=== PATIENT | male | born 1950 | race Caucasian/White ===

== ENCOUNTER 2017-05-14 06:09 | Emergency (ER) | payer BC ==
[~2017-05-14] VITALS: Ht 177.8 cm; Wt 105.3 kg
[2017-05-14 06:14] VITALS: TEMP 36.6; Ht 177.8 cm; Wt 105.3 kg
[2017-05-14] MEDS ORDERED: SODIUM CHLORIDE 0.9% 1000ML 1,000 ML IV STA (06:36)
[2017-05-14] MEDS ORDERED: FENTANYL CITRATE INJ 50 MCG/1 ML 2 ML VIAL IV STA (06:36)
[2017-05-14] MEDS ORDERED: KETOROLAC TROMETHAMINE 30 MG/ML VIAL IV STA (06:36)
[2017-05-14] MEDS ORDERED: ONDANSETRON INJ 2 MG/ML 2 ML VIAL IV STA (06:36)
[2017-05-14] MEDS ORDERED: LOSA1TAB38 PO (06:48)
[2017-05-14] MEDS ORDERED: LEVO137T3 PO (06:48)
[2017-05-14] MEDS ORDERED: METO50TA7 PO (06:48)
[2017-05-14] MEDS ORDERED: PRLSR20 PO (06:48)
[2017-05-14] MEDS ORDERED: CLR10 PO (06:49)
[2017-05-14] MEDS ORDERED: ASPCH81X PO (06:49)
[2017-05-14] MEDS ORDERED: FELO5TAB PO (06:49)
--- NOTE | 2017-05-14 06:49 | EMERGENCY ROOM VISIT NOTE ---
History Report prepared by Chiquis: Rae Schumacher Under the Supervision of: Dr. Deni Bunn D.O. First contact with patient: 06:35 Chief Complaint: FLANK PAIN Stated Complaint: KIDNEY STONE History of Present Illness The patient is a 66 year old male who presents to the Emergency Room with complaints of sudden left sided flank pain beginning about 4 hours ago. The patient states his pain woke him up this morning. He reports some nausea from the pain. The patient has a history of kidney stones. The patient states he can "feel the stone moving". The patient states when he gave a urine sample his pain went away. He states he did not see a stone in the urine sample he provided. At its worst the patient rates his pain as a 10/10. Presently, the patient rates his pain as a 1/10. His last kidney stone was about 20 years ago. Presently, he denies any flank pain and describes his pain as abdominal pressure. He states his abdominal pressure feels like after the last time he passed a stone. Source of History: patient Onset: 3 hours Position: other (flank) Symptom Intensity: Timing: other (sudden) Associated Symptoms: + nausea, + abdominal pain Review of Systems See HPI for pertinent positives & negatives. A total of 10 systems reviewed and were otherwise negative. Past Medical & Surgical Medical Problems: (1) Kidney stone Family History Patient reports no known family medical history. Social History Smoking Status: Never Smoker Marital Status: Housing Status: lives with significant other Current/Historical Medications Scheduled Aspirin (Aspirin Chewable), 81 MG PO DAILY Felodipine (Plendil), 5 MG PO DAILY Levothyroxine Sodium (Levothyroxine Sodium), 1 TAB PO DAILY Loratadine (Claritin), 10 MG PO DAILY Losartan Potassium (Cozaar), 100 MG PO DAILY Metoprolol Succ (Toprol Xl) (Toprol-Xl), 50 MG PO DAILY Omeprazole (Prilosec), 20 MG PO HS Allergies Coded Allergies: No Known Allergies (Unverified , 05/14/17) Physical Exam Vital Signs Date Time Temp Pulse Resp B/P (MAP) Pulse Ox O2 Delivery O2 Flow Rate FiO2 05/14/17 07:56 58 17 143/82 96 Room Air 05/14/17 07:01 90 16 124/71 94 Room Air 05/14/17 06:14 36.6 63 18 184/95 97 Room Air Physical Exam CONSTITUTIONAL/VITAL SIGNS: Reviewed / noted above. GENERAL: Non-toxic in appearance. INTEGUMENTARY: Warm, dry, and [place]. HEAD: Normocephalic. EYES: without scleral icterus or trauma. ENT/OROPHARYNX: clear and moist. LYMPHADENOPATHY/NECK: Is supple without lymphadenopathy or meningismus. RESPIRATORY: Lungs clear and equal. CARDIOVASCULAR: Regular rate and rhythm. GI/ABDOMEN: Soft and nontender. No organomegaly or pulsatile mass. No rebound or guarding. Normal bowel sounds. EXTREMITIES: Warm and well perfused. BACK: No CVA tenderness. NEUROLOGICAL: Intact without focal deficits. PSYCHIATRIC: normal affect. MUSCULOSKELETAL: Normally developed with good muscle tone. Medical Decision & Procedures ER Provider Diagnostic Interpretation: Radiology results as stated below per my review and radiologist interpretation: CT SCAN OF THE ABDOMEN AND PELVIS WITHOUT CONTRAST FINDINGS: Lower chest: The heart is normal in size and configuration, without pericardial effusion. The lung bases and pleural spaces are clear. Liver: There is mild hepatic steatosis. No focal masses are visualized. Gallbladder: Unremarkable. Spleen: There is scattered splenic granulomas. Pancreas: Unremarkable. Adrenal glands: Unremarkable. Kidneys: There is bilateral nephrolithiasis. The largest calculus on the left measures 3.5 mm. The largest calculus in the right measures 3 mm. There is a mid to lower pole left renal cortical scar. There are bilateral renal masses. Most are low-density, and likely represent cysts. There is an 11 mm right renal lesion which is hyperdense, favoring a hyperdense cyst. Further characterization is however not possible on this noncontrast study. There is mild fullness the right renal collecting system and right ureter. There is a 6 mm distal right ureteral calculus located just proximal to the ureteral vesicle junction Bowel: There are no transition zones indicate bowel obstruction. There is colonic diverticulosis. There are no acute peridiverticular inflammatory changes. The appendix appears normal. Peritoneum: There is no intraperitoneal free air or abdominal ascites. There is a fat-containing umbilical hernia. There are postsurgical changes of bilateral inguinal hernia repairs. There is a fat-containing left inguinal hernia. Vasculature: There is mild aneurysmal dilatation of the infrarenal abdominal aorta which measures 32 mm. Adenopathy: None. Pelvic viscera: There is mild prostamegaly Skeletal structures: No destructive osseous lesions are seen. IMPRESSION: 1. Bilateral nephrolithiasis 2. 6 mm distal right ureteral calculus with mild secondary obstructive changes 3. 32 mm abdominal aortic aneurysm 4. Bilateral renal masses. Although likely representing cysts and hyperdense cysts, these cannot be accurately characterized on this noncontrast study Electronically signed by: Andrzej Payne M.D. Laboratory Results 05/14/17 06:25 Red Blood Count 5.34, Mean Corpuscular Volume 86.0, Mean Corpuscular Hemoglobin 30.5, Mean Corpuscular Hemoglobin Concent 35.5, Mean Platelet Volume 12.0, Neutrophils (%) (Auto) 49.5, Lymphocytes (%) (Auto) 34.1, Monocytes (%) (Auto) 10.5, Eosinophils (%) (Auto) 4.7, Basophils (%) (Auto) 1.0, Neutrophils # (Auto ) 2.83, Lymphocytes # (Auto) 1.95, Monocytes # (Auto) 0.60, Eosinophils # (Auto ) 0.27, Basophils # (Auto) 0.06 05/14/17 06:25 Test 05/14/17 06:25 05/14/17 06:35 White Blood Count 5.72 K/uL (4.8-10.8) Red Blood Count 5.34 M/uL (4.7-6.1) Hemoglobin 16.3 g/dL (14.0-18.0) Hematocrit 45.9 % (42-52) Mean Corpuscular Volume 86.0 fL (80-100) Mean Corpuscular Hemoglobin 30.5 pg (25-34) Mean Corpuscular Hemoglobin Concent 35.5 g/dl (32-36) Platelet Count 127 K/uL (130-400) Mean Platelet Volume 12.0 fL (7.4-10.4) Neutrophils (%) (Auto) 49.5 % Lymphocytes (%) (Auto) 34.1 % Monocytes (%) (Auto) 10.5 % Eosinophils (%) (Auto) 4.7 % Basophils (%) (Auto) 1.0 % Neutrophils # (Auto) 2.83 K/uL (1.4-6.5) Lymphocytes # (Auto) 1.95 K/uL (1.2-3.4) Monocytes # (Auto) 0.60 K/uL (0.11-0.59) Eosinophils # (Auto) 0.27 K/uL (0-0.5) Basophils # (Auto) 0.06 K/uL (0-0.2) RDW Standard Deviation 41.1 fL (36.4-46.3) RDW Coefficient of Variation 13.0 % (11.5-14.5) Immature Granulocyte % (Auto) 0.2 % Immature Granulocyte # (Auto) 0.01 K/uL (0.00-0.02) Platelet Estimate DECREASED Anion Gap 5.0 mmol/L (3-11) Est Creatinine Clear Calc Drug Dose 86.1 ml/min Estimated GFR () 86.9 Estimated GFR (Non- 75.0 BUN/Creatinine Ratio 14.1 (10-20) Calcium Level 9.2 mg/dl (8.5-10.1) Total Bilirubin 0.5 mg/dl (0.2-1) Direct Bilirubin 0.1 mg/dl (0-0.2) Aspartate Amino Transf (AST/SGOT) 31 U/L (15-37) Alanine Aminotransferase (ALT/SGPT) 49 U/L (12-78) Alkaline Phosphatase 97 U/L (45-117) Total Protein 7.8 gm/dl (6.4-8.2) Albumin 4.0 gm/dl (3.4-5.0) Lipase 409 U/L (73-393) Urine Color YELLOW Urine Appearance CLEAR (CLEAR) Urine pH 6.0 (4.5-7.5) Urine Specific [place] 1.016 (1.000-1.030) Urine Protein NEG (NEG) Urine Glucose (UA) NEG (NEG) Urine Ketones NEG (NEG) Urine Occult Blood NEG (NEG) Urine Nitrite NEG (NEG) Urine Bilirubin NEG (NEG) Urine Urobilinogen NEG (NEG) Urine Leukocyte Esterase NEG (NEG) Urine WBC (Auto) 1-5 /hpf (0-5) Urine RBC (Auto) 0-4 /hpf (0-4) Urine Hyaline Casts (Auto) 0 /lpf (0-5) Urine Epithelial Cells (Auto) 0-5 /lpf (0-5) Urine Bacteria (Auto) NEG (NEG) Laboratory results as stated above per my review. Medications Administered Medications (Trade) Dose Ordered Sig/Viv Route Start Time Stop Time Status Last Admin Dose Admin Sodium Chloride 1,000 ml @ 999 mls/hr Q1H1M STAT IV 05/14/17 06:36 05/14/17 07:36 DC 05/14/17 06:49 999 MLS/HR ED Course 0636: Previous medical records were reviewed. The patient was evaluated in room A12B. A complete history and physical examination was performed. 0636: Ordered Toradol Inj 30 mg IV, Zofran Inj 4 mg IV, Fentanyl Inj 100 mcg IV , Sodium Chloride 1000 ml @ 999 mls/hr IV. 0820: I updated the patient on his test results. 082: On reevaluation, the patient is resting comfortably. I discussed the results and findings with the patient. He verbalized agreement of the treatment plan. The patient was discharged home. Medical Decision Differential considered: pancreatitis, hepatitis, or acute cholecystitis, AAA, UTI, pyelonephritis, kidney stones, appendicitis, diverticulitis, shingles, bowel obstruction mesenteric ischemia, intussusception,hernia, testicular torsion. This is a 66-year-old male who presents to the ED with a chief complaint of right-sided flank pain. His symptoms started around 3 AM. It awoke him from sleep several times. He had some associated nausea and dry heaves and a little vomiting. He states that his pain is down the right lower quadrant. When I saw him, his symptoms had completely resolved. His initial blood pressure was elevated but was normal after it was reassessed. His exam did not reveal any CVA tenderness or abdominal tenderness. A CT scan of the abdomen and pelvis reveals a 6 mm distal right ureteral calculus with mild obstructive changes. Complete metabolic panel was normal and urinalysis did not show infection or blood. CBC was normal. The patient remained asymptomatic during his ED stay. He was told to take ibuprofen, prescribed Percocet, and given a urine strainer. He was told the abnormal findings on the CT scan and was given a copy of this with regards to his aortic aneurysm/kidney cysts. Medication Reconcilliation Current Medication List: was personally reviewed by me Blood Pressure Screening Patient's blood pressure: Normal blood pressure Impression Primary Impression: Renal colic Additional Impression: Kidney stone Scribe Attestation The scribe's documentation has been prepared under my direction and personally reviewed by me in its entirety. I confirm that the note above accurately reflects all work, treatment, procedures, and medical decision making performed by me. Departure Information Dispostion Home / Self-Care Prescriptions Oxycodone/Acetaminophen 5MG/325MG (PERCOCET 5MG/325MG) Tab 1 TAB PO Q6H Y for Pain, #20 TAB Prov: Deni Bunn D.O. 05/14/17 Referrals Dino Meza M.D. (PCP) Forms HOME CARE DOCUMENTATION FORM, IMPORTANT VISIT INFORMATION Patient Instructions My [facility] Prepared Response Additional Instructions Strain urine for stone. Percocet as prescribed. No driving within 6 hours of use. Do not take additional Tylenol while taking Percocet. Take ibuprofen 600 mg every 6 hours as needed for pain. Follow-up with your doctor with regards to other abnormal findings on CT scan. Problem Qualifiers
[2017-05-14 06:59] LABS: CALCIUM 9.2 mg/dl (8.5-10.1); CREATININE 1.04 mg/dl (0.60-1.40); POTASSIUM 4.1 mmol/L (3.5-5.1)
[2017-05-14 07:01] LABS: TOTAL PROTEIN 7.8 gm/dl (6.4-8.2)
--- NOTE | 2017-05-14 07:09 | DIAGNOSTIC IMAGING REPORT ---
CT SCAN OF THE ABDOMEN AND PELVIS WITHOUT CONTRAST CLINICAL HISTORY: Right flank pain COMPARISON STUDY: No previous studies for comparison. TECHNIQUE: CT scan of the abdomen and pelvis was performed from the lung bases to the proximal femurs. Images are reviewed in the axial, sagittal, and coronal planes. IV contrast was not administered for this examination. A dose lowering technique was utilized adhering to the principles of ALARA. CT DOSE: 1636.34 mGy.cm FINDINGS: Lower chest: The heart is normal in size and configuration, without pericardial effusion. The lung bases and pleural spaces are clear. Liver: There is mild hepatic steatosis. No focal masses are visualized. Gallbladder: Unremarkable. Spleen: There is scattered splenic granulomas. Pancreas: Unremarkable. Adrenal glands: Unremarkable. Kidneys: There is bilateral nephrolithiasis. The largest calculus on the left measures 3.5 mm. The largest calculus in the right measures 3 mm. There is a mid to lower pole left renal cortical scar. There are bilateral renal masses. Most are low-density, and likely represent cysts. There is an 11 mm right renal lesion which is hyperdense, favoring a hyperdense cyst. Further characterization is however not possible on this noncontrast study. There is mild fullness the right renal collecting system and right ureter. There is a 6 mm distal right ureteral calculus located just proximal to the ureteral vesicle junction Bowel: There are no transition zones indicate bowel obstruction. There is colonic diverticulosis. There are no acute peridiverticular inflammatory changes. The appendix appears normal. Peritoneum: There is no intraperitoneal free air or abdominal ascites. There is a fat-containing umbilical hernia. There are postsurgical changes of bilateral inguinal hernia repairs. There is a fat-containing left inguinal hernia. Vasculature: There is mild aneurysmal dilatation of the infrarenal abdominal aorta which measures 32 mm. Adenopathy: None. Pelvic viscera: There is mild prostamegaly Skeletal structures: No destructive osseous lesions are seen. IMPRESSION: 1. Bilateral nephrolithiasis 2. 6 mm distal right ureteral calculus with mild secondary obstructive changes 3. 32 mm abdominal aortic aneurysm 4. Bilateral renal masses. Although likely representing cysts and hyperdense cysts, these cannot be accurately characterized on this noncontrast study Electronically signed by: Andrzej Payne M.D. 05/14/2017 7:08 AM Dictated Date/Time: 05/14/2017 7:01 AM
[2017-05-14 08:04] LABS: HEMATOCRIT 45.9 % (42-52); HEMOGLOBIN 16.3 g/dL (14.0-18.0); MEAN CORPUSCULAR HEMOGLOBIN 30.5 pg (25-34); MEAN CORPUSCULAR HGB CONC 35.5 g/dl (32-36); RED CELL DISTRIBUTION WIDTH SD 41.1 fL (36.4-46.3); WHITE BLOOD COUNT 5.72 K/uL (4.8-10.8)
[2017-05-14 08:05] LABS: BASO ABS # 0.06 K/uL (0-0.2); EOS % 4.7 %; EOS ABS # 0.27 K/uL (0-0.5); IG# 0.01 K/uL (0.00-0.02); LYMPH % 34.1 %; LYMPH ABS # 1.95 K/uL (1.2-3.4); MONO % 10.5 %; NEUT % 49.5 %; NEUT ABS # 2.83 K/uL (1.4-6.5); PLATELET COUNT 127 K/uL (130-400)
[2017-05-14] MEDS ORDERED: OXYC-57 PO (08:34)
[2017-05-14 08:40] VITALS: BP 139/84; PULSE 58; O2SAT 95
== END 2017-05-14 08:41 | disposition home or self-care (01) ==
LOC: C.EDB 06:12 → C.EDA 08:41
DX: N23 Unspecified renal colic (principal); N20.0 Calculus of kidney; Z79.82 Long term (current) use of aspirin

== ENCOUNTER 2017-08-02 21:29 | Emergency (ER) | payer BC ==
[~2017-08-02] VITALS: Ht 177.8 cm; Wt 104.7 kg
[~2017-08-02 21:29] MED LIST: ASPCH81X PO; CLR10 PO; FELO5TAB PO; LEVO137T3 PO; LOSA1TAB38 PO; METO50TA8 PO; OXYC-57 PO; PRLSR20 PO
[2017-08-02 21:32] VITALS: Ht 177.8 cm; Wt 104.7 kg
[2017-08-02] MEDS ORDERED: ONDANSETRON INJ 2 MG/ML 2 ML VIAL IV STA (21:44)
[2017-08-02] MEDS ORDERED: FENTANYL CITRATE INJ 50 MCG/1 ML 2 ML VIAL IV STA (21:44)
[2017-08-02] MEDS ORDERED: SODIUM CHLORIDE 0.9% 1000ML 1,000 ML IV STA (21:44)
[2017-08-02] MEDS ORDERED: KETOROLAC TROMETHAMINE 30 MG/ML VIAL IV STA (21:44)
[2017-08-02 22:08] LABS: BASO % 0.5 %; BASO ABS # 0.04 K/uL (0-0.2); EOS % 1.1 %; HEMOGLOBIN 15.3 g/dL (14.0-18.0); IG# 0.03 K/uL (0.00-0.02); LYMPH % 24.7 %; LYMPH ABS # 2.16 K/uL (1.2-3.4); MEAN CELL VOLUME 87.5 fL (80-100); MEAN CORPUSCULAR HEMOGLOBIN 30.4 pg (25-34); MEAN CORPUSCULAR HGB CONC 34.8 g/dl (32-36); MEAN PLATELET VOLUME 11.8 fL (7.4-10.4); MONO % 10.2 %; MONO ABS # 0.89 K/uL (0.11-0.59); NEUT % 63.2 %; NEUT ABS # 5.53 K/uL (1.4-6.5); PLATELET COUNT 112 K/uL (130-400); RED CELL DISTRIBUTION WIDTH SD 44.6 fL (36.4-46.3); WHITE BLOOD COUNT 8.75 K/uL (4.8-10.8)
[2017-08-02 22:25] LABS: ALBUMIN 4.3 gm/dl (3.4-5.0); CALCIUM 9.4 mg/dl (8.5-10.1); CREATININE 1.22 mg/dl (0.60-1.40); POTASSIUM 4.4 mmol/L (3.5-5.1)
[2017-08-02 22:28] LABS: TOTAL PROTEIN 7.3 gm/dl (6.4-8.2)
[2017-08-02] MEDS ORDERED: LEVO150T9 PO (22:37)
[2017-08-02] MEDS ORDERED: TOCI20IN SC (22:37)
[2017-08-02] MEDS ORDERED: PRED-301 PO (22:37)
[2017-08-02] MEDS ORDERED: ASPI81TA28 PO (22:37)
[2017-08-02] MEDS ORDERED: OXYC-57 PO (22:37)
[2017-08-02] MEDS ORDERED: FELO10TA PO (22:37)
--- NOTE | 2017-08-02 22:42 | DIAGNOSTIC IMAGING REPORT ---
ABD/PELVIS WITHOUT FOR STONE CT DOSE: 1131.26 mGy.cm HISTORY: Right flank pain flank pain TECHNIQUE: Multiaxial CT images of the abdomen and pelvis were performed without the use of intravenous and oral contrast according to the standard department stone protocol. A dose lowering technique was utilized adhering to the principles of ALARA. COMPARISON STUDY: 05/14/2017. FINDINGS: mild bibasilar dependent atelectasis. Liver spleen and pancreas are grossly unremarkable. Multiple bilateral renal cysts as well as renal calcifications similar as compared to the prior study. Interval mild right hydroureteronephrosis. 7 mm obstructing calculus right ureterovesical junction. Operative changes in the inguinal regions previously described. Nonobstructive bowel pattern. 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 IMPRESSION: 1. 7 mm obstructing calculus right ureterovesical junction. 2. Mild right renal hydroureteronephrosis. 3. Bilateral renal cysts and nonobstructing renal calcifications similar to the prior study. The above report was generated using voice recognition software. It may contain grammatical, syntax or spelling errors. Electronically signed by: Dago Epps M.D. 08/02/2017 10:40 PM Dictated Date/Time: 08/02/2017 10:38 PM
[2017-08-02] MEDS ORDERED: TAMS0.4C38 PO (23:03)
[2017-08-02] MEDS ORDERED: OXYC10TA80 PO (23:03)
--- NOTE | 2017-08-02 23:03 | EMERGENCY ROOM VISIT NOTE ---
History Report prepared by Chiquis: Roger Workman Under the Supervision of: Dr. Deni Bunn D.O. First contact with patient: 21:41 Chief Complaint: FLANK PAIN Stated Complaint: POSSIBLE KIDNEY STONE History of Present Illness The patient is a 66 year old male who presents to the Emergency Room with complaints of severe and constant right sided flank pain that began at 2000, 1 hour and 40 minutes ago. The patient has a history of kidney stones and notes that this episode feels very similar. The patient did take 1 Percocet pain pill when the symptoms onset. This prescription was left over from his last episode in May. The patient is currently diagnosed with Temporal Arteritis and is on Prednisone. He does have an "Actemra" shot delivered to his house 1/week for the Arteritis as well. Source of History: patient Onset: 1 hour and 40 minutes ago Position: back (right flank pain) Symptom Intensity: severe Timing: constant Review of Systems See HPI for pertinent positives & negatives. A total of 10 systems reviewed and were otherwise negative. Past Medical & Surgical Medical Problems: (1) Kidney stone Family History Patient reports no known family medical history. Social History Smoking Status: Never Smoker Marital Status: Housing Status: lives with significant other Current/Historical Medications Scheduled Aspirin (Aspirin Ec), 81 MG PO DAILY Felodipine (Plendil Er), 10 MG PO DAILY Levothyroxine Sodium (Levothyroxine Sodium), 150 MCG PO DAILY Losartan Potassium (Cozaar), 100 MG PO DAILY Metoprolol Succ (Toprol Xl) (Toprol-Xl), 50 MG PO DAILY Omeprazole (Prilosec), 20 MG PO HS Ondasetron Odt (Zofran Odt), 4 MG SL Q6H Prednisone (Prednisone), 15 MG PO DAILY Tamsulosin Hcl (Flomax), 0.4 MG PO HS Tocilizumab (Actemra), 162 MG SC WK Scheduled PRN Loratadine (Claritin), 10 MG PO DAILY PRN for Allergy Symptoms Oxycodone/Acetaminophen 10MG/325MG (Percocet 10MG/325MG), 1 TAB PO Q4H PRN for Pain Oxycodone/Acetaminophen 5MG/325MG (Percocet 5MG/325MG), 5 MG PO Q6H PRN for Pain Allergies Coded Allergies: No Known Allergies (Unverified , 05/14/17) Physical Exam Vital Signs Date Time Temp Pulse Resp B/P (MAP) Pulse Ox O2 Delivery O2 Flow Rate FiO2 08/02/17 21:57 61 20 118/75 96 Room Air 08/02/17 21:32 36.3 73 20 146/85 94 Room Air Physical Exam CONSTITUTIONAL/VITAL SIGNS: Reviewed / noted above. GENERAL: Non-toxic in appearance. INTEGUMENTARY: Warm, dry, and [place]. HEAD: Normocephalic. EYES: without scleral icterus or trauma. ENT/OROPHARYNX: clear and moist. LYMPHADENOPATHY/NECK: Is supple without lymphadenopathy or meningismus. RESPIRATORY: Lungs clear and equal. CARDIOVASCULAR: Regular rate and rhythm. GI/ABDOMEN: Soft and nontender. No organomegaly or pulsatile mass. No rebound or guarding. Normal bowel sounds. EXTREMITIES: Warm and well perfused. BACK: Right CVA tenderness. NEUROLOGICAL: Intact without focal deficits. PSYCHIATRIC: normal affect. MUSCULOSKELETAL: Normally developed with good muscle tone. Medical Decision & Procedures ER Provider Diagnostic Interpretation: Radiology results as stated below per my review and radiologist interpretation: ABD/PELVIS WITHOUT FOR STONE CT DOSE: 1131.26 mGy.cm HISTORY: Right flank pain flank pain TECHNIQUE: Multiaxial CT images of the abdomen and pelvis were performed without the use of intravenous and oral contrast according to the standard department stone protocol. A dose lowering technique was utilized adhering to the principles of ALARA. COMPARISON STUDY: 05/14/2017. FINDINGS: mild bibasilar dependent atelectasis. Liver spleen and pancreas are grossly unremarkable. Multiple bilateral renal cysts as well as renal calcifications similar as compared to the prior study. Interval mild right hydroureteronephrosis. 7 mm obstructing calculus right ureterovesical junction. Operative changes in the inguinal regions previously described. Nonobstructive bowel pattern. 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 IMPRESSION: 1. 7 mm obstructing calculus right ureterovesical junction. 2. Mild right renal hydroureteronephrosis. 3. Bilateral renal cysts and nonobstructing renal calcifications similar to the prior study. The above report was generated using voice recognition software. It may contain grammatical, syntax or spelling errors. Electronically signed by: Dago Epps M.D. 08/02/2017 10:40 PM Dictated Date/Time: 08/02/2017 10:38 PM Laboratory Results 4/22/18 21:52 Red Blood Count 5.03, Mean Corpuscular Volume 87.5, Mean Corpuscular Hemoglobin 30.4, Mean Corpuscular Hemoglobin Concent 34.8, Mean Platelet Volume 11.8, Neutrophils (%) (Auto) 63.2, Lymphocytes (%) (Auto) 24.7, Monocytes (%) (Auto) 10.2, Eosinophils (%) (Auto) 1.1, Basophils (%) (Auto) 0.5, Neutrophils # (Auto ) 5.53, Lymphocytes # (Auto) 2.16, Monocytes # (Auto) 0.89, Eosinophils # (Auto ) 0.10, Basophils # (Auto) 0.04 08/02/17 21:52 Test 08/02/17 21:52 White Blood Count 8.75 K/uL (4.8-10.8) Red Blood Count 5.03 M/uL (4.7-6.1) Hemoglobin 15.3 g/dL (14.0-18.0) Hematocrit 44.0 % (42-52) Mean Corpuscular Volume 87.5 fL (80-100) Mean Corpuscular Hemoglobin 30.4 pg (25-34) Mean Corpuscular Hemoglobin Concent 34.8 g/dl (32-36) Platelet Count 112 K/uL (130-400) Mean Platelet Volume 11.8 fL (7.4-10.4) Neutrophils (%) (Auto) 63.2 % Lymphocytes (%) (Auto) 24.7 % Monocytes (%) (Auto) 10.2 % Eosinophils (%) (Auto) 1.1 % Basophils (%) (Auto) 0.5 % Neutrophils # (Auto) 5.53 K/uL (1.4-6.5) Lymphocytes # (Auto) 2.16 K/uL (1.2-3.4) Monocytes # (Auto) 0.89 K/uL (0.11-0.59) Eosinophils # (Auto) 0.10 K/uL (0-0.5) Basophils # (Auto) 0.04 K/uL (0-0.2) RDW Standard Deviation 44.6 fL (36.4-46.3) RDW Coefficient of Variation 14.0 % (11.5-14.5) Immature Granulocyte % (Auto) 0.3 % Immature Granulocyte # (Auto) 0.03 K/uL (0.00-0.02) Anion Gap 6.0 mmol/L (3-11) Est Creatinine Clear Calc Drug Dose 73.2 ml/min Estimated GFR () 71.7 Estimated GFR (Non- 61.8 BUN/Creatinine Ratio 22.6 (10-20) Calcium Level 9.4 mg/dl (8.5-10.1) Total Bilirubin 0.6 mg/dl (0.2-1) Direct Bilirubin 0.1 mg/dl (0-0.2) Aspartate Amino Transf (AST/SGOT) 41 U/L (15-37) Alanine Aminotransferase (ALT/SGPT) 53 U/L (12-78) Alkaline Phosphatase 55 U/L (45-117) Total Protein 7.3 gm/dl (6.4-8.2) Albumin 4.3 gm/dl (3.4-5.0) Lipase 419 U/L (73-393) Laboratory results as stated above per my review. Medications Administered Medications (Trade) Dose Ordered Sig/Viv Route Start Time Stop Time Status Last Admin Dose Admin Sodium Chloride 1,000 ml @ 999 mls/hr Q1H1M STAT IV 08/02/17 21:44 08/02/17 22:44 DC 08/02/17 21:55 999 MLS/HR Fentanyl Citrate (Fentanyl Inj) 100 mcg NOW STAT IV 08/02/17 21:44 08/02/17 21:46 DC 08/02/17 21:56 100 MCG Ondansetron HCl (Zofran Inj) 4 mg NOW STAT IV 08/02/17 21:44 08/02/17 21:46 DC 08/02/17 21:57 4 MG Ketorolac Tromethamine (Toradol Inj) 30 mg NOW STAT IV 08/02/17 21:44 08/02/17 21:46 DC 08/02/17 21:56 30 MG ED Course 2141: Previous medical records were reviewed. The patient was evaluated in room B4B. A complete history and physical examination was performed. 2143: Ordered Toradol 30 mg IV, Zofran 4 mg IV, Fentanyl 100 mcg IV, Sodium Chloride 1000 mL @ 999 mL/hr IV. 5: Ordered Flomax 0.4 mg PO. 2318: On reevaluation, the patient is resting in bed. I discussed the results and findings with the patient. He verbalized agreement of the treatment plan. The patient was discharged home. Medical Decision Differential diagnosis: Etiologies such as renal colic, appendicitis, diverticulitis, mesenteric ischemia, aortic pathology, infections, inflammatory bowel disease, PUD, biliary pathology, UTI, as well as others were entertained. This is a 66-year-old male who presents to the ED with a chief complaint of right flank pain. He states the symptoms are similar to previous kidney stone. His symptoms started around 8 PM tonight. His exam reveals some right CVA tenderness. CT scan of the abdomen pelvis reveals a 7 mm right UVJ calculus with some mild right-sided hydro-. CBC is normal the BUN is 28. The patient was treated with IV fluids, IV Toradol and IV fentanyl as well as some IV Zofran. He was also given Flomax p.o. the patient was told the results of the test. His symptoms did improve. He was felt to be stable for discharge. Medication Reconcilliation Current Medication List: was personally reviewed by me Blood Pressure Screening Patient's blood pressure: Elevated blood pressure Blood pressure disposition: Referred to PCP Impression Primary Impression: Renal colic on right side Additional Impression: Ureteral calculus, right Scribe Attestation The scribe's documentation has been prepared under my direction and personally reviewed by me in its entirety. I confirm that the note above accurately reflects all work, treatment, procedures, and medical decision making performed by me. Departure Information Dispostion Home / Self-Care Prescriptions Ondasetron Odt (ZOFRAN ODT) 4 Mg Tab 4 MG SL Q6H for Nausea, #20 TAB Prov: Deni Bunn D.OPaz 08/02/17 Oxycodone/Acetaminophen 10MG/325MG (PERCOCET 10MG/325MG) Tab 1 TAB PO Q4H Y for Pain, #20 TAB Prov: Deni Bunn D.O. 08/02/17 Tamsulosin Hcl (FLOMAX) 0.4 Mg Cap 0.4 MG PO HS, #10 CAP Prov: Deni Bunn D.O. 08/02/17 Referrals Dino Meza M.D. (PCP) Patient Instructions [facility] Additional Instructions Strain urine for stone. Take ibuprofen 600 mg every 6 hours for pain. Percocet as prescribed. No driving within 6 hours of use. Do not take additional Tylenol while taking Percocet. Flomax: Take 1 each night until stone passes. \\ Follow-up with urology. Problem Qualifiers
[2017-08-02] MEDS ORDERED: TAMSULOSIN HCL 0.4 MG CAP PO ONE (23:15)
[2017-08-02] MEDS ORDERED: ONDA4TAB10 SL (23:18)
[2017-08-02 23:47] VITALS: BP 110/68; PULSE 61; TEMP 36.3; O2SAT 94
== END 2017-08-02 23:48 | disposition home or self-care (01) ==
LOC: C.EDB 21:30
DX: N23 Unspecified renal colic (principal); N20.1 Calculus of ureter; Z79.82 Long term (current) use of aspirin; Z79.899 Other long term (current) drug therapy

== ENCOUNTER 2022-02-16 14:07 | Inpatient (IN) ==
[~2022-02-16 14:07] MED LIST changes: +AMIODARONE 150MG / 100ML D5W IV ONE; +AMIODARONE 360MG / 200ML D5W IV ONE; -ASPCH81X PO; -CLR10 PO; -FELO5TAB PO; +KETAMINE HCL INJ 50 MG/ML 10 ML VIAL IV ONE; -LEVO137T3 PO; -LOSA1TAB38 PO; -METO50TA8 PO; -OXYC-57 PO; -PRLSR20 PO; +RAPID SEQUENCE INDUCTION BAG ONE; +ROCURONIUM BROMIDE 10 MG/ML 5 ML VIAL IV ONE; +fentaNYL citrate 100 MCG/2 ML VIAL IV ONE
[2022-02-16] MEDS ORDERED: AMIODARONE IV BOLUS & DRIP IV STA (14:08)
[2022-02-16] MEDS ORDERED: AMIODARONE / D5W 150 MG/100 ML BAG IV STA (14:08)
[2022-02-16] MEDS ORDERED: STAT IV Infusion **Titration per Protocol STA ×4 (14:08→16:56)
[2022-02-16] MEDS ORDERED: ASPIRIN 300 MG SUPP PR ONE (14:08)
[2022-02-16] MEDS ORDERED: SODIUM CHLORIDE 0.9% 500 ML IV STA (14:08)
[2022-02-16] MEDS ORDERED: 0.2 MICRON FILTER SET 1 EACH IV STA (14:08)
[2022-02-16] MEDS ORDERED: PROPOFOL IV EMULSION 10 MG/ML 100 ML VIAL IV ONE (14:17)
[2022-02-16] MEDS ORDERED: SODIUM CHLORIDE 0.9% 1000ML 1,000 ML IV ONE (14:18)
[2022-02-16] MEDS ORDERED: AMIODARONE / D5W 360 MG/200 ML BAG IV ONE ×2 (14:19→16:03)
[2022-02-16] MEDS ORDERED: NOREPINEPHRINE/D5W 4 MG/250 ML IV ONE (14:29)
[2022-02-16] MEDS ORDERED: niCARdipine HCL INJ 2.5 MG/ML 10 ML AMP ONE (14:34)
[2022-02-16] MEDS ORDERED: MIDAZOLAM HCL 1 MG/ML 2ML VIAL ONE ×2 (14:34→16:47)
[2022-02-16] MEDS ORDERED: fentaNYL citrate 100 MCG/2 ML VIAL ONE ×2 (14:34→16:46)
[2022-02-16] MEDS ORDERED: HEPARIN (PORCINE) 1000 UNIT/ML 10 ML (CATH LAB USE ONLY) ONE ×2 (14:34→15:17)
[2022-02-16] MEDS ORDERED: NITROGLYCERIN/D5W 100MCG/ML 20ML SYR ONE (14:35)
[2022-02-16] MEDS ORDERED: NOREPINEPHRINE BITARTRATE 1 MG/ML 4 ML VIAL (CATH LAB USE ONLY) IV ONE (14:35)
[2022-02-16] MEDS ORDERED: ATROPINE SULFATE 0.1 MG/ML 10ML SYR IV ONE (14:35)
--- NOTE | 2022-02-16 14:35 | XRay Report ---
[facility] AP CHEST RADIOGRAPH CLINICAL HISTORY: Chest Pain COMPARISON STUDY: Chest radiograph July 16, 2021. FINDINGS: Tip of endotracheal tube is 3.9 cm above the [place]. No pneumothorax or pleural effusion is noted. Right costophrenic angle was not included. Apparent increase in cardiac enlargement is likely technical as is mediastinal widening. There is no evidence for pulmonary edema. There is no consolid ation. IMPRESSION: 1. Satisfactory positioning of the endotracheal tube. 2. Cardiomegaly. No acute cardiomegaly findings. ACT 112: Negative or not required by law. Electronically signed by: Contreras Bartlett M.D. 02/16/2022 2:32 PM
[2022-02-16] MEDS ORDERED: Standard Conc 16mcg/mL; 4mg in 250mL IV SCH (14:45)
--- NOTE | 2022-02-16 14:55 | Emergency Department Note ---
Impression & Plan Cardiac arrest, Acute myocardial infarction, Cardiogenic shock, Atrial fibrillation with rapid ventricular response ED Provider Note NAME: ANIA TURNRE AGE: 71 SEX: M : 1950 ARRIVES VIA: Ambulance INFORMANT: EMS, Family ED PROVIDER(S): Aroldo Edge DO CHIEF COMPLAINT: Cardiac arrest HPI: The patient is a 71-year-old male who presented to the emergency department after cardiac arrest. The patient had a cardiac arrest which was witnessed by family members. They state that he started having an arching of his back and almost appear to though he was having a seizure. The patient then lost consciousness. He was lowered to the floor. There was no fall. The patient started receiving CPR from family members. 911 was called. The police were first on arrival and attached AED. The AED did deliver 1 defibrillation. Upon arrival the EMS personnel found the patient have atrial fibrillation with RVR. He also had ST segment elevation that was consistent with a STEMI. The patient was unable to be intubated because he was clenching. He was having episodes of reaching out and was being combative. He received 4 mg of Ativan prior to arrival. He received no aspirin. The patient arrived to the emergency department. He was not responsive to verbal commands but was sitting up and yelling loudly. He could not communicate with us. The patient has history of cardiac issues in the past according to his . The family members did present to the emergency department and did provide partial history. ROS: See above HPI for pertinent positives & negatives. A total of 10 systems reviewed and were otherwise negative. PAST MEDICAL HISTORY: See Below PAST SURGICAL HISTORY: See Below FAMILY HISTORY: See Below SOCIAL HISTORY: See Below HOME MEDICATIONS: See Below ALLERGIES: See Below VITALS: See Below PHYSICAL EXAMINATION: GENERAL: The patient is obtunded. He does not follow commands. He sits up intermittently and yells out as if he is in pain. EYES: The conjunctivae are clear. The pupils are round and reactive. EARS, NOSE, MOUTH AND THROAT: The nose is without any evidence of any deformity. Mucous membranes are moist. Tongue is midline. There is a bite aryan to the tongue. NECK: The neck is nontender and supple. RESPIRATORY: Diminished and shallow respirations were noted. CARDIOVASCULAR: Tachycardic and irregular heart sounds were noted auscultation. GASTROINTESTINAL: The abdomen is soft. Abdomen is nontender. There is no mass. MUSCULOSKELETAL/EXTREMITIES: There is no evidence of gross deformity full range of motion is noted in the hips and shoulders. SKIN: Skin is warm and dry. There is no significant pedal edema. NEUROLOGIC: GCS of 11 MEDICAL DECISION MAKING: The patient is a 71-year-old male who presented to the emergency department for an evaluation after a cardiac arrest. The patient had a cardiac arrest was witnessed by family. CPR was initiated. The patient did receive defibrillation by an outside AED by the police. The patient arrived via ALS. He did receive Ativan prior to arrival as he was very combative. On EKG the patient was noted to have signs of an ST segment elevation [place] in the inferior leads. He was also noted to have diffuse ST segment depression. He was also in rapid atrial fibrillation. Given the atrial fibrillation as well as the presumed wide- complex tachycardia that he was defibrillated out of he was started on amiodarone in the emergency department. Rectal aspirin was ordered in the emergency department but the stem assembler recommended against that once he arrived in the emergency department. He was made a heart alert. The patient required intubation. He was not alert in the emergency department and did not answer questions. He may require further work-up given the cardiac arrest. Otherwise the patient was treated with pressors and IV fluid. He was also intubated in the usual fashion. The patient had episodes of bradycardia or and received atropine as well as push dose epinephrine. He was also placed on Levophed. Additional history was obtained from the patient's family members. Triage Nursing notes reviewed. Prior medical records reviewed Vital Signs: reviewed and remarkable for tachycardia and hypotension. Differential diagnosis: Cardiac ischemia, aortic dissection, pulmonary embolism, pneumothorax, pneumonia, pericarditis, myocarditis, esophageal rupture, GERD, cholecystitis, pancreatitis, musculoskeletal, as well as other pathologies. ER treatment provided: See below Diagnostics interpreted by me: ECG: EKG was obtained in the emergency department. My interpretation is atrial fibrillation with RVR at [address] segment elevations noted in the inferior leads. There is also ST depression noted in the lateral and anterior leads. LVH was suggested by voltage criteria. This was compared to a tracing from July 16, 2021. Significant changes have occurred including the ischemic changes. Cardiac Monitoring: An order was placed for continuous cardiac monitoring. The monitor shows a rate of 102 bpm with atrial fibrillation with RVR. Laboratory studies: As stated above and show below. Imaging studies: See below Consultation(s): I discussed this case with Dr. Suazo. He presented to the bedside to evaluate the patient. ED COURSE: Procedures: Endotracheal Intubation Indication cardiogenic shock. The patient was on 100% oxygen via NRB prior to the procedure. Suction, airway equipment, RSI drugs, respiratory equipment, and appropriate personnel were prepared prior to the initiation of the procedure. A time out was taken. Induction was performed with ketamine and. A rocuroniumfter observing the clinical benefit of the medications, the airway was easily visualized utilizing a glide scope. A 7.5 size ETT tube was placed atraumatically to 24 cm using standard technique. The cuff inflated without signs of malfunction. There were bilateral breath sounds, positive colormetric change, no gastric sounds, a good capnography waveform, and post procedure pulse oximetry was 99%. Post intubation sedation and paralysis was administered using propofol. There were no complications. Critical Care: I have personally spent greater than 45 minutes of critical care time in the direct management of this patient. This includes bedside care, interpretation of diagnostic studies, and testing, discussion with consultants, patient, and family members, and other required patient management activities. This 45 minutes is in excess of all separately billable procedures. Past Med/Surg History Medical History AAA (abdominal aortic aneurysm) Family history of reaction to anesthesia FATHER "ALLERGIC TO MORPHINE" GERD (gastroesophageal reflux disease) Hyperlipidemia Hypertension Hypomagnesemia Hypothyroidism Kidney stones Paroxysmal A-fib a single 12 minute episode was recorded on a ZIO patch monitor in July of 2021 Tachy-jose syndrome per cardiology note - "Borderline tachy Jose syndrome with atrial ventricular ectopy paroxysmal supraventricular tachycardia/atrial fibrillation. No profound Jose arrhythmias observed." Umbilical hernia Ventricular fibrillation Surgical History History of colonoscopy History of cystoscopy MULTIPLE TIMES>KIDNEY STONES/STENT INSERTION History of lithotripsy MULTIPLE History of temporal artery biopsy History of tonsillectomy History of tooth extraction Nausea and vomiting after administration of anesthetic agent Family History Father , age 52 of an [place] Myocardial infarction Lung cancer Mother , in 70s of lung cancer Lung cancer Social History Smoking Status: Former smoker Cigarettes Per Day: QUIT 28 YEARS AGO in 1994; Smoking End Date: 1994; Second Hand Exposure: No; Hx Alcohol Use: Yes Alcohol type: beer Alcohol Intake Frequency Comment: uncertain frequency Hx Substance Use: No Preferred Language: Romansh Communication Ability: Effective Watch Adjuster Required: No Beliefs That Will Affect Care: None Current Living Situation: Spouse current occupational status: employed 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 release 24 hr omeprazole 20 mg delayed 1 tab PO QAM 01/11/18 02/16/22 release,disintegrating tablet atorvastatin 40 mg tablet 40 mg PO DAILY 02/16/22 02/16/22 levothyroxine 150 mcg tablet 150 mcg PO DAILY 02/16/22 02/16/22 olmesartan 40 mg tablet 40 mg PO DAILY 02/16/22 02/16/22 tamsulosin 0.4 mg capsule 0.4 mg PO DAILY 02/16/22 02/16/22 Results & Data (ED) Vital Signs Vital Signs - 24 hr 02/16/22 14:00 02/16/22 14:12 02/16/22 14:31 Pulse Rate Pulse Rate [Apical] 132 H Respiratory Rate 18 Respiratory Effort / Characteristics Blood Pressure [Right Arm] 58/32 L Blood Pressure Mean [Right Arm] 40 Pulse Oximetry 98 Oxygen Delivery Method Ambu-Bag Fraction of Inspired Oxygen Sepsis New/Unexplained Change in Mental Status Yes Sepsis Action Taken by Nursing No Action Required End-Tidal CO2 02/16/22 14:37 02/16/22 14:40 02/16/22 14:17 Pulse Rate Pulse Rate [Apical] 120 H Respiratory Rate 21 Respiratory Effort / Characteristics Mechanically Ventilated Blood Pressure [Right Arm] 59/39 L 110/58 L Blood Pressure Mean [Right Arm] 45 75 Pulse Oximetry 97 Oxygen Delivery Method Mechanical Vent Mechanical Vent Fraction of Inspired Oxygen Sepsis New/Unexplained Change in Mental Status Sepsis Action Taken by Nursing End-Tidal CO2 02/16/22 14:19 02/16/22 14:21 02/16/22 14:24 Pulse Rate Pulse Rate [Apical] 92 H 99 H 72 Respiratory Rate 20 20 20 Respiratory Effort / Characteristics Mechanically Ventilated Mechanically Ventilated Mechanically Ventilated Blood Pressure [Right Arm] 71/58 L 83/50 L 59/42 L Blood Pressure Mean [Right Arm] 62 61 47 Pulse Oximetry 98 98 97 Oxygen Delivery Method Mechanical Vent Mechanical Vent Mechanical Vent Fraction of Inspired Oxygen Sepsis New/Unexplained Change in Mental Status Sepsis Action Taken by Nursing End-Tidal CO2 02/16/22 14:31 02/16/22 14:33 02/16/22 14:36 Pulse Rate Pulse Rate [Apical] 57 L 56 L 51 L Respiratory Rate 20 20 20 Respiratory Effort / Characteristics Mechanically Ventilated Mechanically Ventilated Mechanically Ventilated Blood Pressure [Right Arm] 58/32 L 54/41 L 59/39 L Blood Pressure Mean [Right Arm] 40 45 45 Pulse Oximetry 93 94 94 Oxygen Delivery Method Mechanical Vent Mechanical Vent Mechanical Vent Fraction of Inspired Oxygen Sepsis New/Unexplained Change in Mental Status Sepsis Action Taken by Nursing End-Tidal CO2 02/16/22 14:48 Pulse Rate 144 H Pulse Rate [Apical] Respiratory Rate 22 Respiratory Effort / Characteristics Blood Pressure [Right Arm] Blood Pressure Mean [Right Arm] Pulse Oximetry 95 Oxygen Delivery Method Fraction of Inspired Oxygen 100 Sepsis New/Unexplained Change in Mental Status Sepsis Action Taken by Nursing End-Tidal CO2 34 Home Medications Current Medication List: was personally reviewed by me Laboratory Data Attestation: I reviewed the patient's lab results. Result diagrams: 02/17/22 01:05 02/17/22 07:00 Lab Results 02/16/22 02/16/22 02/16/22 Range/Units 14:22 14:29 14:29 WBC 7.32 (4.8-10.8) K/ul RBC 4.55 L (4.63-6.08) M/uL Hgb 13.6 L (14.0-18.0) g/dl Hct 40.2 (40.1-51.0) % MCV 88.4 (80.0-100.0) fL MCH 29.9 (25.0-34.0) pg MCHC 33.8 (32.0-36.0) g/dL RDW Std Deviation 41.7 (36.4-46.3) fL RDW Coeff of Laverne 12.9 (11.5-14.5) % Plt Count 102 L (130-400) K/uL MPV 13.4 H (9.4-12.4) fL Immature Gran % (Auto) 1.6 % Neut % (Auto) 57.5 % Lymph % (Auto) 31.1 % Allen % (Auto) 6.4 % Eos % (Auto) 2.6 % Baso % (Auto) 0.8 % Neut # (Auto) 4.20 (1.4-6.5) K/uL Lymph # (Auto) 2.28 (1.2-3.4) K/uL Allen # (Auto) 0.47 (0.24-0.82) K/uL Eos # (Auto) 0.19 (0-0.50) K/uL Baso # (Auto) 0.06 (0-0.2) K/uL Immature Gran # (Auto) 0.12 H (0.00-0.02) K/uL PT (9.0-12.0) Seconds INR (0.9-1.1) APTT (21.0-31.0) Seconds PTT Ratio Activ Coag Time Kaolin (94-140) SECONDS Sodium 142 (136-145) mmol/L Potassium 3.1 L (3.5-5.1) mmol/L Chloride 107 (98-107) mmol/L Carbon Dioxide 23 (21-32) mmol/L Anion Gap 12 H (3-11) BUN 19 (6-23) mg/dl Creatinine 1.04 (0.6-1.4) mg/dl Est Cr Clr Drug Dosing Not Reportable Est GFR ( Amer) 83.9 ml/min Est GFR (Non-Af Amer) 72.4 ml/min BUN/Creatinine Ratio 18.3 (10-20) Glucose 202 H (70-99(Fasting)) mg/dl Calcium 8.2 L (8.5-10.1) mg/dl Magnesium 1.9 (1.7-2.4) mg/dl Total Bilirubin 0.7 (0.2-1.0) mg/dl AST 102 H (13-39) U/L ALT 126 H (7-52) U/L Alkaline Phosphatase 75 (34-104) U/L Troponin I High Sens 298.6 H* (0-20) pg/ml Total Protein 6.1 (6.0-8.3) gm/dl Albumin 3.9 (3.4-5.0) gm/dl Globulin 2.2 L (2.5-4.0) gm/dl Albumin/Globulin Ratio 1.8 (0.9-2) Lipase 60 (11-82) U/L TSH (0.300-4.500) uIu/ml SARS-CoV-2, RNA, NAAT NEGATIVE (NEGATIVE) 02/16/22 02/16/22 02/16/22 Range/Units 14:29 14:29 15:13 WBC (4.8-10.8) K/ul RBC (4.63-6.08) M/uL Hgb (14.0-18.0) g/dl Hct (40.1-51.0) % MCV (80.0-100.0) fL MCH (25.0-34.0) pg MCHC (32.0-36.0) g/dL RDW Std Deviation (36.4-46.3) fL RDW Coeff of Laverne (11.5-14.5) % Plt Count (130-400) K/uL MPV (9.4-12.4) fL Immature Gran % (Auto) % Neut % (Auto) % Lymph % (Auto) % Allen % (Auto) % Eos % (Auto) % Baso % (Auto) % Neut # (Auto) (1.4-6.5) K/uL Lymph # (Auto) (1.2-3.4) K/uL Allen # (Auto) (0.24-0.82) K/uL Eos # (Auto) (0-0.50) K/uL Baso # (Auto) (0-0.2) K/uL Immature Gran # (Auto) (0.00-0.02) K/uL PT 11.4 (9.0-12.0) Seconds INR 1.1 (0.9-1.1) APTT 20.7 L (21.0-31.0) Seconds PTT Ratio 0.8 Activ Coag Time Kaolin 248 H (94-140) SECONDS Sodium (136-145) mmol/L Potassium (3.5-5.1) mmol/L Chloride (98-107) mmol/L Carbon Dioxide (21-32) mmol/L Anion Gap (3-11) BUN (6-23) mg/dl Creatinine (0.6-1.4) mg/dl Est Cr Clr Drug Dosing Est GFR ( Amer) ml/min Est GFR (Non-Af Amer) ml/min BUN/Creatinine Ratio (10-20) Glucose (70-99(Fasting)) mg/dl Calcium (8.5-10.1) mg/dl Magnesium (1.7-2.4) mg/dl Total Bilirubin (0.2-1.0) mg/dl AST (13-39) U/L ALT (7-52) U/L Alkaline Phosphatase (34-104) U/L Troponin I High Sens (0-20) pg/ml Total Protein (6.0-8.3) gm/dl Albumin (3.4-5.0) gm/dl Globulin (2.5-4.0) gm/dl Albumin/Globulin Ratio (0.9-2) Lipase (11-82) U/L TSH 1.446 (0.300-4.500) uIu/ml SARS-CoV-2, RNA, NAAT (NEGATIVE) Administered Medications Aspirin (Aspirin 81 Mg Chew) [facility] Stop: 03/19/22 08:59 Last Admin: 02/17/22 08:39 Dose: Not Given Documented By: SARAI Atorvastatin Calcium (Atorvastatin 40 Mg Tab) [facility] Stop: 03/19/22 08:59 Last Admin: 02/17/22 08:28 Dose: 80 mg Documented By: SARAI Enoxaparin Sodium (Enoxaparin Inj 40 Mg/0.4 Ml Syr) 40 mg SQ Q24H [facility] Stop: 03/18/22 17:59 Last Admin: 02/16/22 17:50 Dose: 40 mg Documented By: SARAI Amiodarone HCl/Dextrose (Nexterone / D5w) 360 mg in 200 mls @ 16.667 mls/hr IV .Q12H [facility] Stop: 03/18/22 20:14 Last Admin: 02/17/22 08:10 Dose: Not Given Documented By: Admin: 02/17/22 07:09 Dose: 0.5 mg/min, 16.7 mls/hr Documented By: SARAI Co-signed By: MAGALY Infusion: 02/17/22 07:09 Dose: 0.5 mg/min, 16.7 mls/hr Documented By: SARAI Co-signed By: MAGALY Admin: 02/16/22 19:45 Dose: 0.5 mg/min, 16.7 mls/hr Documented By: DUSTIN Co-signed By: PRAMOD Propofol (Diprivan) 1,000 mg in 100 mls @ 26.256 mls/hr IV .Q3H49M KIAN; Protocol Stop: 02/19/22 14:29 Last Admin: 02/17/22 09:16 Dose: 40 mcg/kg/min, 26.3 mls/hr Documented By: SARAI Co-signed By: BK Titration: 02/17/22 09:16 Dose: 40 mcg/kg/min, 26.3 mls/hr Documented By: SARAI Co-signed By: CAM Titration: 02/17/22 06:54 Dose: 40 mcg/kg/min, 26.3 mls/hr Documented By: DUSTIN Co-signed By: SARAI Admin: 02/17/22 05:29 Dose: 40 mcg/kg/min, 26.3 mls/hr Documented By: DUSTIN Co-signed By: MAGALY Titration: 02/17/22 05:29 Dose: 40 mcg/kg/min, 26.3 mls/hr Documented By: DUSTIN Co-signed By: MAGALY Admin: 02/17/22 01:40 Dose: 40 mcg/kg/min, 26.3 mls/hr Documented By: DUSTIN Co-signed By: MEJ Titration: 02/17/22 01:40 Dose: 40 mcg/kg/min, 26.3 mls/hr Documented By: DUSTIN Co-signed By: MAGALY Admin: 02/16/22 22:35 Dose: 40 mcg/kg/min, 26.3 mls/hr Documented By: DUSTIN Co-signed By: MEJ Titration: 02/16/22 21:52 Dose: 40 mcg/kg/min, 26.3 mls/hr Documented By: ELS Co-signed By: MEJ Titration: 02/16/22 19:02 Dose: 40 mcg/kg/min, 26.3 mls/hr Documented By: WRS Co-signed By: ELS Admin: 02/16/22 18:03 Dose: 40 mcg/kg/min, 26.3 mls/hr Documented By: WRS Co-signed By: AM Titration: 02/16/22 18:03 Dose: 40 mcg/kg/min, 26.3 mls/hr Documented By: WRS Co-signed By: AM Titration: 02/16/22 16:30 Dose: 40 mcg/kg/min, 26.3 mls/hr Documented By: Titration: 02/16/22 16:25 Dose: 35 mcg/kg/min, 23 mls/hr Documented By: Titration: 02/16/22 16:20 Dose: 30 mcg/kg/min, 19.7 mls/hr Documented By: Titration: 02/16/22 16:15 Dose: 25 mcg/kg/min, 16.4 mls/hr Documented By: Admin: 02/16/22 16:10 Dose: 20 mcg/kg/min, 13.1 mls/hr Documented By: WRS Co-signed By: ES Norepinephrine Bitartrate (Levophed/D5w) 4 mg in 250 mls @ 20.513 mls/hr IV .[id number] [facility]; Protocol Stop: 03/18/22 16:14 Last Titration: 02/17/22 06:54 Dose: 0 mcg/kg/min, 0 mls/hr Documented By: DUSTIN Co-signed By: WRS Titration: 02/17/22 03:07 Dose: 0 mcg/kg/min, 0 mls/hr Documented By: Titration: 02/17/22 02:00 Dose: 0.02 mcg/kg/min, 8.2 mls/hr Documented By: Titration: 02/16/22 23:50 Dose: 0.04 mcg/kg/min, 16.4 mls/hr Documented By: Titration: 02/16/22 23:18 Dose: 0.02 mcg/kg/min, 8.2 mls/hr Documented By: Titration: 02/16/22 20:15 Dose: 0.04 mcg/kg/min, 16.4 mls/hr Documented By: Titration: 02/16/22 19:45 Dose: 0.06 mcg/kg/min, 24.6 mls/hr Documented By: Titration: 02/16/22 19:15 Dose: 0.08 mcg/kg/min, 32.8 mls/hr Documented By: Titration: 02/16/22 19:03 Dose: 0.1 mcg/kg/min, 41 mls/hr Documented By: WRS Co-signed By: ELS Admin: 02/16/22 18:47 Dose: 0.1 mcg/kg/min, 41 mls/hr Documented By: WRS Co-signed By: LAF Titration: 02/16/22 18:47 Dose: 0.1 mcg/kg/min, 41 mls/hr Documented By: WRS Co-signed By: LAF Titration: 02/16/22 17:13 Dose: 0.14 mcg/kg/min, 57.4 mls/hr Documented By: Titration: 02/16/22 17:00 Dose: 0.12 mcg/kg/min, 49.2 mls/hr Documented By: Titration: 02/16/22 16:51 Dose: 0.1 mcg/kg/min, 41 mls/hr Documented By: Admin: 02/16/22 16:00 Dose: 0.08 mcg/kg/min, 32.8 mls/hr Documented By: WRS Co-signed By: STEW Parenteral Electrolytes (Normosol-R) 1,000 mls @ 75 mls/hr IV .[id number] KIAN Stop: 03/18/22 16:59 Last Admin: 02/17/22 05:30 Dose: 75 mls/hr Documented By: Infusion: 02/17/22 05:30 Dose: 75 mls/hr Documented By: Admin: 02/16/22 17:10 Dose: 75 mls/hr Documented By: SARAI Acetaminophen (Ofirmev) 1,000 mg in 100 mls @ 400 mls/hr IV Q8H PRN PRN Reason: Fever Stop: 02/19/22 19:31 Last Infusion: 02/17/22 00:47 Dose: 0 mls/hr Documented By: Admin: 02/17/22 00:29 Dose: 400 mls/hr Documented By: DUSTIN Levetiracetam 500 mg/ Sodium (Chloride) 105 mls @ 420 mls/hr IV Q12H KIAN Stop: 03/19/22 07:59 Last Infusion: 02/17/22 08:41 Dose: 0 mls/hr Documented By: Admin: 02/17/22 08:26 Dose: 420 mls/hr Documented By: SARAI Lidocaine HCl/Dextrose (Xylocaine/D5w Drip 4mg/Ml) 2,000 mg in 500 mls @ 15 mls/hr IV .Q24H [facility]; Protocol Stop: 03/19/22 07:59 Last Admin: 02/17/22 07:42 Dose: 1 mg/min, 15 mls/hr Documented By: SARAI Co-signed By: BRIA Magnesium Sulfate/Dextrose (Magnesium Sulfate / D5w) 1 gm in 100 mls @ 50 mls/hr IV Q2H KIAN Stop: 02/17/22 12:14 Last Admin: 02/17/22 07:40 Dose: 50 mls/hr Documented By: ASRAI Potassium Chloride (K [place] / Wtr) 20 meq in 100 mls @ 50 mls/hr IV Q2H KIAN Stop: 02/17/22 12:29 Last Admin: 02/17/22 08:51 Dose: 50 mls/hr Documented By: SARAI Levothyroxine Sodium (Levothyroxine Sodium 125 Mcg Tablet) 125 mcg PO DAILYBB [facility] Stop: 03/19/22 06:29 Last Admin: 02/17/22 06:23 Dose: 125 mcg Documented By: DUSTIN Miscellaneous (Icu Electrolyte Replacement Protocol) 1 each N/A BID@,18 [facility]; Protocol Stop: 02/23/22 17:59 Last Admin: 02/17/22 06:23 Dose: Not Given Documented By: Admin: 02/16/22 19:44 Dose: Not Given Documented By: DUSTIN Propofol (Propofol Bolus From Bag) 20 mg IV Q5M PRN PRN Reason: Sedation Stop: 02/19/22 14:17 Last Admin: 02/17/22 05:22 Dose: 20 mg Documented By: DUSTIN Co-signed By: MAGALY Sennosides (Senna 8.6 Mg Tab) 17.2 mg PO HS [facility] Stop: 03/18/22 20:59 Last Admin: 02/16/22 19:46 Dose: 17.2 mg Documented By: DUSTIN Ticagrelor (Ticagrelor 90 Mg Tab) 90 mg PO BID [facility] Stop: 03/19/22 08:59 Last Admin: 02/17/22 08:28 Dose: 90 mg Documented By: SARAI Discontinued Medications Amiodarone HCl/Dextrose (Amiodarone 360mg / 200ml D5w) Confirm Administered Dose 360 mg IV .STK-MED ONE Stop: 02/16/22 14:07 Last Admin: 02/16/22 16:23 Dose: Not Given Documented By: SARAI Amiodarone HCl/Dextrose (Amiodarone 150mg / 100ml D5w) Confirm Administered Dose 150 mg IV .STK-MED ONE Stop: 02/16/22 14:07 Last Admin: 02/16/22 16:00 Dose: Not Given Documented By: LISA Amiodarone HCl/Dextrose (Amiodarone 150mg / 100ml D5w) Confirm Administered Dose 150 mg IV .STK-MED ONE Stop: 02/17/22 07:41 Last Admin: 02/17/22 08:12 Dose: Not Given Documented By: SARAI Amiodarone HCl (Amiodarone Iv Bolus & Drip) 1 each IV NOW STA; Protocol Stop: 02/16/22 14:09 Last Admin: 02/16/22 16:01 Dose: Not Given Documented By: LISA Aspirin (Aspirin 300 Mg Supp) 300 mg SD ONE ONE Stop: 02/16/22 14:09 Last Admin: 02/16/22 17:38 Dose: Not Given Documented By: SARAI Aspirin (Aspirin 81 Mg Ectab) 81 mg PO QAM [facility] Stop: 03/19/22 08:59 Last Admin: 02/17/22 08:28 Dose: 81 mg Documented By: SARAI Aspirin (Aspirin Chew 324 Mg) Confirm Administered Dose 324 mg .ROUTE .STK-MED O NE Stop: 02/16/22 17:48 Last Admin: 02/16/22 18:03 Dose: 324 mg Documented By: SARAI Aspirin (Aspirin 81 Mg Chew) 324 mg PO ONCE ONE Stop: 02/16/22 18:02 Last Admin: 02/16/22 18:09 Dose: Not Given Documented By: JUSTINS Atropine Sulfate (Atropine Sulfate 0.1 Mg/Ml 10ml Syr) Confirm Administered Dose 1 mg IV .STK-MED ONE Stop: 02/16/22 14:36 Last Admin: 02/16/22 16:35 Dose: Not Given Documented By: SARAI Docusate Sodium (Docusate Sodium Syrup 100 Mg/10 Ml Udc) 100 mg PO BID [facility] Stop: 03/18/22 20:59 Last Admin: 02/16/22 20:53 Dose: 100 mg Documented By: DUSTIN Epinephrine HCl (Epinephrine 1.5" Ndl 0.1 Mg/Ml Syr) 0.3 mg IV TODAY@1435 [facility] Stop: 02/16/22 14:36 Last Admin: 02/16/22 14:35 Dose: 0.3 mg Documented By: LISA Fentanyl Citrate (Fentanyl Citrate 100 Mcg/2 Ml Vial) Confirm Administered Dose 100 mcg .ROUTE .STK-MED ONE Stop: 02/16/22 14:35 Last Admin: 02/16/22 16:33 Dose: Not Given Documented By: SARAI Fentanyl Citrate (Fentanyl Citrate 100 Mcg/2 Ml Vial) Confirm Administered Dose 100 mcg .ROUTE .STK-MED ONE Stop: 02/16/22 16:47 Last Admin: 02/16/22 17:16 Dose: Not Given Documented By: SARAI Heparin Sodium (Porcine) (Heparin (Porcine) 1000 Unit/Ml 10 Ml (Business Process Engineer Use Only)) Confirm Administered Dose 10,000 units .ROUTE .STK-MED ONE Stop: 02/16/22 14:35 Last Admin: 02/16/22 16:33 Dose: Not Given Documented By: JUSTINS Heparin Sodium (Porcine) (Heparin (Porcine) 1000 Unit/Ml 10 Ml (Business Process Engineer Use Only)) Confirm Administered Dose 10,000 units .ROUTE .STK-MED ONE Stop: 02/16/22 15:18 Last Admin: 02/16/22 16:36 Dose: Not Given Documented By: SARAI Heparin Sodium/Sodium Chloride (Heparin In Nss Infusion 1000 Unit/500 Ml (2 U/Ml) Bag) Confirm Administered Dose 3,000 units IV .STK-MED ONE Stop: 02/16/22 14:35 Last Admin: 02/16/22 16:34 Dose: Not Given Documented By: SARAI Sodium Chloride (Nss) 500 mls @ 999 mls/hr IV .Q31M [facility] Stop: 02/16/22 14:38 Last Infusion: 02/16/22 18:18 Dose: 0 mls/hr Documented By: Admin: 02/16/22 14:20 Dose: 999 mls/hr Documented By: LISA Amiodarone HCl/Dextrose (Nexterone / D5w) 150 mg in 100 mls @ 600 mls/hr IV NOW STA Stop: 02/16/22 14:17 Last Infusion: 02/16/22 16:45 Dose: 0 mls/hr Documented By: SARAI Co-signed By: STEW Admin: 02/16/22 14:17 Dose: 600 mls/hr Documented By: LISA Co-signed By: TAMIE Amiodarone HCl/Dextrose (Nexterone / D5w) 360 mg in 200 mls @ 33.333 mls/hr IV ONE ONE Stop: 02/16/22 20:18 Last Infusion: 02/16/22 19:50 Dose: 0 mg/min, 0 mls/hr Documented By: DUSTIN Co-signed By: PRAMOD Admin: 02/16/22 14:40 Dose: 1 mg/min, 33.3 mls/hr Documented By: LISA Co-signed By: BRENT Sodium Chloride (Nss 1000ml) 1,000 mls @ 999 mls/hr IV .Q1H1M ONE Stop: 02/16/22 15:18 Last Infusion: 02/16/22 18:17 Dose: 0 mls/hr Documented By: Admin: 02/16/22 14:15 Dose: 999 mls/hr Documented By: LISA Norepinephrine Bitartrate (Levophed/D5w) 4 mg in 250 mls @ 53.438 mls/hr IV .Q4H41M [facility]; Protocol Stop: 03/18/22 14:44 Last Titration: 02/16/22 19:13 Dose: 0 mcg/kg/min, 0 mls/hr Documented By: Admin: 02/16/22 14:32 Dose: 0.15 mcg/kg/min, 53.4 mls/hr Documented By: LISA Co-signed By: TAMIE Sodium Chloride (Nss 1000ml) 1,000 mls @ 125 mls/hr IV .Q8H KIAN Stop: 03/18/22 15:59 Last Infusion: 02/16/22 18:17 Dose: 0 mls/hr Documented By: Infusion: 02/16/22 17:10 Dose: 0 mls/hr Documented By: Admin: 02/16/22 16:00 Dose: 125 mls/hr Documented By: SARAI Amiodarone HCl/Dextrose (Nexterone / D5w) 360 mg in 200 mls @ 16.667 mls/hr IV .Q12H KIAN Stop: 03/18/22 16:14 Last Admin: 02/16/22 16:46 Dose: Not Given Documented By: SARAI Norepinephrine Bitartrate (Levophed/D5w) 4 mg in 250 mls @ 20.513 mls/hr IV .[id number] KIAN; Protocol Stop: 03/18/22 16:59 Last Admin: 02/16/22 17:07 Dose: Not Given Documented By: SARAI Potassium Chloride (K [place] / Wtr) 20 meq in 100 mls @ 50 mls/hr IV ONE ONE Stop: 02/16/22 19:19 Last Infusion: 02/16/22 19:20 Dose: 0 mls/hr Documented By: Admin: 02/16/22 17:50 Dose: 50 mls/hr Documented By: SARAI Levetiracetam 1,000 mg/ Sodium (Chloride) 110 mls @ 440 mls/hr IV NOW STA Stop: 02/16/22 20:07 Last Infusion: 02/16/22 20:28 Dose: 0 mls/hr Documented By: Admin: 02/16/22 20:13 Dose: 440 mls/hr Documented By: DUSTIN Magnesium Sulfate/Dextrose (Magnesium Sulfate / D5w) 1 gm in 100 mls @ 50 mls/hr IV Q2H KIAN Stop: 02/17/22 07:59 Last Infusion: 02/17/22 07:14 Dose: 0 mls/hr Documented By: Admin: 02/17/22 05:14 Dose: 50 mls/hr Documented By: Infusion: 02/17/22 05:14 Dose: 50 mls/hr Documented By: Admin: 02/17/22 03:53 Dose: 50 mls/hr Documented By: Infusion: 02/17/22 03:53 Dose: 50 mls/hr Documented By: Admin: 02/17/22 02:02 Dose: 50 mls/hr Documented By: DUSTIN Sodium Phosphate 15 mmol/ (Sodium Chloride) 255 mls @ 88 mls/hr IV ONE ONE Stop: 02/17/22 04:53 Last Infusion: 02/17/22 05:20 Dose: 0 mls/hr Documented By: Admin: 02/17/22 02:02 Dose: 88 mls/hr Documented By: DUSTIN Amiodarone HCl/Dextrose (Nexterone / D5w) 150 mg in 100 mls @ 600 mls/hr IV NOW STA Stop: 02/17/22 08:11 Last Infusion: 02/17/22 07:51 Dose: 0 mls/hr Documented By: SARAI Co-signed By: PITER Admin: 02/17/22 07:40 Dose: 600 mls/hr Documented By: SARAI Co-signed By: PITER Lidocaine HCl/Dextrose (Lidocaine Hcl/D5w 2000 Mg/500 Ml Bag) Confirm Administered Dose 2,000 mg IV .STK-MED ONE Stop: 02/17/22 07:43 Last Admin: 02/17/22 08:04 Dose: Not Given Documented By: SARAI Midazolam HCl (Midazolam Hcl 1 Mg/Ml 2ml Vial) Confirm Administered Dose 2 mg .ROUTE .STK-MED ONE Stop: 02/16/22 14:35 Last Admin: 02/16/22 16:34 Dose: Not Given Documented By: SARAI Midazolam HCl (Midazolam Hcl 1 Mg/Ml 2ml Vial) Confirm Administered Dose 2 mg .ROUTE .STK-MED ONE Stop: 02/16/22 16:48 Last Admin: 02/16/22 17:16 Dose: Not Given Documented By: SARAI Miscellaneous (Rapid Sequence Induction Bag) Confirm Administered Dose 1 each .ROUTE .STK-MED ONE Stop: 02/16/22 14:01 Last Admin: 02/16/22 16:00 Dose: Not Given Documented By: LISA Chirinos (Stat Iv Infusion Titration Per Protocol) 1 each N/A NOW STA Stop: 02/16/22 14:09 Last Admin: 02/16/22 16:01 Dose: Not Given Documented By: NA Miscellaneous (Stat Iv Infusion Titration Per Protocol) 1 each N/A NOW STA Stop: 02/16/22 14:19 Last Admin: 02/16/22 16:04 Dose: Not Given Documented By: LISA Nicardipine HCl (Nicardipine Hcl Inj 2.5 Mg/Ml 10 Ml Amp) Confirm Administered Dose 25 mg .ROUTE .STK-MED ONE Stop: 02/16/22 14:35 Last Admin: 02/16/22 16:34 Dose: Not Given Documented By: SARAI Nitroglycerin/Dextrose (Nitroglycerin/D5w 100mcg/Ml 20ml Syr) Confirm Administered Dose 2,000 mcg .ROUTE .STK-MED ONE Stop: 02/16/22 14:36 Last Admin: 02/16/22 16:36 Dose: Not Given Documented By: SARAI Norepinephrine Bitartrate (Norepinephrine/D5w 4 Mg/250 Ml) Confirm Administered Dose 4 mg IV .STK-MED ONE Stop: 02/16/22 14:30 Last Admin: 02/16/22 16:06 Dose: Not Given Documented By: LISA Norepinephrine Bitartrate (Norepinephrine Bitartrate 1 Mg/Ml 4 Ml Vial (Business Process Engineer Use Only)) Confirm Administered Dose 4 mg IV .STK-MED ONE Stop: 02/16/22 14:36 Last Admin: 02/16/22 16:36 Dose: Not Given Documented By: SARAI Potassium Chloride (Potassium Chloride 10 Meq / 100ml Wtr) Confirm Administered Dose 30 meq IV .STK-MED ONE Stop: 02/16/22 15:02 Last Admin: 02/16/22 17:39 Dose: 20 meq Documented By: SARAI Propofol (Propofol Iv Emulsion 10 Mg/Ml 100 Ml Vial) Confirm Administered Dose 1,000 mg IV .STK-MED ONE Stop: 02/16/22 14:18 Last Admin: 02/16/22 14:20 Dose: 1,000 mg Documented By: LISA Co-signed By: TAMIE Ticagrelor (Ticagrelor 90 Mg Tab) 180 mg PO ONE STA Stop: 02/16/22 17:20 Last Admin: 02/16/22 17:46 Dose: 180 mg Documented By: SARAI Imaging Data Radiologist's Impression: Chest X-Ray 02/16/22 14:08 [facility] AP CHEST RADIOGRAPH CLINICAL HISTORY: Chest Pain COMPARISON STUDY: Chest radiograph July 16, 2021. FINDINGS: Tip of endotracheal tube is 3.9 cm above the [place]. No pneumothorax or pleural effusion is noted. Right costophrenic angle was not included. Apparent increase in cardiac enlargement is likely technical as is mediastinal widening. There is no evidence for pulmonary edema. There is no consolidation. IMPRESSION: 1. Satisfactory positioning of the endotracheal tube. 2. Cardiomegaly. No acute cardiomegaly findings. ACT 112: Negative or not required by law. Electronically signed by: Contreras Bartlett M.D. 02/16/2022 2:32 PM Discharge Plan Visit Data Chief Complaint: Cardiac Arrest/CPR ED Provider: Aroldo Edge Discharge Problem: Cardiac arrest, Acute myocardial infarction, Cardiogenic shock, Atrial fibrill ation with rapid ventricular response Patient Disposition: Admitted As Inpatient Discharge Instructions Interventions: ED Discharge Assessment Last Done: 02/16/22 14:40 : Acute myocardial infarction Qualifiers: Myocardial infarction type: ST elevation myocardial infarction Involved coronary artery: unspecified coronary artery Qualified Code(s): I21.3 - ST elevation (STEMI) myocardial infarction of unspecified site
[2022-02-16 15:00] LABS: Hematocrit (blood only) 40.2 % (40.1-51.0); Hemoglobin 13.6 g/dl (14.0-18.0); Mean Corpuscular Hemoglobin 29.9 pg (25.0-34.0); Mean Corpuscular Hgb Conc 33.8 g/dL (32.0-36.0); Mean Corpuscular Volume 88.4 fL (80.0-100.0); RDW Coefficient of Variation 12.9 % (11.5-14.5); RDW Standard Deviation 41.7 fL (36.4-46.3); Red Blood Count 4.55 M/uL (4.63-6.08); White Blood Count 7.32 K/ul (4.8-10.8)
[2022-02-16] MEDS ORDERED: POTASSIUM CHLORIDE 10 MEQ / 100ML WTR IV ONE (15:01)
[2022-02-16 15:03] LABS: Basophils # (auto) 0.06 K/uL (0-0.2); Basophils % (auto) 0.8 %; Eosinophils # (auto) 0.19 K/uL (0-0.50); Eosinophils % (auto) 2.6 %; Immature Granulocytes # (auto) 0.12 K/uL (0.00-0.02); Immature Granulocytes % (auto) 1.6 %; Lymphocytes # (auto) 2.28 K/uL (1.2-3.4); Lymphocytes % (auto) 31.1 %; Mean Platelet Volume 13.4 fL (9.4-12.4); Monocytes # (auto) 0.47 K/uL (0.24-0.82); Monocytes % (auto) 6.4 %; Neutrophils % (auto) 57.5 %; Platelet Count 102 K/uL (130-400)
[2022-02-16 15:13] LABS: INR 1.1 (0.9-1.1); Partial Thromboplastin Ratio 0.8; Partial Thromboplastin Time 20.7 Seconds (21.0-31.0); Prothrombin Time 11.4 Seconds (9.0-12.0)
[2022-02-16 15:26] LABS: Alanine Aminotransferase 126 U/L (7-52); Albumin Globulin Ratio 1.8 (0.9-2); Albumin Level 3.9 gm/dl (3.4-5.0); Alkaline Phosphatase 75 U/L (34-104); Anion Gap 12 (3-11); Aspartate Aminotransferase 102 U/L (13-39); BUN Creatinine Ratio 18.3 (10-20); Bilirubin,Total 0.7 mg/dl (0.2-1.0); Blood Urea Nitrogen 19 mg/dl (6-23); Calcium 8.2 mg/dl (8.5-10.1); Carbon Dioxide 23 mmol/L (21-32); Chloride 107 mmol/L (98-107); Est GFR (African American) 83.9 ml/min; Est GFR (Non-African American) 72.4 ml/min; Globulin 2.2 gm/dl (2.5-4.0); Glucose 202 mg/dl (70-99(Fasting)); Lipase 60 U/L (11-82); Magnesium 1.9 mg/dl (1.7-2.4); Potassium 3.1 mmol/L (3.5-5.1); Sodium 142 mmol/L (136-145); Total Protein 6.1 gm/dl (6.0-8.3)
--- NOTE | 2022-02-16 15:57 | Pre Anesthesia Assessment ---
Date of Service February 16, 2022 Pre Sedation Assessment Vital Signs Pulse Resp BP Pulse Ox O2 Del Method 02/16/22 14:36 51 L 20 59/39 L 94 Mechanical Vent 02/16/22 14:33 56 L 20 54/41 L 94 Mechanical Vent 02/16/22 14:31 57 L 20 58/32 L 93 Mechanical Vent 02/16/22 14:24 72 20 59/42 L 97 Mechanical Vent 02/16/22 14:21 99 H 20 83/50 L 98 Mechanical Vent 02/16/22 14:19 92 H 20 71/58 L 98 Mechanical Vent 02/16/22 14:17 120 H 21 110/58 L 97 Mechanical Vent 02/16/22 14:40 Mechanical Vent 02/16/22 14:37 59/39 L 02/16/22 14:31 58/32 L 02/16/22 14:12 132 H 18 98 Ambu-Bag Cardiovascular + irregularly irregular Pre-Sedation Airway Assessment Smoking Status: Unknown if ever smoked Hx Sleep Apnea: Yes Hx Difficult Intubation: No Short, Thick Neck: No ASA: ASA4 Procedure Planning Contraindications for Sedation: none Current Medications Reviewed: Yes Notes The planned sedation has been discussed with the patient. Informed Consent was obtained. I have identified the patient, determined the appropriateness of sedation and have assessed the patient immediately prior to the procedure. All medicine(s) and interventions are by my order.
[2022-02-16 15:58] LABS: Troponin I High Sensitivity 298.6 pg/ml (0-20)
[2022-02-16] MEDS ORDERED: ONDANSETRON INJ 2 MG/ML 2 ML VIAL IV PRN (15:58)
[2022-02-16] MEDS ORDERED: ICU Protocol for HYPERglycemia PRN ×2 (15:58→16:56)
[2022-02-16] MEDS: NOREPINEPHRINE/D5W 4 MG/250 ML PLCT IV SCH ×2 (16:00→18:47)
[2022-02-16] MEDS ORDERED: SODIUM CHLORIDE 0.9% 1000ML 1,000 ML IV SCH (16:00)
[2022-02-16] MEDS ORDERED: 0.2 MICRON FILTER SET 1 EACH IV ONE (16:03)
[2022-02-16] MEDS: propofoL 1,000 MG/100 ML VIAL IV SCH ×3 (16:10→22:35)
[2022-02-16] MEDS ORDERED: AMIODARONE / D5W 360 MG/200 ML BAG IV SCH (16:15)
[2022-02-16] MEDS ORDERED: MIDAZOLAM HCL 1 MG/ML 2ML VIAL IV PRN (16:56)
[2022-02-16] MEDS ORDERED: NOREPINEPHRINE/D5W 4 MG/250 ML PLCT IV SCH (17:00)
--- NOTE | 2022-02-16 17:06 | Procedure Note ---
Procedure Note Date of Service February 16, 2022 Note ARTERIAL LINE PROCEDURE NOTE: Procedure: Arterial Line Placement Provider: Chino Sharp MD Indication: Monitoring on Pressors Anesthesia: None Procedure was emergent. Patient intubated and unable to provide consent on vasoactive medications. A time-out was completed verifying correct patient, procedure, site, positioning, and implant(s) or special equipment if applicable. Allens test was performed to ensure adequate perfusion. Patients left wrist was prepped and draped in the usual sterile fashion. Anatomic landmarks were identified. A 20g Arrow arterial line was introduced into the left radial artery. Catheter was threaded, and the needle was removed with appropriate blood return. Good waveform was observed. The patient tolerated the procedure well. Blood Loss: Minimal Complications: None Coding CPT Codes Tubes, Drains, and Vasc Access - Tubes, Drains, and Vasc Access: [id number] Insertion Catheter, Artery ([id number]) [facility] [place] Procedure Codes (Charges) Tubes, Drains, and Vasc Access Procedure 1: Tubes, Drains, and Vasc Access: [id number] Insertion Catheter, Artery
[2022-02-16 17:08] LABS: iSTAT Art Bld Gas pCO2 Correct 37 mmHg (35-46); iSTAT Art Bld Gas pH Corrected 7.387 (7.35-7.45); iSTAT Arterial Blood Gas HCO3 23 meg/L (19-24); iSTAT Arterial Blood Gas pCO2 42 mmHg (35-46); iSTAT Arterial Blood Gas pH 7.35 (7.35-7.45); iSTAT Arterial Blood Gas pO2 83 mmHg (80-95); iSTAT Arterial Blood Gas pO2 C 71; iSTAT Carbon Dioxide 24 mmol/L (24-31); iSTAT FiO2 50 %; iSTAT Hematocrit 37 % (42-52); iSTAT Hemoglobin 12.6 g/dl (14.0-18.0); iSTAT Potassium 3.9 mmol/L (3.3-5.0); iSTAT Site Art Line; iSTAT Sodium 141 mmol/L (135-144)
[2022-02-16] MEDS: NORMOSOL-R 1,000 ML IV SCH (17:10)
--- NOTE | 2022-02-16 17:17 | Critical Care Consultation ---
Date of Consultation February 16, 2022 Assessment & Plan (1) Cardiac arrest: (2) Acute myocardial infarction: (3) Atrial fibrillation with rapid ventricular response: (4) Hypokalemia: Plan Impression: 71-year-old male status post cardiac arrest due to ST elevation myocardial infarction status post drug-eluting stent and initiation of pressors. He is intubated. Recommendations: 1. Neurologic: Continue sedation with propofol and as needed fentanyl and Versed. Discussed therapeutic hypothermia however given the patient's purposeful movements grabbing for the endotracheal tube, elected to hold off for now after discussion with cardiology. Will reassess neurologically in the next 24 hours once he is more hemodynamically stable. 2. Cardiovascular: Acute ST elevation myocardial infarction status post drug- eluting stent. Antiplatelet agents per cardiology. He was in atrial fibrillation with a rapid ventricular response but appears to have converted with amiodarone. Continue amiodarone under the direction of cardiology. If hemodynamics become more of an issue, may need to stop the amiodarone. Discussed anticoagulation with cardiology like to hold off for now. Hold other antihypertensives but would like to restart beta-noelle and YAYO inhibitor as tolerated in the future. 3. Respiratory: Intubated for airway protection. He is oxygenating ventilating reasonably well currently. Follow-up blood gas and chest x-ray. He has a history of sleep disordered breathing treated with CPAP of 14 cm water. Once extubated will need CPAP. Will defer SBT until more hemodynamically stable. 4. GI: PPI. We will hold tube feeding for now in hopes of liberation from mechanical ventilation in the next 12 to 24 hours. 5. Renal: Hypokalemia. Initiate ICU replacement protocol. Rosenbaum catheter in place. Urine output appears adequate currently. 6. ID: No current issues. Continue to follow for now. 7. Endocrine: Glycemic control per protocol. Check hemoglobin A1c. Will replace Synthroid orally as needed. 8. Heme-onc: No current issues. Lovenox for DVT prophylaxis. Patient is critically ill at this point time with significant possibility of clinical deterioration and/or . Discussed with family members at the bedside as well as with critical care nursing. A total of 50 minutes critical care time was spent in evaluation management stabilization of this patient exclusive of procedures. History of Present Illness Attending Physician: Petey Suazo MD History of Present Illness Asked by cardiology to assist in critical care management this patient status post cardiac arrest and cardiac catheterization urgently with stent to the right coronary. History is obtained from discussion with cardiology as well as review of electronic medical record. Patient is a 71-year-old male with a history of sleep disordered breathing, hypertension, hypothyroidism, and reflux who suffered a witnessed cardiac arres t. The patient reported back pain and questionable seizure-like activity then lost consciousness. His daughter who is an ICU nurse was in attendance and CPR was initiated. EMS was activated. He was defibrillated x1 via the ED. He was then found to be in atrial fibrillation with rapid ventricular response with ST changes. He was unable to be intubated in the field due to clenching of the masseter muscles. He apparently was combative and moving. He received Ativan prior to arrival. In the emergency room he did not respond to verbal commands but apparently was sitting up and yelling. He would not answer questions appropriately. He was intubated in the emergency room and taken to the Infrastructure Project Manager. Drug-eluting stent was placed in the Infrastructure Project [facility] and he was initiated on norepinephrine as well as propofol. He was brought to the ICU. Restraints were placed. I assessed the patient on arrival. An arterial line was placed. He received additional boluses of propofol and fentanyl. Given the patient's combative nature and purposeful movements trying to grab for the tube, it was elected to not pursue therapeutic hypothermia at this point in time. Allergies Allergy/AdvReac Type Severity Reaction Status Date / Time No Known Allergies Allergy Unknown Verified 02/16/22 14:33 Home Medications Medication Instructions Recorded Confirmed Type aspirin 81 mg tablet,delayed 81 mg PO HS 01/11/18 02/16/22 History release felodipine 5 mg tablet,extended 5 mg PO HS 01/11/18 02/16/22 History release 24 hr levothyroxine 112 mcg tablet 150 mcg PO QAM 01/11/18 02/16/22 History losartan 100 mg tablet 100 mg PO HS 01/11/18 02/16/22 History metoprolol succinate 50 mg capsule 50 mg PO HS 01/11/18 02/16/22 History sprinkle, ext. release 24 hr omeprazole 20 mg delayed 1 tab PO QAM 01/11/18 02/16/22 History release,disintegrating tablet amoxicillin 875 mg-potassium 1 tab PO BID 02/16/22 02/16/22 History clavulanate 125 mg tablet atorvastatin 40 mg tablet 40 mg PO DAILY 02/16/22 02/16/22 History celecoxib 200 mg capsule 200 mg PO DAILY 02/16/22 02/16/22 History olmesartan 40 mg tablet 40 mg PO DAILY 02/16/22 02/16/22 History tamsulosin 0.4 mg capsule 0.4 mg PO DAILY 02/16/22 02/16/22 History Patient History Medical History Family history of reaction to anesthesia FATHER "ALLERGIC TO MORPHINE" GERD (gastroesophageal reflux disease) Hyperlipidemia Hypertension Hypothyroidism Kidney stones Umbilical hernia Surgical History History of colonoscopy History of cystoscopy MULTIPLE TIMES>KIDNEY STONES/STENT INSERTION History of lithotripsy MULTIPLE History of temporal artery biopsy History of tonsillectomy History of tooth extraction Nausea and vomiting after administration of anesthetic agent Social History Smoking Status: Unknown if ever smoked Cigarettes Per Day: QUIT 28 YEARS AGO; Second Hand Exposure: No; Hx Alcohol Use: Yes Alcohol type: beer Hx Substance Use: No Preferred Language: Faroese Communication Ability: Effective On Air Director Required: No Beliefs That Will Affect Care: None Current Living Situation: Spouse Feels Safe at Home: Yes Assistive Devices: Glasses Review of Systems Review of Systems: Unobtainable due to endotracheal tube Physical Exam Constitutional: well developed, well nourished and + mechanically ventilated Sedated on the ventilator Neck: trachea midline, no thyromegaly Respiratory: normal respiratory effort, lungs clear to auscultation Cardiovascular: RRR, no murmur, no edema Gastrointestinal (Abdomen): normal bowel sounds, soft, nontender, no hepatosplenomegaly Musculoskeletal: Extremities: extremities normal to inspection Skin: no rashes, warm and dry Neurologic: Nonfocal exam Lymphatic: no cervical lymphadenopathy Results & Data Results & Data ([facility]) Vital Signs (Past 12 Hours) Vital Signs Pulse Pulse Resp BP Pulse Ox O2 Del Method FiO2 02/16/22 14:48 144 H 22 95 100 02/16/22 16:13 102 H 26 H 97 50 02/16/22 14:36 51 L 20 59/39 L 94 Mechanical Vent 02/16/22 14:33 56 L 20 54/41 L 94 Mechanical Vent 02/16/22 14:31 57 L 20 58/32 L 93 Mechanical Vent 02/16/22 14:24 72 20 59/42 L 97 Mechanical Vent 02/16/22 14:21 99 H 20 83/50 L 98 Mechanical Vent 02/16/22 14:19 92 H 20 71/58 L 98 Mechanical Vent 02/16/22 14:17 120 H 21 110/58 L 97 Mechanical Vent 02/16/22 14:40 Mechanical Vent 02/16/22 14:37 59/39 L 02/16/22 14:31 58/32 L 02/16/22 14:12 132 H 18 98 Ambu-Bag Critical Care Results & Data Vital Signs (Past 12 Hours) Vital Signs Pulse Pulse Resp BP Pulse Ox O2 Del Method FiO2 02/16/22 14:48 144 H 22 95 100 02/16/22 16:13 102 H 26 H 97 50 02/16/22 14:36 51 L 20 59/39 L 94 Mechanical Vent 02/16/22 14:33 56 L 20 54/41 L 94 Mechanical Vent 02/16/22 14:31 57 L 20 58/32 L 93 Mechanical Vent 02/16/22 14:24 72 20 59/42 L 97 Mechanical Vent 02/16/22 14:21 99 H 20 83/50 L 98 Mechanical Vent 02/16/22 14:19 92 H 20 71/58 L 98 Mechanical Vent 02/16/22 14:17 120 H 21 110/58 L 97 Mechanical Vent 02/16/22 14:40 Mechanical Vent 02/16/22 14:37 59/39 L 02/16/22 14:31 58/32 L 02/16/22 14:12 132 H 18 98 Ambu-Bag Lab & Micro Results (Past 24 Hours) RBC 4.55 M/uL (4.63-6.08) L 02/16/22 WBC 7.32 K/ul (4.8-10.8) 02/16/22 Hgb 13.6 g/dl (14.0-18.0) L 02/16/22 Hct 40.2 % (40.1-51.0) 02/16/22 MCV 88.4 fL (80.0-100.0) 02/16/22 MCH 29.9 pg (25.0-34.0) 02/16/22 MCHC 33.8 g/dL (32.0-36.0) 02/16/22 RDW Standard Deviation 41.7 fL (36.4-46.3) 02/16/22 RDW Coefficient of Variation 12.9 % (11.5-14.5) 02/16/22 Plt Count 102 K/uL (130-400) L 02/16/22 MPV 13.4 fL (9.4-12.4) H 02/16/22 Neutrophils (%) (Auto) 57.5 % 02/16/22 Lymphocytes (%) (Auto) 31.1 % 02/16/22 Monocytes # (Auto) 0.47 K/uL (0.24-0.82) 02/16/22 Eosinophils # (Auto) 0.19 K/uL (0-0.50) 02/16/22 Immature Granulocyte % (Auto) 1.6 % 02/16/22 Neutrophils # (Auto) 4.20 K/uL (1.4-6.5) 02/16/22 Lymphocytes # (Auto) 2.28 K/uL (1.2-3.4) 02/16/22 Monocytes # (Auto) 0.47 K/uL (0.24-0.82) 02/16/22 Eosinophils # (Auto) 0.19 K/uL (0-0.50) 02/16/22 Basophils # (Auto) 0.06 K/uL (0-0.2) 02/16/22 Immature Granulocyte # (Auto) 0.12 K/uL (0.00-0.02) H 02/16 Na 142 mmol/L (136-145) 02/16/22 K 3.1 mmol/L (3.5-5.1) L 02/16/22 Cl 107 mmol/L (98-107) 02/16/22 CO2 23 mmol/L (21-32) 02/16/22 Anion Gap 12 (3-11) H 02/16/22 BUN 19 mg/dl (6-23) 02/16/22 Creatinine 1.04 mg/dl (0.6-1.4) 02/16/22 Estimated GFR ( Amer) 83.9 ml/min 02/16/22 Estimated GFR (Non-Af Amer) 72.4 ml/min 02/16/22 BUN/Creatinine Ratio 18.3 (10-20) 02/16/22 Glu 202 mg/dl (70-99(Fasting)) H 02/16/22 Ca 8.2 mg/dl (8.5-10.1) L 02/16/22 Total Bilirubin 0.7 mg/dl (0.2-1.0) 02/16/22 AST 102 U/L (13-39) H 02/16/22 ALT 126 U/L (7-52) H 02/16/22 Alkaline Phosphatase 75 U/L (34-104) 02/16/22 TP 6.1 gm/dl (6.0-8.3) 02/16/22 Albumin 3.9 gm/dl (3.4-5.0) 02/16/22 Globulin 2.2 gm/dl (2.5-4.0) L 02/16/22 Albumin/Globulin Ratio 1.8 (0.9-2) 02/16/22 Mg 1.9 mg/dl (1.7-2.4) 02/16/22 14:29 Calcium Level 8.2 mg/dl (8.5-10.1) L 02/16/22 14:29 Prothromb Time International Ratio 1.1 (0.9-1.1) 02/16/22 14:2 9 Ayo Test NA 02/16/22 16:55 Diagnostic Findings (Past 24 Hours) Chest X-Ray 02/16/22 14:08 [facility] AP CHEST RADIOGRAPH CLINICAL HISTORY: Chest Pain COMPARISON STUDY: Chest radiograph July 16, 2021. FINDINGS: Tip of endotracheal tube is 3.9 cm above the [place]. No pneumothorax or pleural effusion is noted. Right costophrenic angle was not included. Apparent increase in cardiac enlargement is likely technical as is mediastinal widening. There is no evidence for pulmonary edema. There is no consolidation. IMPRESSION: 1. Satisfactory positioning of the endotracheal tube. 2. Cardiomegaly. No acute cardiomegaly findings. ACT 112: Negative or not required by law. Electronically signed by: Contreras Bartlett M.D. 02/16/2022 2:32 PM I & O Totals 24 Hours 02/15/22 02/16/22 02/17/22 07:59 06:59 06:59 Intake Total 279.731 / 279.731 Balance 279.731 / 279.731 Cumulative 02/16/22 13:53 thru 02/16/22 17:10 Intake Total 279.731 Balance 279.731 RT Ventilator Mngmt (Last Documented) Ventilator Ordered Settings Ventilator Support Mode Assist Control 02/16/22 16:13 Respiratory Rate 26 02/16/22 16:13 Ventilator Tidal Volume 500 02/16/22 16:13 Setting Minute Ventilation 12.8 02/16/22 16:13 Positive End Expiratory 6 02/16/22 16:13 Pressure Fraction of Inspired Oxygen 50 02/16/22 16:13 Ventilator - PT Measurements Respiratory Rate 26 Exhaled Tidal Volume 498 Minute Ventilation 12.8 Peak Inspiratory Airway 21 Pressure Plateau Pressure 19 Respiratory Cycle Inspiratory: 1:1.6 Expiratory Ratio Inspiratory Phase Time 0.9 End-Tidal CO2 33 Static Lung Compliance 38.31 Dynamic Lung Compliance 33.20 Normal Static Lung Compliance 47.00 Coding Level of Care Code Critical Care 1st 30-74 mins Diagnoses Cardiac arrest I46.9 Acute myocardial infarction I21.3 Involved coronary artery: unspecified coronary artery Myocardial infarction type: ST elevation myocardial infarction Atrial fibrillation with rapid ventricular response I48.91 Hypokalemia E87.6 (1) Acute myocardial infarction Involved coronary artery: unspecified coronary artery Myocardial infarction type: ST elevation myocardial infarction Qualified Code(s): I21.3 - ST elevation (STEMI) myocardial infarction of unspecified site
[2022-02-16] MEDS ORDERED: TICAGRELOR 90 MG TAB PO STA (17:19)
[2022-02-16] MEDS ORDERED: POTASSIUM CHLORIDE / WTR 20 MEQ/100 ML PLCT IV ONE (17:20)
[2022-02-16] MEDS ORDERED: INFLUENZA VACCINE HIGH DOSE PF 65+ 0.7 ML SYR IM ONE (17:29)
[2022-02-16] MEDS ORDERED: ASPIRIN CHEW 324 MG ONE (17:47)
[2022-02-16] MEDS: ENOXAPARIN INJ 40 MG/0.4 ML SYR SQ SCH (17:50)
[2022-02-16] MEDS ORDERED: ASPIRIN 81 MG CHEW PO ONE (18:01)
[2022-02-16 18:11] LABS: BUN Creatinine Ratio 21.5 (10-20); Calcium 7.7 mg/dl (8.5-10.1); Creatinine Clr Calc Pharmacy 107.8 ml/min; Est GFR (African American) 105.4 ml/min
--- NOTE | 2022-02-16 18:33 | Cardiac Catheterization ---
[facility] Data: Guest Service Host Cardiac Status Clinical evaluation leading to the procedure CAD Presenation: STEMI Anginal Classification: CCS IV Diagnostic Physicians Name: Petey Suazo MD Closure Device Recommendations: PCI without planned CABG Cardiac Cath Procedure Full Procedure Date February 16, 2022 Pre-Procedure Diagnosis Pre-Procedure Diagnosis: STEMI AUC Score AUC Score: 9 Post-Procedure Diagnosis Post-Procedure Diagnosis: Severe CAD, Successful PCI and Normal Intracardiac Pressures Procedure(s) Performed Procedure(s) Performed: Coronary Angiography, Left Heart Cath, Drug Eluting Stent and Procedure (central venous catheter) Identification And Records Commander Petey Suazo MD Video Control Engineer(s) De[place]ler Estimated Blood Loss Estimated Blood Loss: 20 Medication(s) Medication(s): Fentanyl, Heparin, Lidocaine 1%, Nicardipine, Nitroglycerin and Versed Medication(s): Ticagrelor Summary of Findings Indication: STEMI/Heart Alertwitnessed out of hospital cardiac arrest. Received bystander CPR, defibrillation in the field, intubated on arrival to ED. On presentation hypotensive to 50s, A. fib with RVR and inferior ST elevations. Had received amiodarone, epinephrine, norepi. Access: 6 Fr right radial artery, 6 Fr right common femoral vein Catheters: [place], JR4 guide, diagnostic JL 3.5 Findings: LAD -proximal vessel, medium caliber, 30% stenosis just before takeoff of large D1, mid vessel with diffuse 30% disease. Small distal vessel with mild diffuse disease and tapers to apex. Large D1 supplies OM territory. 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 Small caliber, mild diffuse disease. RCA -dominant, medium caliber, calcified, 98% ostial/proximal stenosis, distal vessel with luminal irregularities and CE II flow. LVEDP -16 -- PCI -- Antithrombotic therapy: Heparin, ticagrelor Procedure: RCA cannulated with JR4 guide Health Informatics Advisor 50 wire passed across lesion into distal vessel Proximal RCA lesion predilated with 2.5 compliant balloon Dilated lesion stented with 3.0 x 12 mm Tao drug-eluting stent placed from ostium. Stent post-dilated with 3.5 noncompliant balloon Residual hazy stenosis after distal aspect of stent. With the aid of a GuideLiner proximal to mid segment predilated with 2.5 balloon Second BENOIT (2.75 x 12 mm Tao) placed from proximal to mid segment overlapping distal aspect of initial stent. IC vasodilators administered for spasm Post procedure CE 3 flow, stent well expanded with minimal residual stenosis and no apparent cardiac complications. Anomalous circumflex remained widely patent with CE-3 flow. Procedure course complicated by atrial fibrillation with RVR, improved rate control with reduced dose of norepinephrine. On completion norepi 0.15 mcg/kg/min. on amiodarone infusion. Summary: 1. Inferior STEMI/98% ostial RCA with CE II distal flow 2. Anomalous small circumflex off right cusp. Mild diffuse disease. 3. Mild to moderate non-culprit coronary artery disease -30% proximal, diffuse 30 to 40% mid LAD Large D1 with 40% mid segment disease 4. Normal intracardiac filling pressure 5. Cardiogenic shock 6. Transient atrial fibrillation with RVR 7. Successful PCI of ostial to mid RCA with 2 overlapping drug-eluting stents (3.0 x 12, 2.75 x 12 mm Tao; postdilated with 3.5 NC). Recommendations: Admit to ICU for continued monitoring Load with ticagrelor 180 mg in ICU Continue dual-antiplatelet therapy for at least 1 year. Trend troponins until peak, Check Echo Continue amiodarone infusion overnight Wean norepinephrine as able Restart beta-noelle, ARB as BP allows High-dose statin Consult cardiac Rehab Hemodynamics Rest Ao:: 117/67/83 Final Ao: 117/76/90 LV: 113/16 Recommendations Recommendations: PCI without planned CABG Specimens Specimens: None Radiation Exposure (mGy) 2854 Contrast (mls) 130 Fluids (cc crystalloids) Fluids (cc crystalloids): 500 Anesthesia Moderate 8495-7452 Procedural Complication(s) None Disposition ICU I attest to the content of the Intraoperative Record and any orders documented therein. Any exceptions are noted below. [facility] Card Cath Procedure Codes Cardiac Catheterization Procedure 1: Cardiovascular Cath Procedures: 77608 Coronaries and LHC (+/-LV) Therapeutic Services & Ancillary Procedure 1: Cardiovascular Tx and Anc Procedures: 22402 Insertion Central Venous Catheter Stenting Procedure 1: Cardiovascular Stent Procedures: 41936 Perc transluminal revascularization of acute sub/total occl, aMI PG Care Time/CCT Total # of Minutes Spent Total Time Spent with Patient: Total time spent is greater than 50% in coordination of care (as documented) at patient's floor/unit and/or counseling patient:
[2022-02-16] MEDS: ICU ELECTROLYTE REPLACEMENT PROTOCOL SCH (19:44)
[2022-02-16] MEDS: AMIODARONE / D5W 360 MG/200 ML BAG IV SCH (19:45)
[2022-02-16] MEDS: SENNA 8.6 MG TAB PO SCH (19:46)
[2022-02-16] MEDS ORDERED: levETIRAcetam 1,000 MG in 0.9 % SODIUM CHLORIDE 100 ML IV STA (19:53)
[2022-02-16] MEDS ORDERED: Nursing to Pharmacy Communication SCH (20:00)
--- NOTE | 2022-02-16 20:26 | History & Physical Report ---
Date of Service February 16, 2022 Assessment & Plan (1) Cardiac arrest: (2) Acute myocardial infarction: (3) Atrial fibrillation with rapid ventricular response: Plan: Admitted to ICU post emergent cardiac catheterization after presenting with prehospital cardiac arrest receiving 1 shock via AED. EKG upon arrival to the ED showed atrial fibrillation with RVR with acute ST elevations in the inferior leads. Received BENOIT x 2 to mid RCA Has since converted to sinus bradycardia, currently on amiodarone Remains intubated and sedated Per cardiology, holding on anticoagulation for now Noted history of borderline tachybradycardia syndrome with a brief isolated episode of atrial fibrillation July 2021 (4) Seizure-like activity: Plan: Questionable seizure-like activity reported by family prior to cardiac arrest In the ICU, noted to have intermittent myoclonic jerking. Dr. Mcclure discussed with neurology - possibly related to anoxia from cardiac arrest, however will empirically load with Keppra 1 g and start Keppra 500 mg twice daily, EEG in a.m. with formal neurology consult to follow (5) AAA (abdominal aortic aneurysm): Plan: History of AAA, measured 3cm x 3cm on imaging 06/2021 Admission and Anticipated Discharge Date Admission Date: February 16, 2022 History of Present Illness Chief Complaint: Cardiac arrest Primary Care Provider: Sammy Velasquez DO 71-year-old male with PMH hypothyroidism, dyslipidemia, prediabetes, AAA, HTN, GERD, BPH, borderline tachybradycardia syndrome with a brief isolated episode of atrial fibrillation July 2021, and other problems to below who presents to the ED after cardiac arrest. Patient is currently intubated and sedated in the ICU. History obtained from review of records. Patient had a witnessed cardiac arrest at home and CPR was initiated by family member. Questionable seizure- like activity. Upon EMS arrival, patient received 1 shock via AED. Intubation was attempted however unsuccessful due to mild clenching. Upon arrival to the ED, patient was found to be in atrial fibrillation with RVR with acute inferior ST elevation. He was intubated in the ED and taken emergently to the Sc[facility]. Patient received BENOIT x 2 to mid RCA. Allergies Allergy/AdvReac Type Severity Reaction Status Date / Time No Known Allergies Allergy Unknown Verified 02/16/22 14:33 Home Medications Medication Instructions Recorded Confirmed Type aspirin 81 mg tablet,delayed 81 mg PO HS 01/11/18 02/16/22 History release felodipine 5 mg tablet,extended 5 mg PO HS 01/11/18 02/16/22 History release 24 hr levothyroxine 112 mcg tablet 150 mcg PO QAM 01/11/18 02/16/22 History metoprolol succinate 50 mg capsule 50 mg PO HS 01/11/18 02/16/22 History sprinkle, ext. release 24 hr omeprazole 20 mg delayed 1 tab PO QAM 01/11/18 02/16/22 History release,disintegrating tablet atorvastatin 40 mg tablet 40 mg PO DAILY 02/16/22 02/16/22 History levothyroxine 150 mcg tablet 150 mcg PO DAILY 02/16/22 02/16/22 History olmesartan 40 mg tablet 40 mg PO DAILY 02/16/22 02/16/22 History tamsulosin 0.4 mg capsule 0.4 mg PO DAILY 02/16/22 02/16/22 History Past Med/Surg History Medical History AAA (abdominal aortic aneurysm) Family history of reaction to anesthesia FATHER "ALLERGIC TO MORPHINE" GERD (gastroesophageal reflux disease) Hyperlipidemia Hypertension Hypothyroidism Kidney stones Paroxysmal A-fib a single 12 minute episode was recorded on a ZIO patch monitor in July of 2021 Tachy-jose syndrome per cardiology note - "Borderline tachy Jose syndrome with atrial ventricular ectopy paroxysmal supraventricular tachycardia/atrial fibrillation. No profound Jose arrhythmias observed." Umbilical hernia Surgical History History of colonoscopy History of cystoscopy MULTIPLE TIMES>KIDNEY STONES/STENT INSERTION History of lithotripsy MULTIPLE History of temporal artery biopsy History of tonsillectomy History of tooth extraction Nausea and vomiting after administration of anesthetic agent Family History Father Cancer Mother Cancer Social History Smoking Status: Never smoker Cigarettes Per Day: QUIT 28 YEARS AGO; Second Hand Exposure: No; Hx Alcohol Use: Yes Alcohol type: beer Hx Substance Use: No Preferred Language: Mexican Communication Ability: Effective Network Desktop Support Specialist Required: No Beliefs That Will Affect Care: None Current Living Situation: Spouse Other Information That Helps Us Care for You: No Feels Safe at Home: Yes Assistive Devices: CPAP Review of Systems Review of Systems: Unobtainable due to endotracheal tube Physical Exam Constitutional: WD/WN, vitals as above Sedated, intubated Respiratory: normal respiratory effort, lungs clear to auscultation Int ubated Cardiovascular: Rate/Rhythm: regular rhythm and + bradycardic Vessels: normal peripheral pulses Extremities: no edema Gastrointestinal (Abdomen): normal bowel sounds, soft, nontender, no hepatosplenomegaly Musculoskeletal: Extremities: no cyanosis and no clubbing Unable to assess strength due to sedation Skin: no rashes, warm and dry Neurologic: Sedated Psychiatric: Unable to assess secondary to sedation Results & Data Results & Data ([facility] [place]) Vital Signs (Past 12 Hours) Vital Signs Temp Pulse Pulse Resp BP BP Pulse Ox 02/16/22 18:38 50 L 129/60 02/16/22 18:30 35.6 C L 48 L 26 H 99 02/16/22 18:15 35.4 C L 48 L 26 H 99 02/16/22 16:00 02/16/22 18:00 35.2 C L 56 L 26 H 98 02/16/22 17:45 35.0 C L 48 L 26 H 98 02/16/22 17:30 34.9 C L 50 L 26 H 97 02/16/22 17:15 34.8 C L 51 L 26 H 97 02/16/22 17:00 34.7 C L 57 L 26 H 97 02/16/22 16:31 34.4 C L 89 23 126/73 96 02/16/22 16:29 34.5 C L 93 H 26 H 117/79 92 02/16/22 16:16 110 H 23 163/119 H 94 02/16/22 16:08 102 H 26 H 142/77 H 96 02/16/22 16:02 98 H 17 151/92 H 02/16/22 17:00 02/16/22 14:48 144 H 22 95 02/16/22 16:13 102 H 26 H 97 02/16/22 14:36 51 L 20 59/39 L 94 02/16/22 14:33 56 L 20 54/41 L 94 02/16/22 14:31 57 L 20 58/32 L 93 02/16/22 14:24 72 20 59/42 L 97 02/16/22 14:21 99 H 20 83/50 L 98 02/16/22 14:19 92 H 20 71/58 L 98 02/16/22 14:17 120 H 21 110/58 L 97 02/16/22 14:40 02/16/22 14:37 59/39 L 02/16/22 14:31 58/32 L 02/16/22 14:12 132 H 18 98 O2 Del Method FiO2 02/16/22 18:38 02/16/22 18:30 Mechanical Vent 50 02/16/22 18:15 Mechanical Vent 50 02/16/22 16:00 50 02/16/22 18:00 Mechanical Vent 50 02/16/22 17:45 Mechanical Vent 50 02/16/22 17:30 Mechanical Vent 50 02/16/22 17:15 Mechanical Vent 50 02/16/22 17:00 Mechanical Vent 50 02/16/22 16:31 Mechanical Vent 50 02/16/22 16:29 Mechanical Vent 50 02/16/22 16:16 Mechanical Vent 50 02/16/22 16:08 Mechanical Vent 50 02/16/22 16:02 02/16/22 17:00 Mechanical Vent 02/16/22 14:48 100 02/16/22 16:13 50 02/16/22 14:36 Mechanical Vent 02/16/22 14:33 Mechanical Vent 02/16/22 14:31 Mechanical Vent 02/16/22 14:24 Mechanical Vent 02/16/22 14:21 Mechanical Vent 02/16/22 14:19 Mechanical Vent 02/16/22 14:17 Mechanical Vent 02/16/22 14:40 Mechanical Vent 02/16/22 14:37 02/16/22 14:31 02/16/22 14:12 Ambu-Bag Laboratory Results Short CBC 02/16/22 Range/Units 14:29 WBC 7.32 (4.8-10.8) K/ul Hgb 13.6 L (14.0-18.0) g/dl Hct 40.2 (40.1-51.0) % Plt Count 102 L (130-400) K/uL BMP 02/16/22 02/16/22 14:29 17:06 Sodium 142 140 Potassium 3.1 L 4.0 D Chloride 107 107 Carbon Dioxide 23 23 BUN 19 17 Creatinine 1.04 0.79 Glucose 202 H 214 H Calcium 8.2 L 7.7 L Liver Function 02/16/22 Range/Units 14:29 Total Bilirubin 0.7 (0.2-1.0) mg/dl AST 102 H (13-39) U/L ALT 126 H (7-52) U/L Alkaline Phosphatase 75 (34-104) U/L Albumin 3.9 (3.4-5.0) gm/dl Diagnostic Findings Chest X-Ray 02/16/22 14:08 [facility] AP CHEST RADIOGRAPH CLINICAL HISTORY: Chest Pain COMPARISON STUDY: Chest radiograph July 16, 2021. FINDINGS: Tip of endotracheal tube is 3.9 cm above the [place]. No pneumothorax or pleural effusion is noted. Right costophrenic angle was not included. Apparent increase in cardiac enlargement is likely technical as is mediastinal widening. There is no evidence for pulmonary edema. There is no consolidation. IMPRESSION: 1. Satisfactory positioning of the endotracheal tube. 2. Cardiomegaly. No acute cardiomegaly findings. ACT 112: Negative or not required by law. Electronically signed by: Contreras Bartlett M.D. 02/16/2022 2:32 PM Code Status & VTE Plan VTE Prophylaxis Plan VTE Prophylaxis will be ordered: Yes Supervising Physician Co-Signing Physician Notes I have seen and examined the patient and have discussed the case with the provider above. I agree with the assessment and plan as stated. The patient is intubated and sedated on pressor support in the ICU. History is provided by his daughter who is at bedside. He is bradycardic in the high 40s to 50s and still slightly hypothermic. ICU attending aware. Patient remains on amiodarone drip after converting from atrial fibrillation to sinus rhythm. He is having intermittent myoclonic jerking in his bilateral lower legs that appear to be involuntary low amplitude fasciculations. Exam otherwise unremarkable and as above. Unable to obtain imaging studies yet including CT head and CT chest because of his instability. EEG unavailable until the morning. Discussed with neurology regarding the reported jerking in the field, urinary incontinence and the ongoing fasciculations with his legs. Will plan for EEG in am and imaging studies tomorrow when more stable. Neurology consulted. ICU team managing post cardiac catheterization with ongoing hemodynamic instability. DO Ren (1) Acute myocardial infarction Involved coronary artery: unspecified coronary artery Myocardial infarction type: ST elevation myocardial infarction Qualified Code(s): I21.3 - ST elevation (STEMI) myocardial infarction of unspecified site
[2022-02-16] MEDS: DOCUSATE SODIUM SYRUP 100 MG/10 ML UDC PO SCH (20:53)
[2022-02-16] MEDS ORDERED: DOCUSATE SODIUM 100 MG CAP PO SCH (21:00)
--- NOTE | 2022-02-16 22:25 | Cardiology Consultation ---
Date of Consultation February 16, 2022 Assessment & Plan (1) Acute myocardial infarction: Patient here with out of hospital cardiac arrest and ECG suggestive of inferior STEMI. Recommend proceeding with emergent cardiac catheterization and likely primary PCI. Discussed risks, benefits, alternatives of procedure with family and they are willing to proceed. Further recommendations pending findings of coronary angiography. History of Present Illness Attending Physician: Florence Mcclure DO History of Present Illness 71-year-old man here after [id number] cardiac arrest with ROSC ECG showing inferior ST elevations. Per family report was feeling well this morning. Later developed back pain and complained of discomfort in his jaws. It then looked as if he had a seizure and was lowered to the floor where bystander CPR was begun by his daughter (Kavya - ICU nurse). Received AED shock when police arrived. On arrival combative and received 4 mg of Ativan prior to intubation. ECG showed atrial fibrillation with RVR inferior ST elevations. After Ativan patient hypertensive with systolic pressures in the 50s. Started on norepinephrine drip and received epi bolus. Patient followed by Dr. Fregoso for his prior cardiac care. He has longstanding hypertension along with dyslipidemia, prediabetes and chronic sinus bradycardia. Also reported second-degree AV block. Per family report had been advised to get a pacemaker. Allergies Allergy/AdvReac Type Severity Reaction Status Date / Time No Known Allergies Allergy Unknown Verified 02/16/22 14:33 Home Medications Medication Instructions Recorded Confirmed Type aspirin 81 mg tablet,delayed 81 mg PO HS 01/11/18 02/16/22 History release felodipine 5 mg tablet,extended 5 mg PO HS 01/11/18 02/16/22 History release 24 hr levothyroxine 112 mcg tablet 150 mcg PO QAM 01/11/18 02/16/22 History metoprolol succinate 50 mg capsule 50 mg PO HS 01/11/18 02/16/22 History sprinkle, ext. release 24 hr omeprazole 20 mg delayed 1 tab PO QAM 01/11/18 02/16/22 History release,disintegrating tablet atorvastatin 40 mg tablet 40 mg PO DAILY 02/16/22 02/16/22 History levothyroxine 150 mcg tablet 150 mcg PO DAILY 02/16/22 02/16/22 History olmesartan 40 mg tablet 40 mg PO DAILY 02/16/22 02/16/22 History tamsulosin 0.4 mg capsule 0.4 mg PO DAILY 02/16/22 02/16/22 History Patient History Medical History AAA (abdominal aortic aneurysm) Family history of reaction to anesthesia FATHER "ALLERGIC TO MORPHINE" GERD (gastroesophageal reflux disease) Hyperlipidemia Hypertension Hypothyroidism Kidney stones Paroxysmal A-fib a single 12 minute episode was recorded on a ZIO patch monitor in July of 2021 Tachy-jose syndrome per cardiology note - "Borderline tachy Jose syndrome with atrial ventricular ectopy paroxysmal supraventricular tachycardia/atrial fibrillation. No profound Jose arrhythmias observed." Umbilical hernia Surgical History History of colonoscopy History of cystoscopy MULTIPLE TIMES>KIDNEY STONES/STENT INSERTION History of lithotripsy MULTIPLE History of temporal artery biopsy History of tonsillectomy History of tooth extraction Nausea and vomiting after administration of anesthetic agent Family History Father Cancer Mother Cancer Social History Smoking Status: Never smoker Cigarettes Per Day: QUIT 28 YEARS AGO; Second Hand Exposure: No; Hx Alcohol Use: Yes Alcohol type: beer Hx Substance Use: No Preferred Language: [place] Islander Communication Ability: Effective Pipe Cleaner Required: No Beliefs That Will Affect Care: None Current Living Situation: Spouse Other Information That Helps Us Care for You: No Feels Safe at Home: Yes Assistive Devices: CPAP Review of Systems Review of Systems: Unobtainable due to endotracheal tube Physical Exam Physical Exam: General: Intubated sedated HEENT: Sclerae anicteric. ETT in place Lungs: Clear anteriorly Cardiac: Irregularly irregular, tachycardic Vascular: 2+ radial Abdomen: Soft Extremities: no peripheral edema Results & Data ([facility]) Vital Signs (Past 12 Hours) Vital Signs Temp Pulse Pulse Resp BP BP Pulse Ox 02/16/22 21:00 98.4 F 54 L 26 H 99 02/16/22 20:02 97.9 F 50 L 27 H 97 02/16/22 19:00 96.8 F L 46 L 26 H 100 02/16/22 19:58 55 L 27 H 100 02/16/22 20:00 02/16/22 20:00 02/16/22 18:38 50 L 129/60 02/16/22 18:30 96.1 F L 48 L 26 H 99 02/16/22 18:15 95.7 F L 48 L 26 H 99 02/16/22 16:00 02/16/22 18:00 95.4 F L 56 L 26 H 98 02/16/22 17:45 95.0 F L 48 L 26 H 98 02/16/22 17:30 94.8 F L 50 L 26 H 97 02/16/22 17:15 94.6 F L 51 L 26 H 97 02/16/22 17:00 94.5 F L 57 L 26 H 97 02/16/22 16:31 93.9 F L 89 23 126/73 96 02/16/22 16:29 94.1 F L 93 H 26 H 117/79 92 02/16/22 16:16 110 H 23 163/119 H 94 02/16/22 16:08 102 H 26 H 142/77 H 96 02/16/22 16:02 98 H 17 151/92 H 02/16/22 17:00 02/16/22 14:48 144 H 22 95 02/16/22 16:13 102 H 26 H 97 02/16/22 14:36 51 L 20 59/39 L 94 02/16/22 14:33 56 L 20 54/41 L 94 02/16/22 14:31 57 L 20 58/32 L 93 02/16/22 14:24 72 20 59/42 L 97 02/16/22 14:21 99 H 20 83/50 L 98 02/16/22 14:19 92 H 20 71/58 L 98 02/16/22 14:17 120 H 21 110/58 L 97 02/16/22 14:40 02/16/22 14:37 59/39 L 02/16/22 14:31 58/32 L 02/16/22 14:12 132 H 18 98 O2 Del Method FiO2 02/16/22 21:00 02/16/22 20:02 02/16/22 19:00 02/16/22 19:58 50 02/16/22 20:00 Mechanical Vent 40 02/16/22 20:00 40 02/16/22 18:38 02/16/22 18:30 Mechanical Vent 50 02/16/22 18:15 Mechanical Vent 50 02/16/22 16:00 50 02/16/22 18:00 Mechanical Vent 50 02/16/22 17:45 Mechanical Vent 50 02/16/22 17:30 Mechanical Vent 50 02/16/22 17:15 Mechanical Vent 50 02/16/22 17:00 Mechanical Vent 50 02/16/22 16:31 Mechanical Vent 50 02/16/22 16:29 Mechanical Vent 50 02/16/22 16:16 Mechanical Vent 50 02/16/22 16:08 Mechanical Vent 50 02/16/22 16:02 02/16/22 17:00 Mechanical Vent 02/16/22 14:48 100 02/16/22 16:13 50 02/16/22 14:36 Mechanical Vent 02/16/22 14:33 Mechanical Vent 02/16/22 14:31 Mechanical Vent 02/16/22 14:24 Mechanical Vent 02/16/22 14:21 Mechanical Vent 02/16/22 14:19 Mechanical Vent 02/16/22 14:17 Mechanical Vent 02/16/22 14:40 Mechanical Vent 02/16/22 14:37 02/16/22 14:31 02/16/22 14:12 Ambu-Bag PG Care Time/CCT Total # of Minutes Spent Total Time Spent with Patient: Total time spent is greater than 50% in coordination of care (as documented) at patient's floor/unit and/or counseling patient: Coding Level of Care Code 50852 Initial Inpt Care Lvl 3 Diagnoses Acute myocardial infarction I21.3 Involved coronary artery: unspecified coronary artery Myocardial infarction type: ST elevation myocardial infarction (1) Acute myocardial infarction Involved coronary artery: unspecified coronary artery Myocardial infarction type: ST elevation myocardial infarction Qualified Code(s): I21.3 - ST elevation (STEMI) myocardial infarction of unspecified site
[2022-02-17] MEDS: ACETAMINOPHEN 1,000 MG/100 ML VIAL IV PRN (00:29)
[2022-02-17 01:07] LABS: BUN Creatinine Ratio 27.9 (10-20); Creatinine Clr Calc Pharmacy 125.2 ml/min; Est GFR (African American) 112.1 ml/min; Est GFR (Non-African American) 96.8 ml/min; Potassium 4.2 mmol/L (3.5-5.1)
[2022-02-17 01:30] LABS: Albumin Level 3.6 gm/dl (3.4-5.0); Bilirubin Direct 0.1 mg/dl (0-0.2); Bilirubin,Total 0.7 mg/dl (0.2-1.0); Magnesium 1.6 mg/dl (1.7-2.4); Phosphorus 1.5 mg/dl (2.5-4.9); Total Protein 5.6 gm/dl (6.0-8.3)
[2022-02-17 01:31] LABS: Troponin I High Sensitivity 31038.2 pg/ml (0-20)
[2022-02-17] MEDS ORDERED: SODIUM PHOSPHATE 3 MMOL/1 ML 5 ML VIAL IV ONE (01:32)
[2022-02-17] MEDS: propofoL 1,000 MG/100 ML VIAL IV SCH ×7 (01:40→23:16)
[2022-02-17 01:45] LABS: Hemoglobin 12.4 g/dl (14.0-18.0); Mean Corpuscular Hemoglobin 29.8 pg (25.0-34.0); Mean Corpuscular Hgb Conc 34.4 g/dL (32.0-36.0); Mean Corpuscular Volume 86.5 fL (80.0-100.0); Mean Platelet Volume 12.9 fL (9.4-12.4); Platelet Count 99 K/uL (130-400); RDW Standard Deviation 40.6 fL (36.4-46.3); Red Blood Count 4.16 M/uL (4.63-6.08); White Blood Count 9.18 K/ul (4.8-10.8)
[2022-02-17 01:46] LABS: Basophils # (auto) 0.03 K/uL (0-0.2); Basophils % (auto) 0.3 %; Eosinophils # (auto) 0.01 K/uL (0-0.50); Eosinophils % (auto) 0.1 %; Immature Granulocytes # (auto) 0.04 K/uL (0.00-0.02); Immature Granulocytes % (auto) 0.4 %; Lymphocytes # (auto) 0.56 K/uL (1.2-3.4); Lymphocytes % (auto) 6.1 %; Monocytes # (auto) 0.76 K/uL (0.24-0.82); Monocytes % (auto) 8.3 %; Neutrophils # (auto) 7.78 K/uL (1.4-6.5); Neutrophils % (auto) 84.8 %; Platelet Estimate Decreased (Normal)
[2022-02-17] MEDS ORDERED: SODIUM PHOSPHATE 15 MMOL in SODIUM CHLORIDE 0.9% 250 ML IV ONE (02:00)
[2022-02-17] MEDS: MAGNESIUM SULFATE / D5W 1 GM/100 ML BAG IV SCH ×5 (02:02→09:38)
[2022-02-17] MEDS: PROPOFOL BOLUS FROM BAG IV PRN ×2 (05:22→20:11)
[2022-02-17] MEDS: NORMOSOL-R 1,000 ML IV SCH ×2 (05:30→18:20)
[2022-02-17 05:41] LABS: iSTAT Art Bld Gas pCO2 Correct 32 mmHg (35-46); iSTAT Art Bld Gas pH Corrected 7.452 (7.35-7.45); iSTAT Arterial Blood Gas HCO3 22 meg/L (19-24); iSTAT Arterial Blood Gas pCO2 31 mmHg (35-46); iSTAT Arterial Blood Gas pH 7.46 (7.35-7.45); iSTAT Arterial Blood Gas pO2 67 mmHg (80-95); iSTAT Arterial Blood Gas pO2 C 70; iSTAT Carbon Dioxide 23 mmol/L (24-31); iSTAT FiO2 30 %; iSTAT Hematocrit 35 % (42-52); iSTAT Hemoglobin 11.9 g/dl (14.0-18.0); iSTAT Potassium 3.5 mmol/L (3.3-5.0); iSTAT Site Art Line; iSTAT Sodium 137 mmol/L (135-144)
[2022-02-17] MEDS: LEVOTHYROXINE SODIUM 125 MCG TABLET PO SCH (06:23)
[2022-02-17] MEDS: ICU ELECTROLYTE REPLACEMENT PROTOCOL SCH ×2 (06:23→17:37)
[2022-02-17] MEDS: AMIODARONE / D5W 360 MG/200 ML BAG IV SCH ×3 (07:09→18:21)
--- NOTE | 2022-02-17 07:35 | Critical Care Progress Note ---
Date of Service February 17, 2022 Assessment & Plan (1) Cardiac arrest: (2) Acute myocardial infarction: (3) Atrial fibrillation with rapid ventricular response: (4) Hypokalemia: (5) Ventricular fibrillation: (6) Hypomagnesemia: Plan Impression: 71-year-old male status post cardiac arrest due to ST elevation myocardial infarction status post drug-eluting stent and initiation of pressors. He is intubated. Recommendations: 1. Neurologic: Continue sedation with propofol and as needed fentanyl and Versed. Questionable seizure-like activity before in the out of hospital cardiac arrest. Neurology evaluating. 2. Cardiovascular: Acute ST elevation myocardial infarction status post drug- eluting stent. Antiplatelet agents per cardiology. Possible reperfusion syndrome. Patient had several bouts of ventricular fibrillation. We will start the patient on lidocaine and give an additional bolus of atrial fibrillation. 2 g of magnesium sulfate given as well. Recheck labs. Discussed with cardiology in person. Echo results pending. 3. Respiratory: Intubated for airway protection. He is oxygenating ventilating reasonably well currently. Follow-up blood gas and chest x-ray. He has a history of sleep disordered breathing treated with CPAP of 14 cm water. Once ex tubated will need CPAP. Will defer SBT until more hemodynamically stable. 4. GI: PPI. We will hold tube feeding for now in hopes of liberation from mechanical ventilation in the next 12 to 24 hours. 5. Renal: Replace potassium and magnesium aggressively. Follow urine output. 6. ID: No current issues. Continue to follow for now. 7. Endocrine: Glycemic control per protocol. TSH unremarkable. 8. Heme-onc: No current issues. Lovenox for DVT prophylaxis. CRITICAL CARE TIME - I have personally spent 68 minutes of critical care time in the direct management of this patient. This is a life/limb threatening event. This includes time spent evaluating patient, direct bedside care, chart review, placing orders, interpretation of diagnostic studies, discussion with consultants, patient, and family members, as well as other required patient management activities. This time is exclusive of all separately billable procedures, and teaching time and separate from and in addition to any other critical care service time. Admission and Anticipated Discharge Date Admission Date: February 16, 2022 Subjective Patient seen and examined this morning. Prior to shift change, the patient had an episode of ventricular fibrillation requiring defibrillation. Several minutes later, he had another bout of ventricular fibrillation requiring defibrillation. I ordered. Dose of 150 mg of amiodarone and lidocaine bolus. Patient is also getting a 500 cc bolus of lactated Ringer's. He remains hemodynamically stable at this time. I discussed the case personally with the patient's marine design engineer Dr. Grace and Dr. Suazo over the phone. Discussed with nursing at bedside and pharmacy over the phone as well regarding the lidocaine infusion. Cardiology is going to see the patient now due to concerns of possible seizure-like activity prior to the cardiac arrest. Review of Systems Review of Systems: All systems reviewed & are unremarkable except as noted in HPI & below Physical Exam Constitutional: well developed, well nourished and + mechanically ventilated Sedated on the ventilator Neck: trachea midline, no thyromegaly Respiratory: normal respiratory effort, lungs clear to auscultation Cardiovascular: RRR, no murmur, no edema Gastrointestinal (Abdomen): normal bowel sounds, soft, nontender, no hepatosplenomegaly Musculoskeletal: Extremities: extremities normal to inspection Skin: no rashes, warm and dry Neurologic: Nonfocal exam Lymphatic: no cervical lymphadenopathy Results & Data Results & Data ([facility]) Vital Signs (Past 12 Hours) Vital Signs Temp Pulse Resp Pulse Ox O2 Del Method FiO2 02/17/22 07:06 55 L 24 97 40 02/17/22 06:30 37.5 C 57 L 23 96 02/17/22 06:15 37.5 C 57 L 23 96 02/17/22 06:00 37.6 C H 57 L 23 95 02/17/22 05:45 37.6 C H 58 L 23 97 02/17/22 05:30 37.6 C H 59 L 26 H 97 02/17/22 05:15 37.6 C H 58 L 26 H 97 02/17/22 05:00 37.7 C H 59 L 26 H 97 02/17/22 04:45 37.8 C H 59 L 26 H 97 02/17/22 04:30 37.8 C H 55 L 26 H 97 02/17/22 04:15 37.9 C H 57 L 26 H 97 02/17/22 04:00 37.9 C H 58 L 26 H 96 02/17/22 03:45 38.0 C H 56 L 26 H 96 02/17/22 03:31 38.1 C H 56 L 26 H 96 02/17/22 03:15 38.1 C H 56 L 26 H 96 02/17/22 03:00 38.1 C H 56 L 26 H 96 02/17/22 02:45 38.1 C H 56 L 26 H 96 02/17/22 02:30 38.1 C H 56 L 26 H 96 02/17/22 02:15 38.1 C H 55 L 26 H 97 02/17/22 02:00 38.1 C H 54 L 26 H 97 02/17/22 01:45 38.0 C H 53 L 26 H 97 02/17/22 01:30 38.0 C H 55 L 26 H 97 02/17/22 01:15 37.9 C H 53 L 26 H 97 02/17/22 04:00 30 02/17/22 03:10 56 L 27 H 96 30 02/17/22 01:00 37.9 C H 57 L 26 H 97 02/17/22 00:45 37.9 C H 57 L 26 H 97 02/17/22 00:30 37.8 C H 56 L 26 H 97 02/17/22 00:15 37.7 C H 52 L 26 H 97 02/17/22 00:00 37.6 C H 54 L 26 H 97 02/16/22 23:45 37.6 C H 53 L 26 H 97 02/16/22 23:32 37.5 C 55 L 26 H 97 02/16/22 23:15 37.4 C 53 L 26 H 98 02/17/22 00:00 30 02/17/22 00:00 54 L 02/16/22 23:50 52 L 26 H 98 30 02/16/22 23:00 37.3 C 54 L 26 H 98 02/16/22 22:45 37.3 C 54 L 26 H 98 02/16/22 22:30 37.2 C 53 L 26 H 98 02/16/22 22:15 37.2 C 53 L 26 H 98 02/16/22 22:00 37.1 C 53 L 26 H 98 02/16/22 21:45 37.1 C 54 L 26 H 98 02/16/22 21:30 37.0 C 53 L 26 H 98 02/16/22 21:15 37.0 C 54 L 26 H 98 02/16/22 21:00 36.9 C 54 L 26 H 99 02/16/22 20:02 36.6 C 50 L 27 H 97 02/16/22 19:58 55 L 27 H 100 50 02/16/22 20:00 Mechanical Vent 40 02/16/22 20:00 40 Coding Level of Care Code Critical Care 1st 30-74 mins Diagnoses Cardiac arrest I46.9 Acute myocardial infarction I21.3 Involved coronary artery: unspecified coronary artery Myocardial infarction type: ST elevation myocardial infarction Atrial fibrillation with rapid ventricular response I48.91 Hypokalemia E87.6 Ventricular fibrillation I49.01 Hypomagnesemia E83.42 Time Spent (min) 68 (1) Acute myocardial infarction Involved coronary artery: unspecified coronary artery Myocardial infarction type: ST elevation myocardial infarction Qualified Code(s): I21.3 - ST elevation (STEMI) myocardial infarction of unspecified site
[2022-02-17] MEDS ORDERED: AMIODARONE 150MG / 100ML D5W IV ONE (07:40)
[2022-02-17] MEDS ORDERED: LIDOCAINE HCL/D5W 2000 MG/500 ML BAG IV ONE (07:42)
[2022-02-17] MEDS: LIDOCAINE/D5W DRIP 4MG/ML 2,000 MG/500 ML BAG IV SCH (07:42)
[2022-02-17 07:43] LABS: BUN Creatinine Ratio 31.7 (10-20); Calcium 8.1 mg/dl (8.5-10.1); Creatinine Clr Calc Pharmacy 135.2 ml/min; Est GFR (African American) 115.7 ml/min; Est GFR (Non-African American) 99.8 ml/min; Magnesium 2.5 mg/dl (1.7-2.4); Phosphorus 2.8 mg/dl (2.5-4.9); Potassium 3.8 mmol/L (3.5-5.1)
[2022-02-17] MEDS ORDERED: Nursing to Pharmacy Communication SCH ×2 (07:45→09:15)
[2022-02-17] MEDS ORDERED: LIDOCAINE IV BOLUS & DRIP IV STA (07:46)
[2022-02-17] MEDS ORDERED: LIDOCAINE 2% 20 MG/ML 5 ML SYR IV STA (07:51)
[2022-02-17] MEDS ORDERED: 0.2 MICRON FILTER SET 1 EACH IV ONE (08:02)
[2022-02-17] MEDS ORDERED: AMIODARONE / D5W 150 MG/100 ML BAG IV STA (08:02)
--- NOTE | 2022-02-17 08:09 | Electrocardiogram Report ---
Test Reason : Blood Pressure : / mmHG Vent. Rate : 053 BPM Atrial Rate : 053 BPM P-R Int : 236 ms QRS Dur : 088 ms QT Int : 436 ms P-R-T Axes : 016 -32 065 degrees QTc Int : 409 ms Sinus bradycardia with sinus arrhythmia with 1st degree A-V block Left axis deviation Left ventricular hypertrophy with repolarization abnormality recent Inferior infarct (cited on or before 16-FEB-2022) Abnormal ECG When compared with ECG of 16-FEB-2022 14:16, Sinus rhythm has replaced Atrial fibrillation Vent. rate has decreased BY 63 BPM Serial changes of evolving Inferior infarct Present Confirmed by Herman Avila ([id number]) on 02/17/2022 8:09:11 AM Referred By: REFERRED SELF Confirmed By:Herman Avila
--- NOTE | 2022-02-17 08:15 | Cardiology Consultation ---
Date of Consultation February 17, 2022 Assessment & Plan (1) Torsades de pointes: (2) ST elevation (STEMI) myocardial infarction involving right coronary artery: (3) Ventricular fibrillation: (4) Hypomagnesemia: (5) Cardiac arrest: (6) Cardiogenic shock: (7) Atrial fibrillation with rapid ventricular response: (8) Hypertension: Plan The patient suffered a RCA ST segment elevation NC which was complicated by recurrent ventricular arrhythmias and I believe this morning's arrhythmias likely represent reperfusion. The patient is currently intubated and sedated on amiodarone and lidocaine drips. No further ventricular arrhythmias after lidocaine was initiated. The patient does carry history of significant sinus bradycardia and I believe he will likely need pacemaker implantation prior to discharge to facilitate beta- noelle usage Given the fact the also had an out of hospital arrest ICD would be appropriate. 2D echocardiogram does not show any significant wall motion abnormalities with low normal LV systolic function. He has been started on dual antiplatelet therapy and this will be continued. Continue to monitor closely in the intensive care unit History of Present Illness Reason for Consultation: STEMI with Vtach Requesting Physician: MURIEL Attending Physician: Evy Casas MD History of Present Illness It was my pleasure to see Mr. Hassan in cardiac consultation today, 02/17/22. He is a very pleasant 71-year-old gentleman who presented to [facility] emergency department on 02/16/2022 after a witnessed cardiac arrest and bystander CPR provided by his daughter who is an intensive care unit nurse here. Patient is currently sedated and intubated. History obtained through discussion with the patient's daughter, critical care team and review of medical records. Apparently, the patient was in his normal state of health and played 18 holes of golf the day prior to presentation. He lost consciousness at home and had questionable seizure-like activity or possible hypoxic posturing. He received out of hospital AED shock via EMS. Upon arrival to the emergency department he was intubated and EKG showed inferior ST segment elevations and he was taken emergently to the cardiac [facility] where he ultimately received drug- eluting stents x2 to the ostial/proximal RCA. His cardiac catheterization was complicated by A. fib with rapid ventricular response and cardiogenic shock requiring norepinephrine. He was then transferred to the intensive care unit were early in the a.m. of 02/17/2022 he suffered recurrent ventricular arrhythmias including torsades de point, ventricular tachycardia and questionable ventricular fibrillation. He was already started on amiodarone and lidocaine was added. Cardiac Hx obtained from [facility]: 1. Sinus node dysfunction - exacerbated by beta-noelle therapy 2. Paroxysmal atrial fibrillation - newly diagnosed 07/2021 3. Premature ventricular contractions - focal - burden of 20 -22% 4. CHADS- VASc - 3 (Age, HTN, PVD) 5. Abdominal aortic aneurysm at 3cm 6. Hypertensive heart disease 7. SCOOTER on CPAP 8. Prediabetes Allergies Allergy/AdvReac Type Severity Reaction Status Date / Time No Known Allergies Allergy Unknown Verified 02/16/22 14:33 Home Medications Medication Instructions Recorded Confirmed Type aspirin 81 mg tablet,delayed 81 mg PO HS 01/11/18 02/16/22 History release felodipine 5 mg tablet,extended 5 mg PO HS 01/11/18 02/16/22 History release 24 hr levothyroxine 112 mcg tablet 150 mcg PO QAM 01/11/18 02/16/22 History metoprolol succinate 50 mg capsule 50 mg PO HS 01/11/18 02/16/22 History sprinkle, ext. release 24 hr omeprazole 20 mg delayed 1 tab PO QAM 01/11/18 02/16/22 History release,disintegrating tablet atorvastatin 40 mg tablet 40 mg PO DAILY 02/16/22 02/16/22 History levothyroxine 150 mcg tablet 150 mcg PO DAILY 02/16/22 02/16/22 History olmesartan 40 mg tablet 40 mg PO DAILY 02/16/22 02/16/22 History tamsulosin 0.4 mg capsule 0.4 mg PO DAILY 02/16/22 02/16/22 History Patient History Medical History AAA (abdominal aortic aneurysm) Family history of reaction to anesthesia FATHER "ALLERGIC TO MORPHINE" GERD (gastroesophageal reflux disease) Hyperlipidemia Hypertension Hypomagnesemia Hypothyroidism Kidney stones Paroxysmal A-fib a single 12 minute episode was recorded on a [employer] patch monitor in July of 2021 Tachy-jose syndrome per cardiology note - "Borderline tachy Jose syndrome with atrial ventricular ectopy paroxysmal supraventricular tachycardia/atrial fi brillation. No profound Jose arrhythmias observed." Umbilical hernia Ventricular fibrillation Surgical History History of colonoscopy History of cystoscopy MULTIPLE TIMES>KIDNEY STONES/STENT INSERTION History of lithotripsy MULTIPLE History of temporal artery biopsy History of tonsillectomy History of tooth extraction Nausea and vomiting after administration of anesthetic agent Family History Father , age 52 of an NC Myocardial infarction Lung cancer Mother , in 70s of lung cancer Lung cancer Social History Smoking Status: Former smoker Cigarettes Per Day: QUIT 28 YEARS AGO in 1994; Smoking End Date: 1994; Second Hand Exposure: No; Hx Alcohol Use: Yes Alcohol type: beer Alcohol Intake Frequency Comment: uncertain frequency Hx Substance Use: No Preferred Language: Georgian Communication Ability: Unable Refrigerating Technician Required: No Beliefs That Will Affect Care: None marital status: Current Living Situation: Spouse current occupational status: employed 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 No acute distress. HEENT: Normocephalic, atraumatic. Pupils equal, round and reactive to light and accommodation. Extraocular muscles are intact. Anicteric sclera. Moist mucous membranes. Neck: No JVD. No bruit. Cardiovascular: Regular. Positive S-4. Normal S-1 and S-2. No S-3. 3/6 holosystolic ejection murmur, left sternal border, mid-clavicular line with radiation to the axilla. No rubs. Pulmonary: Clear to auscultation bilaterally. No rales, rhonchi, or wheezing. Abdomen: Bowel sounds x 4, soft. No rebound, guarding or tenderness. No organomegaly. Extremities: No clubbing, cyanosis or edema. +2 pedal pulses bilaterally. Skin: Warm and dry. Results & Data ([facility]) Vital Signs (Past 12 Hours) Vital Signs Temp Pulse Resp Pulse Ox FiO2 02/17/22 07:06 55 L 24 97 40 02/17/22 06:30 37.5 C 57 L 23 96 02/17/22 06:15 37.5 C 57 L 23 96 02/17/22 06:00 37.6 C H 57 L 23 95 02/17/22 05:45 37.6 C H 58 L 23 97 02/17/22 05:30 37.6 C H 59 L 26 H 97 02/17/22 05:15 37.6 C H 58 L 26 H 97 02/17/22 05:00 37.7 C H 59 L 26 H 97 02/17/22 04:45 37.8 C H 59 L 26 H 97 02/17/22 04:30 37.8 C H 55 L 26 H 97 02/17/22 04:15 37.9 C H 57 L 26 H 97 02/17/22 04:00 37.9 C H 58 L 26 H 96 02/17/22 03:45 38.0 C H 56 L 26 H 96 02/17/22 03:31 38.1 C H 56 L 26 H 96 02/17/22 03:15 38.1 C H 56 L 26 H 96 02/17/22 03:00 38.1 C H 56 L 26 H 96 02/17/22 02:45 38.1 C H 56 L 26 H 96 02/17/22 02:30 38.1 C H 56 L 26 H 96 02/17/22 02:15 38.1 C H 55 L 26 H 97 02/17/22 02:00 38.1 C H 54 L 26 H 97 02/17/22 01:45 38.0 C H 53 L 26 H 97 02/17/22 01:30 38.0 C H 55 L 26 H 97 02/17/22 01:15 37.9 C H 53 L 26 H 97 02/17/22 04:00 30 02/17/22 03:10 56 L 27 H 96 30 02/17/22 01:00 37.9 C H 57 L 26 H 97 02/17/22 00:45 37.9 C H 57 L 26 H 97 02/17/22 00:30 37.8 C H 56 L 26 H 97 02/17/22 00:15 37.7 C H 52 L 26 H 97 02/17/22 00:00 37.6 C H 54 L 26 H 97 02/16/22 23:45 37.6 C H 53 L 26 H 97 02/16/22 23:32 37.5 C 55 L 26 H 97 02/16/22 23:15 37.4 C 53 L 26 H 98 02/17/22 00:00 30 02/17/22 00:00 54 L 02/16/22 23:50 52 L 26 H 98 30 02/16/22 23:00 37.3 C 54 L 26 H 98 02/16/22 22:45 37.3 C 54 L 26 H 98 02/16/22 22:30 37.2 C 53 L 26 H 98 02/16/22 22:15 37.2 C 53 L 26 H 98 02/16/22 22:00 37.1 C 53 L 26 H 98 02/16/22 21:45 37.1 C 54 L 26 H 98 02/16/22 21:30 37.0 C 53 L 26 H 98 02/16/22 21:15 37.0 C 54 L 26 H 98 02/16/22 21:00 36.9 C 54 L 26 H 99 Diagnostic Findings ZIOPATCH (07/17/2021 to 07/24/2021) - the predominant heart rate was normal sinus rhythm - Average - 61 BPM - paroxysmal atrial fibrillation - average ventricular rate - 128 BPM - 5 episodes, longest 12 minutes - no symptoms - unifocal premature ventricular contractions-22.5% ZIOPATCH ( 08/13/2021 to 08/20/2021) - the predominant rhythm is normal sinus rhythm - average heart rate 57 BPM (42 - 107 BPM) - SVT 10 episodes, longest 81 seconds - frequent unifocal premature ventricular contractions - 20.1% Exercise Echocardiography Report (08/07/2021) The stress echo is indeterminate for inducible ischemia. The low heart rate response to stress reduces the sensitivity of this test for the detection of coronary artery disease or ischemia. Frequent atrial and ventricular ectopy without sustained arrhythmias. Attenuated heart rate response to exercise with normal blood pressure response. Below average exercise tolerance for age. At rest, normal LV chamber size with mild concentric LVH. Normal LV systolic function without regional wall motion abnormalities, EF 60 to 65%. Grade 2 diastolic dysfunction. The aortic valve has three leaflets. The aortic valve is moderately calcified. Mild aortic valve stenosis is present. Mild aortic valve regurgitation is present. Mild mitral regurgitation. Mild tricuspid regurgitation Pharmacologic Nuclear Stress Report (09/25/2021) Myocardial perfusion imaging is normal. Overall left ventricular systolic function was normal without regional wall motion abnormalities. The left ventricular ejection fraction was 58%.
--- NOTE | 2022-02-17 08:18 | Electrocardiogram Report ---
Test Reason : Blood Pressure : / mmHG Vent. Rate : 059 BPM Atrial Rate : 059 BPM P-R Int : 248 ms QRS Dur : 088 ms QT Int : 416 ms P-R-T Axes : 015 -38 094 degrees QTc Int : 411 ms Sinus bradycardia with 1st degree A-V block with Premature supraventricular complexes and with occasi onal Premature ventricular complexes Left axis deviation Left ventricular hypertrophy with repolarization abnormality Recent Inferior infarct (cited on or before 16-FEB-2022) Abnormal ECG When compared with ECG of 16-FEB-2022 18:21, Premature ventricular complexes are now Present Premature supraventricular complexes are now Present Confirmed by Herman Avila ([id number]) on 02/17/2022 8:18:03 AM Referred By: REFERRED SELF Confirmed By:Herman Avila
--- NOTE | 2022-02-17 08:19 | Electrocardiogram Report ---
Test Reason : Blood Pressure : / mmHG Vent. Rate : 116 BPM Atrial Rate : 120 BPM P-R Int : 000 ms QRS Dur : 086 ms QT Int : 318 ms P-R-T Axes : 000 -21 117 degrees QTc Int : 442 ms Poor data quality, interpretation may be adversely affected Atrial fibrillation with rapid ventricular response Moderate voltage criteria for LVH, may be normal variant Acute Inferior-posterior infarct (cited on or before 16-FEB-2022) T wave abnormality, consider lateral ischemia Consider right ventricular involvement in acute inferior infarct Abnormal ECG When compared with ECG of 16-JUL-2021 10:41, Acute Inferior infarct now present Atrial fibrillation now present HR has increased by 73 bpm Confirmed by Herman Avila ([id number]) on 02/17/2022 8:19:04 AM Referred By: REFERRED SELF Confirmed By:Herman Avila
[2022-02-17] MEDS: levETIRAcetam 500 MG in 0.9 % SODIUM CHLORIDE 100 ML IV SCH ×2 (08:26→19:43)
[2022-02-17] MEDS: TICAGRELOR 90 MG TAB PO SCH ×2 (08:28→19:44)
[2022-02-17] MEDS: ATORVASTATIN 40 MG TAB PO SCH (08:28)
[2022-02-17] MEDS: ASPIRIN 81 MG CHEW PO SCH (08:39)
[2022-02-17] MEDS: POTASSIUM CHLORIDE / WTR 20 MEQ/100 ML PLCT IV SCH ×2 (08:51→10:24)
--- NOTE | 2022-02-17 08:52 | Neurology Consultation ---
Date of Consultation February 17, 2022 Assessment & Plan (1) Cardiac arrest: (2) Seizure-like activity: Plan patient had an event on February 16 which was consistent with a cardiac arrest and a generalized tonic seizure. I am uncertain which came but it is more likely that the cardiac arrest came and triggered him into a tonic seizure. He had some postictal combativeness and ended up being intubated. Currently he is on propofol and neurologic examination cannot be adequately obtained. He is on levetiracetam 500 mg twice daily. Recommendations: 1. EEG will be obtained to see if he has subclinical seizure activity currently. 2. 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 We may consider CT or MRI of the brain or other testing depending on his clinical course. 3. For now keep levetiracetam 500 mg twice daily. I will follow. Overall, I spent a total of 90 minutes with this case including review of records, direct evaluation the patient at bedside, and discussion of the case with the RN at bedside, Dr. Gill, Dr. Suazo, and Dr. Casas, including differential diagnosis and treatment options. History of Present Illness Reason for Consultation: Patient is a 71-year-old, who I was asked to see the request of Dr. Mcclure, for neurologic consultation regarding seizure like activity and cardiac arrest with altered mental status. Requesting Physician: Dr. Mcclure Attending Physician: Evy Casas MD History of Present Illness the patient cannot give a history and the history obtained is from the chart and from the patient's daughter who was present at the incident yesterday. The patient has a longstanding history of hypertension and dyslipidemia. He is a former cigarette smoker quitting in 1994. he has had history of atrial fibrillation Episodes in the past. Prior to admission he was on 81 mg aspirin, atorvastatin 40, metoprolol 50 mg, and olmesartan 40 mg daily. He is followed closely by Dr. Fregoso, cardiology. 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 He was having a good day yesterday morning and made breakfast for the family. Just after lunch time, he went inside and was sitting on the couch having had no unusual medical issues or complaints. Family heard noise of something breaking they went inside and it was noted that the patient was sitting on the couch arching his back with blowing respirations and eyes closed. He had no response to voice /yelling, shaking or sternal rub. He was stiff in general. There were no jerking or clonic movements noted. After about 30 seconds, the daughter states the patient went limp and she laid him down on the couch. It was clear he was incontinent of urine and had bit his tongue. He was then pulled to the floor and they noticed that he was flaccid with his limbs with intermittent blowing respirations and no pulse. they then felt he was not breathing and CPR was started. The patient's daughter had completed about 2 rounds of CPR when the police arrived. A EEG showed that he was not in any some type of good rhythm and the gave him a shock. He was then bagged and CPR was resumed until the ambulance arrived. Apparently his rhythm was in atrial fibrillation with rapid ventricular rate of 116. The daughter said that the patient was flaccid but stable and left to change. Apparently the EMS felt the patient was combative with movements and he ended up getting 4 mg of Ativan IV. in addition he was clenched and so intubation was not possible initially. He arrived to the emergency room at 2:00 p.m. with a blood pressure of 58/32, pulse of 132 in atrial fibrillation, and respiratory rate 18. O2 saturation was 90%. He was given amiodarone and norepinephrine and eventually flipped into a normal sinus rhythm with a better blood pressure. He was also given 500 mg IV levetiracetam has been getting this every 12 hours. He had no further seizure activity and was obtunded /intubated on propofol. Overnight he was in sinus Yasir cardiac rhythm. At around 0656 he was noted to have an abnormal cardiac rhythm and VFib and was shocked. This put him back into sinus Yasir. He had another event and 0739. Currently ( 0800) he is in sinus bradycardia. He is intubated and not moving on 40 of propofol. CBC was unremarkable. Chem profile showed a low sodium and elevated glucose with elevated AST and ALT, as well as a troponin of 298. TSH was normal at 1.4. The patient had cardiac catheterization which showed significant coronary artery disease and required a stent. I spoke with Dr. Suazo today who was looking at his echocardiogram showing some moderate damage to the inferior wall of the ventricle Allergies Allergy/AdvReac Type Severity Reaction Status Date / Time No Known Allergies Allergy Unknown Verified 02/16/22 14:33 Home Medications Medication Instructions Recorded Confirmed Type aspirin 81 mg tablet,delayed 81 mg PO HS 01/11/18 02/16/22 History release felodipine 5 mg tablet,extended 5 mg PO HS 01/11/18 02/16/22 History release 24 hr levothyroxine 112 mcg tablet 150 mcg PO QAM 01/11/18 02/16/22 History metoprolol succinate 50 mg capsule 50 mg PO HS 01/11/18 02/16/22 History sprinkle, ext. release 24 hr omeprazole 20 mg delayed 1 tab PO QAM 01/11/18 02/16/22 History release,disintegrating tablet atorvastatin 40 mg tablet 40 mg PO DAILY 02/16/22 02/16/22 History levothyroxine 150 mcg tablet 150 mcg PO DAILY 02/16/22 02/16/22 History olmesartan 40 mg tablet 40 mg PO DAILY 02/16/22 02/16/22 History tamsulosin 0.4 mg capsule 0.4 mg PO DAILY 02/16/22 02/16/22 History Patient History Medical History AAA (abdominal aortic aneurysm) Family history of reaction to anesthesia FATHER "ALLERGIC TO MORPHINE" GERD (gastroesophageal reflux disease) Hyperlipidemia Hypertension Hypomagnesemia Hypothyroidism Kidney stones Paroxysmal A-fib a single 12 minute episode was recorded on a ZIO patch monitor in July of 2021 Tachy-yasir syndrome per cardiology note - "Borderline tachy Yasir syndrome with atrial ventricular ectopy paroxysmal supraventricular tachycardia/atrial fibrillation. No profound Yasir arrhythmias observed." Umbilical hernia Ventricular fibrillation Surgical History History of colonoscopy History of cystoscopy MULTIPLE TIMES>KIDNEY STONES/STENT INSERTION History of lithotripsy MULTIPLE History of temporal artery biopsy History of tonsillectomy History of tooth extraction Nausea and vomiting after administration of anesthetic agent Family History Father , age 52 of an [place] Myocardial infarction Lung cancer Mother , in 70s of lung cancer Lung cancer Social History Smoking Status: Former smoker Cigarettes Per Day: QUIT 28 YEARS AGO in 1994; Smoking End Date: 1994; Second Hand Exposure: No; Hx Alcohol Use: Yes Alcohol type: beer Alcohol Intake Frequency Comment: uncertain frequency Hx Substance Use: No Preferred Language: [place]i Communication Ability: Effective Acute Care Surgeon Required: No Beliefs That Will Affect Care: None Current Living Situation: Spouse current occupational status: employed 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 He is flaccid in all limbs. Eyes open easily and pupils are 2-3 mm and react bilaterally. The patient is breathing at a rate of 22, over the vent which is set at 20. O2 saturation is 100% currently. Results & Data ([facility]) Vital Signs (Past 12 Hours) Vital Signs Temp Pulse Resp Pulse Ox FiO2 02/17/22 07:06 55 L 24 97 40 02/17/22 06:30 37.5 C 57 L 23 96 02/17/22 06:15 37.5 C 57 L 23 96 02/17/22 06:00 37.6 C H 57 L 23 95 02/17/22 05:45 37.6 C H 58 L 23 97 02/17/22 05:30 37.6 C H 59 L 26 H 97 02/17/22 05:15 37.6 C H 58 L 26 H 97 02/17/22 05:00 37.7 C H 59 L 26 H 97 02/17/22 04:45 37.8 C H 59 L 26 H 97 02/17/22 04:30 37.8 C H 55 L 26 H 97 02/17/22 04:15 37.9 C H 57 L 26 H 97 02/17/22 04:00 37.9 C H 58 L 26 H 96 02/17/22 03:45 38.0 C H 56 L 26 H 96 02/17/22 03:31 38.1 C H 56 L 26 H 96 02/17/22 03:15 38.1 C H 56 L 26 H 96 02/17/22 03:00 38.1 C H 56 L 26 H 96 02/17/22 02:45 38.1 C H 56 L 26 H 96 02/17/22 02:30 38.1 C H 56 L 26 H 96 02/17/22 02:15 38.1 C H 55 L 26 H 97 02/17/22 02:00 38.1 C H 54 L 26 H 97 02/17/22 01:45 38.0 C H 53 L 26 H 97 02/17/22 01:30 38.0 C H 55 L 26 H 97 02/17/22 01:15 37.9 C H 53 L 26 H 97 02/17/22 04:00 30 02/17/22 03:10 56 L 27 H 96 30 02/17/22 01:00 37.9 C H 57 L 26 H 97 02/17/22 00:45 37.9 C H 57 L 26 H 97 02/17/22 00:30 37.8 C H 56 L 26 H 97 02/17/22 00:15 37.7 C H 52 L 26 H 97 02/17/22 00:00 37.6 C H 54 L 26 H 97 02/16/22 23:45 37.6 C H 53 L 26 H 97 02/16/22 23:32 37.5 C 55 L 26 H 97 02/16/22 23:15 37.4 C 53 L 26 H 98 02/17/22 00:00 30 02/17/22 00:00 54 L 02/16/22 23:50 52 L 26 H 98 30 02/16/22 23:00 37.3 C 54 L 26 H 98 02/16/22 22:45 37.3 C 54 L 26 H 98 02/16/22 22:30 37.2 C 53 L 26 H 98 02/16/22 22:15 37.2 C 53 L 26 H 98 02/16/22 22:00 37.1 C 53 L 26 H 98 02/16/22 21:45 37.1 C 54 L 26 H 98 02/16/22 21:30 37.0 C 53 L 26 H 98 02/16/22 21:15 37.0 C 54 L 26 H 98 02/16/22 21:00 36.9 C 54 L 26 H 99 PG Care Time/CCT Total # of Minutes Spent Total Time Spent with Patient: Total time spent is greater than 50% in coordination of care (as documented) at patient's floor/unit and/or counseling patient: Coding Level of Care Code 96845 Initial Inpt Care Lvl 3 Diagnoses Cardiac arrest I46.9 Seizure-like activity R56.9 Time Spent (min) 90 Comment add modifiers as able
[2022-02-17] MEDS ORDERED: ASPIRIN 325 MG ECTAB PO SCH (09:00)
[2022-02-17] MEDS ORDERED: ASPIRIN 81 MG ECTAB PO SCH (09:00)
[2022-02-17] MEDS ORDERED: PHARMACY GLYCEMIC MGMT CONSULT PRN (09:09)
[2022-02-17] MEDS: fentaNYL citrate 100 MCG/2 ML VIAL IV PRN ×2 (09:23→19:58)
[2022-02-17] MEDS: DOCUSATE SODIUM SYRUP 100 MG/10 ML UDC PO SCH ×2 (09:44→19:43)
--- NOTE | 2022-02-17 09:46 | Electrocardiogram Report ---
Test Reason : Blood Pressure : / mmHG Vent. Rate : 055 BPM Atrial Rate : 055 BPM P-R Int : 256 ms QRS Dur : 098 ms QT Int : 428 ms P-R-T Axes : 014 -29 095 degrees QTc Int : 409 ms Sinus bradycardia with 1st degree A-V block Left ventricular hypertrophy with repolarization abnormality Recent Inferior infarct (cited on or before 16-FEB-2022) Abnormal ECG When compared with ECG of 17-FEB-2022 07:01, Premature atrial complexes are no longer Present Confirmed by Herman Avila ([id number]) on 02/17/2022 9:46:27 AM Referred By: REFERRED SELF Confirmed By:Herman Avila
[2022-02-17] MEDS ORDERED: LACTATED RINGER'S 500 ML IV ONE (09:49)
[2022-02-17] MEDS ORDERED: DOCUSATE SODIUM SYRUP 100 MG/10 ML UDC PO ONE (10:15)
--- NOTE | 2022-02-17 10:19 | Electrocardiogram Report ---
Test Reason : Blood Pressure : / mmHG Vent. Rate : 059 BPM Atrial Rate : 059 BPM P-R Int : 254 ms QRS Dur : 092 ms QT Int : 388 ms P-R-T Axes : 017 -37 101 degrees QTc Int : 384 ms Sinus bradycardia with 1st degree A-V block with Premature atrial complexes Left axis deviation Left ventricular hypertrophy with repolarization abnormality Recent Inferior infarct (cited on or before 16-FEB-2022) Abnormal ECG When compared with ECG of 17-FEB-2022 05:40, Premature ventricular complexes are no longer Present Confirmed by Heramn Avila ([id number]) on 02/17/2022 10:18:50 AM Referred By: REFERRED SELF Confirmed By:Herman Avila
[2022-02-17] MEDS: PANTOprazole 40 MG in SYRINGE 0 ML IV SCH (10:25)
[2022-02-17 10:41] LABS: BUN Creatinine Ratio 29.3 (10-20); Calcium 8.1 mg/dl (8.5-10.1); Creatinine Clr Calc Pharmacy 146.8 ml/min; Est GFR (African American) 119.7 ml/min; Est GFR (Non-African American) 103.3 ml/min; Magnesium 2.6 mg/dl (1.7-2.4); Phosphorus 2.7 mg/dl (2.5-4.9); Potassium 3.8 mmol/L (3.5-5.1)
--- NOTE | 2022-02-17 10:45 | Electroencephalogram ---
EEG Procedure Note Date of Service February 17, 2022 Start / End Times Start Time: 957 End Time: 1018 Referring Physician Florence Mcclure History 71-year-old history of cardiac arrest and generalized tonic seizure Home Medication List Medication Instructions Recorded Confirmed Type aspirin 81 mg tablet,delayed 81 mg PO HS 01/11/18 02/16/22 History release felodipine 5 mg tablet,extended 5 mg PO HS 01/11/18 02/16/22 History release 24 hr levothyroxine 112 mcg tablet 150 mcg PO QAM 01/11/18 02/16/22 History metoprolol succinate 50 mg capsule 50 mg PO HS 01/11/18 02/16/22 History sprinkle, ext. release 24 hr omeprazole 20 mg delayed 1 tab PO [facility] 01/11/18 02/16/22 History release,disintegrating tablet atorvastatin 40 mg tablet 40 mg PO DAILY 02/16/22 02/16/22 History levothyroxine 150 mcg tablet 150 mcg PO DAILY 02/16/22 02/16/22 History olmesartan 40 mg tablet 40 mg PO DAILY 02/16/22 02/16/22 History tamsulosin 0.4 mg capsule 0.4 mg PO DAILY 02/16/22 02/16/22 History Inpatient Medication List [facility]irin (A[facility]in 81 Mg Chew) [facility] [place] [place]: 03/19/22 08:59 Last Admin: 02/17/22 08:39 Dose: Not Given Documented By: SARAI Atorvastatin Calcium (Atorvastatin 40 Mg Tab) 80 mg PO QAM [facility] Stop: 03/19/22 08:59 Last Admin: 02/17/22 08:28 Dose: 80 mg Documented By: SARAI Enoxaparin Sodium (Enoxaparin Inj 40 Mg/0.4 Ml Syr) 40 mg SQ Q24H [facility] Stop: 03/18/22 17:59 Last Admin: 02/16/22 17:50 Dose: 40 mg Documented By: SARAI Fentanyl Citrate (Fentanyl Citrate 100 Mcg/2 Ml Vial) 50 mcg IV Q2H PRN PRN Reason: Moderate Pain (4,5,6) on NRS Stop: 03/02/22 16:55 Last Admin: 02/17/22 09:23 Dose: 50 mcg Documented By: SARAI Amiodarone HCl/Dextrose (Nexterone / D5w) 360 mg in 200 mls @ 16.667 mls/hr IV .Q12H KIAN Stop: 03/18/22 20:14 Last Admin: 02/17/22 08:10 Dose: Not Given Documented By: Admin: 02/17/22 07:09 Dose: 0.5 mg/min, 16.7 mls/hr Documented By: SARAI Co-signed By: MAGALY Infusion: 02/17/22 07:09 Dose: 0.5 mg/min, 16.7 mls/hr Documented By: SARAI Co-signed By: MAGALY Admin: 02/16/22 19:45 Dose: 0.5 mg/min, 16.7 mls/hr Documented By: DUSTIN Co-signed By: PRAMOD Propofol (Diprivan) 1,000 mg in 100 mls @ 26.256 mls/hr IV .Q3H49M KIAN; Protocol Stop: 02/19/22 14:29 Last Admin: 02/17/22 09:16 Dose: 40 mcg/kg/min, 26.3 mls/hr Documented By: SARAI Co-signed By: CAM Titration: 02/17/22 09:16 Dose: 40 mcg/kg/min, 26.3 mls/hr Documented By: SARAI Co-signed By: CAM Titration: 02/17/22 06:54 Dose: 40 mcg/kg/min, 26.3 mls/hr Documented By: DUSTIN Co-signed By: SARAI Admin: 02/17/22 05:29 Dose: 40 mcg/kg/min, 26.3 mls/hr Documented By: DUSTIN Co-signed By: MAGALY Titration: 02/17/22 05:29 Dose: 40 mcg/kg/min, 26.3 mls/hr Documented By: DUSTIN Co-signed By: MEJ Admin: 02/17/22 01:40 Dose: 40 mcg/kg/min, 26.3 mls/hr Documented By: DUSTIN Co-signed By: MEJ Titration: 02/17/22 01:40 Dose: 40 mcg/kg/min, 26.3 mls/hr Documented By: DUSTIN Co-signed By: MEJ Admin: 02/16/22 22:35 Dose: 40 mcg/kg/min, 26.3 mls/hr Documented By: DUSTIN Co-signed By: MEJ Titration: 02/16/22 21:52 Dose: 40 mcg/kg/min, 26.3 mls/hr Documented By: ELS Co-signed By: MEJ Titration: 02/16/22 19:02 Dose: 40 mcg/kg/min, 26.3 mls/hr Documented By: JUSTINS Co-signed By: DUSTIN Admin: 02/16/22 18:03 Dose: 40 mcg/kg/min, 26.3 mls/hr Documented By: WRS Co-signed By: AM Titration: 02/16/22 18:03 Dose: 40 mcg/kg/min, 26.3 mls/hr Documented By: WRS Co-signed By: AM Titration: 02/16/22 16:30 Dose: 40 mcg/kg/min, 26.3 mls/hr Documented By: Titration: 02/16/22 16:25 Dose: 35 mcg/kg/min, 23 mls/hr Documented By: Titration: 02/16/22 16:20 Dose: 30 mcg/kg/min, 19.7 mls/hr Documented By: Titration: 02/16/22 16:15 Dose: 25 mcg/kg/min, 16.4 mls/hr Documented By: Admin: 02/16/22 16:10 Dose: 20 mcg/kg/min, 13.1 mls/hr Documented By: JUSTINS Co-signed By: ES Norepinephrine Bitartrate (Levophed/D5w) 4 mg in 250 mls @ 20.513 mls/hr IV .[id number] [facility]; Protocol Stop: 03/18/22 16:14 Last Titration: 02/17/22 06:54 Dose: 0 mcg/kg/min, 0 mls/hr Documented By: DUSTIN Co-signed By: WRS Titration: 02/17/22 03:07 Dose: 0 mcg/kg/min, 0 mls/hr Documented By: Titration: 02/17/22 02:00 Dose: 0.02 mcg/kg/min, 8.2 mls/hr Documented By: Titration: 02/16/22 23:50 Dose: 0.04 mcg/kg/min, 16.4 mls/hr Documented By: Titration: 02/16/22 23:18 Dose: 0.02 mcg/kg/min, 8.2 mls/hr Documented By: Titration: 02/16/22 20:15 Dose: 0.04 mcg/kg/min, 16.4 mls/hr Documented By: Titration: 02/16/22 19:45 Dose: 0.06 mcg/kg/min, 24.6 mls/hr Documented By: Titration: 02/16/22 19:15 Dose: 0.08 mcg/kg/min, 32.8 mls/hr Documented By: Titration: 02/16/22 19:03 Dose: 0.1 mcg/kg/min, 41 mls/hr Documented By: WRS Co-signed By: ELS Admin: 02/16/22 18:47 Dose: 0.1 mcg/kg/min, 41 mls/hr Documented By: WRS Co-signed By: LAF Titration: 02/16/22 18:47 Dose: 0.1 mcg/kg/min, 41 mls/hr Documented By: WRS Co-signed By: LAF Titration: 02/16/22 17:13 Dose: 0.14 mcg/kg/min, 57.4 mls/hr Documented By: Titration: 02/16/22 17:00 Dose: 0.12 mcg/kg/min, 49.2 mls/hr Documented By: Titration: 02/16/22 16:51 Dose: 0.1 mcg/kg/min, 41 mls/hr Documented By: Admin: 02/16/22 16:00 Dose: 0.08 mcg/kg/min, 32.8 mls/hr Documented By: WRS Co-signed By: ES Parenteral Electrolytes (Normosol-R) 1,000 mls @ 75 mls/hr IV .[id number] KIAN Stop: 03/18/22 16:59 Last Admin: 02/17/22 05:30 Dose: 75 mls/hr Documented By: Infusion: 02/17/22 05:30 Dose: 75 mls/hr Documented By: Admin: 02/16/22 17:10 Dose: 75 mls/hr Documented By: WRGarfield Pantoprazole Sodium 40 mg/ (Syringe) 10 mls @ 5 mls/min IV DAILY@1100 KIAN Stop: 03/19/22 10:59 Last Admin: 02/17/22 10:25 Dose: 5 mls/min Documented By: SARAI Acetaminophen (Ofirmev) 1,000 mg in 100 mls @ 400 mls/hr IV Q8H PRN PRN Reason: Fever Stop: 02/19/22 19:31 Last Infusion: 02/17/22 00:47 Dose: 0 mls/hr Documented By: Admin: 02/17/22 00:29 Dose: 400 mls/hr Documented By: DUSTIN Levetiracetam 500 mg/ Sodium (Chloride) 105 mls @ 420 mls/hr IV Q12H KIAN Stop: 03/19/22 07:59 Last Infusion: 02/17/22 08:41 Dose: 0 mls/hr Documented By: Admin: 02/17/22 08:26 Dose: 420 mls/hr Documented By: SARAI Lidocaine HCl/Dextrose (Xylocaine/D5w Drip 4mg/Ml) 2,000 mg in 500 mls @ 15 mls/hr IV .Q24H KIAN; Protocol Stop: 03/19/22 07:59 Last Admin: 02/17/22 07:42 Dose: 1 mg/min, 15 mls/hr Documented By: SARAI Co-signed By: BRIA Magnesium Sulfate/Dextrose (Magnesium Sulfate / D5w) 1 gm in 100 mls @ 50 mls/hr IV Q2H KIAN Stop: 02/17/22 12:14 Last Admin: 02/17/22 09:38 Dose: 50 mls/hr Documented By: Infusion: 02/17/22 09:38 Dose: 50 mls/hr Documented By: Admin: 02/17/22 07:40 Dose: 50 mls/hr Documented By: SARAI Potassium Chloride (K [place] / Wtr) 20 meq in 100 mls @ 50 mls/hr IV Q2H KIAN Stop: 02/17/22 12:29 Last Admin: 02/17/22 10:24 Dose: 50 mls/hr Documented By: Infusion: 02/17/22 10:24 Dose: 50 mls/hr Documented By: Admin: 02/17/22 08:51 Dose: 50 mls/hr Documented By: SARAI Levothyroxine Sodium (Levothyroxine Sodium 125 Mcg Tablet) 125 mcg PO DAILYBB KIAN Stop: 03/19/22 06:29 Last Admin: 02/17/22 06:23 Dose: 125 mcg Documented By: DUSTIN Miscellaneous (Icu Electrolyte Replacement Protocol) 1 each N/A BID@ [facility]; Protocol Stop: 02/23/22 17:59 Last Admin: 02/17/22 06:23 Dose: Not Given Documented By: Admin: 02/16/22 19:44 Dose: Not Given Documented By: DUSTIN Propofol (Propofol Bolus From Bag) 20 mg IV Q5M PRN PRN Reason: Sedation Stop: 02/19/22 14:17 Last Admin: 02/17/22 05:22 Dose: 20 mg Documented By: DUSTIN Co-signed By: MAGALY Sennosides (Senna 8.6 Mg Tab) 17.2 mg PO HS [facility] Stop: 03/18/22 20:59 Last Admin: 02/16/22 19:46 Dose: 17.2 mg Documented By: DUSTIN Ticagrelor (Ticagrelor 90 Mg Tab) 90 mg PO BID [facility] Stop: 03/19/22 08:59 Last Admin: 02/17/22 08:28 Dose: 90 mg Documented By: SARAI Discontinued Medications Amiodarone HCl/Dextrose (Amiodarone 360mg / 200ml D5w) Confirm Administered Dose 360 mg IV .STK-MED ONE Stop: 02/16/22 14:07 Last Admin: 02/16/22 16:23 Dose: Not Given Documented By: SARAI Amiodarone HCl/Dextrose (Amiodarone 150mg / 100ml D5w) Confirm Administered Dose 150 mg IV .STK-MED ONE Stop: 02/16/22 14:07 Last Admin: 02/16/22 16:00 Dose: Not Given Documented By: LISA Amiodarone HCl/Dextrose (Amiodarone 150mg / 100ml D5w) Confirm Administered Dose 150 mg IV .STK-MED ONE Stop: 02/17/22 07:41 Last Admin: 02/17/22 08:12 Dose: Not Given Documented By: SARAI Amiodarone HCl (Amiodarone Iv Bolus & Drip) 1 each IV NOW STA; Protocol Stop: 02/16/22 14:09 Last Admin: 02/16/22 16:01 Dose: Not Given Documented By: LISA Aspirin (Aspirin 300 Mg Supp) 300 mg KS ONE ONE Stop: 02/16/22 14:09 Last Admin: 02/16/22 17:38 Dose: Not Given Documented By: SARAI Aspirin (Aspirin 81 Mg Ectab) 81 mg PO QAM [facility] Stop: 03/19/22 08:59 Last Admin: 02/17/22 08:28 Dose: 81 mg Documented By: SARAI Aspirin (Aspirin Chew 324 Mg) Confirm Administered Dose 324 mg .ROUTE .STK-MED ONE Stop: 02/16/22 17:48 Last Admin: 02/16/22 18:03 Dose: 324 mg Documented By: SARAI Aspirin (Aspirin 81 Mg Chew) 324 mg PO ONCE ONE Stop: 02/16/22 18:02 Last Admin: 02/16/22 18:09 Dose: Not Given Documented By: SARAI Atropine Sulfate (Atropine Sulfate 0.1 Mg/Ml 10ml Syr) Confirm Administered Dose 1 mg IV .STK-MED ONE Stop: 02/16/22 14:36 Last Admin: 02/16/22 16:35 Dose: Not Given Documented By: SARAI Docusate Sodium (Docusate Sodium Syrup 100 Mg/10 Ml Udc) 100 mg PO BID [facility] Stop: 03/18/22 20:59 Last Admin: 02/17/22 09:44 Dose: Not Given Documented By: Admin: 02/16/22 20:53 Dose: 100 mg Documented By: DUSTIN Docusate Sodium (Docusate Sodium Syrup 100 Mg/10 Ml Udc) 100 mg PO NOW ONE Stop: 02/17/22 10:16 Last Admin: 02/17/22 10:24 Dose: 100 mg Documented By: SARAI Epinephrine HCl (Epinephrine 1.5" Ndl 0.1 Mg/Ml Syr) 0.3 mg IV TODAY@1435 [facility] Stop: 02/16/22 14:36 Last Admin: 02/16/22 14:35 Dose: 0.3 mg Documented By: LISA Fentanyl Citrate (Fentanyl Citrate 100 Mcg/2 Ml Vial) Confirm Administered Dose 100 mcg .ROUTE .STK-MED ONE Stop: 02/16/22 14:35 Last Admin: 02/16/22 16:33 Dose: Not Given Documented By: SARAI Fentanyl Citrate (Fentanyl Citrate 100 Mcg/2 Ml Vial) Confirm Administered Dose 100 mcg .ROUTE .STK-MED ONE Stop: 02/16/22 16:47 Last Admin: 02/16/22 17:16 Dose: Not Given Documented By: SARAI Heparin Sodium (Porcine) (Heparin (Porcine) 1000 Unit/Ml 10 Ml (Medical Associate Use Only)) Confirm Administered Dose 10,000 units .ROUTE .STK-MED ONE Stop: 02/16/22 14:35 Last Admin: 02/16/22 16:33 Dose: Not Given Documented By: WRGarfield Heparin Sodium (Porcine) (Heparin (Porcine) 1000 Unit/Ml 10 Ml (Medical Associate Use Only)) Confirm Administered Dose 10,000 units .ROUTE .STK-MED ONE Stop: 02/16/22 15:18 Last Admin: 02/16/22 16:36 Dose: Not Given Documented By: SARAI Heparin Sodium/Sodium Chloride (Heparin In Nss Infusion 1000 Unit/500 Ml (2 U/Ml) Bag) Confirm Administered Dose 3,000 units IV .STK-MED ONE Stop: 02/16/22 14:35 Last Admin: 02/16/22 16:34 Dose: Not Given Documented By: SARAI Sodium Chloride (Nss) 500 mls @ 999 mls/hr IV .Q31M STA Stop: 02/16/22 14:38 Last Infusion: 02/16/22 18:18 Dose: 0 mls/hr Documented By: Admin: 02/16/22 14:20 Dose: 999 mls/hr Documented By: LISA Amiodarone HCl/Dextrose (Nexterone / D5w) 150 mg in 100 mls @ 600 mls/hr IV NOW STA Stop: 02/16/22 14:17 Last Infusion: 02/16/22 16:45 Dose: 0 mls/hr Documented By: SARAI Co-signed By: STEW Admin: 02/16/22 14:17 Dose: 600 mls/hr Documented By: LISA Co-signed By: TAMIE Amiodarone HCl/Dextrose (Nexterone / D5w) 360 mg in 200 mls @ 33.333 mls/hr IV ONE ONE Stop: 02/16/22 20:18 Last Infusion: 02/16/22 19:50 Dose: 0 mg/min, 0 mls/hr Documented By: DUSTIN Co-signed By: PAH Admin: 02/16/22 14:40 Dose: 1 mg/min, 33.3 mls/hr Documented By: LISA Co-signed By: OAM Sodium Chloride (Nss 1000ml) 1,000 mls @ 999 mls/hr IV .Q1H1M ONE Stop: 02/16/22 15:18 Last Infusion: 02/16/22 18:17 Dose: 0 mls/hr Documented By: Admin: 02/16/22 14:15 Dose: 999 mls/hr Documented By: LISA Norepinephrine Bitartrate (Levophed/D5w) 4 mg in 250 mls @ 53.438 mls/hr IV .Q4H41M KIAN; Protocol Stop: 03/18/22 14:44 Last Titration: 02/16/22 19:13 Dose: 0 mcg/kg/min, 0 mls/hr Documented By: Admin: 02/16/22 14:32 Dose: 0.15 mcg/kg/min, 53.4 mls/hr Documented By: LISA Co-signed By: TAMIE Sodium Chloride (Nss 1000ml) 1,000 mls @ 125 mls/hr IV .Q8H KIAN Stop: 03/18/22 15:59 Last Infusion: 02/16/22 18:17 Dose: 0 mls/hr Documented By: Infusion: 02/16/22 17:10 Dose: 0 mls/hr Documented By: Admin: 02/16/22 16:00 Dose: 125 mls/hr Documented By: SARAI Amiodarone HCl/Dextrose (Nexterone / D5w) 360 mg in 200 mls @ 16.667 mls/hr IV .Q12H KIAN Stop: 03/18/22 16:14 Last Admin: 02/16/22 16:46 Dose: Not Given Documented By: SARAI Norepinephrine Bitartrate (Levophed/D5w) 4 mg in 250 mls @ 20.513 mls/hr IV .[id number] KIAN; Protocol Stop: 03/18/22 16:59 Last Admin: 02/16/22 17:07 Dose: Not Given Documented By: SARAI Potassium Chloride (K [place] / Wtr) 20 meq in 100 mls @ 50 mls/hr IV ONE ONE Stop: 02/16/22 19:19 Last Infusion: 02/16/22 19:20 Dose: 0 mls/hr Documented By: Admin: 02/16/22 17:50 Dose: 50 mls/hr Documented By: SARAI Levetiracetam 1,000 mg/ Sodium (Chloride) 110 mls @ 440 mls/hr IV NOW STA Stop: 02/16/22 20:07 Last Infusion: 02/16/22 20:28 Dose: 0 mls/hr Documented By: Admin: 02/16/22 20:13 Dose: 440 mls/hr Documented By: DUSTIN Magnesium Sulfate/Dextrose (Magnesium Sulfate / D5w) 1 gm in 100 mls @ 50 mls/hr IV Q2H KIAN Stop: 02/17/22 07:59 Last Infusion: 02/17/22 07:14 Dose: 0 mls/hr Documented By: Admin: 02/17/22 05:14 Dose: 50 mls/hr Documented By: Infusion: 02/17/22 05:14 Dose: 50 mls/hr Documented By: Admin: 02/17/22 03:53 Dose: 50 mls/hr Documented By: Infusion: 02/17/22 03:53 Dose: 50 mls/hr Documented By: Admin: 02/17/22 02:02 Dose: 50 mls/hr Documented By: DUSTIN Sodium Phosphate 15 mmol/ (Sodium Chloride) 255 mls @ 88 mls/hr IV ONE ONE Stop: 02/17/22 04:53 Last Infusion: 02/17/22 05:20 Dose: 0 mls/hr Documented By: Admin: 02/17/22 02:02 Dose: 88 mls/hr Documented By: DUSTIN Amiodarone HCl/Dextrose (Nexterone / D5w) 150 mg in 100 mls @ 600 mls/hr IV NOW STA Stop: 02/17/22 08:11 Last Infusion: 02/17/22 07:51 Dose: 0 mls/hr Documented By: SARAI Co-signed By: PITER Admin: 02/17/22 07:40 Dose: 600 mls/hr Documented By: SARAI Co-signed By: PITER Lactated Ringer's (Lr) 500 mls @ 999 mls/hr IV .Q31M ONE Stop: 02/17/22 10:19 Last Infusion: 02/17/22 08:01 Dose: 0 mls/hr Documented By: Admin: 02/17/22 07:30 Dose: 999 mls/hr Documented By: SARAI Lidocaine HCl/Dextrose (Lidocaine Hcl/D5w 2000 Mg/500 Ml Bag) Confirm Administe red Dose 2,000 mg IV .STK-MED ONE Stop: 02/17/22 07:43 Last Admin: 02/17/22 08:04 Dose: Not Given Documented By: SARAI Midazolam HCl (Midazolam Hcl 1 Mg/Ml 2ml Vial) Confirm Administered Dose 2 mg .ROUTE .STK-MED ONE Stop: 02/16/22 14:35 Last Admin: 02/16/22 16:34 Dose: Not Given Documented By: SARAI Midazolam HCl (Midazolam Hcl 1 Mg/Ml 2ml Vial) Confirm Administered Dose 2 mg .ROUTE .STK-MED ONE Stop: 02/16/22 16:48 Last Admin: 02/16/22 17:16 Dose: Not Given Documented By: SARAI Miscellaneous (Rapid Sequence Induction Bag) Confirm Administered Dose 1 each .ROUTE .STK-MED ONE Stop: 02/16/22 14:01 Last Admin: 02/16/22 16:00 Dose: Not Given Documented By: LISA Diopcellaneous (Stat Iv Infusion Titration Per Protocol) 1 each N/A NOW STA Stop: 02/16/22 14:09 Last Admin: 02/16/22 16:01 Dose: Not Given Documented By: LISA Chirinos (Stat Iv Infusion Titration Per Protocol) 1 each N/A NOW STA Stop: 02/16/22 14:19 Last Admin: 02/16/22 16:04 Dose: Not Given Documented By: LISA Nicardipine HCl (Nicardipine Hcl Inj 2.5 Mg/Ml 10 Ml Amp) Confirm Administered Dose 25 mg .ROUTE .STK-MED ONE Stop: 02/16/22 14:35 Last Admin: 02/16/22 16:34 Dose: Not Given Documented By: SARAI Nitroglycerin/Dextrose (Nitroglycerin/D5w 100mcg/Ml 20ml Syr) Confirm Administered Dose 2,000 mcg .ROUTE .STK-MED ONE Stop: 02/16/22 14:36 Last Admin: 02/16/22 16:36 Dose: Not Given Documented By: SARAI Norepinephrine Bitartrate (Norepinephrine/D5w 4 Mg/250 Ml) Confirm Administered Dose 4 mg IV .STK-MED ONE Stop: 02/16/22 14:30 Last Admin: 02/16/22 16:06 Dose: Not Given Documented By: LISA Norepinephrine Bitartrate (Norepinephrine Bitartrate 1 Mg/Ml 4 Ml Vial (Medical Associate Use Only)) Confirm Administered Dose 4 mg IV .STK-MED ONE Stop: 02/16/22 14:36 Last Admin: 02/16/22 16:36 Dose: Not Given Documented By: SARAI Potassium Chloride (Potassium Chloride 10 Meq / 100ml Wtr) Confirm Administered Dose 30 meq IV .STK-MED ONE Stop: 02/16/22 15:02 Last Admin: 02/16/22 17:39 Dose: 20 meq Documented By: SARAI Propofol (Propofol Iv Emulsion 10 Mg/Ml 100 Ml Vial) Confirm Administered Dose 1,000 mg IV .STK-MED ONE Stop: 02/16/22 14:18 Last Admin: 02/16/22 14:20 Dose: 1,000 mg Documented By: LISA Co-signed By: TAMIE Ticagrelor (Ticagrelor 90 Mg Tab) 180 mg PO ONE STA Stop: 02/16/22 17:20 Last Admin: 02/16/22 17:46 Dose: 180 mg Documented By: SARAI Description This is a 21 electrode EEG with a single channel dedicated to limited EKG. The electrodes were placed in accordance with the International 10-20 system. Interpretation The predominant background activity consists of an irregular 9 Hz activity, of up to 20 mV in amplitude, seen symmetrically distributed over the posterior head regions bilaterally. This activity attenuates some with alerting procedures. in addition, there was some low amplitude mixed 5-8 hertz activity seen at times symmetrically throughout instead of the regular background activity. Photic stimulation was performed and elicited no change in the background activity and no abnormal responses were seen. Hyperventilation was not performed. A minimal amount of muscle and movement artifact activity contaminated the rec ording and did not hinder interpretation to any significant degree. Throughout the recording, no focal abnormalities or potentially epileptogenic discharges are seen. In summary, this EEG was Essentially normal, with no focal abnormalities or potentially epileptogenic discharges seen. There was some mild background slowing at times intermittently with the normal background activity which could indicate a mild encephalopathy. Clinical Correlation The abscence of potentially epileptogenic activity does not exclude a seizure disorder, since interictally, EEGs can be normal. Clinical correlation is required. [facility] Procedure Codes Indication for Procedure (1) Seizure-like activity: Neurology Neurology: 10115 EEG include record awake & drowsy
[2022-02-17 10:51] LABS: iSTAT Art Bld Gas pCO2 Correct 37 mmHg (35-46); iSTAT Art Bld Gas pH Corrected 7.409 (7.35-7.45); iSTAT Arterial Blood Gas HCO3 24 meg/L (19-24); iSTAT Arterial Blood Gas pCO2 38 mmHg (35-46); iSTAT Arterial Blood Gas pH 7.41 (7.35-7.45); iSTAT Arterial Blood Gas pO2 84 mmHg (80-95); iSTAT Arterial Blood Gas pO2 C 82; iSTAT Carbon Dioxide 25 mmol/L (24-31); iSTAT FiO2 60 %; iSTAT Hematocrit 34 % (42-52); iSTAT Hemoglobin 11.6 g/dl (14.0-18.0); iSTAT Potassium 3.8 mmol/L (3.3-5.0); iSTAT Site Art Line; iSTAT Sodium 137 mmol/L (135-144)
--- NOTE | 2022-02-17 11:20 | XRay Report ---
XR chest 1V portable CLINICAL HISTORY: resp failure TECHNIQUE: Single frontal radiograph of the chest was obtained. Comparison: Comparison is made to chest radiograph 02/16/2022 FINDINGS: Endotracheal tube is stable in position. There is an enteric tube with the side-port and tip below th e diaphragm. Cardiomegaly is noted. Lungs are underinflated but clear. No evidence of pleural effusio n or pneumothorax. IMPRESSION: 1. Lines and tubes are in satisfactory position. 2. Cardiomegaly. ACT 112: Negative or not required by law. Electronically signed by: Bob Jameson M.D. 02/17/2022 11:18 AM
[2022-02-17] MEDS: INSULIN ASPART PER UNIT SC SCH ×4 (11:33→23:32)
[2022-02-17] MEDS ORDERED: SODIUM CHLORIDE 0.9% 10ML FLUSH IV ONE (11:43)
[2022-02-17] MEDS ORDERED: ATROPINE SULFATE 0.1 MG/ML 10ML SYR IV ONE (11:43)
[2022-02-17] MEDS ORDERED: SODIUM BICARB 8.4% INJ 50 MEQ/50 ML SYR IV ONE (11:43)
--- NOTE | 2022-02-17 12:30 | Pharmacy Report ---
Pharmacy Glycemic Short Note 2 - Date of Service February 17, 2022 - Glycemic Short BSG Results (Last 24 hours): 02/16/22 02/16/22 02/16/22 14:29 17:06 23:10 Glucose 202 H 214 H POC Glucose 170 H POC Glucose (other) 02/17/22 02/17/22 02/17/22 00:25 07:00 07:04 Glucose 178 H 176 H POC Glucose 172 H POC Glucose (other) 02/17/22 02/17/22 10:04 11: Glucose 171 H POC Glucose POC Glucose (other) 162 H OUTPATIENT ANTIDIABETIC REGIMEN: * N/A * A1c pending ASSESSMENT: * Patient admitted following out of hospital cardiac arrest, underwent cardiac cath, multiple episodes of Vfib this AM. Currently on amiodarone/lidocaine (both in dextrose). * BSGs have been < 180 mg/dL, however in the mid 170s, therefore will initiate novolog. Low threshold to start insulin infusion as this would be preferred in the post-arrest/STEMI setting. PLAN FOR INPATIENT GLYCEMIC CONTROL: * Basal insulin * Hold for now * Bolus insulin * NovoLog per scale ACHS or Q6hrs while NPO * Goal Range: Low 120 mg/dL - High 160 mg/dL * Correction Factor: 20 mg/dL/unit * Nutritional / Prandial insulin per carb ratio of 1 unit per 13 grams CHO consumed
[2022-02-17 12:51] LABS: iSTAT Arterial Blood Gas HCO3 22 meg/L (19-24); iSTAT Arterial Blood Gas pCO2 54 mmHg (35-46); iSTAT Arterial Blood Gas pH 7.23 (7.35-7.45); iSTAT Arterial Blood Gas pO2 357 mmHg (80-95); iSTAT Carbon Dioxide 24 mmol/L (24-31); iSTAT Hematocrit 35 % (42-52); iSTAT Hemoglobin 11.9 g/dl (14.0-18.0); iSTAT Potassium 2.5 mmol/L (3.3-5.0); iSTAT Sodium 147 mmol/L (135-144)
[2022-02-17] MEDS ORDERED: LACTULOSE SYRUP 20 GM/30 ML UDC PO SCH (14:00)
--- NOTE | 2022-02-17 14:11 | Hospitalist Progress Note ---
Date of Service February 17, 2022 Assessment & Plan (1) Cardiac arrest: (2) Acute myocardial infarction: (3) Atrial fibrillation with rapid ventricular response: Plan: Presented on admission with witness cardiac arrest with prehospital cardiac arrest receiving 1 shock via Heart alert called on presentation ECG showed atrial fibrillation with RVR inferior ST elevations S/P emergent cardiac catheterization with Successful PCI of ostial to mid RCA with 2 overlapping drug-eluting stents (3.0 x 12, 2.75 x 12 mm Tao; postdilated with 3.5 NC). Cardiology on board Continue dual-antiplatelet therapy with aspirin and brillinta for at least 1 year. Continue High dose statin Currently intubated on vent support Will need cardiac rehab when discharge Brief episodes of ventricular fibrillation. She was started on Amiodarone and Lidocaine ECHO showed normal LV chamber size with mild concentric LVH. Borderline global hypokinesis of the left ventricle. Left ventricular systolic function is low normal with ejection fraction 50 to 55%. Cardiology on board Respiratory failure Sedated and intubated on mechanical ventilation management as per motion picture cameraman Seizure like activity Questionable seizure-like activity reported by family prior to cardiac arrest In the ICU, noted to have intermittent myoclonic jerking. received Keppra 1 g neurology on board EEG was Essentially normal, with no focal abnormalities or potentially epileptogenic discharges seen. Once he isoff propofol and other [employer] altering medication and extubated, neuro will reassess him and make any further recommendation about imaging Case discussed with neurology recommended to continue Keppra 500 mg twice daily (4) AAA (abdominal aortic aneurysm): Plan: History of AAA, measured 3cm x 3cm on imaging 06/2021 GI Px on PPI IV DVT px on Lovenox subq Code status Full code Admission and Anticipated Discharge Date Admission Date: February 16, 2022 Subjective Pt was seen and examined for follow up of cardiac arrest Sedated and intubated on [facility] ventilation support with and daughter at bedside This morning Pt had an episode of ventricular fibrillation requiring defibrillation and few minutes later he had another bout of ventricular fibrillation requiring defibrillation. Currently he is hemodynamically stable sedated on pressor Review of Systems Review of Systems: All systems reviewed & are unremarkable except as noted in Subjective Physical Exam Physical Exam: General- sedated on bent support Head- atraumatic Eyes- PERRL, EOMI, ENT- oropharynx clear Neck- supple, no JVD Lungs- intubated Heart- +bradycardia Abdomen- normal bowel sounds, soft, nontender Extremities- No edema Neuro- sedated Results & Data Results & Data ([facility]) Vital Signs (Past 12 Hours) Vital Signs Temp Pulse Resp Pulse Ox O2 Del Method FiO2 02/17/22 13:30 36.5 C 54 L 22 97 Mechanical Vent 50 02/17/22 13:15 36.5 C 54 L 22 97 Mechanical Vent 50 02/17/22 13:00 36.5 C 55 L 22 98 Mechanical Vent 50 02/17/22 12:45 36.5 C 54 L 22 98 Mechanical Vent 50 02/17/22 12:30 36.6 C 54 L 20 97 Mechanical Vent 50 02/17/22 12:15 36.6 C 53 L 22 97 Mechanical Vent 50 02/17/22 12:00 36.7 C 53 L 21 96 Mechanical Vent 50 02/17/22 11:45 36.7 C 53 L 21 97 Mechanical Vent 50 02/17/22 08:00 Mechanical Vent 100 02/17/22 12:00 50 02/17/22 12:00 54 L 02/17/22 11:30 36.8 C 54 L 20 97 Mechanical Vent 50 02/17/22 11:15 36.8 C 52 L 18 97 Mechanical Vent 50 02/17/22 11:00 36.8 C 54 L 20 97 Mechanical Vent 50 02/17/22 10:45 36.8 C 54 L 20 97 Mechanical Vent 50 02/17/22 10:30 36.8 C 55 L 21 96 Mechanical Vent 50 02/17/22 10:25 20 98 50 02/17/22 10:15 36.8 C 55 L 19 97 Mechanical Vent 50 02/17/22 10:00 36.8 C 54 L 18 97 Mechanical Vent 60 02/17/22 09:45 36.8 C 54 L 23 97 Mechanical Vent 60 02/17/22 09:30 36.8 C 58 L 20 99 Mechanical Vent 60 02/17/22 09:15 36.8 C 57 L 24 100 Mechanical Vent 80 02/17/22 09:00 36.9 C 57 L 23 100 Mechanical Vent 80 02/17/22 08:45 37.0 C 56 L 22 100 Mechanical Vent 100 02/17/22 08:30 37.0 C 56 L 21 100 Mechanical Vent 100 02/17/22 08:15 37.2 C 55 L 21 100 Mechanical Vent 100 02/17/22 08:00 37.2 C 55 L 22 100 Mechanical Vent 100 02/17/22 07:45 37.3 C 56 L 21 100 Mechanical Vent 100 02/17/22 07:30 37.3 C 58 L 20 94 Mechanical Vent 40 02/17/22 07:15 37.4 C 58 L 26 H 93 Mechanical Vent 40 02/17/22 07:00 37.4 C 57 L 26 H 99 Mechanical Vent 40 02/17/22 06:45 37.5 C 57 L 23 96 Mechanical Vent 30 02/17/22 08:00 40 02/17/22 08:00 55 L 02/17/22 08:00 55 L 02/17/22 07:06 55 L 24 97 40 02/17/22 06:30 37.5 C 57 L 23 96 02/17/22 06:15 37.5 C 57 L 23 96 02/17/22 06:00 37.6 C H 57 L 23 95 02/17/22 05:45 37.6 C H 58 L 23 97 02/17/22 05:30 37.6 C H 59 L 26 H 97 02/17/22 05:15 37.6 C H 58 L 26 H 97 02/17/22 05:00 37.7 C H 59 L 26 H 97 02/17/22 04:45 37.8 C H 59 L 26 H 97 02/17/22 04:30 37.8 C H 55 L 26 H 97 02/17/22 04:15 37.9 C H 57 L 26 H 97 02/17/22 04:00 37.9 C H 58 L 26 H 96 02/17/22 03:45 38.0 C H 56 L 26 H 96 02/17/22 03:31 38.1 C H 56 L 26 H 96 02/17/22 03:15 38.1 C H 56 L 26 H 96 02/17/22 03:00 38.1 C H 56 L 26 H 96 02/17/22 02:45 38.1 C H 56 L 26 H 96 02/17/22 02:30 38.1 C H 56 L 26 H 96 02/17/22 02:15 38.1 C H 55 L 26 H 97 02/17/22 04:00 30 02/17/22 03:10 56 L 27 H 96 30 (1) Acute myocardial infarction Involved coronary artery: unspecified coronary artery Myocardial infarction type: ST elevation myocardial infarction Qualified Code(s): I21.3 - ST elevation (STEMI) myocardial infarction of unspecified site
[2022-02-17] MEDS ORDERED: CARBOHYDRATES FOR HYPOGLYCEMIA PO PRN (14:15)
[2022-02-17] MEDS ORDERED: GLUCOSE 40% GEL 15 GM TUBE PO PRN (14:15)
[2022-02-17] MEDS ORDERED: GLUCAGON FOR INJ 1 MG VIAL IM PRN (14:15)
[2022-02-17] MEDS ORDERED: GLUCOSE 10 TAB/TUBE PO PRN (14:15)
[2022-02-17] MEDS ORDERED: DEXTROSE 50% 50 ML SYRINGE IV PRN (14:15)
[2022-02-17] MEDS: NOREPINEPHRINE/D5W 4 MG/250 ML PLCT IV SCH (16:34)
[2022-02-17 17:34] LABS: Magnesium 2.5 mg/dl (1.7-2.4); Phosphorus 2.6 mg/dl (2.5-4.9); Potassium 3.6 mmol/L (3.5-5.1)
[2022-02-17] MEDS: ENOXAPARIN INJ 40 MG/0.4 ML SYR SQ SCH (18:14)
[2022-02-17] MEDS: POTASSIUM CHLORIDE 20 MEQ/15 ML UDC NG SCH ×2 (18:39→22:36)
[2022-02-17] MEDS: SENNA 8.6 MG TAB PO SCH (19:44)
[2022-02-18] MEDS: PROPOFOL BOLUS FROM BAG IV PRN (01:22)
[2022-02-18] MEDS: propofoL 1,000 MG/100 ML VIAL IV SCH ×5 (03:58→12:45)
[2022-02-18] MEDS: INSULIN ASPART PER UNIT SC SCH ×5 (04:56→23:32)
[2022-02-18] MEDS: NOREPINEPHRINE/D5W 4 MG/250 ML PLCT IV SCH (04:59)
[2022-02-18 05:00] LABS: Hematocrit (blood only) 35.4 % (40.1-51.0); Hemoglobin 11.9 g/dl (14.0-18.0); Mean Corpuscular Hemoglobin 30.1 pg (25.0-34.0); Mean Corpuscular Hgb Conc 33.6 g/dL (32.0-36.0); Mean Corpuscular Volume 89.4 fL (80.0-100.0); Mean Platelet Volume 12.7 fL (9.4-12.4); Platelet Count 81 K/uL (130-400); RDW Coefficient of Variation 13.5 % (11.5-14.5); RDW Standard Deviation 44.4 fL (36.4-46.3); Red Blood Count 3.96 M/uL (4.63-6.08); White Blood Count 8.02 K/ul (4.8-10.8)
[2022-02-18] MEDS: ACETAMINOPHEN 1,000 MG/100 ML VIAL IV PRN (05:09)
[2022-02-18] MEDS: AMIODARONE / D5W 360 MG/200 ML BAG IV SCH (05:12)
[2022-02-18 05:16] LABS: Basophils # (auto) 0.05 K/uL (0-0.2); Basophils % (auto) 0.6 %; Eosinophils # (auto) 0.08 K/uL (0-0.50); Immature Granulocytes # (auto) 0.01 K/uL (0.00-0.02); Immature Granulocytes % (auto) 0.1 %; Lymphocytes # (auto) 0.76 K/uL (1.2-3.4); Lymphocytes % (auto) 9.5 %; Monocytes # (auto) 0.76 K/uL (0.24-0.82); Monocytes % (auto) 9.5 %; Neutrophils # (auto) 6.36 K/uL (1.4-6.5); Neutrophils % (auto) 79.3 %; RBC Morphology Unremarkable
[2022-02-18 05:20] LABS: Albumin Level 3.4 gm/dl (3.4-5.0); Bilirubin Direct 0.2 mg/dl (0-0.2); Bilirubin,Total 0.8 mg/dl (0.2-1.0); Calcium 7.8 mg/dl (8.5-10.1); Creatinine Clr Calc Pharmacy 136.1 ml/min; Est GFR (African American) 116.5 ml/min; Est GFR (Non-African American) 100.5 ml/min; Magnesium 2.1 mg/dl (1.7-2.4); Phosphorus 1.9 mg/dl (2.5-4.9); Potassium 4.2 mmol/L (3.5-5.1); Total Protein 5.4 gm/dl (6.0-8.3)
[2022-02-18] MEDS ORDERED: SODIUM PHOSPHATE 3 MMOL/1 ML INFUSION IV STA ×2 (05:26→17:07)
[2022-02-18] MEDS: ICU ELECTROLYTE REPLACEMENT PROTOCOL SCH ×2 (05:34→17:05)
[2022-02-18] MEDS: LEVOTHYROXINE SODIUM 125 MCG TABLET PO SCH (05:34)
[2022-02-18] MEDS ORDERED: SODIUM PHOSPHATE 21 MMOL in SODIUM CHLORIDE 0.9% 500 ML IV ONE (06:00)
[2022-02-18] MEDS: NORMOSOL-R 1,000 ML IV SCH ×2 (07:01→23:19)
[2022-02-18] MEDS: levETIRAcetam 500 MG in 0.9 % SODIUM CHLORIDE 100 ML IV SCH ×2 (07:52→20:28)
[2022-02-18 07:54] LABS: Appearance Urine Clear (Clear); Bacteria Urine Automated Negative (Negative); Bilirubin Urine Negative (Negative); Blood Urine Negative (Negative); Color Urine Yellow; Glucose Urine UA Negative (Negative); Ketones Urine Negative (Negative); Leukocyte Esterase Urine Trace (Negative); Nitrite Urine Negative (Negative); Protein Urine Negative (Negative); RBC Urine Automated 0-4 /hpf (0-4); Specific Gravity Urine 1.012 (1.000-1.030); Urobilinogen Urine Negative (Negative)
[2022-02-18] MEDS: ATORVASTATIN 40 MG TAB PO SCH (07:57)
[2022-02-18] MEDS: ASPIRIN 81 MG CHEW PO SCH (07:57)
[2022-02-18] MEDS: TICAGRELOR 90 MG TAB PO SCH ×2 (07:58→20:30)
[2022-02-18] MEDS: DOCUSATE SODIUM SYRUP 100 MG/10 ML UDC PO SCH (07:58)
[2022-02-18] MEDS: CEFEPIME 2,000 MG in SYRINGE 0 ML IV SCH ×3 (08:19→23:19)
[2022-02-18 08:20] LABS: Allen Test Pos (Pos); Base Excess ABG 0.7 mEq/L (-9-1.8); HCO3 ABG 24 mmol/L (19-24); PCO2 ABG 35 mmHg (35-46); PO2 ABG 66 mmHg (80-95); pH ABG 7.45 (7.35-7.45)
--- NOTE | 2022-02-18 08:25 | Critical Care Progress Note ---
Date of Service February 18, 2022 Assessment & Plan (1) Cardiac arrest: (2) Acute myocardial infarction: (3) Atrial fibrillation with rapid ventricular response: (4) Hypokalemia: (5) Ventricular fibrillation: (6) Hypomagnesemia: Plan Impression: 71-year-old male status post cardiac arrest due to ST elevation myocardial infarction status post drug-eluting stent and initiation of pressors. He is intubated. Recommendations: 1. Neurologic: Continue sedation vacation. EEG without epileptiform activity. Appreciate neurology input. 2. Cardiovascular: Acute ST elevation myocardial infarction status post drug- eluting stent. Antiplatelet agents per cardiology. Possible reperfusion syndrome. Patient had several bouts of ventricular fibrillation. Maintain potassium above 4 and magnesium above 2. Continue lidocaine and amiodarone drips. Cardiology following and appreciate their input. Echo results reviewed with a normal EF. 3. Respiratory: Intubated for airway protection. We will plan to start spontaneous breathing trial once he is more awake. Left lower lobe infiltrate noted on chest x-ray. We will start cefepime. 4. GI: PPI. We will hold tube feeding for now in hopes of liberation from mechanical ventilation in the next 12 to 24 hours. 5. Renal: Replace potassium and magnesium aggressively. Follow urine output. 6. ID: Repeat Pro-Obie, urinalysis, sputum cultures and blood cultures. Start cefepime empirically given left lower lobe infiltrate and mild low-grade fever. 7. Endocrine: Glycemic control per protocol. TSH unremarkable. 8. Heme-onc: No current issues. Lovenox for DVT prophylaxis. CRITICAL CARE TIME - I have personally spent 52 minutes of critical care time in the direct management of this patient. This is a life/limb threatening event. This includes time spent evaluating patient, direct bedside care, chart review, placing orders, interpretation of diagnostic studies, discussion with consultants, patient, and family members, as well as other required patient management activities. This time is exclusive of all separately billable procedures, and teaching time and separate from and in addition to any other critical care service time. Admission and Anticipated Discharge Date Admission Date: February 16, 2022 Subjective Patient seen and examined today. Following simple commands off of sedation. Daughter at bedside. No significant hemodynamic issues. Remains sinus bradycardic. Review of Systems Review of Systems: Unobtainable due to cognitive status and Unobtainable due to endotracheal tube Physical Exam Constitutional: well developed, well nourished and + mechanically ventilated Sedated on the ventilator Neck: trachea midline, no thyromegaly Respiratory: normal respiratory effort, lungs clear to auscultation Cardiovascular: RRR, no murmur, no edema Gastrointestinal (Abdomen): normal bowel sounds, soft, nontender, no hepatosplenomegaly Musculoskeletal: Extremities: extremities normal to inspection Skin: no rashes, warm and dry Neurologic: Nonfocal exam Lymphatic: no cervical lymphadenopathy Results & Data Results & Data ([facility]) Vital Signs (Past 12 Hours) Vital Signs Temp Pulse Resp BP Pulse Ox O2 Del Method FiO2 02/18/22 07:37 58 L 21 94 50 02/18/22 07:00 Mechanical Vent 50 02/18/22 07:00 50 02/18/22 07:00 58 L 144/58 H 02/18/22 07:00 58 L 02/18/22 06:30 37.7 C H 58 L 25 H 94 02/18/22 06:15 37.8 C H 60 21 94 02/18/22 06:00 37.8 C H 59 L 20 94 02/18/22 05:45 37.9 C H 59 L 23 96 02/18/22 05:30 37.9 C H 59 L 21 97 02/18/22 05:15 37.9 C H 56 L 22 98 02/18/22 05:00 37.8 C H 56 L 20 97 02/18/22 04:45 37.8 C H 57 L 26 H 96 02/18/22 04:30 37.8 C H 55 L 22 95 02/18/22 04:15 37.7 C H 56 L 24 94 02/18/22 04:00 37.7 C H 55 L 22 94 02/18/22 03:45 37.7 C H 57 L 24 94 02/18/22 03:30 37.7 C H 54 L 21 94 02/18/22 03:15 37.7 C H 56 L 25 H 94 02/18/22 04:00 50 02/18/22 04:11 55 L 24 95 50 02/18/22 03:00 37.7 C H 55 L 22 94 02/18/22 02:01 37.5 C 52 L 27 H 96 02/18/22 01:00 37.2 C 50 L 25 H 95 02/18/22 00:00 37.1 C 51 L 21 94 02/17/22 23:01 37.0 C 51 L 20 95 02/18/22 00:00 50 02/18/22 00:00 51 L 02/17/22 22:43 50 L 21 96 50 02/17/22 22:30 37.0 C 50 L 22 95 02/17/22 22:15 37.0 C 52 L 21 96 02/17/22 22:00 36.9 C 51 L 23 95 02/17/22 21:45 37.0 C 52 L 20 94 02/17/22 21:30 37.0 C 52 L 20 94 02/17/22 21:15 37.1 C 52 L 20 93 02/17/22 21:00 37.1 C 52 L 20 93 02/17/22 20:45 37.1 C 51 L 20 93 02/17/22 20:30 37.1 C 53 L 20 93 Coding Level of Care Code Critical Care 1st 30-74 mins Diagnoses Cardiac arrest I46.9 Acute myocardial infarction I21.3 Involved coronary artery: unspecified coronary artery Myocardial infarction type: ST elevation myocardial infarction Atrial fibrillation with rapid ventricular response I48.91 Hypokalemia E87.6 Ventricular fibrillation I49.01 Hypomagnesemia E83.42 Time Spent (min) 52 (1) Acute myocardial infarction Involved coronary artery: unspecified coronary artery Myocardial infarction type: ST elevation myocardial infarction Qualified Code(s): I21.3 - ST elevation (STEMI) myocardial infarction of unspecified site
[2022-02-18 08:26] LABS: Estimated Average Glucose 134 mg/dl; Hemoglobin A1C 6.3 % (4.5-5.6)
--- NOTE | 2022-02-18 09:34 | Procedure Note ---
Procedure Note: Bronchoscopy Procedure PREOPERATIVE DIAGNOSIS: Pneumonia PROCEDURE PERFORMED: Flexible fiberoptic bronchoscopy with washings from the left lower lobe COMPLICATIONS: None. INDICATION: Evaluate for pneumonia PROCEDURE: Informed consent was obtained from the patient's medical power of state attorney, , and timeout was completed prior to the procedure. Patient was on the mechanical ventilator prior to the procedure. Bronchoscope was introduced via the adapter into the endotracheal tube. Patient was on 100% oxygen prior to the bronchoscopy. Bilateral tracheobronchial tree inspection was performed. Bilateral foamy secretions noted. These were aspirated free. I performed washings of the left lower lobe with 60 cc of saline and approximately 11 cc of fluid was aspirated back. This will be sent for culture. Otherwise no lesions seen. The scope was then completely withdrawn. Recommendations: Follow-up cultures from the left lower lobe washings. [place] Procedure Codes ([facility]) Pulmonary/Thoracic Procedure 1: Pulmonary and Thoracic: 05332 Dx bronchoscopy/BAL
[2022-02-18] MEDS: PANTOprazole 40 MG in SYRINGE 0 ML IV SCH (10:01)
--- NOTE | 2022-02-18 10:10 | Neurology Progress Note ---
Date of Service February 18, 2022 Assessment & Plan (1) Seizure-like activity: (2) Cardiac arrest: Plan This patient had an event on February 16 which was consistent with a cardiac arrest and a generalized tonic seizure. I am uncertain which came , but it is more likely that the cardiac arrest came first, and decreased cerebral perfusion pressure triggered him into a tonic seizure. He had some postictal combativeness and ended up being intubated. He was placed on levetiracetam 500 milligrams twice daily and he has had no further seizure activity since admission. EEG showed no potentially epileptogenic activity and no focal are abnormally slow findings. Currently is extubated, following commands well and has a nonfocal neurologic examination with no encephalopathy or meningeal signs. Recommendations: 1. After he recovers some I would like to obtain an MRI of the brain with and without contrast to see if there is any a small stroke or damage that occurred with the cardiac arrest or any reasons for seizures 2. increase activity as able. 3. For now keep levetiracetam 500 mg twice daily. Overall, spent a total of 35 minutes with this case including review of records, direct evaluation the patient at bedside, and discussion of the case with the patient, family, and Dr. Gill at bedside. Admission and Anticipated Discharge Date Admission Date: February 16, 2022 Subjective Patient has been off sedation for at least 2 hours and was extubated while I was present. He had been following one-step commands prior to extubation. After extubation, patient does not have any headache but does have a sore throat and sore chest. He has had no seizure activity since admission. Laboratory studies reveal mild anemia as before and a glucose of 126. Hemoglobin A1c was 6.3. ALT and AST are much improved [place] [address]. Results & Data ([facility]) Vital Signs (Past 12 Hours) Vital Signs Temp Pulse Resp BP Pulse Ox O2 Del Method O2 Flow Rate 02/18/22 09:45 37.4 C 102 H 35 H 91 Nasal Cannula 10 02/18/22 09:35 37.3 C 75 24 93 Oxymask 02/18/22 09:30 37.3 C 74 26 H 93 Oxymask 02/18/22 09:25 37.3 C 75 23 94 Oxymask 02/18/22 09:20 37.3 C 79 25 H 99 CPAP 02/18/22 09:15 37.3 C 76 28 H 98 Mechanical Vent 02/18/22 09:10 37.4 C 72 25 H 96 Mechanical Vent 02/18/22 09:05 37.4 C 72 28 H 91 Mechanical Vent 02/18/22 09:00 37.4 C 74 31 H 92 CPAP 02/18/22 08:45 37.4 C 73 32 H 89 L CPAP 02/18/22 08:30 37.4 C 69 25 H 94 Mechanical Vent 02/18/22 08:15 37.4 C 64 20 93 Mechanical Vent 02/18/22 08:00 37.5 C 61 26 H 93 Mechanical Vent 02/18/22 07:45 37.5 C 60 27 H 93 Mechanical Vent 02/18/22 07:30 37.5 C 64 32 H 93 Mechanical Vent 02/18/22 07:15 37.5 C 58 L 20 94 Mechanical Vent 02/18/22 07:00 37.6 C H 54 L 21 93 Mechanical Vent 02/18/22 06:45 37.6 C H 58 L 20 94 Mechanical Vent 02/18/22 09:29 Mechanical Vent 02/18/22 07:37 58 L 21 94 02/18/22 07:00 Mechanical Vent 02/18/22 07:00 02/18/22 07:00 58 L 144/58 H 02/18/22 07:00 58 L 02/18/22 06:30 37.7 C H 58 L 25 H 94 02/18/22 06:15 37.8 C H 60 21 94 02/18/22 06:00 37.8 C H 59 L 20 94 02/18/22 05:45 37.9 C H 59 L 23 96 02/18/22 05:30 37.9 C H 59 L 21 97 02/18/22 05:15 37.9 C H 56 L 22 98 02/18/22 05:00 37.8 C H 56 L 20 97 02/18/22 04:45 37.8 C H 57 L 26 H 96 02/18/22 04:30 37.8 C H 55 L 22 95 02/18/22 04:15 37.7 C H 56 L 24 94 02/18/22 04:00 37.7 C H 55 L 22 94 02/18/22 03:45 37.7 C H 57 L 24 94 02/18/22 03:30 37.7 C H 54 L 21 94 02/18/22 03:15 37.7 C H 56 L 25 H 94 02/18/22 04:00 02/18/22 04:11 55 L 24 95 02/18/22 03:00 37.7 C H 55 L 22 94 02/18/22 02:01 37.5 C 52 L 27 H 96 02/18/22 01:00 37.2 C 50 L 25 H 95 02/18/22 00:00 37.1 C 51 L 21 94 02/17/22 23:01 37.0 C 51 L 20 95 02/18/22 00:00 02/18/22 00:00 51 L 02/17/22 22:43 50 L 21 96 02/17/22 22:30 37.0 C 50 L 22 95 02/17/22 22:15 37.0 C 52 L 21 96 02/17/22 22:00 36.9 C 51 L 23 95 FiO2 02/18/22 09:45 02/18/22 09:35 10 02/18/22 09:30 10 02/18/22 09:25 10 02/18/22 09:20 50 02/18/22 09:15 50 02/18/22 09:10 50 02/18/22 09:05 50 02/18/22 09:00 50 02/18/22 08:45 50 02/18/22 08:30 50 02/18/22 08:15 50 02/18/22 08:00 50 02/18/22 07:45 50 02/18/22 07:30 50 02/18/22 07:15 50 02/18/22 07:00 50 02/18/22 06:45 50 02/18/22 09:29 02/18/22 07:37 50 02/18/22 07:00 50 02/18/22 07:00 50 02/18/22 07:00 02/18/22 07:00 02/18/22 06:30 02/18/22 06:15 02/18/22 06:00 02/18/22 05:45 02/18/22 05:30 02/18/22 05:15 02/18/22 05:00 02/18/22 04:45 02/18/22 04:30 02/18/22 04:15 02/18/22 04:00 02/18/22 03:45 02/18/22 03:30 02/18/22 03:15 02/18/22 04:00 50 02/18/22 04:11 50 02/18/22 03:00 02/18/22 02:01 02/18/22 01:00 02/18/22 00:00 02/17/22 23:01 02/18/22 00:00 50 02/18/22 00:00 02/17/22 22:43 50 02/17/22 22:30 02/17/22 22:15 02/17/22 22:00 Exam (Neuro) Physical Exam: he is awake and will answer questions. He can state his name, his age and name his and daughters. He follows one-step commands well. Extraocular eye muscles are intact without nystagmus. Pupils are 4 millimeters bilaterally reactive to light. Tongue is midline and he has no facial droop or asymmetry. Neck is movable without discomfort. He can move all 4 limbs spontaneously. He can lift each leg off the bed. He has good strength being essentially 5/5 in all major muscle groups in the arms and legs both proximally and distally. Reflexes are 1/4 in all 4 limbs. Toes are downgoing with plantar stimulation bilaterally. PG Care Time/CCT Total # of Minutes Spent Total Time Spent with Patient: Total time spent is greater than 50% in coordination of care (as documented) at patient's floor/unit and/or counseling patient: Coding Level of Care Code 05600 Subseq Hosp Care Lvl 3 Diagnoses Seizure-like activity R56.9 Cardiac arrest I46.9 Time Spent (min) 35
[2022-02-18] MEDS ORDERED: dexAMETHasone 8 MG in SYRINGE 0 ML IV ONE (10:15)
[2022-02-18] MEDS: fentaNYL citrate 100 MCG/2 ML VIAL IV PRN (10:19)
--- NOTE | 2022-02-18 10:41 | XRay Report ---
XR chest 1V portable CLINICAL HISTORY: Respiratory failure. COMPARISON STUDY: Chest radiograph February 17, 2022. FINDINGS: Tip of endotracheal tube is 3.6 cm above the [place]. Tip of nasogastric tube is at least wi thin the body of the stomach. Acute left-sided rib fractures are noted. There are possible acute righ t-sided rib fractures. There is an equivocal small left apical pneumothorax. There is no right pneumo thorax. Small bilateral pleural effusions are noted. Extensive bilateral lower lobe airspace opacitie s have progressed. Lung volumes are diminished. Cardiomegaly is unchanged. No evidence for pulmonary edema. IMPRESSION: 1. Satisfactory positioning of the endotracheal and nasogastric tubes. 2. Acute bilateral rib fractures. Equivocal small left apical pneumothorax. Short-term radiographic f ollow-up is recommended. 3. Progression of extensive bilateral lower lung consolidation. This may reflect pneumonia/aspiration pneumonitis. 4. Cardiomegaly. No evidence for pulmonary edema. ACT 112: Negative or not required by law. Electronically signed by: Contreras Bartlett M.D. 02/18/2022 10:39 AM
[2022-02-18] MEDS: LIDOCAINE/D5W DRIP 4MG/ML 2,000 MG/500 ML BAG IV SCH (10:42)
[2022-02-18] MEDS: HYDROmorphone INJ 0.5 MG/0.5 ML SYR IV PRN ×3 (10:51→23:19)
[2022-02-18] MEDS ORDERED: FUROSEMIDE INJ 20 MG/2 ML VIAL IV ONE (11:04)
[2022-02-18] MEDS ORDERED: KETOROLAC TROMETHAMINE 15 MG/ML VIAL IV ONE ×2 (11:46→19:25)
[2022-02-18 12:31] LABS: Eosinophil Body Fluid Man 1 %; Fluid Mono/Macrophage 4 %; Lymphocyte Body Fluid Man 1 %; Neutrophil Body Fluid Man 94 %
[2022-02-18] MEDS ORDERED: [UNRECOGNIZED DRUG - REMARK] ONE (12:53)
[2022-02-18] MEDS: AMIODARONE 200 MG TAB PO SCH ×2 (13:29→20:28)
[2022-02-18] MEDS: LIDOCAINE 5% 1 PATCH TD SCH (13:29)
[2022-02-18] MEDS ORDERED: hydrALAZINE HCL 20 MG/ML VIAL IV STA (13:38)
[2022-02-18] MEDS ORDERED: hydrALAZINE HCL 20 MG/ML VIAL ONE (13:39)
--- NOTE | 2022-02-18 14:10 | Electrocardiogram Report ---
Test Reason : Blood Pressure : / mmHG Vent. Rate : 056 BPM Atrial Rate : 056 BPM P-R Int : 258 ms QRS Dur : 086 ms QT Int : 420 ms P-R-T Axes : 025 -30 081 degrees QTc Int : 405 ms Sinus bradycardia with 1st degree A-V block Left axis deviation Left ventricular hypertrophy with repolarization abnormality Inferior infarct (cited on or before 16-FEB-2022) Abnormal ECG When compared with ECG of 17-FEB-2022 07:55, Serial changes of Inferior infarct Present Confirmed by Aroldo Erickson ([id number]) on 02/18/2022 2:09:50 PM Referred By: REFERRED SELF Confirmed By:Aroldo Erickson
--- NOTE | 2022-02-18 14:20 | Electrocardiogram Report ---
Test Reason : Blood Pressure : / mmHG Vent. Rate : 077 BPM Atrial Rate : 077 BPM P-R Int : 248 ms QRS Dur : 090 ms QT Int : 378 ms P-R-T Axes : 022 -27 068 degrees QTc Int : 427 ms Sinus rhythm with 1st degree A-V block Inferior infarct (cited on or before 16-FEB-2022) Abnormal ECG When compared with ECG of 18-FEB-2022 05:16, (unconfirmed) Serial changes of Inferior infarct Present Confirmed by Aroldo Erickson ([id number]) on 02/18/2022 2:20:18 PM Referred By: REFERRED SELF Confirmed By:Aroldo Erickson
--- NOTE | 2022-02-18 14:52 | XRay Report ---
XR chest 1V portable CLINICAL HISTORY: possible ptx follow up TECHNIQUE: Single frontal radiograph of the chest was obtained. Comparison: Comparison is made to chest radiograph 02/18/2022 at 0645 hours FINDINGS: Interval removal of previously noted endotracheal and enteric tubes. Cardiomegaly is noted. Faint bib asilar airspace opacities are seen. No evidence of pleural effusion or pneumothorax. IMPRESSION: Faint bilateral lower lobe opacities are somewhat improved from prior exam in this patient status pos t bronchoscopy. Stable cardiomegaly. No evidence of pneumothorax is seen, suggested pneumothorax on t he prior exam may have been artifactual. ACT 112: Negative or not required by law. Electronically signed by: Bob Jameson M.D. 02/18/2022 2:51 PM
--- NOTE | 2022-02-18 14:57 | Cardiology Progress Note ---
Date of Service February 18, 2022 Assessment & Plan (1) Torsades de pointes: (2) ST elevation (STEMI) myocardial infarction involving right coronary artery: (3) Ventricular fibrillation: (4) Hypomagnesemia: (5) Cardiac arrest: (6) Cardiogenic shock: (7) Atrial fibrillation with rapid ventricular response: (8) Hypertension: Plan The patient suffered a RCA ST segment elevation TX which was complicated by recurrent ventricular arrhythmias Mr. Hassan is doing incredible today. He has been extubated and passed a swallowing study. No further ventricular arrhythmias so lidocaine drip was discontinued. I will transition amiodarone to 400 mg p.o. twice daily and DC IV drip. Will try to add beta-blockade if heart rate allows. Case discussed with our electrophysiology colleagues. And we will plan for dual-chamber permanent pacemaker/ICD placement during this hospitalization. Admission and Anticipated Discharge Date Admission Date: February 16, 2022 Subjective Patient seen and examined. Telemetry reviewed. Chart reviewed. Multiple family members at the bedside. Patient is status post extubation and completely intact from a neurologic standpoint. Only complaint is that of chest wall pain secondary to chest compressions. Review of Systems Review of Systems: All systems reviewed & are unremarkable except as noted in HPI & below Physical Exam Physical Exam: General: Awake, alert and oriented x 3. No acute distress. HEENT: Normocephalic, atraumatic. Pupils equal, round and reactive to light and accommodation. Extraocular muscles are intact. Anicteric sclera. Moist mucous membranes. Neck: No JVD. No bruit. Cardiovascular: Regular. Positive S-4. Normal S-1 and S-2. No S-3. 3/6 holosystolic ejection murmur, left sternal border, mid-clavicular line with radi ation to the axilla. No rubs. Pulmonary: Clear to auscultation bilaterally. No rales, rhonchi, or wheezing. Abdomen: Bowel sounds x 4, soft. No rebound, guarding or tenderness. No organomegaly. Extremities: No clubbing, cyanosis or edema. +2 pedal pulses bilaterally. Skin: Warm and dry. Results & Data ([facility]) Vital Signs (Past 12 Hours) Vital Signs Temp Pulse Resp BP Pulse Ox O2 Del Method O2 Flow Rate 02/18/22 14:45 37.4 C 78 29 H 97 Nasal Cannula 5 02/18/22 14:30 37.4 C 79 26 H 96 Nasal Cannula 5 02/18/22 14:15 37.4 C 78 26 H 97 Nasal Cannula 5 02/18/22 14:00 37.4 C 78 27 H 96 Nasal Cannula 5 02/18/22 13:45 37.4 C 75 31 H 96 Nasal Cannula 5 02/18/22 13:30 37.4 C 76 35 H 97 Nasal Cannula 5 02/18/22 13:15 37.4 C 74 23 96 Nasal Cannula 5 02/18/22 13:02 37.4 C 75 30 H 168/92 H 97 Nasal Cannula 8 02/18/22 13:00 37.4 C 75 29 H 96 Nasal Cannula 8 02/18/22 12:45 37.4 C 72 31 H 97 Nasal Cannula 8 02/18/22 12:30 37.4 C 74 26 H 96 Nasal Cannula 8 02/18/22 12:15 37.4 C 75 28 H 96 Nasal Cannula 10 02/18/22 12:00 37.4 C 75 29 H 96 Nasal Cannula 10 02/18/22 11:45 37.3 C 76 29 H 95 Nasal Cannula 10 02/18/22 11:30 37.3 C 77 30 H 94 Nasal Cannula 10 02/18/22 11:15 37.4 C 76 35 H 93 Nasal Cannula 10 02/18/22 12:00 72 02/18/22 11:00 37.4 C 78 30 H 93 Nasal Cannula 10 02/18/22 10:45 37.4 C 79 29 H 93 Nasal Cannula 10 02/18/22 10:30 37.3 C 74 35 H 93 Nasal Cannula 10 02/18/22 10:25 37.4 C 75 30 H 92 Nasal Cannula 10 02/18/22 10:20 37.4 C 76 42 H 93 Nasal Cannula 10 02/18/22 10:15 37.4 C 75 39 H 92 Nasal Cannula 10 02/18/22 10:10 37.4 C 76 34 H 92 Nasal Cannula 10 02/18/22 10:05 37.4 C 79 34 H 92 Nasal Cannula 10 02/18/22 10:00 37.4 C 78 31 H 91 Nasal Cannula 10 02/18/22 09:55 37.4 C 80 34 H 91 Nasal Cannula 10 02/18/22 09:50 37.4 C 100 H 25 H 89 L Nasal Cannula 10 02/18/22 09:45 37.4 C 102 H 35 H 91 Nasal Cannula 10 02/18/22 09:35 37.3 C 75 24 93 Oxymask 02/18/22 09:30 37.3 C 74 26 H 93 Oxymask 02/18/22 09:25 37.3 C 75 23 94 Oxymask 02/18/22 09:20 37.3 C 79 25 H 99 CPAP 02/18/22 09:15 37.3 C 76 28 H 98 Mechanical Vent 02/18/22 09:10 37.4 C 72 25 H 96 Mechanical Vent 02/18/22 09:05 37.4 C 72 28 H 91 Mechanical Vent 02/18/22 09:00 37.4 C 74 31 H 92 CPAP 02/18/22 08:45 37.4 C 73 32 H 89 L CPAP 02/18/22 08:30 37.4 C 69 25 H 94 Mechanical Vent 02/18/22 08:15 37.4 C 64 20 93 Mechanical Vent 02/18/22 08:00 37.5 C 61 26 H 93 Mechanical Vent 02/18/22 07:45 37.5 C 60 27 H 93 Mechanical Vent 02/18/22 07:30 37.5 C 64 32 H 93 Mechanical Vent 02/18/22 07:15 37.5 C 58 L 20 94 Mechanical Vent 02/18/22 07:00 37.6 C H 54 L 21 93 Mechanical Vent 02/18/22 06:45 37.6 C H 58 L 20 94 Mechanical Vent 02/18/22 09:29 Mechanical Vent 02/18/22 07:37 58 L 21 94 02/18/22 07:00 Mechanical Vent 02/18/22 07:00 02/18/22 07:00 58 L 144/58 H 02/18/22 07:00 58 L 02/18/22 06:30 37.7 C H 58 L 25 H 94 02/18/22 06:15 37.8 C H 60 21 94 02/18/22 06:00 37.8 C H 59 L 20 94 02/18/22 05:45 37.9 C H 59 L 23 96 02/18/22 05:30 37.9 C H 59 L 21 97 02/18/22 05:15 37.9 C H 56 L 22 98 02/18/22 05:00 37.8 C H 56 L 20 97 02/18/22 04:45 37.8 C H 57 L 26 H 96 02/18/22 04:30 37.8 C H 55 L 22 95 02/18/22 04:15 37.7 C H 56 L 24 94 02/18/22 04:00 37.7 C H 55 L 22 94 02/18/22 03:45 37.7 C H 57 L 24 94 02/18/22 03:30 37.7 C H 54 L 21 94 02/18/22 03:15 37.7 C H 56 L 25 H 94 02/18/22 04:00 02/18/22 04:11 55 L 24 95 02/18/22 03:00 37.7 C H 55 L 22 94 FiO2 02/18/22 14:45 02/18/22 14:30 02/18/22 14:15 02/18/22 14:00 02/18/22 13:45 02/18/22 13:30 02/18/22 13:15 02/18/22 13:02 02/18/22 13:00 02/18/22 12:45 02/18/22 12:30 02/18/22 12:15 02/18/22 12:00 02/18/22 11:45 02/18/22 11:30 02/18/22 11:15 02/18/22 12:00 02/18/22 11:00 02/18/22 10:45 02/18/22 10:30 02/18/22 10:25 02/18/22 10:20 02/18/22 10:15 02/18/22 10:10 02/18/22 10:05 02/18/22 10:00 02/18/22 09:55 02/18/22 09:50 02/18/22 09:45 02/18/22 09:35 10 02/18/22 09:30 10 02/18/22 09:25 10 02/18/22 09:20 50 02/18/22 09:15 50 02/18/22 09:10 50 02/18/22 09:05 50 02/18/22 09:00 50 02/18/22 08:45 50 02/18/22 08:30 50 02/18/22 08:15 50 02/18/22 08:00 50 02/18/22 07:45 50 02/18/22 07:30 50 02/18/22 07:15 50 02/18/22 07:00 50 02/18/22 06:45 50 02/18/22 09:29 02/18/22 07:37 50 02/18/22 07:00 50 02/18/22 07:00 50 02/18/22 07:00 02/18/22 07:00 02/18/22 06:30 02/18/22 06:15 02/18/22 06:00 02/18/22 05:45 02/18/22 05:30 02/18/22 05:15 02/18/22 05:00 02/18/22 04:45 02/18/22 04:30 02/18/22 04:15 02/18/22 04:00 02/18/22 03:45 02/18/22 03:30 02/18/22 03:15 02/18/22 04:00 50 02/18/22 04:11 50 02/18/22 03:00
--- NOTE | 2022-02-18 16:16 | Cardiology Consultation ---
Date of Consultation February 18, 2022 Assessment & Plan (1) Ventricular fibrillation: Pt has recurrent VT/VF post STEMI and revascularization. Recommend weaning off the lidocaine; continue amiodarone. Recommend dual chamber ICD given the post NC cardiac arrest and SB; discussed the procedure and potential risks with family; they expressed an understanding and agreed to proceed. timing of the procedure uncertain hopefully this week earliest would be 02/19 otherwise by Wednesday 02/21. (2) Torsades de pointes: (3) ST elevation (STEMI) myocardial infarction involving right coronary artery: (4) Sinus bradycardia: (5) Atrial fibrillation with rapid ventricular response: (6) Tachy-jose syndrome: History of Present Illness Reason for Consultation: VT Requesting Physician: Dr. Grace Attending Physician: Evy Casas MD History of Present Illness Pt seen earlier today with family at the bedside; he was just extubated and bronchoscopy today. He was admitted to [facility] 3 days ago with an out of hospital cardiac arrest where his daughter (an ICU nurse) started CPR promptly. He underwent cath for a STEMI with PCI to RCA and an anomalous Cx off the RCA. He was intubated as well. Then yesterday he had recurrent VT requiring 2x cardioversion lidocaine was added to his amiodarone. Pt is awake and alert; he does not recall the events the past 2 days but otherwise has no neurological deficits. He does have chest pain which is most likely from all the chest compressions. Allergies Allergy/AdvReac Type Severity Reaction Status Date / Time No Known Allergies Allergy Unknown Verified 02/16/22 14:33 Home Medications Medication Instructions Recorded Confirmed Type aspirin 81 mg tablet,delayed 81 mg PO HS 01/11/18 02/16/22 History release felodipine 5 mg tablet,extended 5 mg PO HS 01/11/18 02/16/22 History release 24 hr levothyroxine 112 mcg tablet 150 mcg PO QAM 01/11/18 02/16/22 History metoprolol succinate 50 mg capsule 50 mg PO HS 01/11/18 02/16/22 History sprinkle, ext. release 24 hr omeprazole 20 mg delayed 1 tab PO QAM 01/11/18 02/16/22 History release,disintegrating tablet atorvastatin 40 mg tablet 40 mg PO DAILY 02/16/22 02/16/22 History levothyroxine 150 mcg tablet 150 mcg PO DAILY 02/16/22 02/16/22 History olmesartan 40 mg tablet 40 mg PO DAILY 02/16/22 02/16/22 History tamsulosin 0.4 mg capsule 0.4 mg PO DAILY 02/16/22 02/16/22 History Patient History Medical History AAA (abdominal aortic aneurysm) Family history of reaction to anesthesia FATHER "ALLERGIC TO MORPHINE" GERD (gastroesophageal reflux disease) Hyperlipidemia Hypertension Hypomagnesemia Hypothyroidism Kidney stones Paroxysmal A-fib a single 12 minute episode was recorded on a ZIO patch monitor in July of 2021 Tachy-jose syndrome per cardiology note - "Borderline tachy Jose syndrome with atrial ventricular ectopy paroxysmal supraventricular tachycardia/atrial fibrillation. No profound Jose arrhythmias observed." Umbilical hernia Ventricular fibrillation Surgical History History of colonoscopy History of cystoscopy MULTIPLE TIMES>KIDNEY STONES/STENT INSERTION History of lithotripsy MULTIPLE History of temporal artery biopsy History of tonsillectomy History of tooth extraction Nausea and vomiting after administration of anesthetic agent Family History Father , age 52 of an NC Myocardial infarction Lung cancer Mother , in 70s of lung cancer Lung cancer Social History Smoking Status: Former smoker Cigarettes Per Day: QUIT 28 YEARS AGO in 1994; Smoking End Date: 1994; Second Hand Exposure: No; Hx Alcohol Use: Yes Alcohol type: beer Alcohol Intake Frequency Comment: uncertain frequency Hx Substance Use: No Preferred Language: Kittitian Communication Ability: Unable Embossing Toolsetter Required: No Beliefs That Will Affect Care: None marital status: Current Living Situation: Spouse current occupational status: employed 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 Other Information That Helps Us Care for You: No Feels Safe at Home: Yes Assistive Devices: CPAP Review of Systems Review of Systems: All systems reviewed & are unremarkable except as noted in HPI & below Physical Exam Physical Exam: aaox3, NAD, lying supine NC/AT EOMI Supple No JVD Nrl S1/S2, No murmur CTA b/l soft nt/nd no LE edema b/l skin intact no focal deficits Results & Data ([facility]) Vital Signs (Past 12 Hours) Vital Signs Temp Pulse Resp BP Pulse Ox O2 Del Method O2 Flow Rate 02/18/22 14:45 37.4 C 78 29 H 97 Nasal Cannula 5 02/18/22 14:30 37.4 C 79 26 H 96 Nasal Cannula 5 02/18/22 14:15 37.4 C 78 26 H 97 Nasal Cannula 5 02/18/22 14:00 37.4 C 78 27 H 96 Nasal Cannula 5 02/18/22 13:45 37.4 C 75 31 H 96 Nasal Cannula 5 02/18/22 13:30 37.4 C 76 35 H 97 Nasal Cannula 5 02/18/22 13:15 37.4 C 74 23 96 Nasal Cannula 5 02/18/22 13:02 37.4 C 75 30 H 168/92 H 97 Nasal Cannula 8 02/18/22 13:00 37.4 C 75 29 H 96 Nasal Cannula 8 02/18/22 12:45 37.4 C 72 31 H 97 Nasal Cannula 8 02/18/22 12:30 37.4 C 74 26 H 96 Nasal Cannula 8 02/18/22 12:15 37.4 C 75 28 H 96 Nasal Cannula 10 02/18/22 12:00 37.4 C 75 29 H 96 Nasal Cannula 10 02/18/22 11:45 37.3 C 76 29 H 95 Nasal Cannula 10 02/18/22 11:30 37.3 C 77 30 H 94 Nasal Cannula 10 02/18/22 11:15 37.4 C 76 35 H 93 Nasal Cannula 10 02/18/22 12:00 72 02/18/22 11:00 37.4 C 78 30 H 93 Nasal Cannula 10 02/18/22 10:45 37.4 C 79 29 H 93 Nasal Cannula 10 02/18/22 10:30 37.3 C 74 35 H 93 Nasal Cannula 10 02/18/22 10:25 37.4 C 75 30 H 92 Nasal Cannula 10 02/18/22 10:20 37.4 C 76 42 H 93 Nasal Cannula 10 02/18/22 10:15 37.4 C 75 39 H 92 Nasal Cannula 10 02/18/22 10:10 37.4 C 76 34 H 92 Nasal Cannula 10 02/18/22 10:05 37.4 C 79 34 H 92 Nasal Cannula 10 02/18/22 10:00 37.4 C 78 31 H 91 Nasal Cannula 10 02/18/22 09:55 37.4 C 80 34 H 91 Nasal Cannula 10 02/18/22 09:50 37.4 C 100 H 25 H 89 L Nasal Cannula 10 02/18/22 09:45 37.4 C 102 H 35 H 91 Nasal Cannula 10 02/18/22 09:35 37.3 C 75 24 93 Oxymask 02/18/22 09:30 37.3 C 74 26 H 93 Oxymask 02/18/22 09:25 37.3 C 75 23 94 Oxymask 02/18/22 09:20 37.3 C 79 25 H 99 CPAP 02/18/22 09:15 37.3 C 76 28 H 98 Mechanical Vent 02/18/22 09:10 37.4 C 72 25 H 96 Mechanical Vent 02/18/22 09:05 37.4 C 72 28 H 91 Mechanical Vent 02/18/22 09:00 37.4 C 74 31 H 92 CPAP 02/18/22 08:45 37.4 C 73 32 H 89 L CPAP 02/18/22 08:30 37.4 C 69 25 H 94 Mechanical Vent 02/18/22 08:15 37.4 C 64 20 93 Mechanical Vent 02/18/22 08:00 37.5 C 61 26 H 93 Mechanical Vent 02/18/22 07:45 37.5 C 60 27 H 93 Mechanical Vent 02/18/22 07:30 37.5 C 64 32 H 93 Mechanical Vent 02/18/22 07:15 37.5 C 58 L 20 94 Mechanical Vent 02/18/22 07:00 37.6 C H 54 L 21 93 Mechanical Vent 02/18/22 06:45 37.6 C H 58 L 20 94 Mechanical Vent 02/18/22 09:29 Mechanical Vent 02/18/22 07:37 58 L 21 94 02/18/22 07:00 Mechanical Vent 02/18/22 07:00 02/18/22 07:00 58 L 144/58 H 02/18/22 07:00 58 L 02/18/22 06:30 37.7 C H 58 L 25 H 94 02/18/22 06:15 37.8 C H 60 21 94 02/18/22 06:00 37.8 C H 59 L 20 94 02/18/22 05:45 37.9 C H 59 L 23 96 02/18/22 05:30 37.9 C H 59 L 21 97 02/18/22 05:15 37.9 C H 56 L 22 98 02/18/22 05:00 37.8 C H 56 L 20 97 02/18/22 04:45 37.8 C H 57 L 26 H 96 02/18/22 04:30 37.8 C H 55 L 22 95 02/18/22 04:15 37.7 C H 56 L 24 94 02/18/22 04:11 55 L 24 95 FiO2 02/18/22 14:45 02/18/22 14:30 02/18/22 14:15 02/18/22 14:00 02/18/22 13:45 02/18/22 13:30 02/18/22 13:15 02/18/22 13:02 02/18/22 13:00 02/18/22 12:45 02/18/22 12:30 02/18/22 12:15 02/18/22 12:00 02/18/22 11:45 02/18/22 11:30 02/18/22 11:15 02/18/22 12:00 02/18/22 11:00 02/18/22 10:45 02/18/22 10:30 02/18/22 10:25 02/18/22 10:20 02/18/22 10:15 02/18/22 10:10 02/18/22 10:05 02/18/22 10:00 02/18/22 09:55 02/18/22 09:50 02/18/22 09:45 02/18/22 09:35 10 02/18/22 09:30 10 02/18/22 09:25 10 02/18/22 09:20 50 02/18/22 09:15 50 02/18/22 09:10 50 02/18/22 09:05 50 02/18/22 09:00 50 02/18/22 08:45 50 02/18/22 08:30 50 02/18/22 08:15 50 02/18/22 08:00 50 02/18/22 07:45 50 02/18/22 07:30 50 02/18/22 07:15 50 02/18/22 07:00 50 02/18/22 06:45 50 02/18/22 09:29 02/18/22 07:37 50 02/18/22 07:00 50 02/18/22 07:00 50 02/18/22 07:00 02/18/22 07:00 02/18/22 06:30 02/18/22 06:15 02/18/22 06:00 02/18/22 05:45 02/18/22 05:30 02/18/22 05:15 02/18/22 05:00 02/18/22 04:45 02/18/22 04:30 02/18/22 04:15 02/18/22 04:11 50 Laboratory Results Abnormal Lab Results 02/17/22 02/17/22 02/17/22 15:47 17:05 19:50 WBC RBC Hgb Hct MCV MCH MCHC RDW Std Deviation RDW Coeff of [place] Plt Count MPV Immature Gran % (Auto) Neut % (Auto) Lymph % (Auto) [place] % (Auto) Eos % (Auto) Baso % (Auto) Neut # (Auto) Lymph # (Auto) [place] # (Auto) Eos # (Auto) Baso # (Auto) Immature Gran # (Auto) RBC Morphology ABG pH ABG pCO2 ABG pO2 ABG HCO3 ABG O2 Saturation ABG Base Excess Ayo Test Oxygen Given Sodium Potassium 3.6 Chloride Carbon Dioxide Anion Gap BUN Creatinine Est Cr Clr Drug Dosing Est GFR ( Amer) Est GFR (Non-Af Amer) BUN/Creatinine Ratio Glucose POC Glucose 117 H POC Glucose (other) 130 H Estimat Average Glucose Hemoglobin A1c Calcium Phosphorus 2.6 Magnesium 2.5 H Total Bilirubin Direct Bilirubin AST ALT Alkaline Phosphatase Total Protein Albumin Procalcitonin Urine Color Urine Appearance Urine pH Ur Specific [place] Urine Protein Urine Glucose (UA) Urine Ketones Urine Blood Urine Nitrite Urine Bilirubin Urine Urobilinogen Ur Leukocyte Esterase Urine WBC (Auto) Urine RBC (Auto) U Hyaline Cast (Auto) U Epithel Cells (Auto) Urine Bacteria (Auto) Fluid Neutrophils % Fluid Lymphocytes % Fluid Eosinophils % Fl Monocyt/Macrophag % Fluid Comment 02/17/22 02/18/22 02/18/22 23:29 04:02 04:29 WBC RBC Hgb Hct MCV MCH MCHC RDW Std Deviation RDW Coeff of [place] Plt Count MPV Immature Gran % (Auto) Neut % (Auto) Lymph % (Auto) [place] % (Auto) Eos % (Auto) Baso % (Auto) Neut # (Auto) Lymph # (Auto) [place] # (Auto) Eos # (Auto) Baso # (Auto) Immature Gran # (Auto) RBC Morphology ABG pH ABG pCO2 ABG pO2 ABG HCO3 ABG O2 Saturation ABG Base Excess Ayo Test Oxygen Given Sodium Potassium Chloride Carbon Dioxide Anion Gap BUN Creatinine Est Cr Clr Drug Dosing Est GFR ( Amer) Est GFR (Non-Af Amer) BUN/Creatinine Ratio Glucose POC Glucose 132 H 94 POC Glucose (other) Estimat Average Glucose 134 Hemoglobin A1c 6.3 H Calcium Phosphorus Magnesium Total Bilirubin Direct Bilirubin AST ALT Alkaline Phosphatase Total Protein Albumin Procalcitonin Urine Color Urine Appearance Urine pH Ur Specific [place] Urine Protein Urine Glucose (UA) Urine Ketones Urine Blood Urine Nitrite Urine Bilirubin Urine Urobilinogen Ur Leukocyte Esterase Urine WBC (Auto) Urine RBC (Auto) U Hyaline Cast (Auto) U Epithel Cells (Auto) Urine Bacteria (Auto) Fluid Neutrophils % Fluid Lymphocytes % Fluid Eosinophils % Fl Monocyt/Macrophag % Fluid Comment 02/18/22 02/18/22 02/18/22 04:29 04:29 07:37 WBC 8.02 RBC 3.96 L Hgb 11.9 L Hct 35.4 L MCV 89.4 MCH 30.1 MCHC 33.6 RDW Std Deviation 44.4 RDW Coeff of [place] 13.5 Plt Count 81 L MPV 12.7 H Immature Gran % (Auto) 0.1 Neut % (Auto) 79.3 Lymph % (Auto) 9.5 [place] % (Auto) 9.5 Eos % (Auto) 1.0 Baso % (Auto) 0.6 Neut # (Auto) 6.36 Lymph # (Auto) 0.76 L [place] # (Auto) 0.76 Eos # (Auto) 0.08 Baso # (Auto) 0.05 Immature Gran # (Auto) 0.01 RBC Morphology Unremarkable ABG pH ABG pCO2 ABG pO2 ABG HCO3 ABG O2 Saturation ABG Base Excess Ayo Test Oxygen Given Sodium 136 Potassium 4.2 Chloride 107 Carbon Dioxide 24 Anion Gap 5 BUN 13 Creatinine 0.62 Est Cr Clr Drug Dosing 136.1 Est GFR ( Amer) 116.5 Est GFR (Non-Af Amer) 100.5 BUN/Creatinine Ratio 21.0 H Glucose 126 H POC Glucose POC Glucose (other) 129 H Estimat Average Glucose Hemoglobin A1c Calcium 7.8 L Phosphorus 1.9 L Magnesium 2.1 Total Bilirubin 0.8 Direct Bilirubin 0.2 AST 86 H ALT 94 H Alkaline Phosphatase 65 Total Protein 5.4 L Albumin 3.4 Procalcitonin Urine Color Urine Appearance Urine pH Ur Specific [place] Urine Protein Urine Glucose (UA) Urine Ketones Urine Blood Urine Nitrite Urine Bilirubin Urine Urobilinogen Ur Leukocyte Esterase Urine WBC (Auto) Urine RBC (Auto) U Hyaline Cast (Auto) U Epithel Cells (Auto) Urine Bacteria (Auto) Fluid Neutrophils % Fluid Lymphocytes % Fluid Eosinophils % Fl Monocyt/Macrophag % Fluid Comment 02/18/22 02/18/22 02/18/22 07:45 08:09 08:14 WBC RBC Hgb Hct MCV MCH MCHC RDW Std Deviation RDW Coeff of [place] Plt Count MPV Immature Gran % (Auto) Neut % (Auto) Lymph % (Auto) [place] % (Auto) Eos % (Auto) Baso % (Auto) Neut # (Auto) Lymph # (Auto) [place] # (Auto) Eos # (Auto) Baso # (Auto) Immature Gran # (Auto) RBC Morphology ABG pH 7.45 ABG pCO2 35 ABG pO2 66 L ABG HCO3 24 ABG O2 Saturation 95.0 ABG Base Excess 0.7 Ayo Test Pos Oxygen Given 50% Sodium Potassium Chloride Carbon Dioxide Anion Gap BUN Creatinine Est Cr Clr Drug Dosing Est GFR ( Amer) Est GFR (Non-Af Amer) BUN/Creatinine Ratio Glucose POC Glucose POC Glucose (other) Estimat Average Glucose Hemoglobin A1c Calcium Phosphorus Magnesium Total Bilirubin Direct Bilirubin AST ALT Alkaline Phosphatase Total Protein Albumin Procalcitonin < 0.05 Urine Color Yellow Urine Appearance Clear Urine pH 5.0 Ur Specific [place] 1.012 Urine Protein Negative Urine Glucose (UA) Negative Urine Ketones Negative Urine Blood Negative Urine Nitrite Negative Urine Bilirubin Negative Urine Urobilinogen Negative Ur Leukocyte Esterase Trace H Urine WBC (Auto) 1-5 Urine RBC (Auto) 0-4 U Hyaline Cast (Auto) 1-5 U Epithel Cells (Auto) 5-10 H Urine Bacteria (Auto) Negative Fluid Neutrophils % Fluid Lymphocytes % Fluid Eosinophils % Fl Monocyt/Macrophag % Fluid Comment 02/18/22 02/18/22 09:36 11:26 WBC RBC Hgb Hct MCV MCH MCHC RDW Std Deviation RDW Coeff of [place] Plt Count MPV Immature Gran % (Auto) Neut % (Auto) Lymph % (Auto) [place] % (Auto) Eos % (Auto) Baso % (Auto) Neut # (Auto) Lymph # (Auto) [place] # (Auto) Eos # (Auto) Baso # (Auto) Immature Gran # (Auto) RBC Morphology ABG pH ABG pCO2 ABG pO2 ABG HCO3 ABG O2 Saturation ABG Base Excess Ayo Test Oxygen Given Sodium Potassium Chloride Carbon Dioxide Anion Gap BUN Creatinine Est Cr Clr Drug Dosing Est GFR ( Amer) Est GFR (Non-Af Amer) BUN/Creatinine Ratio Glucose POC Glucose 117 H POC Glucose (other) Estimat Average Glucose Hemoglobin A1c Calcium Phosphorus Magnesium Total Bilirubin Direct Bilirubin AST ALT Alkaline Phosphatase Total Protein Albumin Procalcitonin Urine Color Urine Appearance Urine pH Ur Specific [place] Urine Protein Urine Glucose (UA) Urine Ketones Urine Blood Urine Nitrite Urine Bilirubin Urine Urobilinogen Ur Leukocyte Esterase Urine WBC (Auto) Urine RBC (Auto) U Hyaline Cast (Auto) U Epithel Cells (Auto) Urine Bacteria (Auto) Fluid Neutrophils % 94 Fluid Lymphocytes % 1 Fluid Eosinophils % 1 Fl Monocyt/Macrophag % 4 Fluid Comment Medications Administered Current Inpatient Medications Amiodarone HCl (Amiodarone 200 Mg Tab) 400 mg PO BID [facility] Stop: 03/20/22 12:44 Last Admin: 02/18/22 13:29 Dose: 400 mg Aspirin (Aspirin 81 Mg Chew) 81 mg PO QAM KIAN Stop: 03/19/22 08:59 Last Admin: 02/18/22 07:57 Dose: 81 mg Atorvastatin Calcium (Atorvastatin 40 Mg Tab) 80 mg PO QAM KIAN Stop: 03/19/22 08:59 Last Admin: 02/18/22 07:57 Dose: 80 mg Dextrose (Dextrose 50% 50 Ml Syringe) 25 - 50 ml IV UD PRN; Protocol PRN Reason: Hypoglycemia Protocol Stop: 03/19/22 14:14 Docusate Sodium (Docusate Sodium Syrup 100 Mg/10 Ml Udc) 100 mg PO BID [facility] Stop: 03/18/22 20:59 Last Admin: 02/18/22 07:58 Dose: 100 mg Enoxaparin Sodium (Enoxaparin Inj 40 Mg/0.4 Ml Syr) 40 mg SQ Q24H KIAN Stop: 03/18/22 17:59 Last Admin: 02/17/22 18:14 Dose: 40 mg Glucagon (Glucagon For Inj 1 Mg Vial) 1 mg IM UD PRN; Protocol PRN Reason: Hypoglycemia Protocol Stop: 03/19/22 14:14 Glucose (Glucose 40% Gel 15 Gm Tube) 15 - 30 gm PO UD PRN; Protocol PRN Reason: Hypoglycemia Protocol Stop: 03/19/22 14:14 Glucose (Glucose 10 Tab/Tube) 4 - 8 tab PO UD PRN; Protocol PRN Reason: Hypoglycemia Protocol Stop: 03/19/22 14:14 Hydromorphone HCl (Hydromorphone Inj 0.5 Mg/0.5 Ml Syr) 0.5 mg IV Q6H PRN PRN Reason: Pain Stop: 03/04/22 10:24 Last Admin: 02/18/22 10:51 Dose: 0.5 mg Parenteral Electrolytes (Normosol-R) 1,000 mls @ 75 mls/hr IV .[id number] [facility] Stop: 03/18/22 16:59 Last Infusion: 02/18/22 09:12 Dose: Infused Pantoprazole Sodium 40 mg/ (Syringe) 10 mls @ 5 mls/min IV DAILY@1100 [facility] Stop: 03/19/22 10:59 Last Admin: 02/18/22 10:01 Dose: 5 mls/min Acetaminophen (Ofirmev) 1,000 mg in 100 mls @ 400 mls/hr IV Q8H PRN PRN Reason: Fever Stop: 02/19/22 19:31 Last Infusion: 02/18/22 05:35 Dose: Infused Levetiracetam 500 mg/ Sodium (Chloride) 105 mls @ 420 mls/hr IV Q12H [facility] Stop: 03/19/22 07:59 Last Infusion: 02/18/22 08:07 Dose: Infused Cefepime HCl 2,000 mg/ Syringe 20 mls @ 5 mls/min IV Q8H [facility]; Protocol Stop: 02/25/22 07:59 Last Admin: 02/18/22 16:05 Dose: 5 mls/min Insulin Aspart (Insulin Aspart Per Unit) 0 units SC Q6 [facility] Stop: 03/19/22 11:59 Levothyroxine Sodium (Levothyroxine Sodium 125 Mcg Tablet) 125 mcg PO DAILYBB [facility] Stop: 03/19/22 06:29 Last Admin: 02/18/22 05:34 Dose: 125 mcg Lidocaine (Lidocaine 5% 1 Patch) 1 patch TD QAM [facility] Stop: 03/20/22 13:14 Last Admin: 02/18/22 13:29 Dose: 1 patch Miscellaneous (Icu Electrolyte Replacement Protocol) 1 each N/A BID@06,18 [facility]; Protocol Stop: 02/23/22 17:59 Last Admin: 02/18/22 05:34 Dose: 1 each Miscellaneous (Carbohydrates For Hypoglycemia ) 15 - 30 gm PO UD PRN PRN Reason: Hypoglycemia Treatment Stop: 03/19/22 14:14 Miscellaneous (Remove Lidoderm Patch) 1 each N/A DAILY@2100 [facility] Stop: 03/20/22 20:59 Miscellaneous Information (Pharmacy Glycemic Mgmt Consult) 1 each N/A UD PRN; Protocol PRN Reason: Consult Stop: 03/19/22 09:08 Sennosides (Senna 8.6 Mg Tab) 17.2 mg PO HS [facility] Stop: 03/18/22 20:59 Last Admin: 02/17/22 19:44 Dose: 17.2 mg Ticagrelor (Ticagrelor 90 Mg Tab) 90 mg PO BID [facility] Stop: 03/19/22 08:59 Last Admin: 02/18/22 07:58 Dose: 90 mg ECG Additional Comments: SR with 1st degree AV block and inferior mi
[2022-02-18 16:55] LABS: Magnesium 2.1 mg/dl (1.7-2.4); Phosphorus 2.2 mg/dl (2.5-4.9); Potassium 4.2 mmol/L (3.5-5.1)
--- NOTE | 2022-02-18 16:55 | Hospitalist Progress Note ---
Date of Service February 18, 2022 Assessment & Plan (1) Cardiac arrest: (2) Acute myocardial infarction: (3) Atrial fibrillation with rapid ventricular response: Plan: Presented on admission with witness cardiac arrest with prehospital cardiac arrest receiving 1 shock via Heart alert called on presentation ECG showed atrial fibrillation with RVR inferior ST elevations S/P emergent cardiac catheterization with Successful PCI of ostial to mid RCA with 2 overlapping drug-eluting stents (3.0 x 12, 2.75 x 12 mm [place]; postdilated with 3.5 NC). Cardiology on board Continue dual-antiplatelet therapy with aspirin and brillinta for at least 1 year. Continue High dose statin Will need cardiac rehab when discharge Brief episodes of ventricular fibrillation. Pt has recurrent VT/VF post STEMI and revascularization. She was started on Amiodarone and Lidocaine, discontinued ECHO showed normal LV chamber size with mild concentric LVH. Borderline global hypokinesis of the left ventricle. Left ventricular systolic function is low normal with ejection fraction 50 to 55%. Cardiology on board recommended dual chamber ICD given the post HI cardiac arrest and SB Respiratory failure He was sedated and intubated on mechanical ventilation S/P extubated and off sedation Continue oxygen supplement Incentive spirometry Seizure like activity Questionable seizure-like activity reported by family prior to cardiac arrest In the ICU, noted to have intermittent myoclonic jerking. received Keppra 1 g neurology on board EEG was Essentially normal, with no focal abnormalities or potentially epileptogenic discharges seen. Off sedation and no focal neuro deficit on exam Neurology on board recommended to continue Keppra 500 mg twice daily Plan to get MRI of brain with and without contrast to see if there is any a small stroke or damage that occurred with the cardiac arrest or any reasons for seizures. Continue seizure precaution (4) AAA (abdominal aortic aneurysm): Plan: History of AAA, measured 3cm x 3cm on imaging 06/2021 DVT px on Lovenox subq Code status Full code Admission and Anticipated Discharge Date Admission Date: February 16, 2022 Subjective Pt was seen and examined for follow up of cardiac arrest Lying in bed with no acute distress with at bedside Pt was extubated today Pt neurology is intact and follow commands He said that his main problem is chest wall pain from the chest compression Review of Systems Review of Systems: All systems reviewed & are unremarkable except as noted in Subjective Physical Exam Physical Exam: General- sedated on bent support Head- atraumatic Eyes- PERRL, EOMI, ENT- oropharynx clear Neck- supple, no JVD Lungs- extubated, No wheezing Heart- +regular Abdomen- normal bowel sounds, soft, nontender Extremities- No edema Neuro- sedated Results & Data Results & Data ([facility]) Vital Signs (Past 12 Hours) Vital Signs Temp Pulse Resp BP Pulse Ox O2 Del Method O2 Flow Rate 02/18/22 16:00 87 02/18/22 16:00 87 02/18/22 14:45 37.4 C 78 29 H 97 Nasal Cannula 5 02/18/22 14:30 37.4 C 79 26 H 96 Nasal Cannula 5 02/18/22 14:15 37.4 C 78 26 H 97 Nasal Cannula 5 02/18/22 14:00 37.4 C 78 27 H 96 Nasal Cannula 5 02/18/22 13:45 37.4 C 75 31 H 96 Nasal Cannula 5 02/18/22 13:30 37.4 C 76 35 H 97 Nasal Cannula 5 02/18/22 13:15 37.4 C 74 23 96 Nasal Cannula 5 02/18/22 13:02 37.4 C 75 30 H 168/92 H 97 Nasal Cannula 8 02/18/22 13:00 37.4 C 75 29 H 96 Nasal Cannula 8 02/18/22 12:45 37.4 C 72 31 H 97 Nasal Cannula 8 02/18/22 12:30 37.4 C 74 26 H 96 Nasal Cannula 8 02/18/22 12:15 37.4 C 75 28 H 96 Nasal Cannula 10 02/18/22 12:00 37.4 C 75 29 H 96 Nasal Cannula 10 02/18/22 11:45 37.3 C 76 29 H 95 Nasal Cannula 10 02/18/22 11:30 37.3 C 77 30 H 94 Nasal Cannula 10 02/18/22 11:15 37.4 C 76 35 H 93 Nasal Cannula 10 02/18/22 12:00 72 02/18/22 11:00 37.4 C 78 30 H 93 Nasal Cannula 10 02/18/22 10:45 37.4 C 79 29 H 93 Nasal Cannula 10 02/18/22 10:30 37.3 C 74 35 H 93 Nasal Cannula 10 02/18/22 10:25 37.4 C 75 30 H 92 Nasal Cannula 10 02/18/22 10:20 37.4 C 76 42 H 93 Nasal Cannula 10 02/18/22 10:15 37.4 C 75 39 H 92 Nasal Cannula 10 02/18/22 10:10 37.4 C 76 34 H 92 Nasal Cannula 10 02/18/22 10:05 37.4 C 79 34 H 92 Nasal Cannula 10 02/18/22 10:00 37.4 C 78 31 H 91 Nasal Cannula 10 02/18/22 09:55 37.4 C 80 34 H 91 Nasal Cannula 10 02/18/22 09:50 37.4 C 100 H 25 H 89 L Nasal Cannula 10 02/18/22 09:45 37.4 C 102 H 35 H 91 Nasal Cannula 10 02/18/22 09:35 37.3 C 75 24 93 Oxymask 02/18/22 09:30 37.3 C 74 26 H 93 Oxymask 02/18/22 09:25 37.3 C 75 23 94 Oxymask 02/18/22 09:20 37.3 C 79 25 H 99 CPAP 02/18/22 09:15 37.3 C 76 28 H 98 Mechanical Vent 02/18/22 09:10 37.4 C 72 25 H 96 Mechanical Vent 02/18/22 09:05 37.4 C 72 28 H 91 Mechanical Vent 02/18/22 09:00 37.4 C 74 31 H 92 CPAP 02/18/22 08:45 37.4 C 73 32 H 89 L CPAP 02/18/22 08:30 37.4 C 69 25 H 94 Mechanical Vent 02/18/22 08:15 37.4 C 64 20 93 Mechanical Vent 02/18/22 08:00 37.5 C 61 26 H 93 Mechanical Vent 02/18/22 07:45 37.5 C 60 27 H 93 Mechanical Vent 02/18/22 07:30 37.5 C 64 32 H 93 Mechanical Vent 02/18/22 07:15 37.5 C 58 L 20 94 Mechanical Vent 02/18/22 07:00 37.6 C H 54 L 21 93 Mechanical Vent 02/18/22 06:45 37.6 C H 58 L 20 94 Mechanical Vent 02/18/22 09:29 Mechanical Vent 02/18/22 07:37 58 L 21 94 02/18/22 07:00 Mechanical Vent 02/18/22 07:00 02/18/22 07:00 58 L 144/58 H 02/18/22 07:00 58 L 02/18/22 06:30 37.7 C H 58 L 25 H 94 02/18/22 06:15 37.8 C H 60 21 94 02/18/22 06:00 37.8 C H 59 L 20 94 02/18/22 05:45 37.9 C H 59 L 23 96 02/18/22 05:30 37.9 C H 59 L 21 97 02/18/22 05:15 37.9 C H 56 L 22 98 02/18/22 05:00 37.8 C H 56 L 20 97 FiO2 02/18/22 16:00 02/18/22 16:00 02/18/22 14:45 02/18/22 14:30 02/18/22 14:15 02/18/22 14:00 02/18/22 13:45 02/18/22 13:30 02/18/22 13:15 02/18/22 13:02 02/18/22 13:00 02/18/22 12:45 02/18/22 12:30 02/18/22 12:15 02/18/22 12:00 02/18/22 11:45 02/18/22 11:30 02/18/22 11:15 02/18/22 12:00 02/18/22 11:00 02/18/22 10:45 02/18/22 10:30 02/18/22 10:25 02/18/22 10:20 02/18/22 10:15 02/18/22 10:10 02/18/22 10:05 02/18/22 10:00 02/18/22 09:55 02/18/22 09:50 02/18/22 09:45 02/18/22 09:35 10 02/18/22 09:30 10 02/18/22 09:25 10 02/18/22 09:20 50 02/18/22 09:15 50 02/18/22 09:10 50 02/18/22 09:05 50 02/18/22 09:00 50 02/18/22 08:45 50 02/18/22 08:30 50 02/18/22 08:15 50 02/18/22 08:00 50 02/18/22 07:45 50 02/18/22 07:30 50 02/18/22 07:15 50 02/18/22 07:00 50 02/18/22 06:45 50 02/18/22 09:29 02/18/22 07:37 50 02/18/22 07:00 50 02/18/22 07:00 50 02/18/22 07:00 02/18/22 07:00 02/18/22 06:30 02/18/22 06:15 02/18/22 06:00 02/18/22 05:45 02/18/22 05:30 02/18/22 05:15 02/18/22 05:00 (1) Acute myocardial infarction Involved coronary artery: unspecified coronary artery Myocardial infarction type: ST elevation myocardial infarction Qualified Code(s): I21.3 - ST elevation (STEMI) myocardial infarction of unspecified site
[2022-02-18] MEDS ORDERED: SODIUM PHOSPHATE 15 MMOL in SODIUM CHLORIDE 0.9% 250 ML IV ONE (17:45)
[2022-02-18] MEDS: FELODIPINE 5 MG TABCR PO SCH (17:59)
[2022-02-18] MEDS: OLMESARTAN MEDOXOMIL 40 MG TAB PO SCH (17:59)
[2022-02-18] MEDS: ENOXAPARIN INJ 40 MG/0.4 ML SYR SQ SCH (18:00)
[2022-02-18] MEDS: SENNA 8.6 MG TAB PO SCH (20:30)
[2022-02-18] MEDS ORDERED: BENZOCAINE/TETRACAIN/BUTAM 50 APPLN/5 GM CAN EXT PRN (20:35)
[2022-02-18] MEDS ORDERED: Nursing to Pharmacy Communication SCH (20:45)
[2022-02-18] MEDS ORDERED: METOPROLOL TARTRATE 25 MG TAB PO SCH (21:00)
[2022-02-18] MEDS: DOCUSATE SODIUM 100 MG CAP PO SCH (23:19)
[2022-02-19] MEDS: HYDROmorphone INJ 0.5 MG/0.5 ML SYR IV PRN ×6 (03:38→19:41)
[2022-02-19 04:51] LABS: Albumin Level 3.6 gm/dl (3.4-5.0); BUN Creatinine Ratio 33.3 (10-20); Bilirubin Direct 0.3 mg/dl (0-0.2); Bilirubin,Total 1.4 mg/dl (0.2-1.0); Calcium 8.7 mg/dl (8.5-10.1); Creatinine Clr Calc Pharmacy 165.5 ml/min; Est GFR (African American) 126.2 ml/min; Est GFR (Non-African American) 108.9 ml/min; Magnesium 2.1 mg/dl (1.7-2.4); Phosphorus 2.5 mg/dl (2.5-4.9); Potassium 4.2 mmol/L (3.5-5.1); Total Protein 5.9 gm/dl (6.0-8.3)
[2022-02-19] MEDS: ICU ELECTROLYTE REPLACEMENT PROTOCOL SCH ×2 (05:45→16:22)
[2022-02-19 05:47] LABS: Basophils # (auto) 0.01 K/uL (0-0.2); Basophils % (auto) 0.1 %; Echinocytes 2+; Hematocrit (blood only) 36.4 % (40.1-51.0); Hemoglobin 12.4 g/dl (14.0-18.0); Immature Granulocytes # (auto) 0.03 K/uL (0.00-0.02); Immature Granulocytes % (auto) 0.2 %; Lymphocytes # (auto) 0.45 K/uL (1.2-3.4); Lymphocytes % (auto) 3.7 %; Mean Corpuscular Hgb Conc 34.1 g/dL (32.0-36.0); Mean Corpuscular Volume 87.9 fL (80.0-100.0); Monocytes # (auto) 0.75 K/uL (0.24-0.82); Monocytes % (auto) 6.2 %; Neutrophils # (auto) 10.77 K/uL (1.4-6.5); Neutrophils % (auto) 89.8 %; Platelet Count 83 K/uL (130-400); Platelet Estimate Decreased (Normal); RDW Coefficient of Variation 13.2 % (11.5-14.5); RDW Standard Deviation 42.7 fL (36.4-46.3); Red Blood Count 4.14 M/uL (4.63-6.08); White Blood Count 12.01 K/ul (4.8-10.8)
[2022-02-19] MEDS: INSULIN ASPART PER UNIT SC SCH ×3 (05:47→16:21)
[2022-02-19] MEDS: POT PHOSPHATE MONOBASIC W/ SOD TAB PO SCH ×3 (06:05→11:37)
[2022-02-19] MEDS: LEVOTHYROXINE SODIUM 125 MCG TABLET PO SCH (06:05)
[2022-02-19] MEDS: ACETAMINOPHEN 1,000 MG/100 ML VIAL IV PRN (06:07)
--- NOTE | 2022-02-19 07:31 | Hospitalist Progress Note ---
Date of Service February 19, 2022 Assessment & Plan (1) Cardiac arrest: (2) Acute myocardial infarction: (3) Atrial fibrillation with rapid ventricular response: Plan: Presented on admission with witness cardiac arrest with prehospital cardiac arrest Heart alert called on presentation ECG showed atrial fibrillation with RVR inferior ST elevations S/P emergent cardiac catheterization with Successful PCI of ostial to mid RCA with 2 overlapping drug-eluting stents (3.0 x 12, 2.75 x 12 mm Tao; postdilated with 3.5 NC). Cardiology on board Continue dual-antiplatelet therapy with aspirin and brillinta for at least 1 year. Continue High dose statin Will need cardiac rehab when discharge Brief episodes of ventricular fibrillation. Pt has recurrent VT/VF post STEMI and revascularization. He was started on Amiodarone ECHO showed normal LV chamber size with mild concentric LVH. Borderline global hypokinesis of the left ventricle. Left ventricular systolic function is low normal with ejection fraction 50 to 55%. Cardiology on board recommended dual chamber ICD given the post LA cardiac arrest and SB Respiratory failure He was sedated and intubated on mechanical ventilation Now extubated and off sedation Continue oxygen supplement as needed Incentive spirometry Pneumonia s/p bronchoscopy, cultx pending currently on cefepime + doxy per ICU team Seizure like activity Questionable seizure-like activity reported by family prior to cardiac arrest In the ICU, noted to have intermittent myoclonic jerking. received Keppra 1 g Neurology on board EEG was Essentially normal, with no focal abnormalities or potentially epileptogenic discharges seen. Off sedation and no focal neuro deficit on exam Neurology - recommended to continue Keppra 500 mg twice daily Plan to get MRI of brain (likely as outpt) with and without contrast to see if there is any a small stroke or damage that occurred with the cardiac arrest or any reasons for seizures. Continue seizure precaution (4) AAA (abdominal aortic aneurysm): Plan: History of AAA, measured 3cm x 3cm on imaging 06/2021 DVT px SCDs, hold Lovenox given thrombocytopenia Code status Full code Admission and Anticipated Discharge Date Admission Date: February 16, 2022 Subjective Pt was seen in follow up of cardiac arrest Lying in bed in no acute distress with and daughter at bedside Pt is extubated Pt neurologically intact and follow commands He said that his main problem is chest wall pain from the chest compression Plan for pacer on Thursday Review of Systems Review of Systems: All systems reviewed & are unremarkable except as noted in Subjective Physical Exam Physical Exam: General- awake and alert in NAD Head- atraumatic Eyes- PERRL, EOMI, ENT- oropharynx clear Neck- supple, no JVD Lungs- No wheezing, mild crackles at bases Heart- +regular Abdomen- normal bowel sounds, soft, nontender Extremities- No edema, moves extremities Neuro- awake and alert, answering questions appropriately Results & Data Results & Data ([facility]) Vital Signs (Past 12 Hours) Vital Signs Temp Pulse Resp BP Pulse Ox O2 Del Method O2 Flow Rate 02/19/22 06:30 147/74 H 02/19/22 06:30 36.5 C 64 22 94 02/19/22 06:00 36.5 C 55 L 15 97 02/19/22 06:00 132/74 02/19/22 05:31 128/63 02/19/22 05:31 36.5 C 60 20 96 02/19/22 05:00 36.5 C 55 L 15 93 02/19/22 05:00 130/60 02/19/22 04:30 36.5 C 63 14 94 02/19/22 04:30 131/70 02/19/22 04:00 36.5 C 68 17 94 02/19/22 04:00 141/76 H 02/19/22 03:30 125/55 L 02/19/22 03:30 36.5 C 59 L 20 94 02/19/22 03:00 36.5 C 57 L 18 94 02/19/22 03:00 131/64 02/19/22 02:30 130/66 02/19/22 02:30 36.5 C 70 19 94 02/19/22 02:00 36.5 C 59 L 20 94 02/19/22 02:00 127/63 02/19/22 01:30 145/77 H 02/19/22 01:30 36.5 C 72 19 95 02/19/22 01:00 36.6 C 71 22 94 02/19/22 01:00 129/74 02/19/22 00:30 152/80 H 02/19/22 00:30 36.5 C 73 24 93 02/19/22 00:00 36.6 C 69 18 94 02/19/22 00:00 140/72 02/18/22 23:30 36.7 C 71 19 95 02/18/22 23:30 141/75 H 02/18/22 23:00 36.7 C 70 23 95 02/18/22 23:00 143/75 H 02/19/22 00:00 69 02/18/22 22:30 36.8 C 74 20 95 02/18/22 22:30 139/73 02/18/22 22:15 36.8 C 64 20 93 02/18/22 22:00 36.8 C 77 23 96 02/18/22 22:00 151/78 H 02/18/22 21:45 36.8 C 76 19 94 02/18/22 21:30 36.9 C 80 24 95 02/18/22 21:30 142/78 H 02/18/22 21:15 36.9 C 81 23 95 02/18/22 21:00 36.9 C 83 24 96 02/18/22 21:00 159/82 H 02/18/22 20:45 37.0 C 83 23 95 02/18/22 20:30 37.1 C 81 20 95 02/18/22 20:30 149/78 H 02/18/22 20:00 37.2 C 81 22 94 02/18/22 20:00 152/72 H 02/18/22 19:30 37.3 C 85 24 96 02/18/22 19:30 142/82 H 02/18/22 20:00 Nasal Cannula 2 Laboratory Results 02/19/22 02/19/22 02/18/22 Range/Units 03:52 03:52 23:24 WBC 12.01 H (4.8-10.8) K/ul RBC 4.14 L (4.63-6.08) M/uL Hgb 12.4 L (14.0-18.0) g/dl Hct 36.4 L (40.1-51.0) % MCV 87.9 (80.0-100.0) fL MCH 30.0 (25.0-34.0) pg MCHC 34.1 (32.0-36.0) g/dL RDW Std Deviation 42.7 (36.4-46.3) fL RDW Coeff of Laverne 13.2 (11.5-14.5) % Plt Count 83 L (130-400) K/uL MPV 13.0 H (9.4-12.4) fL Immature Gran % (Auto) 0.2 % Neut % (Auto) 89.8 % Lymph % (Auto) 3.7 % Mcminn % (Auto) 6.2 % Eos % (Auto) 0.0 % Baso % (Auto) 0.1 % Neut # (Auto) 10.77 H (1.4-6.5) K/uL Lymph # (Auto) 0.45 L (1.2-3.4) K/uL Mcminn # (Auto) 0.75 (0.24-0.82) K/uL Eos # (Auto) 0.00 (0-0.50) K/uL Baso # (Auto) 0.01 (0-0.2) K/uL Immature Gran # (Auto) 0.03 H (0.00-0.02) K/uL Platelet Estimate Decreased L (Normal) Echinocytes 2+ ABG pH (7.35-7.45) ABG pCO2 (35-46) mmHg ABG pO2 (80-95) mmHg ABG HCO3 (19-24) mmol/L ABG O2 Saturation (90-95) % ABG Base Excess (-9-1.8) mEq/L Ayo Test (Pos) Oxygen Given Sodium 141 (136-145) mmol/L Potassium 4.2 (3.5-5.1) mmol/L Chloride 110 H (98-107) mmol/L Carbon Dioxide 26 (21-32) mmol/L Anion Gap 5 (3-11) BUN 17 (6-23) mg/dl Creatinine 0.51 L (0.6-1.4) mg/dl Est Cr Clr Drug Dosing 165.5 ml/min Est GFR ( Amer) 126.2 ml/min Est GFR (Non-Af Amer) 108.9 ml/min BUN/Creatinine Ratio 33.3 H (10-20) Glucose 133 H (70-99(Fasting)) mg/dl POC Glucose 124 H (70-99) mg/dl POC Glucose (other) (70-99) mg/dl Estimat Average Glucose mg/dl Hemoglobin A1c (4.5-5.6) % Calcium 8.7 (8.5-10.1) mg/dl Phosphorus 2.5 (2.5-4.9) mg/dl Magnesium 2.1 (1.7-2.4) mg/dl Total Bilirubin 1.4 H D (0.2-1.0) mg/dl Direct Bilirubin 0.3 H (0-0.2) mg/dl AST 63 H (13-39) U/L ALT 74 H (7-52) U/L Alkaline Phosphatase 70 (34-104) U/L Total Protein 5.9 L (6.0-8.3) gm/dl Albumin 3.6 (3.4-5.0) gm/dl Procalcitonin (0-0.5) ng/ml Urine Color Urine Appearance (Clear) Urine pH (4.5-7.5) Ur Specific Amelia (1.000-1.030) Urine Protein (Negative) Urine Glucose (UA) (Negative) Urine Ketones (Negative) Urine Blood (Negative) Urine Nitrite (Negative) Urine Bilirubin (Negative) Urine Urobilinogen (Negative) Ur Leukocyte Esterase (Negative) Urine WBC (Auto) (0-5) /hpf Urine RBC (Auto) (0-4) /hpf U Hyaline Cast (Auto) (0-5) /lpf U Epithel Cells (Auto) (0-5) /lpf Urine Bacteria (Auto) (Negative) Fluid Neutrophils % % Fluid Lymphocytes % % Fluid Eosinophils % % Fl Monocyt/Macrophag % % Fluid Comment 02/18/22 02/18/22 02/18/22 Range/Units 16:32 16:31 11:26 WBC (4.8-10.8) K/ul RBC (4.63-6.08) M/uL Hgb (14.0-18.0) g/dl Hct (40.1-51.0) % MCV (80.0-100.0) fL MCH (25.0-34.0) pg MCHC (32.0-36.0) g/dL RDW Std Deviation (36.4-46.3) fL RDW Coeff of Laverne (11.5-14.5) % Plt Count (130-400) K/uL MPV (9.4-12.4) fL Immature Gran % (Auto) % Neut % (Auto) % Lymph % (Auto) % Mcminn % (Auto) % Eos % (Auto) % Baso % (Auto) % Neut # (Auto) (1.4-6.5) K/uL Lymph # (Auto) (1.2-3.4) K/uL Mcminn # (Auto) (0.24-0.82) K/uL Eos # (Auto) (0-0.50) K/uL Baso # (Auto) (0-0.2) K/uL Immature Gran # (Auto) (0.00-0.02) K/uL Platelet Estimate (Normal) Echinocytes ABG pH (7.35-7.45) ABG pCO2 (35-46) mmHg ABG pO2 (80-95) mmHg ABG HCO3 (19-24) mmol/L ABG O2 Saturation (90-95) % ABG Base Excess (-9-1.8) mEq/L Ayo Test (Pos) Oxygen Given Sodium (136-145) mmol/L Potassium 4.2 (3.5-5.1) mmol/L Chloride (98-107) mmol/L Carbon Dioxide (21-32) mmol/L Anion Gap (3-11) BUN (6-23) mg/dl Creatinine (0.6-1.4) mg/dl Est Cr Clr Drug Dosing ml/min Est GFR ( Amer) ml/min Est GFR (Non-Af Amer) ml/min BUN/Creatinine Ratio (10-20) Glucose (70-99(Fasting)) mg/dl POC Glucose 145 H 117 H (70-99) mg/dl POC Glucose (other) (70-99) mg/dl Estimat Average Glucose mg/dl Hemoglobin A1c (4.5-5.6) % Calcium (8.5-10.1) mg/dl Phosphorus 2.2 L (2.5-4.9) mg/dl Magnesium 2.1 (1.7-2.4) mg/dl Total Bilirubin (0.2-1.0) mg/dl Direct Bilirubin (0-0.2) mg/dl AST (13-39) U/L ALT (7-52) U/L Alkaline Phosphatase (34-104) U/L Total Protein (6.0-8.3) gm/dl Albumin (3.4-5.0) gm/dl Procalcitonin (0-0.5) ng/ml Urine Color Urine Appearance (Clear) Urine pH (4.5-7.5) Ur Specific Amelia (1.000-1.030) Urine Protein (Negative) Urine Glucose (UA) (Negative) Urine Ketones (Negative) Urine Blood (Negative) Urine Nitrite (Negative) Urine Bilirubin (Negative) Urine Urobilinogen (Negative) Ur Leukocyte Esterase (Negative) Urine WBC (Auto) (0-5) /hpf Urine RBC (Auto) (0-4) /hpf U Hyaline Cast (Auto) (0-5) /lpf U Epithel Cells (Auto) (0-5) /lpf Urine Bacteria (Auto) (Negative) Fluid Neutrophils % % Fluid Lymphocytes % % Fluid Eosinophils % % Fl Monocyt/Macrophag % % Fluid Comment 02/18/22 02/18/22 02/18/22 Range/Units 09:36 08:14 08:09 WBC (4.8-10.8) K/ul RBC (4.63-6.08) M/uL Hgb (14.0-18.0) g/dl Hct (40.1-51.0) % MCV (80.0-100.0) fL MCH (25.0-34.0) pg MCHC (32.0-36.0) g/dL RDW Std Deviation (36.4-46.3) fL RDW Coeff of Laverne (11.5-14.5) % Plt Count (130-400) K/uL MPV (9.4-12.4) fL Immature Gran % (Auto) % Neut % (Auto) % Lymph % (Auto) % Mcminn % (Auto) % Eos % (Auto) % Baso % (Auto) % Neut # (Auto) (1.4-6.5) K/uL Lymph # (Auto) (1.2-3.4) K/uL Mcminn # (Auto) (0.24-0.82) K/uL Eos # (Auto) (0-0.50) K/uL Baso # (Auto) (0-0.2) K/uL Immature Gran # (Auto) (0.00-0.02) K/uL Platelet Estimate (Normal) Echinocytes ABG pH 7.45 (7.35-7.45) ABG pCO2 35 (35-46) mmHg ABG pO2 66 L (80-95) mmHg ABG HCO3 24 (19-24) mmol/L ABG O2 Saturation 95.0 (90-95) % ABG Base Excess 0.7 (-9-1.8) mEq/L Ayo Test Pos (Pos) Oxygen Given 50% Sodium (136-145) mmol/L Potassium (3.5-5.1) mmol/L Chloride (98-107) mmol/L Carbon Dioxide (21-32) mmol/L Anion Gap (3-11) BUN (6-23) mg/dl Creatinine (0.6-1.4) mg/dl Est Cr Clr Drug Dosing ml/min Est GFR ( Amer) ml/min Est GFR (Non-Af Amer) ml/min BUN/Creatinine Ratio (10-20) Glucose (70-99(Fasting)) mg/dl POC Glucose (70-99) mg/dl POC Glucose (other) (70-99) mg/dl Estimat Average Glucose mg/dl Hemoglobin A1c (4.5-5.6) % Calcium (8.5-10.1) mg/dl Phosphorus (2.5-4.9) mg/dl Magnesium (1.7-2.4) mg/dl Total Bilirubin (0.2-1.0) mg/dl Direct Bilirubin (0-0.2) mg/dl AST (13-39) U/L ALT (7-52) U/L Alkaline Phosphatase (34-104) U/L Total Protein (6.0-8.3) gm/dl Albumin (3.4-5.0) gm/dl Procalcitonin < 0.05 (0-0.5) ng/ml Urine Color Urine Appearance (Clear) Urine pH (4.5-7.5) Ur Specific Amelia (1.000-1.030) Urine Protein (Negative) Urine Glucose (UA) (Negative) Urine Ketones (Negative) Urine Blood (Negative) Urine Nitrite (Negative) Urine Bilirubin (Negative) Urine Urobilinogen (Negative) Ur Leukocyte Esterase (Negative) Urine WBC (Auto) (0-5) /hpf Urine RBC (Auto) (0-4) /hpf U Hyaline Cast (Auto) (0-5) /lpf U Epithel Cells (Auto) (0-5) /lpf Urine Bacteria (Auto) (Negative) Fluid Neutrophils % 94 % Fluid Lymphocytes % 1 % Fluid Eosinophils % 1 % Fl Monocyt/Macrophag % 4 % Fluid Comment 02/18/22 02/18/22 02/18/22 Range/Units 07:45 07:37 04:29 WBC (4.8-10.8) K/ul RBC (4.63-6.08) M/uL Hgb (14.0-18.0) g/dl Hct (40.1-51.0) % MCV (80.0-100.0) fL MCH (25.0-34.0) pg MCHC (32.0-36.0) g/dL RDW Std Deviation (36.4-46.3) fL RDW Coeff of Laverne (11.5-14.5) % Plt Count (130-400) K/uL MPV (9.4-12.4) fL Immature Gran % (Auto) % Neut % (Auto) % Lymph % (Auto) % Mcminn % (Auto) % Eos % (Auto) % Baso % (Auto) % Neut # (Auto) (1.4-6.5) K/uL Lymph # (Auto) (1.2-3.4) K/uL Mcminn # (Auto) (0.24-0.82) K/uL Eos # (Auto) (0-0.50) K/uL Baso # (Auto) (0-0.2) K/uL Immature Gran # (Auto) (0.00-0.02) K/uL Platelet Estimate (Normal) Echinocytes ABG pH (7.35-7.45) ABG pCO2 (35-46) mmHg ABG pO2 (80-95) mmHg ABG HCO3 (19-24) mmol/L ABG O2 Saturation (90-95) % ABG Base Excess (-9-1.8) mEq/L Ayo Test (Pos) Oxygen Given Sodium (136-145) mmol/L Potassium (3.5-5.1) mmol/L Chloride (98-107) mmol/L Carbon Dioxide (21-32) mmol/L Anion Gap (3-11) BUN (6-23) mg/dl Creatinine (0.6-1.4) mg/dl Est Cr Clr Drug Dosing ml/min Est GFR ( Amer) ml/min Est GFR (Non-Af Amer) ml/min BUN/Creatinine Ratio (10-20) Glucose (70-99(Fasting)) mg/dl POC Glucose (70-99) mg/dl POC Glucose (other) 129 H (70-99) mg/dl Estimat Average Glucose 134 mg/dl Hemoglobin A1c 6.3 H (4.5-5.6) % Calcium (8.5-10.1) mg/dl Phosphorus (2.5-4.9) mg/dl Magnesium (1.7-2.4) mg/dl Total Bilirubin (0.2-1.0) mg/dl Direct Bilirubin (0-0.2) mg/dl AST (13-39) U/L ALT (7-52) U/L Alkaline Phosphatase (34-104) U/L Total Protein (6.0-8.3) gm/dl Albumin (3.4-5.0) gm/dl Procalcitonin (0-0.5) ng/ml Urine Color Yellow Urine Appearance Clear (Clear) Urine pH 5.0 (4.5-7.5) Ur Specific Amelia 1.012 (1.000-1.030) Urine Protein Negative (Negative) Urine Glucose (UA) Negative (Negative) Urine Ketones Negative (Negative) Urine Blood Negative (Negative) Urine Nitrite Negative (Negative) Urine Bilirubin Negative (Negative) Urine Urobilinogen Negative (Negative) Ur Leukocyte Esterase Trace H (Negative) Urine WBC (Auto) 1-5 (0-5) /hpf Urine RBC (Auto) 0-4 (0-4) /hpf U Hyaline Cast (Auto) 1-5 (0-5) /lpf U Epithel Cells (Auto) 5-10 H (0-5) /lpf Urine Bacteria (Auto) Negative (Negative) Fluid Neutrophils % % Fluid Lymphocytes % % Fluid Eosinophils % % Fl Monocyt/Macrophag % % Fluid Comment Medications Administered Current Inpatient Medications Amiodarone HCl (Amiodarone 200 Mg Tab) 400 mg PO BID [facility] Stop: 03/20/22 12:44 Last Admin: 02/18/22 20:28 Dose: 400 mg Aspirin (Aspirin 81 Mg Chew) 81 mg PO QAM [facility] Stop: 03/19/22 08:59 Last Admin: 02/18/22 07:57 Dose: 81 mg Atorvastatin Calcium (Atorvastatin 40 Mg Tab) [facility] [place] Stop: 03/19/22 08:59 Last Admin: 02/18/22 07:57 Dose: 80 mg Benzocaine/Butamben/Tetracaine HCl (Benzocaine/Tetracain/Butam 50 Appln/5 Gm Can) 1 appln EXT Q8H PRN PRN Reason: Sore Throat Stop: 03/20/22 20:34 Dextrose (Dextrose 50% 50 Ml Syringe) 25 - 50 ml IV UD PRN; Protocol PRN Reason: Hypoglycemia Protocol Stop: 03/19/22 14:14 Docusate Sodium (Docusate Sodium 100 Mg Cap) 100 mg PO BID [facility] Stop: 03/20/22 20:59 Last Admin: 02/18/22 23:19 Dose: Not Given Enoxaparin Sodium (Enoxaparin Inj 40 Mg/0.4 Ml Syr) 40 mg SQ Q24H [facility] Stop: 03/18/22 17:59 Last Admin: 02/18/22 18:00 Dose: 40 mg Felodipine (Felodipine 5 Mg Tabcr) 5 mg PO QAM [facility] Stop: 03/20/22 17:14 Last Admin: 02/18/22 17:59 Dose: 5 mg Glucagon (Glucagon For Inj 1 Mg Vial) 1 mg IM UD PRN; Protocol PRN Reason: Hypoglycemia Protocol Stop: 03/19/22 14:14 Glucose (Glucose 40% Gel 15 Gm Tube) 15 - 30 gm PO UD PRN; Protocol PRN Reason: Hypoglycemia Protocol Stop: 03/19/22 14:14 Glucose (Glucose 10 Tab/Tube) 4 - 8 tab PO UD PRN; Protocol PRN Reason: Hypoglycemia Protocol Stop: 03/19/22 14:14 Hydromorphone HCl (Hydromorphone Inj 0.5 Mg/0.5 Ml Syr) 0.5 mg IV Q4H PRN PRN Reason: Pain Stop: 03/04/22 10:24 Last Admin: 02/19/22 03:38 Dose: 0.5 mg Parenteral Electrolytes (Normosol-R) 1,000 mls @ 75 mls/hr IV .[id number] [facility] Stop: 03/18/22 16:59 Last Admin: 02/18/22 23:19 Dose: Not Given Pantoprazole Sodium 40 mg/ (Syringe) 10 mls @ 5 mls/min IV DAILY@1100 [facility] Stop: 03/19/22 10:59 Last Admin: 02/18/22 10:01 Dose: 5 mls/min Acetaminophen (Ofirmev) 1,000 mg in 100 mls @ 400 mls/hr IV Q8H PRN PRN Reason: Fever Stop: 02/19/22 19:31 Last Infusion: 02/19/22 06:27 Dose: Infused Levetiracetam 500 mg/ Sodium (Chloride) 105 mls @ 420 mls/hr IV Q12H [facility] Stop: 03/19/22 07:59 Last Infusion: 02/18/22 20:43 Dose: Infused Cefepime HCl 2,000 mg/ Syringe 20 mls @ 5 mls/min IV Q8H [facility]; Protocol Stop: 02/25/22 07:59 Last Admin: 02/18/22 23:19 Dose: 5 mls/min Insulin Aspart (Insulin Aspart Per Unit) 0 units SC Q6 [facility] Stop: 03/19/22 11:59 Last Admin: 02/19/22 05:47 Dose: Not Given Levothyroxine Sodium (Levothyroxine Sodium 125 Mcg Tablet) 125 mcg PO DAILYBB [facility] Stop: 03/19/22 06:29 Last Admin: 02/19/22 06:05 Dose: 125 mcg Lidocaine (Lidocaine 5% 1 Patch) 1 patch TD QAM [facility] Stop: 03/20/22 13:14 Last Admin: 02/18/22 13:29 Dose: 1 patch Metoprolol Tartrate (Metoprolol Tartrate 25 Mg Tab) 25 mg PO BID [facility] Stop: 03/20/22 20:59 Last Admin: 02/18/22 20:29 Dose: 25 mg Miscellaneous (Icu Electrolyte Replacement Protocol) 1 each N/A BID@06,18 [facility]; Protocol Stop: 02/23/22 17:59 Last Admin: 02/19/22 05:45 Dose: 1 each Miscellaneous (Carbohydrates For Hypoglycemia ) 15 - 30 gm PO UD PRN PRN Reason: Hypoglycemia Treatment Stop: 03/19/22 14:14 Miscellaneous (Remove Lidoderm Patch) 1 each N/A DAILY@2100 [facility] Stop: 03/20/22 20:59 Last Admin: 02/18/22 20:29 Dose: 1 each Miscellaneous Information (Pharmacy Glycemic Mgmt Consult) 1 each N/A UD PRN; Protocol PRN Reason: Consult Stop: 03/19/22 09:08 Olmesartan (Olmesartan Medoxomil 40 Mg Tab) 40 mg PO QAM [facility] Stop: 03/20/22 17:14 Last Admin: 02/18/22 17:59 Dose: 40 mg Potassium Phosphate (Pot Phosphate Monobasic W/ Sod Tab) 1 tab PO Q4H [facility] Stop: 02/19/22 13:16 Last Admin: 02/19/22 06:05 Dose: 1 tab Sennosides (Senna 8.6 Mg Tab) 17.2 mg PO HS [facility] Stop: 03/18/22 20:59 Last Admin: 02/18/22 20:30 Dose: 17.2 mg Ticagrelor (Ticagrelor 90 Mg Tab) 90 mg PO BID [facility] Stop: 03/19/22 08:59 Last Admin: 02/18/22 20:30 Dose: 90 mg (1) Acute myocardial infarction Involved coronary artery: unspecified coronary artery Myocardial infarction type: ST elevation myocardial infarction Qualified Code(s): I21.3 - ST elevation (STEMI) myocardial infarction of unspecified site
[2022-02-19] MEDS ORDERED: KETOROLAC TROMETHAMINE 15 MG/ML VIAL IV ONE (07:53)
[2022-02-19] MEDS: CEFEPIME 2,000 MG in SYRINGE 0 ML IV SCH ×3 (07:57→23:03)
[2022-02-19] MEDS: AMIODARONE 200 MG TAB PO SCH ×2 (07:59→19:44)
[2022-02-19] MEDS: DOCUSATE SODIUM 100 MG CAP PO SCH ×2 (07:59→19:45)
[2022-02-19] MEDS: ATORVASTATIN 40 MG TAB PO SCH (07:59)
[2022-02-19] MEDS: FELODIPINE 5 MG TABCR PO SCH (07:59)
[2022-02-19] MEDS: OLMESARTAN MEDOXOMIL 40 MG TAB PO SCH (08:00)
[2022-02-19] MEDS: TICAGRELOR 90 MG TAB PO SCH ×2 (08:00→19:44)
[2022-02-19] MEDS: LIDOCAINE 5% 1 PATCH TD SCH (08:00)
[2022-02-19] MEDS: ASPIRIN 81 MG CHEW PO SCH (08:02)
[2022-02-19] MEDS: levETIRAcetam 500 MG in 0.9 % SODIUM CHLORIDE 100 ML IV SCH (08:02)
[2022-02-19] MEDS ORDERED: FUROSEMIDE INJ 20 MG/2 ML VIAL IV ONE (08:08)
--- NOTE | 2022-02-19 08:10 | Critical Care Progress Note ---
Date of Service February 19, 2022 Assessment & Plan (1) Cardiac arrest: (2) Acute myocardial infarction: (3) Atrial fibrillation with rapid ventricular response: (4) Hypokalemia: (5) Ventricular fibrillation: (6) Hypomagnesemia: (7) Hypoxia: (8) Pulmonary edema: (9) Aspiration pneumonitis: Plan Impression: 71-year-old male status post cardiac arrest due to ST elevation myocardial infarction status post drug-eluting stent and initiation of pressors. He is intubated. Recommendations: 1. Neurologic: No issues. Neurology following given the question of seizure prior to the cardiac arrest. EEG earlier in the hospital course was unremarkable. 2. Cardiovascular: Acute ST elevation myocardial infarction status post drug- eluting stent. Antiplatelet agents per cardiology. Possible reperfusion syndrome. Patient had several bouts of ventricular fibrillation. Maintain potassium above 4 and magnesium above 2. Echo results reviewed with a normal EF. He is off all vasoactive drips. Continue p.o. amiodarone. He will likely undergo an AICD and dual-chamber pacemaker placement on Thursday per EP. Hold metoprolol at this time given ongoing bradycardia. Restarted his home antihypertensive medications otherwise. 3. Respiratory: Status post bronchoscopy 02/18/2022. Currently on cefepime for possible ventilator associated pneumonia requiring 2 L of oxygen. Continue home CPAP device at night when sleeping. Chest x-ray today with continued signs of pulmonary vascular congestion. We will give an additional 20 mg of IV Lasix. Likely component of aspiration pneumonitis as well. 4. GI: PPI. Advance diet as tolerated. LFT stable. Initial LFT derangements likely secondary to shock liver which is improving. 5. Renal: Replace potassium and magnesium aggressively. Follow urine output. Creatinine stable. Discontinue IV fluids. 6. ID: Empirically treating ventilator associated pneumonia with cefepime. If cultures negative x48 hours (bronchoscopy and sputum cultures), will discontinue antibiotics. We will add doxycycline given thrombocytopenia and the possibility of atypical infection. 7. Endocrine: Glycemic control per protocol. TSH unremarkable. 8. Heme-onc: Thrombocytopenia seen. Platelet count has been trending downwards. We will obtain a peripheral smear. We will hold on Lovenox administration. He is currently on dual antiplatelet therapy for the drug- eluting stent in his heart. We will also evaluate for tickborne illnesses via peripheral smear. Check PF4 antibody and reflex serotonin release assay. Admission and Anticipated Discharge Date Admission Date: February 16, 2022 Subjective Patient doing well on 2 L nasal cannula. He continues to endorse chest pain related to his rib fractures. His sleep was poor yesterday. Appetite is poor at this time. No significant fevers or chills overnight. Review of Systems Review of Systems: All systems reviewed & are unremarkable except as noted in HPI & below Physical Exam Physical Exam: Constitutional: Patient appears to be of their stated age. Patient is in no apparent distress. Patient is well-developed. Eyes: Pupils are equal round and reactive to light. Conjunctivae are normal. Anicteric sclera. Ears nose, mouth and throat: Mallampati class 2. Normal posterior oropharynx. Uvula is midline. Neck: Trachea is midline. Visual inspection is normal. Respiratory: Diminished bilaterally. No wheezes. Mild crackles at the bases. Cardiovascular: Regular rate and rhythm. No murmurs. No edema. Gastrointestinal: Normal bowel sounds, soft, nontender and nondistended. No hepatosplenomegaly noted. Musculoskeletal: No cyanosis. Patient is able to move all extremities. Pain upon palpation of the anterior chest. Skin: No rashes, warm dry and intact. Neurologic: No obvious focal neurological deficits seen. Psychiatric: Alert and oriented x3 with a euthymic affect. Results & Data Results & Data ([facility]) Vital Signs (Past 12 Hours) Vital Signs Temp Pulse Resp BP Pulse Ox O2 Del Method O2 Flow Rate 02/19/22 06:30 147/74 H 02/19/22 06:30 36.5 C 64 22 94 02/19/22 06:00 36.5 C 55 L 15 97 02/19/22 06:00 132/74 02/19/22 05:31 128/63 02/19/22 05:31 36.5 C 60 20 96 02/19/22 05:00 36.5 C 55 L 15 93 02/19/22 05:00 130/60 02/19/22 04:30 36.5 C 63 14 94 02/19/22 04:30 131/70 02/19/22 04:00 36.5 C 68 17 94 02/19/22 04:00 141/76 H 02/19/22 03:30 125/55 L 02/19/22 03:30 36.5 C 59 L 20 94 02/19/22 03:00 36.5 C 57 L 18 94 02/19/22 03:00 131/64 02/19/22 02:30 130/66 02/19/22 02:30 36.5 C 70 19 94 02/19/22 02:00 36.5 C 59 L 20 94 02/19/22 02:00 127/63 02/19/22 01:30 145/77 H 02/19/22 01:30 36.5 C 72 19 95 02/19/22 01:00 36.6 C 71 22 94 02/19/22 01:00 129/74 02/19/22 00:30 152/80 H 02/19/22 00:30 36.5 C 73 24 93 02/19/22 00:00 36.6 C 69 18 94 02/19/22 00:00 140/72 02/18/22 23:30 36.7 C 71 19 95 02/18/22 23:30 141/75 H 02/18/22 23:00 36.7 C 70 23 95 02/18/22 23:00 143/75 H 02/19/22 00:00 69 02/18/22 22:30 36.8 C 74 20 95 02/18/22 22:30 139/73 02/18/22 22:15 36.8 C 64 20 93 02/18/22 22:00 36.8 C 77 23 96 02/18/22 22:00 151/78 H 02/18/22 21:45 36.8 C 76 19 94 02/18/22 21:30 36.9 C 80 24 95 02/18/22 21:30 142/78 H 02/18/22 21:15 36.9 C 81 23 95 02/18/22 21:00 36.9 C 83 24 96 02/18/22 21:00 159/82 H 02/18/22 20:45 37.0 C 83 23 95 02/18/22 20:30 37.1 C 81 20 95 02/18/22 20:30 149/78 H 02/18/22 20:00 37.2 C 81 22 94 02/18/22 20:00 152/72 H 02/18/22 20:00 Nasal Cannula 2 Coding [facility] Cardiac arrest I46.9 Acute myocardial infarction I21.3 Involved coronary artery: unspecified coronary artery Myocardial infarction type: ST elevation myocardial infarction Atrial fibrillation with rapid ventricular response I48.91 Hypokalemia E87.6 Ventricular fibrillation I49.01 Hypomagnesemia E83.42 Hypoxia R09.02 Pulmonary edema J81.1 Aspiration pneumonitis J69.0 (1) Acute myocardial infarction Involved coronary artery: unspecified coronary artery Myocardial infarction type: ST elevation myocardial infarction Qualified Code(s): I21.3 - ST elevation (STEMI) myocardial infarction of unspecified site
--- NOTE | 2022-02-19 09:07 | Neurology Progress Note ---
Date of Service February 19, 2022 Assessment & Plan (1) Seizure-like activity: (2) Cardiac arrest: Plan This patient had an event on February 16 which was consistent with a cardiac arrest and a generalized tonic seizure. I am uncertain which came , but it is more likely that the cardiac arrest came first, and decreased cerebral perfusion pressure triggered him into a tonic seizure. He had some postictal combativeness and ended up being intubated. He was placed on levetiracetam 500 milligrams twice daily and he has had no further seizure activity since admission. EEG February 18, showed no potentially epileptogenic activity, no focal findings, or abnormally slow rhythms. Currently He has no focal findings on exam, meningeal signs, or encephalopathy. Recommendations: 1. After he recovers some (And this could actually be done as an outpatient ) I would like to obtain an MRI of the brain with and without contrast to see if there is any a small stroke or damage that occurred with the cardiac arrest or any reasons for seizures. this test is not necessary during this hospitalization at this time. 2. increase activity as able. 3. For now, keep levetiracetam 500 mg twice daily. 4. Please contact me if I can be of further assistance on this cases I have no further neurologic testing or treatment recommendations to make at this time. I would like to see him as an outpatient in 3-4 weeks with the PA at our office. Overall, spent a total of 35 minutes with this case including review of records, direct evaluation the patient at bedside, and discussion of the case with the patient, family, and Dr. Gill at bedside. Admission and Anticipated Discharge Date Admission Date: February 16, 2022 Subjective Patient is doing well neurologically. Patient's daughter was at bedside. The patient has chest pain and soreness around the sternum, likely from CP received. His throat feels better. When he takes a deep does currently is just received Toradol. Has no complaint of headache. CBC today showed a white count 12 with hemoglobin and showing mild anemia. Chem profile Was largely unremarkable although liver enzymes are slightly elevated (improving ). Glucose was 133. Patient is afebrile currently, with a blood pressure of 142/69 and a pulse of 56. He is in sinus Jose with PVCs. Nursing reports no further seizure activity over last 24 hours. Results & Data ([facility]) Vital Signs (Past 12 Hours) Vital Signs Temp Pulse Resp BP Pulse Ox 02/19/22 08:30 142/69 H 02/19/22 08:30 36.6 C 56 L 19 95 02/19/22 08:00 36.5 C 60 16 94 02/19/22 08:00 143/70 H 02/19/22 07:30 36.6 C 52 L 13 95 02/19/22 07:30 131/64 02/19/22 07:00 36.6 C 55 L 15 96 02/19/22 07:00 135/65 02/19/22 06:30 147/74 H 02/19/22 06:30 36.5 C 64 22 94 02/19/22 06:00 36.5 C 55 L 15 97 02/19/22 06:00 132/74 02/19/22 05:31 128/63 02/19/22 05:31 36.5 C 60 20 96 02/19/22 05:00 36.5 C 55 L 15 93 02/19/22 05:00 130/60 02/19/22 04:30 36.5 C 63 14 94 02/19/22 04:30 131/70 02/19/22 04:00 36.5 C 68 17 94 02/19/22 04:00 141/76 H 02/19/22 03:30 125/55 L 02/19/22 03:30 36.5 C 59 L 20 94 02/19/22 03:00 36.5 C 57 L 18 94 02/19/22 03:00 131/64 02/19/22 02:30 130/66 02/19/22 02:30 36.5 C 70 19 94 02/19/22 02:00 36.5 C 59 L 20 94 02/19/22 02:00 127/63 02/19/22 01:30 145/77 H 02/19/22 01:30 36.5 C 72 19 95 02/19/22 01:00 36.6 C 71 22 94 02/19/22 01:00 129/74 02/19/22 00:30 152/80 H 02/19/22 00:30 36.5 C 73 24 93 02/19/22 00:00 36.6 C 69 18 94 02/19/22 00:00 140/72 02/18/22 23:30 36.7 C 71 19 95 02/18/22 23:30 141/75 H 02/18/22 23:00 36.7 C 70 23 95 02/18/22 23:00 143/75 H 02/19/22 00:00 69 02/18/22 22:30 36.8 C 74 20 95 02/18/22 22:30 139/73 02/18/22 22:15 36.8 C 64 20 93 02/18/22 22:00 36.8 C 77 23 96 02/18/22 22:00 151/78 H 02/18/22 21:45 36.8 C 76 19 94 02/18/22 21:30 36.9 C 80 24 95 02/18/22 21:30 142/78 H 02/18/22 21:15 36.9 C 81 23 95 Exam (Neuro) Physical Exam: he is awake and alert. Speech is a little hoarse but otherwise without aphasia or dysarthria. Mood is normal and affect is appropriate. He is pleasant and cooperative. He is oriented to name, day of the week, month, year, and president. Extraocular eye muscles are intact without nystagmus. There is no facial droop. Tongue is midline. Coordination is normal in the arms. Strength is symmetrical the limbs being 5/5 diffusely both proximally and distally. PG Care Time/CCT Total # of Minutes Spent Total Time Spent with Patient: Total time spent is greater than 50% in coordination of care (as documented) at patient's floor/unit and/or counseling patient: Coding Level of Care Code 63600 [facility] Lvl 3 Diagnoses Seizure-like activity R56.9 Cardiac arrest I46.9 Time Spent (min) 35
[2022-02-19] MEDS: DOXYCYCLINE HYCLATE 100 MG in DEXTROSE 5% 100 ML IV SCH ×2 (09:39→19:46)
--- NOTE | 2022-02-19 10:53 | XRay Report ---
XR chest 1V portable CLINICAL HISTORY: resp failure TECHNIQUE: Single frontal radiograph of the chest was obtained. Comparison: Comparison is made to chest radiograph 02/18/2022 FINDINGS: Exam is limited by underpenetration. Cardiomegaly is noted. Interval improvement in previously noted airspace opacities. No evidence of pleural effusion or pneumothorax. Partial visualization of bilater al rib fractures. IMPRESSION: Stable exam without evidence of pneumothorax. Previously noted airspace opacities have essentially re solved. Stable cardiomegaly. ACT 112: Negative or not required by law. Electronically signed by: Bob Jameson M.D. 02/19/2022 10:50 AM
[2022-02-19] MEDS: PANTOprazole 40 MG TAB PO SCH (11:32)
--- NOTE | 2022-02-19 14:02 | Cardiology Progress Note ---
Date of Service February 19, 2022 Assessment & Plan (1) Ventricular fibrillation: (2) Torsades de pointes: (3) ST elevation (STEMI) myocardial infarction involving right coronary artery: (4) Sinus bradycardia: (5) Atrial fibrillation with rapid ventricular response: (6) Tachy-yasir syndrome: Plan The patient suffered a RCA ST segment elevation GA which was complicated by recurrent ventricular arrhythmias No further arrhythmias. Tolerating p.o. amiodarone For dual-chamber permanent pacemaker/ICD placement. Will hold off on placement for now given elevated white count and significant amount of gram-positive cocci positive on bronchoscopy. Will follow cultures closely and once cleared we will proceed with placement. Obviously dual antiplatelet therapy will be continued. Continue felodipine, olmesartan and atorvastatin. Will hold off on starting beta-noelle until pacer is in place Admission and Anticipated Discharge Date Admission Date: February 16, 2022 Subjective Patient seen and examined. Chart reviewed. Telemetry reviewed. Family at bedside. Review of Systems Review of Systems: All systems reviewed & are unremarkable except as noted in HPI & below Physical Exam Physical Exam: General: Awake, alert and oriented x 3. No acute distress. HEENT: Normocephalic, atraumatic. Pupils equal, round and reactive to light and accommodation. Extraocular muscles are intact. Anicteric sclera. Moist mucous membranes. Neck: No JVD. No bruit. Cardiovascular: Regular. Positive S-4. Normal S-1 and S-2. No S-3. 3/6 holosystolic ejection murmur, left sternal border, mid-clavicular line with radiation to the axilla. No rubs. Pulmonary: Clear to auscultation bilaterally. No rales, rhonchi, or wheezing. Abdomen: Bowel sounds x 4, soft. No rebound, guarding or tenderness. No organomegaly. Extremities: No clubbing, cyanosis or edema. +2 pedal pulses bilaterally. Skin: Warm and dry. Results & Data ([facility]) Vital Signs (Past 12 Hours) Vital Signs Temp Pulse Resp BP Pulse Ox 02/19/22 13:31 36.7 C 68 21 93 02/19/22 13:31 135/72 02/19/22 13:01 127/54 L 02/19/22 13:01 36.7 C 59 L 15 93 02/19/22 13:00 36.7 C 59 L 14 95 02/19/22 12:31 127/53 L 02/19/22 12:31 36.7 C 59 L 15 95 02/19/22 12:00 36.6 C 60 17 93 02/19/22 12:00 123/60 02/19/22 11:30 136/67 02/19/22 11:30 36.7 C 57 L 23 95 02/19/22 11:00 36.7 C 59 L 19 96 02/19/22 11:00 134/69 02/19/22 10:30 36.6 C 54 L 14 96 02/19/22 10:30 135/68 02/19/22 10:00 36.7 C 56 L 14 96 02/19/22 10:00 136/69 02/19/22 09:30 141/66 H 02/19/22 09:30 36.7 C 59 L 20 97 02/19/22 09:00 36.6 C 58 L 24 97 02/19/22 09:00 137/71 02/19/22 08:30 142/69 H 02/19/22 08:30 36.6 C 56 L 19 95 02/19/22 08:00 36.5 C 60 16 94 02/19/22 08:00 143/70 H 02/19/22 07:30 36.6 C 52 L 13 95 02/19/22 07:30 131/64 02/19/22 07:00 36.6 C 55 L 15 96 02/19/22 07:00 135/65 02/19/22 06:30 147/74 H 02/19/22 06:30 36.5 C 64 22 94 02/19/22 06:00 36.5 C 55 L 15 97 02/19/22 06:00 132/74 02/19/22 05:31 128/63 02/19/22 05:31 36.5 C 60 20 96 02/19/22 05:00 36.5 C 55 L 15 93 02/19/22 05:00 130/60 02/19/22 04:30 36.5 C 63 14 94 02/19/22 04:30 131/70 02/19/22 04:00 36.5 C 68 17 94 02/19/22 04:00 141/76 H 02/19/22 03:30 125/55 L 11/09/22 03:30 36.5 C 59 L 20 94 02/19/22 03:00 36.5 C 57 L 18 94 02/19/22 03:00 131/64 02/19/22 02:30 130/66 02/19/22 02:30 36.5 C 70 19 94 02/19/22 02:00 36.5 C 59 L 20 94 02/19/22 02:00 127/63
[2022-02-19 16:16] LABS: BUN Creatinine Ratio 36.7 (10-20); Calcium 8.8 mg/dl (8.5-10.1); Creatinine Clr Calc Pharmacy 139.3 ml/min; Est GFR (African American) 118.1 ml/min; Est GFR (Non-African American) 101.9 ml/min; Phosphorus 3.2 mg/dl (2.5-4.9); Potassium 4.1 mmol/L (3.5-5.1)
--- NOTE | 2022-02-19 16:48 | Electrocardiogram Report ---
Test Reason : Blood Pressure : / mmHG Vent. Rate : 055 BPM Atrial Rate : 055 BPM P-R Int : 254 ms QRS Dur : 082 ms QT Int : 426 ms P-R-T Axes : -17 -19 -14 degrees QTc Int : 407 ms Sinus bradycardia with 1st degree A-V block with occasional Premature ventricular complexes Minimal voltage criteria for LVH, may be normal variant Inferior infarct (cited on or before 16-FEB-2022) Abnormal ECG When compared with ECG of 18-FEB-2022 11:01, Premature ventricular complexes are now Present Serial changes of Inferior infarct Present Confirmed by Aroldo Erickson ([id number]) on 02/19/2022 4:47:54 PM Referred By: REFERRED SELF Confirmed By:Aroldo Erickson
--- NOTE | 2022-02-19 16:53 | Electrocardiogram Report ---
Test Reason : Blood Pressure : / mmHG Vent. Rate : 056 BPM Atrial Rate : 056 BPM P-R Int : 268 ms QRS Dur : 084 ms QT Int : 438 ms P-R-T Axes : 023 -19 -20 degrees QTc Int : 422 ms Sinus bradycardia with 1st degree A-V block Minimal voltage criteria for LVH, may be normal variant Inferior infarct (cited on or before 16-FEB-2022) Abnormal ECG When compared with ECG of 19-FEB-2022 06:22, (unconfirmed) Premature ventricular complexes are no longer Present Confirmed by Aroldo Erickson ([id number]) on 02/19/2022 4:53:35 PM Referred By: REFERRED SELF Confirmed By:Aroldo Erickson
[2022-02-19] MEDS: SENNA 8.6 MG TAB PO SCH (19:44)
[2022-02-19] MEDS: levETIRAcetam 500 MG TAB PO SCH (19:45)
[2022-02-19] MEDS ORDERED: CHLORASEPTIC 1.4% SOLN 180 ML BTL MT PRN (22:04)
[2022-02-20] MEDS ORDERED: ONDANSETRON INJ 2 MG/ML 2 ML VIAL IV STA (00:07)
[2022-02-20] MEDS ORDERED: ONDANSETRON INJ 2 MG/ML 2 ML VIAL ONE (00:10)
[2022-02-20] MEDS: HYDROmorphone INJ 0.5 MG/0.5 ML SYR IV PRN ×4 (00:12→16:46)
[2022-02-20 04:50] LABS: BUN Creatinine Ratio 36.5 (10-20); Calcium 8.7 mg/dl (8.5-10.1); Creatinine Clr Calc Pharmacy 132.7 ml/min; Est GFR (African American) 115.7 ml/min; Est GFR (Non-African American) 99.8 ml/min
[2022-02-20 05:27] LABS: Phosphorus 3.1 mg/dl (2.5-4.9)
[2022-02-20] MEDS: ICU ELECTROLYTE REPLACEMENT PROTOCOL SCH ×2 (05:39→15:47)
[2022-02-20 05:46] LABS: Hematocrit (blood only) 38.3 % (40.1-51.0); Hemoglobin 12.8 g/dl (14.0-18.0); Mean Corpuscular Hemoglobin 29.8 pg (25.0-34.0); Mean Corpuscular Hgb Conc 33.4 g/dL (32.0-36.0); Mean Corpuscular Volume 89.3 fL (80.0-100.0); RDW Coefficient of Variation 13.1 % (11.5-14.5); RDW Standard Deviation 42.6 fL (36.4-46.3); Red Blood Count 4.29 M/uL (4.63-6.08); White Blood Count 9.36 K/ul (4.8-10.8)
[2022-02-20 06:07] LABS: Basophils # (auto) 0.05 K/uL (0-0.2); Basophils % (auto) 0.5 %; Eosinophils # (auto) 0.23 K/uL (0-0.50); Eosinophils % (auto) 2.5 %; Immature Granulocytes # (auto) 0.03 K/uL (0.00-0.02); Immature Granulocytes % (auto) 0.3 %; Lymphocytes # (auto) 0.88 K/uL (1.2-3.4); Lymphocytes % (auto) 9.4 %; Mean Platelet Volume 13.1 fL (9.4-12.4); Monocytes # (auto) 1.01 K/uL (0.24-0.82); Monocytes % (auto) 10.8 %; Neutrophils # (auto) 7.16 K/uL (1.4-6.5); Neutrophils % (auto) 76.5 %; Platelet Count 96 K/uL (130-400)
[2022-02-20] MEDS: PANTOprazole 40 MG TAB PO SCH (06:16)
[2022-02-20] MEDS: LEVOTHYROXINE SODIUM 125 MCG TABLET PO SCH (06:16)
[2022-02-20] MEDS: MAGNESIUM OXIDE 400 MG TAB PO SCH ×2 (06:16→08:11)
[2022-02-20] MEDS: INSULIN ASPART PER UNIT SC SCH ×4 (07:45→20:24)
[2022-02-20] MEDS: CEFEPIME 2,000 MG in SYRINGE 0 ML IV SCH (07:57)
[2022-02-20] MEDS: OLMESARTAN MEDOXOMIL 40 MG TAB PO SCH (08:12)
[2022-02-20] MEDS: levETIRAcetam 500 MG TAB PO SCH ×2 (08:12→20:26)
[2022-02-20] MEDS: ATORVASTATIN 40 MG TAB PO SCH (08:12)
[2022-02-20] MEDS: LIDOCAINE 5% 1 PATCH TD SCH (08:12)
[2022-02-20] MEDS: AMIODARONE 200 MG TAB PO SCH ×2 (08:12→20:26)
[2022-02-20] MEDS: DOCUSATE SODIUM 100 MG CAP PO SCH ×2 (08:12→20:26)
[2022-02-20] MEDS: TICAGRELOR 90 MG TAB PO SCH ×2 (08:12→20:26)
[2022-02-20] MEDS: FELODIPINE 5 MG TABCR PO SCH (08:12)
[2022-02-20] MEDS: ASPIRIN 81 MG CHEW PO SCH (08:14)
--- NOTE | 2022-02-20 08:17 | Hospitalist Progress Note ---
Date of Service February 20, 2022 Assessment & Plan (1) Cardiac arrest: (2) Acute myocardial infarction: (3) Atrial fibrillation with rapid ventricular response: Plan: Presented on admission with witness cardiac arrest with prehospital cardiac arrest Heart alert called on presentation ECG showed atrial fibrillation with RVR inferior ST elevations S/P emergent cardiac catheterization with Successful PCI of ostial to mid RCA with 2 overlapping drug-eluting stents (3.0 x 12, 2.75 x 12 mm Tao; postdilated with 3.5 NC). Cardiology on board Continue dual-antiplatelet therapy with aspirin and brillinta for at least 1 year. Continue High dose statin Will need cardiac rehab when discharge Brief episodes of ventricular fibrillation. Pt has recurrent VT/VF post STEMI and revascularization. He was started on Amiodarone ECHO showed normal LV chamber size with mild concentric LVH. Borderline global hypokinesis of the left ventricle. Left ventricular systolic function is low normal with ejection fraction 50 to 55%. Cardiology on board recommended dual chamber ICD given the post MO cardiac arrest and SB Respiratory failure He was sedated and intubated on mechanical ventilation Now extubated and off sedation Continue oxygen supplement as needed Incentive spirometry Pneumonia s/p bronchoscopy, cultx pending currently on cefepime + doxy per ICU team, cefepime switched to ceftriaxone Seizure like activity Questionable seizure-like activity reported by family prior to cardiac arrest In the ICU, noted to have intermittent myoclonic jerking. received Keppra 1 g Neurology on board EEG was Essentially normal, with no focal abnormalities or potentially epileptogenic discharges seen. Off sedation and no focal neuro deficit on exam Neurology - recommended to continue Keppra 500 mg twice daily Plan to get MRI of brain (likely as outpt) with and without contrast to see if there is any a small stroke or damage that occurred with the cardiac arrest or any reasons for seizures. Continue seizure precaution (4) AAA (abdominal aortic aneurysm): Plan: History of AAA, measured 3cm x 3cm on imaging 06/2021 DVT px SCDs, hold Lovenox given thrombocytopenia Code status Full code Admission and Anticipated Discharge Date Admission Date: February 16, 2022 Subjective Pt was seen in follow up of cardiac arrest Lying in bed in no acute distress with at the bedside Pt is extubated Pt neurologically intact and following commands Reports chest wall pain from the chest compression Plan for pacer in next upcoming days Review of Systems Review of Systems: All systems reviewed & are unremarkable except as noted in Subjective Physical Exam Physical Exam: General- awake and alert in NAD Head- atraumatic Eyes- PERRL, EOMI, ENT- oropharynx clear Neck- supple, no JVD Lungs- No wheezing, mild crackles at bases Heart- +regular Abdomen- normal bowel sounds, soft, nontender Extremities- No edema, moves extremities Neuro- awake and alert, answering questions appropriately Results & Data Results & Data ([facility]) Vital Signs (Past 12 Hours) Vital Signs Temp Pulse Resp BP Pulse Ox 02/20/22 06:01 36.9 C 54 L 20 93 02/20/22 06:01 165/72 H 02/20/22 06:00 36.9 C 57 L 26 H 91 02/20/22 05:01 155/87 H 02/20/22 05:01 37.0 C 58 L 21 92 02/20/22 05:00 37.0 C 58 L 19 91 02/20/22 04:01 37.0 C 56 L 21 93 02/20/22 04:01 155/78 H 02/20/22 04:00 37.0 C 58 L 19 89 L 02/20/22 03:01 37.0 C 56 L 27 H 94 02/20/22 03:01 148/70 H 02/20/22 03:00 37.0 C 49 L 15 94 02/20/22 02:01 36.9 C 52 L 17 89 L 02/20/22 02:01 140/70 02/20/22 02:00 36.9 C 52 L 19 92 02/20/22 01:00 37.0 C 54 L 14 92 02/20/22 01:00 138/72 02/20/22 00:01 150/79 H 02/20/22 00:01 37.0 C 53 L 16 95 02/20/22 00:00 37.0 C 55 L 13 95 02/19/22 23:00 37.1 C 51 L 17 93 02/19/22 23:00 144/69 H 02/19/22 22:00 36.9 C 53 L 15 93 02/19/22 22:00 139/69 02/19/22 21:00 36.9 C 56 L 20 94 02/19/22 21:00 142/76 H 02/19/22 23:18 55 L Laboratory Results 02/20/22 02/20/22 02/19/22 Range/Units 04:25 04:16 15:38 WBC 9.36 (4.8-10.8) K/ul RBC 4.29 L (4.63-6.08) M/uL Hgb 12.8 L (14.0-18.0) g/dl Hct 38.3 L (40.1-51.0) % MCV 89.3 (80.0-100.0) fL MCH 29.8 (25.0-34.0) pg MCHC 33.4 (32.0-36.0) g/dL RDW Std Deviation 42.6 (36.4-46.3) fL RDW Coeff of Laverne 13.1 (11.5-14.5) % Plt Count 96 L (130-400) K/uL MPV 13.1 H (9.4-12.4) fL Immature Gran % (Auto) 0.3 % Neut % (Auto) 76.5 % Lymph % (Auto) 9.4 % Coke % (Auto) 10.8 % Eos % (Auto) 2.5 % Baso % (Auto) 0.5 % Neut # (Auto) 7.16 H (1.4-6.5) K/uL Lymph # (Auto) 0.88 L (1.2-3.4) K/uL Coke # (Auto) 1.01 H (0.24-0.82) K/uL Eos # (Auto) 0.23 (0-0.50) K/uL Baso # (Auto) 0.05 (0-0.2) K/uL Immature Gran # (Auto) 0.03 H (0.00-0.02) K/uL Peripher Smr Path Cons Sodium 140 141 (136-145) mmol/L Potassium 4.0 4.1 (3.5-5.1) mmol/L Chloride 107 109 H (98-107) mmol/L Carbon Dioxide 28 27 (21-32) mmol/L Anion Gap 5 5 (3-11) BUN 23 22 (6-23) mg/dl Creatinine 0.63 0.60 (0.6-1.4) mg/dl Est Cr Clr Drug Dosing 132.7 139.3 ml/min Est GFR ( Amer) 115.7 118.1 ml/min Est GFR (Non-Af Amer) 99.8 101.9 ml/min BUN/Creatinine Ratio 36.5 H 36.7 H (10-20) Glucose 95 109 H (70-99(Fasting)) mg/dl POC Glucose (70-99) mg/dl Calcium 8.7 8.8 (8.5-10.1) mg/dl Phosphorus 3.1 3.2 Magnesium 2.0 2.0 Serotonin Release Assay Heparin Depend Plt Ab Anaplasma Smear Babesia Smear Babesia microti DNA PCR 02/19/22 02/19/22 02/19/22 Range/Units 15:38 11:31 08:15 WBC (4.8-10.8) K/ul RBC (4.63-6.08) M/uL Hgb (14.0-18.0) g/dl Hct (40.1-51.0) % MCV (80.0-100.0) fL MCH (25.0-34.0) pg MCHC (32.0-36.0) g/dL RDW Std Deviation (36.4-46.3) fL RDW Coeff of Laverne (11.5-14.5) % Plt Count (130-400) K/uL MPV (9.4-12.4) fL Immature Gran % (Auto) % Neut % (Auto) % Lymph % (Auto) % Coke % (Auto) % Eos % (Auto) % Baso % (Auto) % Neut # (Auto) (1.4-6.5) K/uL Lymph # (Auto) (1.2-3.4) K/uL Coke # (Auto) (0.24-0.82) K/uL Eos # (Auto) (0-0.50) K/uL Baso # (Auto) (0-0.2) K/uL Immature Gran # (Auto) (0.00-0.02) K/uL Peripher Smr Path Cons Sodium (136-145) mmol/L Potassium (3.5-5.1) mmol/L Chloride (98-107) mmol/L Carbon Dioxide (21-32) mmol/L Anion Gap (3-11) BUN (6-23) mg/dl Creatinine (0.6-1.4) mg/dl Est Cr Clr Drug Dosing ml/min Est GFR ( Amer) ml/min Est GFR (Non-Af Amer) ml/min BUN/Creatinine Ratio (10-20) Glucose (70-99(Fasting)) mg/dl POC Glucose 102 H (70-99) mg/dl Calcium (8.5-10.1) mg/dl Phosphorus Cancelled Magnesium Cancelled Serotonin Release Assay Pending Heparin Depend Plt Ab Pending Anaplasma Smear Babesia Smear Babesia microti DNA PCR 02/19/22 02/19/22 02/19/22 Range/Units 08:15 08:15 08:15 WBC (4.8-10.8) K/ul RBC (4.63-6.08) M/uL Hgb (14.0-18.0) g/dl Hct (40.1-51.0) % MCV (80.0-100.0) fL MCH (25.0-34.0) pg MCHC (32.0-36.0) g/dL RDW Std Deviation (36.4-46.3) fL RDW Coeff of Laverne (11.5-14.5) % Plt Count (130-400) K/uL MPV (9.4-12.4) fL Immature Gran % (Auto) % Neut % (Auto) % Lymph % (Auto) % Coke % (Auto) % Eos % (Auto) % Baso % (Auto) % Neut # (Auto) (1.4-6.5) K/uL Lymph # (Auto) (1.2-3.4) K/uL Coke # (Auto) (0.24-0.82) K/uL Eos # (Auto) (0-0.50) K/uL Baso # (Auto) (0-0.2) K/uL Immature Gran # (Auto) (0.00-0.02) K/uL Peripher Smr Path Cons Sodium (136-145) mmol/L Potassium (3.5-5.1) mmol/L Chloride (98-107) mmol/L Carbon Dioxide (21-32) mmol/L Anion Gap (3-11) BUN (6-23) mg/dl Creatinine (0.6-1.4) mg/dl Est Cr Clr Drug Dosing ml/min Est GFR ( Amer) ml/min Est GFR (Non-Af Amer) ml/min BUN/Creatinine Ratio (10-20) Glucose (70-99(Fasting)) mg/dl POC Glucose (70-99) mg/dl Calcium (8.5-10.1) mg/dl Phosphorus Magnesium Serotonin Release Assay Heparin Depend Plt Ab Anaplasma Smear See Comment Babesia Smear See Comment Babesia microti DNA PCR Pending Medications Administered Current Inpatient Medications Amiodarone HCl (Amiodarone 200 Mg Tab) 400 mg PO BID [facility] Stop: 03/20/22 12:44 Last Admin: 02/20/22 08:12 Dose: 400 mg Aspirin (Aspirin 81 Mg Chew) 81 mg PO [facility] Stop: 03/19/22 08:59 Last Admin: 02/20/22 08:14 Dose: 81 mg Atorvastatin Calcium (Atorvastatin 40 Mg Tab) 80 mg PO [facility] Stop: 03/19/22 08:59 Last Admin: 02/20/22 08:12 Dose: 80 mg Benzocaine/Butamben/Tetracaine HCl (Benzocaine/Tetracain/Butam 50 Appln/5 Gm Can) 1 appln EXT Q8H PRN PRN Reason: Sore Throat Stop: 03/20/22 20:34 Dextrose (Dextrose 50% 50 Ml Syringe) 25 - 50 ml IV UD PRN; Protocol PRN Reason: Hypoglycemia Protocol Stop: 03/19/22 14:14 Docusate Sodium (Docusate Sodium 100 Mg Cap) 100 mg PO BID [facility] Stop: 03/20/22 20:59 Last Admin: 02/20/22 08:12 Dose: 100 mg Felodipine (Felodipine 5 Mg Tabcr) 5 mg PO [facility] Stop: 03/20/22 17:14 Last Admin: 02/20/22 08:12 Dose: 5 mg Glucagon (Glucagon For Inj 1 Mg Vial) 1 mg IM UD PRN; Protocol PRN Reason: Hypoglycemia Protocol Stop: 03/19/22 14:14 Glucose (Glucose 40% Gel 15 Gm Tube) 15 - 30 gm PO UD PRN; Protocol PRN Reason: Hypoglycemia Protocol Stop: 03/19/22 14:14 Glucose (Glucose 10 Tab/Tube) 4 - 8 tab PO UD PRN; Protocol PRN Reason: Hypoglycemia Protocol Stop: 03/19/22 14:14 Guaifenesin/Codeine Phosphate (Guaifenesin/Codeine 200mg/20mg 10ml Udc) 10 ml PO Q6H PRN PRN Reason: Cough Stop: 03/21/22 13:48 Last Admin: 02/20/22 08:11 Dose: 10 ml Hydromorphone HCl (Hydromorphone Inj 0.5 Mg/0.5 Ml Syr) 0.5 mg IV Q4H PRN PRN Reason: Pain Stop: 03/04/22 10:24 Last Admin: 02/20/22 06:16 Dose: 0.5 mg Cefepime HCl 2,000 mg/ Syringe 20 mls @ 5 mls/min IV Q8H [facility]; Protocol Stop: 02/25/22 07:59 Last Admin: 02/20/22 07:57 Dose: 5 mls/min Doxycycline Hyclate 100 mg/ (Dextrose) 110 mls @ 50 mls/hr IV Q12H [facility] Stop: 02/26/22 08:59 Last Infusion: 02/19/22 22:10 Dose: Infused Insulin Aspart (Insulin Aspart Per Unit) 0 units SC ACHS [facility] Stop: 03/22/22 07:29 Last Admin: 02/20/22 07:45 Dose: Not Given Levetiracetam (Levetiracetam 500 Mg Tab) 500 mg PO Q12H [facility] Stop: 03/21/22 19:59 Last Admin: 02/20/22 08:12 Dose: 500 mg Levothyroxine Sodium (Levothyroxine Sodium 125 Mcg Tablet) 125 mcg PO DAILYBB [facility] Stop: 03/19/22 06:29 Last Admin: 02/20/22 06:16 Dose: 125 mcg Lidocaine (Lidocaine 5% 1 Patch) 1 patch TD QAM [facility] Stop: 03/20/22 13:14 Last Admin: 02/20/22 08:12 Dose: 1 patch Magnesium Oxide (Magnesium Oxide 400 Mg Tab) 400 mg PO Q4H [facility] Stop: 02/20/22 09:46 Last Admin: 02/20/22 08:11 Dose: 400 mg Miscellaneous (Icu Electrolyte Replacement Protocol) 1 each N/A BID@,18 [facility]; Protocol Stop: 02/23/22 17:59 Last Admin: 02/20/22 05:39 Dose: 1 each Miscellaneous (Carbohydrates For Hypoglycemia ) 15 - 30 gm PO UD PRN PRN Reason: Hypoglycemia Treatment Stop: 03/19/22 14:14 Miscellaneous (Remove Lidoderm Patch) 1 each N/A DAILY@2100 [facility] Stop: 03/20/22 20:59 Last Admin: 02/19/22 19:45 Dose: 1 each Miscellaneous Information (Pharmacy Glycemic Mgmt Consult) 1 each N/A UD PRN; Protocol PRN Reason: Consult Stop: 03/19/22 09:08 Olmesartan (Olmesartan Medoxomil 40 Mg Tab) 40 mg PO QAM [facility] Stop: 03/20/22 17:14 Last Admin: 02/20/22 08:12 Dose: 40 mg Pantoprazole Sodium (Pantoprazole 40 Mg Tab) 40 mg PO DAILYBB [facility] Stop: 03/21/22 10:14 Last Admin: 02/20/22 06:16 Dose: 40 mg Phenol (Chloraseptic 1.4% Soln 180 Ml Btl) 1 sprays MT PRN PRN PRN Reason: Sore Throat Stop: 03/21/22 22:03 Last Admin: 02/20/22 06:17 Dose: 1 sprays Sennosides (Senna 8.6 Mg Tab) 17.2 mg PO HS [facility] Stop: 03/18/22 20:59 Last Admin: 02/19/22 19:44 Dose: 17.2 mg Ticagrelor (Ticagrelor 90 Mg Tab) 90 mg PO BID [facility] Stop: 03/19/22 08:59 Last Admin: 02/20/22 08:12 Dose: 90 mg (1) Acute myocardial infarction Involved coronary artery: unspecified coronary artery Myocardial infarction type: ST elevation myocardial infarction Qualified Code(s): I21.3 - ST elevation (STEMI) myocardial infarction of unspecified site
[2022-02-20] MEDS: DOXYCYCLINE HYCLATE 100 MG in DEXTROSE 5% 100 ML IV SCH (08:18)
--- NOTE | 2022-02-20 08:35 | Critical Care Progress Note ---
Date of Service February 20, 2022 Assessment & Plan (1) Cardiac arrest: (2) Acute myocardial infarction: (3) Atrial fibrillation with rapid ventricular response: (4) Hypokalemia: (5) Ventricular fibrillation: (6) Hypomagnesemia: (7) Hypoxia: (8) Pulmonary edema: (9) Aspiration pneumonitis: Plan Impression: 71-year-old male status post cardiac arrest due to ST elevation myocardial infarction status post drug-eluting stent and initiation of pressors. He is intubated. Recommendations: 1. Neurologic: No issues. Neurology following given the question of seizure prior to the cardiac arrest. EEG earlier in the hospital course was unremarkable. Consider MRI of the brain. 2. Cardiovascular: Acute ST elevation myocardial infarction status post drug- eluting stent. Antiplatelet agents per cardiology. Possible reperfusion syndrome. Patient had several bouts of ventricular fibrillation. Maintain potassium above 4 and magnesium above 2. Echo results reviewed with a normal EF. He is off all vasoactive drips. Continue p.o. amiodarone. He will likely undergo an AICD and dual-chamber pacemaker placement soon. Hold metoprolol at this time given ongoing bradycardia. Restarted his home antihypertensive medications otherwise. 3. Respiratory: Status post bronchoscopy 02/18/2022. Currently on cefepime for possible ventilator associated pneumonia requiring 2 L of oxygen. Continue home CPAP device at night when sleeping. Likely component of aspiration pneumonitis as well. 4. GI: PPI. Advance diet as tolerated. LFT stable. Initial LFT derangements likely secondary to shock liver which is improving. 5. Renal: Replace potassium and magnesium aggressively. Follow urine output. Creatinine stable. 6. ID: Empirically treating ventilator associated pneumonia with cefepime. Will discontinue. Bronchoscopy cultures negative x48 hours. Continue doxyc ycline given thrombocytopenia and the possibility of atypical infection. 7. Endocrine: Glycemic control per protocol. TSH unremarkable. 8. Heme-onc: Thrombocytopenia seen. Platelet count low, but stable. Peripheral smear without schistocytes. We will hold on Lovenox administration. He is currently on dual antiplatelet therapy for the drug-eluting stent in his heart. We will also evaluate for tickborne illnesses via peripheral smear. Check PF4 antibody and reflex serotonin release assay. Admission and Anticipated Discharge Date Admission Date: February 16, 2022 Subjective Patient seen examined. Continues to have chest pain. Hemodynamically stable. Review of Systems Review of Systems: All systems reviewed & are unremarkable except as noted in HPI & below Physical Exam Physical Exam: Constitutional: Patient appears to be of their stated age. Patient is in no apparent distress. Patient is well-developed. Eyes: Pupils are equal round and reactive to light. Conjunctivae are normal. Anicteric sclera. Ears nose, mouth and throat: Mallampati class 2. Normal posterior oropharynx. Uvula is midline. Neck: Trachea is midline. Visual inspection is normal. Respiratory: Diminished bilaterally. No wheezes. Mild crackles at the bases. Cardiovascular: Regular rate and rhythm. No murmurs. No edema. Gastrointestinal: Normal bowel sounds, soft, nontender and nondistended. No hepatosplenomegaly noted. Musculoskeletal: No cyanosis. Patient is able to move all extremities. Pain upon palpation of the anterior chest. Skin: No rashes, warm dry and intact. Neurologic: No obvious focal neurological deficits seen. Psychiatric: Alert and oriented x3 with a euthymic affect. Results & Data Results & Data ([facility]) Vital Signs (Past 12 Hours) Vital Signs Temp Pulse Resp BP Pulse Ox 02/20/22 06:01 36.9 C 54 L 20 93 02/20/22 06:01 165/72 H 02/20/22 06:00 36.9 C 57 L 26 H 91 02/20/22 05:01 155/87 H 02/20/22 05:01 37.0 C 58 L 21 92 02/20/22 05:00 37.0 C 58 L 19 91 02/20/22 04:01 37.0 C 56 L 21 93 02/20/22 04:01 155/78 H 02/20/22 04:00 37.0 C 58 L 19 89 L 02/20/22 03:01 37.0 C 56 L 27 H 94 02/20/22 03:01 148/70 H 02/20/22 03:00 37.0 C 49 L 15 94 02/20/22 02:01 36.9 C 52 L 17 89 L 02/20/22 02:01 140/70 02/20/22 02:00 36.9 C 52 L 19 92 02/20/22 01:00 37.0 C 54 L 14 92 02/20/22 01:00 138/72 02/20/22 00:01 150/79 H 02/20/22 00:01 37.0 C 53 L 16 95 02/20/22 00:00 37.0 C 55 L 13 95 02/19/22 23:00 37.1 C 51 L 17 93 02/19/22 23:00 144/69 H 02/19/22 22:00 36.9 C 53 L 15 93 02/19/22 22:00 139/69 02/19/22 21:00 36.9 C 56 L 20 94 02/19/22 21:00 142/76 H 02/19/22 23:18 55 L Coding Level of Care Code 04109 Subseq Hosp Care Lvl 2 Diagnoses Cardiac arrest I46.9 Acute myocardial infarction I21.3 Involved coronary artery: unspecified coronary artery Myocardial infarction type: ST elevation myocardial infarction Atrial fibrillation with rapid ventricular response I48.91 Hypokalemia E87.6 Ventricular fibrillation I49.01 Hypomagnesemia E83.42 Hypoxia R09.02 Pulmonary edema J81.1 Aspiration pneumonitis J69.0 (1) Acute myocardial infarction Involved coronary artery: unspecified coronary artery Myocardial infarction type: ST elevation myocardial infarction Qualified Code(s): I21.3 - ST elevation (STEMI) myocardial infarction of unspecified site
--- NOTE | 2022-02-20 12:14 | Pharmacy Report ---
Pharmacy Glycemic Short Note 2 - Date of Service February 20, 2022 - Glycemic Short BSG Results (Last 24 hours): 02/19/22 02/20/22 02/20/22 15:38 04:25 11:41 Glucose 109 H 95 POC Glucose 87 OUTPATIENT ANTIDIABETIC REGIMEN: * N/A * A1c 6.3% ASSESSMENT: 02/20: * BSGs low end of goal range to goal the last 72hr. Has required no insulin since 02/17. * Extubated, infusions in D5W discontinued, and diet advanced to full liquid. Pending AICD/dual chamber pacer placement. * Given BSGs trending down today (109-95-87mg/dL) without insulin, and full diet not yet initiated, will loosen Novolog parameters to 40/15. May require further adjustments once tolerating a diet. 02/17: * Patient admitted following out of hospital cardiac arrest, underwent cardiac cath, multiple episodes of Vfib this AM. Currently on amiodarone/lidocaine (both in dextrose). * BSGs have been < 180 mg/dL, however in the mid 170s, therefore will initiate novolog. Low threshold to start insulin infusion as this would be preferred in the post-arrest/STEMI setting. PLAN FOR INPATIENT GLYCEMIC CONTROL: * Bolus insulin * NovoLog per scale ACHS or Q6hrs while NPO * Goal Range: Low 120 mg/dL - High 160 mg/dL * Correction Factor: 40 mg/dL/unit * Nutritional / Prandial insulin per carb ratio of 1 unit per 15 grams CHO consumed
[2022-02-20] MEDS: oxyCODONE HCL IR 5 MG TAB (IMMEDIATE RELEASE) PO PRN ×2 (12:54→18:57)
[2022-02-20] MEDS: cefTRIAXone SODIUM 2,000 MG in DEXTROSE 5% 50 ML IV SCH (12:56)
--- NOTE | 2022-02-20 12:59 | Cardiology Progress Note ---
Date of Service February 20, 2022 Assessment & Plan (1) Ventricular fibrillation: (2) Torsades de pointes: (3) ST elevation (STEMI) myocardial infarction involving right coronary artery: (4) Sinus bradycardia: (5) Atrial fibrillation with rapid ventricular response: (6) Tachy-yasir syndrome: Plan The patient suffered a RCA ST segment elevation [place] which was complicated by recurrent ventricular arrhythmias No further arrhythmias. Tolerating p.o. amiodarone For dual-chamber permanent pacemaker/ICD placement. Blood cultures are negative after 48 hours. Bronchoscopy was positive for influenza. Will discuss timing of placement with electrophysiology. Obviously dual antiplatelet therapy will be continued. Continue felodipine, olmesartan and atorvastatin. Will hold off on starting beta-noelle until pacer is in place Admission and Anticipated Discharge Date Admission Date: February 16, 2022 Subjective Patient seen and examined. Chart reviewed. Telemetry reviewed. Case discussed with critical care team. Patient still with only complaint of chest wall pain. Review of Systems Review of Systems: All systems reviewed & are unremarkable except as noted in HPI & below Physical Exam Physical Exam: General: Awake, alert and oriented x 3. No acute distress. HEENT: Normocephalic, atraumatic. Pupils equal, round and reactive to light and accommodation. Extraocular muscles are intact. Anicteric sclera. Moist mucous membranes. Neck: No JVD. No bruit. Cardiovascular: Regular. Positive S-4. Normal S-1 and S-2. No S-3. 3/6 holosystolic ejection murmur, left sternal border, mid-clavicular line with radiation to the axilla. No rubs. Pulmonary: Clear to auscultation bilaterally. No rales, rhonchi, or wheezing. Abdomen: Bowel sounds x 4, soft. No rebound, guarding or tenderness. No organomegaly. Extremities: No clubbing, cyanosis or edema. +2 pedal pulses bilaterally. Skin: Warm and dry. Results & Data ([facility]) Vital Signs (Past 12 Hours) Vital Signs Temp Pulse Resp BP Pulse Ox O2 Del Method 02/20/22 11:00 37.0 C 65 16 92 02/20/22 11:15 65 02/20/22 10:26 135/71 02/20/22 10:26 37.0 C 65 17 91 02/20/22 10:00 37.1 C 56 L 17 91 02/20/22 09:41 160/82 H 02/20/22 09:41 37.1 C 53 L 23 94 02/20/22 09:00 37.1 C 58 L 17 93 02/20/22 08:00 37.0 C 56 L 24 94 02/20/22 08:00 157/80 H 02/20/22 07:00 36.9 C 53 L 16 91 02/20/22 07:00 156/75 H 02/20/22 08:00 Room Air 02/20/22 06:01 36.9 C 54 L 20 93 02/20/22 06:01 165/72 H 02/20/22 06:00 36.9 C 57 L 26 H 91 02/20/22 05:01 155/87 H 02/20/22 05:01 37.0 C 58 L 21 92 02/20/22 05:00 37.0 C 58 L 19 91 02/20/22 04:01 37.0 C 56 L 21 93 02/20/22 04:01 155/78 H 02/20/22 04:00 37.0 C 58 L 19 89 L 02/20/22 03:01 37.0 C 56 L 27 H 94 02/20/22 03:01 148/70 H 02/20/22 03:00 37.0 C 49 L 15 94 02/20/22 02:01 36.9 C 52 L 17 89 L 02/20/22 02:01 140/70 02/20/22 02:00 36.9 C 52 L 19 92 02/20/22 01:00 37.0 C 54 L 14 92 02/20/22 01:00 138/72
[2022-02-20] MEDS: ENOXAPARIN INJ 40 MG/0.4 ML SYR SQ SCH (15:30)
[2022-02-20] MEDS: SENNA 8.6 MG TAB PO SCH (20:27)
--- NOTE | 2022-02-20 21:40 | Electrocardiogram Report ---
Test Reason : Blood Pressure : / mmHG Vent. Rate : 066 BPM Atrial Rate : 066 BPM P-R Int : 242 ms QRS Dur : 088 ms QT Int : 440 ms P-R-T Axes : 053 -22 000 degrees QTc Int : 461 ms Sinus rhythm with 1st degree A-V block with occasional Premature ventricular complexes and Premature atrial complexes Minimal voltage criteria for LVH, may be normal variant Inferior infarct (cited on or before 16-FEB-2022) Nonspecific T wave abnormality Abnormal ECG When compared with ECG of 19-FEB-2022 09:51, Premature ventricular complexes are now Present Premature atrial complexes are now Present Confirmed by Dhruv Zarate ([id number]) on 02/20/2022 9:40:14 PM Referred By: REFERRED SELF Confirmed By:Dhruv Zarate
[2022-02-21] MEDS: oxyCODONE HCL IR 5 MG TAB (IMMEDIATE RELEASE) PO PRN ×4 (00:53→20:30)
[2022-02-21] MEDS: HYDROmorphone INJ 0.5 MG/0.5 ML SYR IV PRN ×2 (01:12→05:08)
[2022-02-21] MEDS ORDERED: ACETAMINOPHEN 1,000 MG/100 ML VIAL IV PRN (01:13)
[2022-02-21 05:24] LABS: Anion Gap 8 (3-11); BUN Creatinine Ratio 34.4 (10-20); Blood Urea Nitrogen 21 mg/dl (6-23); Carbon Dioxide 27 mmol/L (21-32); Chloride 103 mmol/L (98-107); Creatinine Clr Calc Pharmacy 137.2 ml/min; Est GFR (African American) 117.3 ml/min; Est GFR (Non-African American) 101.2 ml/min; Glucose 97 mg/dl (70-99(Fasting)); Magnesium 2.1 mg/dl (1.7-2.4); Phosphorus 4.3 mg/dl (2.5-4.9); Sodium 138 mmol/L (136-145)
[2022-02-21] MEDS: LEVOTHYROXINE SODIUM 125 MCG TABLET PO SCH (06:29)
[2022-02-21 06:59] LABS: Hematocrit (blood only) 40.3 % (40.1-51.0); Hemoglobin 13.8 g/dl (14.0-18.0); Mean Corpuscular Hgb Conc 34.2 g/dL (32.0-36.0); Mean Corpuscular Volume 87.6 fL (80.0-100.0); Mean Platelet Volume 11.9 fL (9.4-12.4); Platelet Count 112 K/uL (130-400); RDW Coefficient of Variation 12.9 % (11.5-14.5); RDW Standard Deviation 40.8 fL (36.4-46.3); White Blood Count 7.77 K/ul (4.8-10.8)
[2022-02-21 07:11] LABS: Basophils # (auto) 0.06 K/uL (0-0.2); Basophils % (auto) 0.8 %; Echinocytes 1+; Eosinophils # (auto) 0.35 K/uL (0-0.50); Eosinophils % (auto) 4.5 %; Immature Granulocytes # (auto) 0.04 K/uL (0.00-0.02); Immature Granulocytes % (auto) 0.5 %; Lymphocytes # (auto) 0.88 K/uL (1.2-3.4); Lymphocytes % (auto) 11.3 %; Monocytes # (auto) 1.05 K/uL (0.24-0.82); Monocytes % (auto) 13.5 %; Neutrophils # (auto) 5.39 K/uL (1.4-6.5); Neutrophils % (auto) 69.4 %; Polychromasia 1+; Toxic Vacuolation 1+
[2022-02-21] MEDS: ICU ELECTROLYTE REPLACEMENT PROTOCOL SCH ×2 (07:17→17:50)
[2022-02-21] MEDS: INSULIN ASPART PER UNIT SC SCH (07:36)
[2022-02-21] MEDS: LIDOCAINE 5% 1 PATCH TD SCH (07:42)
[2022-02-21] MEDS: levETIRAcetam 500 MG TAB PO SCH ×2 (07:43→20:30)
[2022-02-21] MEDS: PANTOprazole 40 MG TAB PO SCH (07:43)
[2022-02-21] MEDS: ATORVASTATIN 40 MG TAB PO SCH (08:03)
[2022-02-21] MEDS: DOCUSATE SODIUM 100 MG CAP PO SCH ×2 (08:03→20:30)
[2022-02-21] MEDS: OLMESARTAN MEDOXOMIL 40 MG TAB PO SCH (08:03)
[2022-02-21] MEDS: AMIODARONE 200 MG TAB PO SCH ×2 (08:03→20:30)
[2022-02-21] MEDS: FELODIPINE 5 MG TABCR PO SCH (08:04)
[2022-02-21] MEDS: ASPIRIN 81 MG CHEW PO SCH (08:13)
--- NOTE | 2022-02-21 09:08 | Hospitalist Progress Note ---
Date of Service February 21, 2022 Assessment & Plan (1) Cardiac arrest: (2) Acute myocardial infarction: (3) Atrial fibrillation with rapid ventricular response: Plan: Presented on admission with witnessed cardiac arrest with prehospital cardiac arrest Heart alert called on presentation ECG showed atrial fibrillation with RVR inferior ST elevations S/P emergent cardiac catheterization with Successful PCI of ostial to mid RCA with 2 overlapping drug-eluting stents (3.0 x 12, 2.75 x 12 mm Tao; postdilated with 3.5 NC). Cardiology on board Continue dual-antiplatelet therapy with aspirin and brillinta for at least 1 year. Continue High dose statin Will need cardiac rehab when discharge Brief episodes of ventricular fibrillation. Pt has recurrent VT/VF post STEMI and revascularization. He was started on Amiodarone ECHO showed normal LV chamber size with mild concentric LVH. Borderline global hypokinesis of the left ventricle. Left ventricular systolic function is low normal with ejection fraction 50 to 55%. Cardiology on board recommended dual chamber ICD given the post ID cardiac arrest and SB Respiratory failure He was sedated and intubated on mechanical ventilation Now extubated and off sedation Continue oxygen supplement as needed Incentive spirometry Currently on RA Pneumonia s/p bronchoscopy, cultx posit. for H. influenzae - initially on cefepime + doxy per ICU team, then switched to ceftriaxone Seizure like activity Questionable seizure-like activity reported by family prior to cardiac arrest In the ICU, noted to have intermittent myoclonic jerking. received Keppra 1 g Neurology on board EEG was Essentially normal, with no focal abnormalities or potentially epileptogenic discharges seen. Off sedation and no focal neuro deficit on exam Neurology - recommended to continue Keppra 500 mg twice daily Plan to get MRI of brain (likely as outpt) with and without contrast to see if there is any a small stroke or damage that occurred with the cardiac arrest or any reasons for seizures. Continue seizure precaution (4) AAA (abdominal aortic aneurysm): Plan: History of AAA, measured 3cm x 3cm on imaging 06/2021 DVT px SCDs, hold Lovenox given thrombocytopenia Code status Full code Admission and Anticipated Discharge Date Admission Date: February 16, 2022 Subjective Pt was seen in follow up of cardiac arrest Lying in bed in no acute distress with and daughter at the bedside Pt is breathing comfortably on RA Pt neurologically intact and following commands Reports chest wall pain from the chest compression Plan for pacer in next upcoming days Review of Systems Review of Systems: All systems reviewed & are unremarkable except as noted in Subjective Physical Exam Physical Exam: General- awake and alert in NAD Head- atraumatic Eyes- PERRL, EOMI, ENT- oropharynx clear Neck- supple, no JVD Lungs- No wheezing, mild crackles at bases Heart- +regular Abdomen- normal bowel sounds, soft, nontender Extremities- No edema, moves extremities Neuro- awake and alert, answering questions appropriately Results & Data Results & Data ([facility]) Vital Signs (Past 12 Hours) Vital Signs Temp Pulse Resp BP Pulse Ox 02/21/22 08:31 154/83 H 02/21/22 08:31 37.3 C 72 20 92 02/21/22 08:25 37.3 C 58 L 19 91 02/21/22 08:25 164/101 H 02/21/22 08:01 37.4 C 68 20 90 02/21/22 08:01 189/92 H 02/21/22 08:00 37.4 C 63 19 91 02/21/22 07:31 37.4 C 63 20 90 02/21/22 07:31 171/85 H 02/21/22 07:54 60 02/21/22 07:00 37.4 C 63 15 91 02/21/22 07:00 181/88 H 02/21/22 06:31 37.5 C 57 L 17 91 02/21/22 06:31 160/99 H 02/21/22 06:00 37.6 C H 61 17 88 L 02/21/22 06:00 171/106 H 02/21/22 05:30 37.7 C H 56 L 13 91 02/21/22 05:30 167/94 H 02/21/22 05:01 37.7 C H 68 16 91 02/21/22 05:01 168/87 H 02/21/22 05:00 37.7 C H 68 19 90 02/21/22 04:31 37.7 C H 71 19 91 02/21/22 04:31 162/88 H 02/21/22 04:30 37.7 C H 72 18 91 02/21/22 04:00 37.8 C H 56 L 20 90 02/21/22 04:00 155/82 H 02/21/22 03:30 37.8 C H 61 17 90 02/21/22 03:30 163/80 H 02/21/22 03:00 37.8 C H 56 L 19 91 02/21/22 03:00 163/93 H 02/21/22 02:30 37.7 C H 65 19 91 02/21/22 02:30 168/85 H 02/21/22 02:00 37.7 C H 67 21 91 02/21/22 02:00 163/89 H 02/21/22 01:31 146/85 H 02/21/22 01:31 37.7 C H 70 21 89 L 02/21/22 01:30 37.7 C H 67 17 91 02/21/22 01:00 37.7 C H 72 22 91 02/21/22 01:00 195/99 H 02/21/22 00:30 37.8 C H 64 20 88 L 02/21/22 00:01 163/102 H 02/21/22 00:01 37.8 C H 66 18 91 02/21/22 00:00 37.7 C H 70 18 90 02/20/22 23:30 37.7 C H 71 18 90 02/20/22 23:00 37.7 C H 70 20 91 02/20/22 23:00 145/80 H 02/20/22 22:40 37.6 C H 68 18 90 02/20/22 22:40 158/85 H 02/20/22 22:30 37.6 C H 70 19 90 02/20/22 22:00 37.6 C H 64 22 91 02/20/22 21:30 37.5 C 71 23 91 Laboratory Results 02/21/22 02/21/22 02/21/22 Range/Units 07:34 06:41 06:33 WBC 7.77 (4.8-10.8) K/ul RBC 4.60 L (4.63-6.08) M/uL Hgb 13.8 L (14.0-18.0) g/dl Hct 40.3 (40.1-51.0) % MCV 87.6 (80.0-100.0) fL MCH 30.0 (25.0-34.0) pg MCHC 34.2 (32.0-36.0) g/dL RDW Std Deviation 40.8 (36.4-46.3) fL RDW Coeff of Laverne 12.9 (11.5-14.5) % Plt Count 112 L (130-400) K/uL MPV 11.9 (9.4-12.4) fL Immature Gran % (Auto) 0.5 % Neut % (Auto) 69.4 % Lymph % (Auto) 11.3 % Winn % (Auto) 13.5 % Eos % (Auto) 4.5 % Baso % (Auto) 0.8 % Neut # (Auto) 5.39 (1.4-6.5) K/uL Lymph # (Auto) 0.88 L (1.2-3.4) K/uL Winn # (Auto) 1.05 H (0.24-0.82) K/uL Eos # (Auto) 0.35 (0-0.50) K/uL Baso # (Auto) 0.06 (0-0.2) K/uL Immature Gran # (Auto) 0.04 H (0.00-0.02) K/uL Toxic Vacuolation 1+ Polychromasia 1+ Echinocytes 1+ Sodium (136-145) mmol/L Potassium 4.1 Chloride (98-107) mmol/L Carbon Dioxide (21-32) mmol/L Anion Gap (3-11) BUN (6-23) mg/dl Creatinine (0.6-1.4) mg/dl Est Cr Clr Drug Dosing ml/min Est GFR ( Amer) ml/min Est GFR (Non-Af Amer) ml/min BUN/Creatinine Ratio (10-20) Glucose (70-99(Fasting)) mg/dl POC Glucose 92 (70-99) mg/dl Calcium (8.5-10.1) mg/dl Phosphorus (2.5-4.9) mg/dl Magnesium (1.7-2.4) mg/dl Serotonin Release Assay Heparin Depend Plt Ab 02/21/22 02/21/22 02/20/22 Range/Units 05:36 04:10 20:22 WBC (4.8-10.8) K/ul RBC (4.63-6.08) M/uL Hgb (14.0-18.0) g/dl Hct (40.1-51.0) % MCV (80.0-100.0) fL MCH (25.0-34.0) pg MCHC (32.0-36.0) g/dL RDW Std Deviation (36.4-46.3) fL RDW Coeff of Laverne (11.5-14.5) % Plt Count (130-400) K/uL MPV (9.4-12.4) fL Immature Gran % (Auto) % Neut % (Auto) % Lymph % (Auto) % Winn % (Auto) % Eos % (Auto) % Baso % (Auto) % Neut # (Auto) (1.4-6.5) K/uL Lymph # (Auto) (1.2-3.4) K/uL Winn # (Auto) (0.24-0.82) K/uL Eos # (Auto) (0-0.50) K/uL Baso # (Auto) (0-0.2) K/uL Immature Gran # (Auto) (0.00-0.02) K/uL Toxic Vacuolation Polychromasia Echinocytes Sodium 138 (136-145) mmol/L Potassium TNP TNP Chloride 103 (98-107) mmol/L Carbon Dioxide 27 (21-32) mmol/L Anion Gap 8 (3-11) BUN 21 (6-23) mg/dl Creatinine 0.61 (0.6-1.4) mg/dl Est Cr Clr Drug Dosing 137.2 ml/min Est GFR ( Amer) 117.3 ml/min Est GFR (Non-Af Amer) 101.2 ml/min BUN/Creatinine Ratio 34.4 H (10-20) Glucose 97 (70-99(Fasting)) mg/dl POC Glucose 96 (70-99) mg/dl Calcium 9.0 (8.5-10.1) mg/dl Phosphorus 4.3 D (2.5-4.9) mg/dl Magnesium 2.1 (1.7-2.4) mg/dl Serotonin Release Assay Heparin Depend Plt Ab 02/20/22 02/20/22 02/19/22 Range/Units 16:51 11:41 08:15 WBC (4.8-10.8) K/ul RBC (4.63-6.08) M/uL Hgb (14.0-18.0) g/dl Hct (40.1-51.0) % MCV (80.0-100.0) fL MCH (25.0-34.0) pg MCHC (32.0-36.0) g/dL RDW Std Deviation (36.4-46.3) fL RDW Coeff of Laverne (11.5-14.5) % Plt Count (130-400) K/uL MPV (9.4-12.4) fL Immature Gran % (Auto) % Neut % (Auto) % Lymph % (Auto) % Winn % (Auto) % Eos % (Auto) % Baso % (Auto) % Neut # (Auto) (1.4-6.5) K/uL Lymph # (Auto) (1.2-3.4) K/uL Winn # (Auto) (0.24-0.82) K/uL Eos # (Auto) (0-0.50) K/uL Baso # (Auto) (0-0.2) K/uL Immature Gran # (Auto) (0.00-0.02) K/uL Toxic Vacuolation Polychromasia Echinocytes Sodium (136-145) mmol/L Potassium Chloride (98-107) mmol/L Carbon Dioxide (21-32) mmol/L Anion Gap (3-11) BUN (6-23) mg/dl Creatinine (0.6-1.4) mg/dl Est Cr Clr Drug Dosing ml/min Est GFR ( Amer) ml/min Est GFR (Non-Af Amer) ml/min BUN/Creatinine Ratio (10-20) Glucose (70-99(Fasting)) mg/dl POC Glucose 88 87 (70-99) mg/dl Calcium (8.5-10.1) mg/dl Phosphorus (2.5-4.9) mg/dl Magnesium (1.7-2.4) mg/dl Serotonin Release Assay TNP Heparin Depend Plt Ab Medications Administered Current Inpatient Medications Amiodarone HCl (Amiodarone 200 Mg Tab) 400 mg PO BID KIAN Stop: 03/20/22 12:44 Last Admin: 02/21/22 08:03 Dose: 400 mg Aspirin (Aspirin 81 Mg Chew) 81 mg PO QAM KIAN Stop: 03/19/22 08:59 Last Admin: 02/21/22 08:13 Dose: 81 mg Atorvastatin Calcium (Atorvastatin 40 Mg Tab) 80 mg PO QAM KIAN Stop: 03/19/22 08:59 Last Admin: 02/21/22 08:03 Dose: 80 mg Benzocaine/Butamben/Tetracaine HCl (Benzocaine/Tetracain/Butam 50 Appln/5 Gm Can) 1 appln EXT Q8H PRN PRN Reason: Sore Throat Stop: 03/20/22 20:34 Dextrose (Dextrose 50% 50 Ml Syringe) 25 - 50 ml IV UD PRN; Protocol PRN Reason: Hypoglycemia Protocol Stop: 03/19/22 14:14 Docusate Sodium (Docusate Sodium 100 Mg Cap) 100 mg PO BID [facility] Stop: 03/20/22 20:59 Last Admin: 02/21/22 08:03 Dose: 100 mg Enoxaparin Sodium (Enoxaparin Inj 40 Mg/0.4 Ml Syr) 40 mg SQ Q24H [facility] Stop: 03/22/22 15:59 Last Admin: 02/20/22 15:30 Dose: 40 mg Felodipine (Felodipine 5 Mg Tabcr) 5 mg PO QAM [facility] Stop: 03/20/22 17:14 Last Admin: 02/21/22 08:04 Dose: 5 mg Glucagon (Glucagon For Inj 1 Mg Vial) 1 mg IM UD PRN; Protocol PRN Reason: Hypoglycemia Protocol Stop: 03/19/22 14:14 Glucose (Glucose 40% Gel 15 Gm Tube) 15 - 30 gm PO UD PRN; Protocol PRN Reason: Hypoglycemia Protocol Stop: 03/19/22 14:14 Glucose (Glucose 10 Tab/Tube) 4 - 8 tab PO UD PRN; Protocol PRN Reason: Hypoglycemia Protocol Stop: 03/19/22 14:14 Hydromorphone HCl (Hydromorphone Inj 0.5 Mg/0.5 Ml Syr) 0.5 mg IV Q4H PRN PRN Reason: Pain Stop: 03/04/22 10:24 Last Admin: 02/21/22 05:08 Dose: 0.5 mg Ceftriaxone Sodium 2,000 mg/ (Dextrose) 70 mls @ 140 mls/hr IV Q24H [facility] Stop: 02/27/22 11:59 Last Infusion: 02/20/22 13:39 Dose: Infused Acetaminophen (Ofirmev) 1,000 mg in 100 mls @ 400 mls/hr IV Q8H PRN PRN Reason: Mild Pain Stop: 02/24/22 01:12 Last Infusion: 02/21/22 04:57 Dose: Infused Insulin Aspart (Insulin Aspart Per Unit) 0 units SC ACHS [facility] Stop: 03/22/22 07:29 Last Admin: 02/21/22 07:36 Dose: Not Given Levetiracetam (Levetiracetam 500 Mg Tab) 500 mg PO Q12H [facility] Stop: 03/21/22 19:59 Last Admin: 02/21/22 07:43 Dose: 500 mg Levothyroxine Sodium (Levothyroxine Sodium 125 Mcg Tablet) [facility]: 03/19/22 06:29 Last Admin: 02/21/22 06:29 Dose: Not Given Lidocaine (Lidocaine 5% 1 Patch) 1 patch TD [facility] Stop: 03/20/22 13:14 Last Admin: 02/21/22 07:42 Dose: 1 patch Miscellaneous (Icu Electrolyte Replacement Protocol) 1 each N/A BID@,18 [facility]; Protocol Stop: 02/23/22 17:59 Last Admin: 02/21/22 07:17 Dose: Not Given Miscellaneous (Carbohydrates For Hypoglycemia ) 15 - 30 gm PO UD PRN PRN Reason: Hypoglycemia Treatment Stop: 03/19/22 14:14 Miscellaneous (Remove Lidoderm Patch) 1 each N/A DAILY@2100 [facility] Stop: 03/20/22 20:59 Last Admin: 02/20/22 20:53 Dose: 1 each Miscellaneous Information (Pharmacy Glycemic Mgmt Consult) 1 each N/A UD PRN; Protocol PRN Reason: Consult Stop: 03/19/22 09:08 Olmesartan (Olmesartan Medoxomil 40 Mg Tab) [facility] Stop: 03/20/22 17:14 Last Admin: 02/21/22 08:03 Dose: 40 mg Oxycodone HCl (Oxycodone Hcl Ir 5 Mg Tab (Immediate Release)) 10 mg PO Q6H PRN PRN Reason: Pain Stop: 03/06/22 08:34 Last Admin: 02/21/22 08:13 Dose: 10 mg Pantoprazole Sodium (Pantoprazole 40 Mg Tab) 40 mg PO DAILYBB [facility] Stop: 03/21/22 10:14 Last Admin: 02/21/22 07:43 Dose: 40 mg Phenol (Chloraseptic 1.4% Soln 180 Ml Btl) 1 sprays MT PRN PRN PRN Reason: Sore Throat Stop: 03/21/22 22:03 Last Admin: 02/20/22 06:17 Dose: 1 sprays Sennosides (Senna 8.6 Mg Tab) 17.2 mg PO HS KIAN Stop: 03/18/22 20:59 Last Admin: 02/20/22 20:27 Dose: 17.2 mg Ticagrelor (Ticagrelor 90 Mg Tab) 90 mg PO BID KIAN Stop: 03/19/22 08:59 Last Admin: 02/20/22 20:26 Dose: 90 mg (1) Acute myocardial infarction Involved coronary artery: unspecified coronary artery Myocardial infarction type: ST elevation myocardial infarction Qualified Code(s): I21.3 - ST elevation (STEMI) myocardial infarction of unspecified site
--- NOTE | 2022-02-21 09:47 | XRay Report ---
SINGLE VIEW CHEST CLINICAL HISTORY: Cardiac arrest. Rib fractures. Dyspnea. FINDINGS: An AP, portable, upright chest radiograph is compared to study dated 02/19/2022. The examina tion is degraded by portable technique and patient rotation. The heart is enlarged noting atheroscler otic calcification of the thoracic aorta. Pulmonary vascular congestion has improved from previous. C hronic interstitial thickening is unchanged. There is bibasilar scarring/atelectasis. No airspace con solidation or large pleural effusion is identified. No pneumothorax is seen. The skeletal structures are osteopenic. Left anterior rib fractures are suggested. IMPRESSION: 1. Cardiomegaly. Pulmonary vascular congestion has improved from previous. 2. No airspace consolidation, large pleural effusion, or pneumothorax is identified. ACT 112: Negative or not required by law. Electronically signed by: Jaylne Cuadra M.D. 02/21/2022 9:46 AM
[2022-02-21] MEDS ORDERED: ACETAMINOPHEN 325 MG TAB PO PRN (11:16)
[2022-02-21] MEDS: TICAGRELOR 90 MG TAB PO SCH ×2 (11:31→20:30)
[2022-02-21] MEDS: cefTRIAXone SODIUM 2,000 MG in DEXTROSE 5% 50 ML IV SCH (11:32)
--- NOTE | 2022-02-21 11:55 | Critical Care Progress Note ---
Date of Service February 21, 2022 Assessment & Plan (1) Cardiac arrest: (2) Acute myocardial infarction: (3) Atrial fibrillation with rapid ventricular response: (4) Hypokalemia: (5) Ventricular fibrillation: (6) Hypomagnesemia: (7) Hypoxia: (8) Pulmonary edema: (9) Aspiration pneumonitis: Plan Impression: 71-year-old male status post cardiac arrest due to ST elevation myocardial infarction status post drug-eluting stent and initiation of pressors. He is intubated. Recommendations: 1. Neurologic: No issues. Neurology following given the question of seizure prior to the cardiac arrest. EEG earlier in the hospital course was unremarkable. Consider MRI of the brain. 2. Cardiovascular: Acute ST elevation myocardial infarction status post drug- eluting stent. Antiplatelet agents per cardiology. Possible reperfusion syndrome. Patient had several bouts of ventricular fibrillation. Maintain potassium above 4 and magnesium above 2. Echo results reviewed with a normal EF. He is off all vasoactive drips. Continue p.o. amiodarone. He will likely undergo an AICD and dual-chamber pacemaker placement soon. Hold metoprolol at this time given ongoing bradycardia. Restarted his home antihypertensive medications otherwise. I had several discussions with the patient's [facility] service counselor who was concerned about possible pneumonia and pacemaker infection if he undergoes a pacemaker today. The family asked for second opinion from [facility] cardiology. I personally spoke with Dr. Erickson and Dr. Matos who are going to evaluate the patient. 3. Respiratory: Status post bronchoscopy 02/18/2022. Chest x-ray from today reveals significant improvement compared to prior. No signs of pneumonia on the chest x-ray. 4. GI: PPI. Advance diet as tolerated. LFT stable. Initial LFT derangements likely secondary to shock liver which is improving. 5. Renal: Replace potassium and magnesium aggressively. Follow urine output. Creatinine stable. 6. ID: Bronchoscopy cultures growing from 02/18/2022 Haemophilus influenzae w hich is sensitive to ceftriaxone. Continue ceftriaxone and doxycycline for total 7 days. He does not have evidence of bacteremia. His procalcitonin is negative x2. Chest x-ray is clearing. Personally, I think there is minimal concern for placement of an AICD/pacemaker at this time from an infection perspective given his lack of white count, negative procalcitonin, negative blood cultures and lack of fever. This was also discussed with the patient's daughter and bedside nurse. 7. Endocrine: Glycemic control per protocol. TSH unremarkable. 8. Heme-onc: Thrombocytopenia resolving. Peripheral smear without schistocytes. PF4 antibody negative. Anticoagulation on hold due to the possibility of an AICD/pacemaker placement. Admission and Anticipated Discharge Date Admission Date: February 16, 2022 Subjective Patient seen and examined today. Continues to have severe chest pain related to the rib fractures. His mobility has been limited during this hospitalization to the pain in his chest. His daughter is at bedside. There is much anxiety about whether he will be able to undergo an AICD/pacemaker today given concerns of possible pneumonia. Review of Systems Review of Systems: All systems reviewed & are unremarkable except as noted in HPI & below Physical Exam Physical Exam: Constitutional: Patient appears to be of their stated age. Patient is in no apparent distress. Patient is well-developed. Eyes: Pupils are equal round and reactive to light. Conjunctivae are normal. Anicteric sclera. Ears nose, mouth and throat: Mallampati class 2. Normal posterior oropharynx. Uvula is midline. Neck: Trachea is midline. Visual inspection is normal. Respiratory: Diminished bilaterally. No wheezes. Mild crackles at the bases. Cardiovascular: Regular rate and rhythm. No murmurs. No edema. Gastrointestinal: Normal bowel sounds, soft, nontender and nondistended. No hepatosplenomegaly noted. Musculoskeletal: No cyanosis. Patient is able to move all extremities. Pain upon palpation of the anterior chest. Skin: No rashes, warm dry and intact. Neurologic: No obvious focal neurological deficits seen. Psychiatric: Alert and oriented x3 with a euthymic affect. Results & Data Results & Data ([facility]) Vital Signs (Past 12 Hours) Vital Signs Temp Pulse Resp BP Pulse Ox O2 Del Method 02/21/22 10:00 37.4 C 70 17 91 02/21/22 10:00 160/85 H 02/21/22 09:34 150/80 H 02/21/22 09:34 37.4 C 69 23 92 02/21/22 08:00 Room Air 02/21/22 09:00 37.4 C 57 L 17 91 02/21/22 08:31 154/83 H 02/21/22 08:31 37.3 C 72 20 92 02/21/22 08:25 37.3 C 58 L 19 91 02/21/22 08:25 164/101 H 02/21/22 08:01 37.4 C 68 20 90 02/21/22 08:01 189/92 H 02/21/22 08:00 37.4 C 63 19 91 02/21/22 07:31 37.4 C 63 20 90 02/21/22 07:31 171/85 H 02/21/22 07:54 60 02/21/22 07:00 37.4 C 63 15 91 02/21/22 07:00 181/88 H 02/21/22 06:31 37.5 C 57 L 17 91 02/21/22 06:31 160/99 H 02/21/22 06:00 37.6 C H 61 17 88 L 02/21/22 06:00 171/106 H 02/21/22 05:30 37.7 C H 56 L 13 91 02/21/22 05:30 167/94 H 02/21/22 05:01 37.7 C H 68 16 91 02/21/22 05:01 168/87 H 02/21/22 05:00 37.7 C H 68 19 90 02/21/22 04:31 37.7 C H 71 19 91 02/21/22 04:31 162/88 H 02/21/22 04:30 37.7 C H 72 18 91 02/21/22 04:00 37.8 C H 56 L 20 90 02/21/22 04:00 155/82 H 02/21/22 03:30 37.8 C H 61 17 90 02/21/22 03:30 163/80 H 02/21/22 03:00 37.8 C H 56 L 19 91 02/21/22 03:00 163/93 H 02/21/22 02:30 37.7 C H 65 19 91 02/21/22 02:30 168/85 H 02/21/22 02:00 37.7 C H 67 21 91 02/21/22 02:00 163/89 H 02/21/22 01:31 146/85 H 02/21/22 01:31 37.7 C H 70 21 89 L 02/21/22 01:30 37.7 C H 67 17 91 02/21/22 01:00 37.7 C H 72 22 91 02/21/22 01:00 195/99 H 02/21/22 00:30 37.8 C H 64 20 88 L 02/21/22 00:01 163/102 H 02/21/22 00:01 37.8 C H 66 18 91 02/21/22 00:00 37.7 C H 70 18 90 Coding Level of Care Code 44111 Subseq Hosp Care Lvl 3 Diagnoses Cardiac arrest I46.9 Acute myocardial infarction I21.3 Involved coronary artery: unspecified coronary artery Myocardial infarction type: ST elevation myocardial infarction Atrial fibrillation with rapid ventricular response I48.91 Hypokalemia E87.6 Ventricular fibrillation I49.01 Hypomagnesemia E83.42 Hypoxia R09.02 Pulmonary edema J81.1 Aspiration pneumonitis J69.0 (1) Acute myocardial infarction Involved coronary artery: unspecified coronary artery Myocardial infarction type: ST elevation myocardial infarction Qualified Code(s): I21.3 - ST elevation (STEMI) myocardial infarction of unspecified site
[2022-02-21] MEDS: MoRPHine SULFATE CR 15 MG TABCR PO SCH ×2 (12:09→23:28)
--- NOTE | 2022-02-21 12:38 | Cardiology Consultation ---
Date of Consultation February 21, 2022 Assessment & Plan (1) ST elevation (STEMI) myocardial infarction involving right coronary artery: (2) Ventricular fibrillation: (3) Sinus bradycardia: (4) Frequent PVCs: Plan 1. Out of hospital arrest: His out of hospital arrest was clearly associated with an occluded right coronary artery, that was emergently treated shortly after his presentation. Fortunately he has recovered neurologically and is doing well in that regard. He does have some chest discomfort related to CPR. This is not an indication for ICD implantation. 2. Postarrest ventricular fibrillation: He had 2 episodes of polymorphic ventricular tachycardia degenerating to ventricular fibrillation the day after intervention, he has had PVCs since but no ventricular tachycardia. Although worrisome I am reluctant to consider ICD implantation for these arrhythmias a lone. Ideally he would be on a beta-noelle, however with his history of beta- noelle that could be problematic. I think a LifeVest would be prudent. 3. Sinus bradycardia: He has a history of sinus bradycardia and at various times during his hospitalization his heart rate was somewhat low although I have not seen evidence that is low enough to warrant pacemaker implantation by itself. He does have frequent PVCs and sinus bradycardia in conjunction with PVCs could induce ventricular arrhythmias but we have not seen that since the day after his presentation. Although beta-blockers may be useful to help prevent sudden cardiac he would be protected in the short-term if he had a LifeVest and that is old data which may not be as applicable to the post intervention. Additionally beta-blockade is helpful for left ventricular dysfunction however his left ventricular function is normal. Beta-blockade may be helpful to prevent PVCs and nonsustained ventricular tachycardia but he has not had nonsustained ventricular tachycardia but does have frequent PVCs. Still I would hold beta-blockade for now. I would hold off on consideration of a pacemaker for the time being until these other issues regarding his ventricular tachycardia become more clear. 4. Frequent PVCs: He does have frequent PVCs, occasionally in a bigeminal pattern and quite variable in frequency. I would recommend continuing amiodarone for this. History of Present Illness Reason for Consultation: Ventricular fibrillation post myocardial infarction Attending Physician: Robin Jarquin MD History of Present Illness This is a 71-year-old male with a history of hypertension, dyslipidemia and bradycardia but no documented coronary disease until this admission. He has a long history of sinus bradycardia and possible second-degree AV block prompting reduction in metoprolol in July 2021. He was then brought to the hospital on February 16, 2022 having suffered an out of hospital cardiac arrest, and AED shock was delivered by first responders with return of rhythm. He was taken urgently to the [facility] that day where severe coronary disease was identified and PCI of the right coronary artery was performed. He did have atrial fibrillation during the catheterization with a rapid ventricular response. Following intervention he remained intubated for airway protection and on the morning of February 17, 2022 he had several episodes of ventricular fibrillation requiring cardioversion. I reviewed these rhythm strips and it is polymorphic ventricular tachycardia degenerating to ventricular fibrillation induced by a PVC. He has had none since that day. He was already on amiodarone therefore lidocaine was initiated, he remains on oral low-dose amiodarone but not lidocaine. An echocardiogram done February 17, 2022 showed low normal left ventricular function with an ejection fraction of 50 to 55%. He did receive beta-blockade after presentation but due to bradycardia this was discontinued and currently his heart rate is typically in the 70s. At the time my evaluation he was complaining of chest discomfort which is clearly musculoskeletal from his CPR, he is awake and alert and not having difficulty with shortness of breath. He has not been having palpitations. Allergies Allergy/AdvReac Type Severity Reaction Status Date / Time No Known Allergies Allergy Unknown Verified 02/16/22 14:33 Home Medications Medication Instructions Recorded Confirmed Type aspirin 81 mg tablet,delayed 81 mg PO HS 01/11/18 02/16/22 History release felodipine 5 mg tablet,extended 5 mg PO HS 01/11/18 02/16/22 History release 24 hr metoprolol succinate 50 mg capsule 50 mg PO HS 01/11/18 02/16/22 History sprinkle, ext. release 24 hr omeprazole 20 mg delayed 1 tab PO QAM 01/11/18 02/16/22 History release,disintegrating tablet atorvastatin 40 mg tablet 40 mg PO DAILY 02/16/22 02/16/22 History levothyroxine 150 mcg tablet 150 mcg PO DAILY 02/16/22 02/16/22 History olmesartan 40 mg tablet 40 mg PO DAILY 02/16/22 02/16/22 History tamsulosin 0.4 mg capsule 0.4 mg PO DAILY 02/16/22 02/16/22 History Patient History Medical History AAA (abdominal aortic aneurysm) Aspiration pneumonitis Family history of reaction to anesthesia FATHER "ALLERGIC TO MORPHINE" GERD (gastroesophageal reflux disease) Hyperlipidemia Hypertension Hypomagnesemia Hypothyroidism Hypoxia Kidney stones Paroxysmal A-fib a single 12 minute episode was recorded on a ZIO patch monitor in July of 2021 Pulmonary edema Tachy-jose syndrome per cardiology note - "Borderline tachy Jose syndrome with atrial ventricular ectopy paroxysmal supraventricular tachycardia/atrial fibrillation. No profound Jose arrhythmias observed." Umbilical hernia Ventricular fibrillation Surgical History History of colonoscopy History of cystoscopy MULTIPLE TIMES>KIDNEY STONES/STENT INSERTION History of lithotripsy MULTIPLE History of temporal artery biopsy History of tonsillectomy History of tooth extraction Nausea and vomiting after administration of anesthetic agent Family History Father , age 52 of an [place] Myocardial infarction Lung cancer Mother , in 70s of lung cancer Lung cancer Social History Smoking Status: Former smoker Cigarettes Per Day: QUIT 28 YEARS AGO in 1994; Smoking End Date: 1994; Second Hand Exposure: No; Hx Alcohol Use: Yes Alcohol type: beer Alcohol Intake Frequency Comment: uncertain frequency Hx Substance Use: No Preferred Language: Italian Communication Ability: Unable School Guard Required: No Beliefs That Will Affect Care: None marital status: Current Living Situation: Spouse current occupational status: employed 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 He is laying supine in bed. HEENT: Unremarkable, he is on nasal oxygen only. Neck: No jugular venous distention, carotid pulses are normal and equal bilaterally without bruits. Pulmonary: Clear to auscultation bilaterally. Cardiac: Regular rhythm with no murmur, gallop or rub. He is very tender over his chest. Abdomen: Soft, nontender with normal bowel sounds. Extremities: No edema. Neurologic: No focal findings. Skin: No rash, ecchymoses or petechiae. Results & Data ([facility]) Vital Signs (Past 12 Hours) Vital Signs Temp Pulse Resp BP Pulse Ox O2 Del Method 02/21/22 10:00 37.4 C 70 17 91 02/21/22 10:00 160/85 H 02/21/22 09:34 150/80 H 02/21/22 09:34 37.4 C 69 23 92 02/21/22 08:00 Room Air 02/21/22 09:00 37.4 C 57 L 17 91 02/21/22 08:31 154/83 H 02/21/22 08:31 37.3 C 72 20 92 02/21/22 08:25 37.3 C 58 L 19 91 02/21/22 08:25 164/101 H 02/21/22 08:01 37.4 C 68 20 90 02/21/22 08:01 189/92 H 02/21/22 08:00 37.4 C 63 19 91 02/21/22 07:31 37.4 C 63 20 90 02/21/22 07:31 171/85 H 02/21/22 07:54 60 02/21/22 07:00 37.4 C 63 15 91 02/21/22 07:00 181/88 H 02/21/22 06:31 37.5 C 57 L 17 91 02/21/22 06:31 160/99 H 02/21/22 06:00 37.6 C H 61 17 88 L 02/21/22 06:00 171/106 H 02/21/22 05:30 37.7 C H 56 L 13 91 02/21/22 05:30 167/94 H 02/21/22 05:01 37.7 C H 68 16 91 02/21/22 05:01 168/87 H 02/21/22 05:00 37.7 C H 68 19 90 02/21/22 04:31 37.7 C H 71 19 91 02/21/22 04:31 162/88 H 02/21/22 04:30 37.7 C H 72 18 91 02/21/22 04:00 37.8 C H 56 L 20 90 02/21/22 04:00 155/82 H 02/21/22 03:30 37.8 C H 61 17 90 02/21/22 03:30 163/80 H 02/21/22 03:00 37.8 C H 56 L 19 91 02/21/22 03:00 163/93 H 02/21/22 02:30 37.7 C H 65 19 91 02/21/22 02:30 168/85 H 02/21/22 02:00 37.7 C H 67 21 91 02/21/22 02:00 163/89 H 02/21/22 01:31 146/85 H 02/21/22 01:31 37.7 C H 70 21 89 L 02/21/22 01:30 37.7 C H 67 17 91 02/21/22 01:00 37.7 C H 72 22 91 02/21/22 01:00 195/99 H Laboratory Results CBC 02/21/22 Range/Units 06:41 WBC 7.77 (4.8-10.8) K/ul RBC 4.60 L (4.63-6.08) M/uL Hgb 13.8 L (14.0-18.0) g/dl Hct 40.3 (40.1-51.0) % Plt Count 112 L (130-400) K/uL Neut # (Auto) 5.39 (1.4-6.5) K/uL Lymph # (Auto) 0.88 L (1.2-3.4) K/uL [place] # (Auto) 1.05 H (0.24-0.82) K/uL Eos # (Auto) 0.35 (0-0.50) K/uL Baso # (Auto) 0.06 (0-0.2) K/uL Comprehensive Metabolic Panel 02/21/22 02/21/22 02/21/22 Range/Units 04:10 05:36 06:33 Sodium 138 (136-145) mmol/L Potassium TNP TNP 4.1 Chloride 103 (98-107) mmol/L Carbon Dioxide 27 (21-32) mmol/L BUN 21 (6-23) mg/dl Creatinine 0.61 (0.6-1.4) mg/dl Glucose 97 (70-99(Fasting)) mg/dl Calcium 9.0 (8.5-10.1) mg/dl Intake and Output 02/20/22 02/21/22 02/21/22 22:59 06:59 14:59 Intake Total 120 / 400 100 / 400 170 / 170 Output Total 1300 / 2925 775 / 2925 700 / 700 Balance -1180 / -2525 -675 / -2525 -530 / -530 Intake: IV 100 / 280 70 / 70 Acetaminophen 1,000 mg In 100 100 / 100 ml @ 400 mls/hr IV Q8H PRN Rx#: [id number] cefTRIAXone SODIUM 2,000 mg In 70 / 70 Dextrose 5% 50 ml @ 140 mls/hr IV Q24H KIAN Rx#:[id number] Oral 120 / 120 0 / 120 100 / 100 Output: Urine Amount (Catheter) 1300 / 2925 775 / 2925 700 / 700 Temp Sensing Rosenbaum 1300 / 2925 775 / 2925 700 / 700 PG Care Time/CCT Total # of Minutes Spent Total Time Spent with Patient: Total time spent is greater than 50% in coordination of care (as documented) at patient's floor/unit and/or counseling patient: Coding Level of Care Code 72431 Initial Inpt Care Lvl [address] elevation (STEMI) myocardial infarction involving right coronary artery I21.11 Ventricular fibrillation I49.01 Sinus bradycardia R00.1 Frequent PVCs I49.3
--- NOTE | 2022-02-21 13:14 | Cardiology Progress Note ---
Date of Service February 21, 2022 Assessment & Plan (1) Ventricular fibrillation: (2) Torsades de pointes: (3) ST elevation (STEMI) myocardial infarction involving right coronary artery: (4) Sinus bradycardia: (5) Atrial fibrillation with rapid ventricular response: (6) Tachy-yasir syndrome: Plan The patient suffered a RCA ST segment elevation NM which was complicated by recurrent ventricular arrhythmias No further arrhythmias. Tolerating p.o. amiodarone For dual-chamber permanent pacemaker/ICD placement. Blood cultures are negative after 48 hours. Bronchoscopy was positive for influenza. Will discuss timing of placement with electrophysiology. Obviously dual antiplatelet therapy will be continued. Continue felodipine, olmesartan and atorvastatin. Will hold off on starting beta-noelle until pacer is in place Physical therapy has also been consulted Admission and Anticipated Discharge Date Admission Date: February 16, 2022 Subjective Patient seen and examined. Chart reviewed. Telemetry reviewed. Family members at bedside. Still with complaints of chest pain secondary to fractured ribs. Patient and his family are anxious to proceed with pacemaker/ICD implant. Review of Systems Review of Systems: All systems reviewed & are unremarkable except as noted in HPI & below Physical Exam Physical Exam: General: Awake, alert and oriented x 3. No acute distress. HEENT: Normocephalic, atraumatic. Pupils equal, round and reactive to light and accommodation. Extraocular muscles are intact. Anicteric sclera. Moist mucous membranes. Neck: No JVD. No bruit. Cardiovascular: Regular. Positive S-4. Normal S-1 and S-2. No S-3. 3/6 holosystolic ejection murmur, left sternal border, mid-clavicular line with radiation to the axilla. No rubs. Pulmonary: Clear to auscultation bilaterally. No rales, rhonchi, or wheezing. Abdomen: Bowel sounds x 4, soft. No rebound, guarding or tenderness. No organomegaly. Extremities: No clubbing, cyanosis or edema. +2 pedal pulses bilaterally. Skin: Warm and dry. Results & Data ([facility]) Vital Signs (Past 12 Hours) Vital Signs Temp Pulse Resp BP Pulse Ox O2 Del Method 02/21/22 10:00 37.4 C 70 17 91 02/21/22 10:00 160/85 H 02/21/22 09:34 150/80 H 02/21/22 09:34 37.4 C 69 23 92 02/21/22 08:00 Room Air 02/21/22 09:00 37.4 C 57 L 17 91 02/21/22 08:31 154/83 H 02/21/22 08:31 37.3 C 72 20 92 02/21/22 08:25 37.3 C 58 L 19 91 02/21/22 08:25 164/101 H 02/21/22 08:01 37.4 C 68 20 90 02/21/22 08:01 189/92 H 02/21/22 08:00 37.4 C 63 19 91 02/21/22 07:31 37.4 C 63 20 90 02/21/22 07:31 171/85 H 02/21/22 07:54 60 02/21/22 07:00 37.4 C 63 15 91 02/21/22 07:00 181/88 H 02/21/22 06:31 37.5 C 57 L 17 91 02/21/22 06:31 160/99 H 02/21/22 06:00 37.6 C H 61 17 88 L 02/21/22 06:00 171/106 H 02/21/22 05:30 37.7 C H 56 L 13 91 02/21/22 05:30 167/94 H 02/21/22 05:01 37.7 C H 68 16 91 02/21/22 05:01 168/87 H 02/21/22 05:00 37.7 C H 68 19 90 02/21/22 04:31 37.7 C H 71 19 91 02/21/22 04:31 162/88 H 02/21/22 04:30 37.7 C H 72 18 91 02/21/22 04:00 37.8 C H 56 L 20 90 02/21/22 04:00 155/82 H 02/21/22 03:30 37.8 C H 61 17 90 02/21/22 03:30 163/80 H 02/21/22 03:00 37.8 C H 56 L 19 91 02/21/22 03:00 163/93 H 02/21/22 02:30 37.7 C H 65 19 91 02/21/22 02:30 168/85 H 02/21/22 02:00 37.7 C H 67 21 91 02/21/22 02:00 163/89 H 02/21/22 01:31 146/85 H 02/21/22 01:31 37.7 C H 70 21 89 L 02/21/22 01:30 37.7 C H 67 17 91
[2022-02-21] MEDS: ACETAMINOPHEN 1,000 MG/100 ML VIAL IV PRN (13:59)
[2022-02-21] MEDS: ENOXAPARIN INJ 40 MG/0.4 ML SYR SQ SCH (16:26)
--- NOTE | 2022-02-21 16:26 | Cardiology Progress Note ---
Date of Service February 21, 2022 Assessment & Plan (1) Cardiac arrest: Plan Pt has H. Influenza bacteria PNA therefore would post pone ICD until Saturday 02/24; NPO after midnight on 02/24. D/w daughter via tiger text Admission and Anticipated Discharge Date Admission Date: February 16, 2022 Results & Data ([facility]) Vital Signs (Past 12 Hours) Vital Signs Temp Pulse Resp BP Pulse Ox O2 Del Method 02/21/22 16:00 66 21 96 02/21/22 16:00 150/74 H 02/21/22 15:29 141/68 H 02/21/22 15:29 74 18 02/21/22 16:00 66 02/21/22 15:00 83 16 02/21/22 14:38 80 21 02/21/22 14:38 152/72 H 02/21/22 14:00 37.4 C 73 17 94 02/21/22 13:28 147/75 H 02/21/22 13:28 37.4 C 70 23 90 02/21/22 13:00 37.4 C 73 18 92 02/21/22 12:03 37.3 C 82 20 88 L 02/21/22 12:03 147/81 H 02/21/22 12:00 37.3 C 78 24 91 02/21/22 11:01 37.2 C 70 21 90 02/21/22 11:01 147/76 H 02/21/22 11:00 37.3 C 72 18 89 L 02/21/22 10:00 37.4 C 70 17 91 02/21/22 10:00 160/85 H 02/21/22 09:34 150/80 H 02/21/22 09:34 37.4 C 69 23 92 02/21/22 08:00 Room Air 02/21/22 09:00 37.4 C 57 L 17 91 02/21/22 08:31 154/83 H 02/21/22 08:31 37.3 C 72 20 92 02/21/22 08:25 37.3 C 58 L 19 91 02/21/22 08:25 164/101 H 02/21/22 08:01 37.4 C 68 20 90 02/21/22 08:01 189/92 H 02/21/22 08:00 37.4 C 63 19 91 02/21/22 07:31 37.4 C 63 20 90 02/21/22 07:31 171/85 H 02/21/22 07:54 60 02/21/22 07:00 37.4 C 63 15 91 02/21/22 07:00 181/88 H 02/21/22 06:31 37.5 C 57 L 17 91 02/21/22 06:31 160/99 H 02/21/22 06:00 37.6 C H 61 17 88 L 02/21/22 06:00 171/106 H 02/21/22 05:30 37.7 C H 56 L 13 91 02/21/22 05:30 167/94 H 02/21/22 05:01 37.7 C H 68 16 91 02/21/22 05:01 168/87 H 02/21/22 05:00 37.7 C H 68 19 90 02/21/22 04:31 37.7 C H 71 19 91 02/21/22 04:31 162/88 H 02/21/22 04:30 37.7 C H 72 18 91
[2022-02-21] MEDS: SENNA 8.6 MG TAB PO SCH (20:30)
[2022-02-22 04:38] LABS: Hemoglobin 14.5 g/dl (14.0-18.0); Mean Corpuscular Hgb Conc 34.5 g/dL (32.0-36.0); Platelet Count 123 K/uL (130-400); RDW Coefficient of Variation 12.8 % (11.5-14.5); Red Blood Count 4.83 M/uL (4.63-6.08); White Blood Count 7.55 K/ul (4.8-10.8)
[2022-02-22 05:01] LABS: BUN Creatinine Ratio 32.2 (10-20); Calcium 9.1 mg/dl (8.5-10.1); Creatinine Clr Calc Pharmacy 141.8 ml/min; Est GFR (African American) 118.9 ml/min; Est GFR (Non-African American) 102.6 ml/min; Magnesium 2.1 mg/dl (1.7-2.4); Phosphorus 3.4 mg/dl (2.5-4.9)
[2022-02-22] MEDS: ICU ELECTROLYTE REPLACEMENT PROTOCOL SCH ×2 (06:22→17:04)
--- NOTE | 2022-02-22 07:00 | Hospitalist Progress Note ---
Date of Service February 22, 2022 Assessment & Plan (1) Cardiac arrest: (2) Acute myocardial infarction: (3) Atrial fibrillation with rapid ventricular response: Plan: Presented on admission with witnessed cardiac arrest with prehospital cardiac arrest Heart alert called on presentation ECG showed atrial fibrillation with RVR inferior ST elevations S/P emergent cardiac catheterization with Successful PCI of ostial to mid RCA with 2 overlapping drug-eluting stents (3.0 x 12, 2.75 x 12 mm Tao; postdilated with 3.5 NC). Cardiology on board Continue dual-antiplatelet therapy with aspirin and brillinta for at least 1 year. Continue High dose statin Will need cardiac rehab when discharge Brief episodes of ventricular fibrillation. Pt has recurrent VT/VF post STEMI and revascularization. He was started on Amiodarone ECHO showed normal LV chamber size with mild concentric LVH. Borderline global hypokinesis of the left ventricle. Left ventricular systolic function is low normal with ejection fraction 50 to 55%. Cardiology on board recommended dual chamber ICD given the post ME cardiac arrest and SB Respiratory failure He was sedated and intubated on mechanical ventilation Now extubated and off sedation Continue oxygen supplement as needed Incentive spirometry Currently on RA ?Pneumonia s/p bronchoscopy, cultx posit. for H. influenzae - initially on cefepime + doxy per ICU team, then switched to ceftriaxone Seizure like activity Questionable seizure-like activity reported by family prior to cardiac arrest In the ICU, noted to have intermittent myoclonic jerking. received Keppra 1 g Neurology on board EEG was Essentially normal, with no focal abnormalities or potentially epileptogenic discharges seen. Off sedation and no focal neuro deficit on exam Neurology - recommended to continue Keppra 500 mg twice daily Plan to get MRI of brain (likely as outpt) with and without contrast to see if there is any a small stroke or damage that occurred with the cardiac arrest or any reasons for seizures. Continue seizure precaution (4) AAA (abdominal aortic aneurysm): Plan: History of AAA, measured 3cm x 3cm on imaging 06/2021 DVT px SCDs, Lovenox Code status Full code Admission and Anticipated Discharge Date Admission Date: February 16, 2022 Subjective Pt was seen in follow up of cardiac arrest Lying in bed in no acute distress with and daughter at the bedside Pt is breathing comfortably on RA Pt neurologically intact and following commands Reports chest wall pain from the chest compression Plan for pacer in next upcoming days (likely Thursday) Review of Systems Review of Systems: All systems reviewed & are unremarkable except as noted in Subjective Physical Exam Physical Exam: General- awake and alert in NAD Head- atraumatic Eyes- PERRL, EOMI, ENT- oropharynx clear Neck- supple, no JVD Lungs- No wheezing, mild crackles at bases Heart- +regular Abdomen- normal bowel sounds, soft, nontender Extremities- No edema, moves extremities Neuro- awake and alert, answering questions appropriately Results & Data Results & Data ([facility]) Vital Signs (Past 12 Hours) Vital Signs Pulse Resp BP O2 Del Method 02/22/22 06:00 70 21 02/22/22 05:01 70 21 02/22/22 05:01 124/85 02/22/22 05:00 68 19 02/22/22 04:01 158/84 H 02/22/22 04:01 65 17 02/22/22 04:00 71 17 02/22/22 03:00 60 18 02/22/22 03:00 124/81 02/22/22 02:00 65 17 02/22/22 02:00 143/81 H 02/22/22 01:01 70 15 02/22/22 01:01 148/81 H 02/22/22 01:00 71 22 02/22/22 00:02 71 17 02/22/22 00:02 172/91 H 02/22/22 00:00 68 20 02/21/22 23:05 77 18 02/21/22 23:05 180/93 H 02/21/22 23:00 73 23 02/21/22 23:00 180/104 H 02/21/22 22:01 75 18 02/21/22 22:01 144/73 H 02/21/22 22:00 74 15 02/21/22 21:22 194/95 H 02/21/22 21:22 77 27 H 02/21/22 21:00 74 19 02/21/22 20:01 72 16 02/21/22 20:01 140/87 02/21/22 20:00 70 13 02/21/22 20:00 Room Air 02/21/22 19:00 74 20 02/21/22 19:00 154/97 H Laboratory Results 02/22/22 02/22/22 02/21/22 Range/Units 04:10 04:10 11:28 WBC 7.55 (4.8-10.8) K/ul RBC 4.83 (4.63-6.08) M/uL Hgb 14.5 (14.0-18.0) g/dl Hct 42.0 (40.1-51.0) % MCV 87.0 (80.0-100.0) fL MCH 30.0 (25.0-34.0) pg MCHC 34.5 (32.0-36.0) g/dL RDW Std Deviation 40.0 (36.4-46.3) fL RDW Coeff of Laverne 12.8 (11.5-14.5) % Plt Count 123 L (130-400) K/uL MPV 12.0 (9.4-12.4) fL Immature Gran % (Auto) % Neut % (Auto) % Lymph % (Auto) % [place] % (Auto) % Eos % (Auto) % Baso % (Auto) % Neut # (Auto) (1.4-6.5) K/uL Lymph # (Auto) (1.2-3.4) K/uL [place] # (Auto) (0.24-0.82) K/uL Eos # (Auto) (0-0.50) K/uL Baso # (Auto) (0-0.2) K/uL Immature Gran # (Auto) (0.00-0.02) K/uL Toxic Vacuolation Polychromasia Echinocytes Sodium 138 (136-145) mmol/L Potassium 4.0 (3.5-5.1) mmol/L Chloride 104 (98-107) mmol/L Carbon Dioxide 27 (21-32) mmol/L Anion Gap 7 (3-11) BUN 19 (6-23) mg/dl Creatinine 0.59 L (0.6-1.4) mg/dl Est Cr Clr Drug Dosing 141.8 ml/min Est GFR ( Amer) 118.9 ml/min Est GFR (Non-Af Amer) 102.6 ml/min BUN/Creatinine Ratio 32.2 H (10-20) Glucose 94 (70-99(Fasting)) mg/dl POC Glucose 85 (70-99) mg/dl Calcium 9.1 (8.5-10.1) mg/dl Phosphorus 3.4 (2.5-4.9) mg/dl Magnesium 2.1 (1.7-2.4) mg/dl Procalcitonin (0-0.5) ng/ml 02/21/22 02/21/22 02/21/22 Range/Units 07:34 06:41 06:39 WBC 7.77 (4.8-10.8) K/ul RBC 4.60 L (4.63-6.08) M/uL Hgb 13.8 L (14.0-18.0) g/dl Hct 40.3 (40.1-51.0) % MCV 87.6 (80.0-100.0) fL MCH 30.0 (25.0-34.0) pg MCHC 34.2 (32.0-36.0) g/dL RDW Std Deviation 40.8 (36.4-46.3) fL RDW Coeff of Laverne 12.9 (11.5-14.5) % Plt Count 112 L (130-400) K/uL MPV 11.9 (9.4-12.4) fL Immature Gran % (Auto) 0.5 % Neut % (Auto) 69.4 % Lymph % (Auto) 11.3 % [place] % (Auto) 13.5 % Eos % (Auto) 4.5 % Baso % (Auto) 0.8 % Neut # (Auto) 5.39 (1.4-6.5) K/uL Lymph # (Auto) 0.88 L (1.2-3.4) K/uL [place] # (Auto) 1.05 H (0.24-0.82) K/uL Eos # (Auto) 0.35 (0-0.50) K/uL Baso # (Auto) 0.06 (0-0.2) K/uL Immature Gran # (Auto) 0.04 H (0.00-0.02) K/uL Toxic Vacuolation 1+ Polychromasia 1+ Echinocytes 1+ Sodium (136-145) mmol/L Potassium (3.5-5.1) mmol/L Chloride (98-107) mmol/L Carbon Dioxide (21-32) mmol/L Anion Gap (3-11) BUN (6-23) mg/dl Creatinine (0.6-1.4) mg/dl Est Cr Clr Drug Dosing ml/min Est GFR ( Amer) ml/min Est GFR (Non-Af Amer) ml/min BUN/Creatinine Ratio (10-20) Glucose (70-99(Fasting)) mg/dl POC Glucose 92 (70-99) mg/dl Calcium (8.5-10.1) mg/dl Phosphorus (2.5-4.9) mg/dl Magnesium (1.7-2.4) mg/dl Procalcitonin 0.10 (0-0.5) ng/ml 02/21/22 Range/Units 06:33 WBC (4.8-10.8) K/ul RBC (4.63-6.08) M/uL Hgb (14.0-18.0) g/dl Hct (40.1-51.0) % MCV (80.0-100.0) fL MCH (25.0-34.0) pg MCHC (32.0-36.0) g/dL RDW Std Deviation (36.4-46.3) fL RDW Coeff of Laverne (11.5-14.5) % Plt Count (130-400) K/uL MPV (9.4-12.4) fL Immature Gran % (Auto) % Neut % (Auto) % Lymph % (Auto) % [place] % (Auto) % Eos % (Auto) % Baso % (Auto) % Neut # (Auto) (1.4-6.5) K/uL Lymph # (Auto) (1.2-3.4) K/uL [place] # (Auto) (0.24-0.82) K/uL Eos # (Auto) (0-0.50) K/uL Baso # (Auto) (0-0.2) K/uL Immature Gran # (Auto) (0.00-0.02) K/uL Toxic Vacuolation Polychromasia Echinocytes Sodium (136-145) mmol/L Potassium 4.1 (3.5-5.1) mmol/L Chloride (98-107) mmol/L Carbon Dioxide (21-32) mmol/L Anion Gap (3-11) BUN (6-23) mg/dl Creatinine (0.6-1.4) mg/dl Est Cr Clr Drug Dosing ml/min Est GFR ( Amer) ml/min Est GFR (Non-Af Amer) ml/min BUN/Creatinine Ratio (10-20) Glucose (70-99(Fasting)) mg/dl POC Glucose (70-99) mg/dl Calcium (8.5-10.1) mg/dl Phosphorus (2.5-4.9) mg/dl Magnesium (1.7-2.4) mg/dl Procalcitonin (0-0.5) ng/ml Medications Administered Current Inpatient Medications Amiodarone HCl (Amiodarone 200 Mg Tab) 400 mg PO BID [facility] Stop: 03/20/22 12:44 Last Admin: 02/21/22 20:30 Dose: 400 mg Aspirin (Aspirin 81 Mg Chew) [facility] Stop: 03/19/22 08:59 Last Admin: 02/21/22 08:13 Dose: 81 mg Atorvastatin Calcium (Atorvastatin 40 Mg Tab) 80 mg PO [facility] Stop: 03/19/22 08:59 Last Admin: 02/21/22 08:03 Dose: 80 mg Benzocaine/Butamben/Tetracaine HCl (Benzocaine/Tetracain/Butam 50 Appln/5 Gm Can) 1 appln EXT Q8H PRN PRN Reason: Sore Throat Stop: 03/20/22 20:34 Docusate Sodium (Docusate Sodium 100 Mg Cap) 100 mg PO BID [facility] Stop: 03/20/22 20:59 Last Admin: 02/21/22 20:30 Dose: 100 mg Enoxaparin Sodium (Enoxaparin Inj 40 Mg/0.4 Ml Syr) 40 mg SQ Q24H [facility] Stop: 03/22/22 15:59 Last Admin: 02/21/22 16:26 Dose: 40 mg Felodipine (Felodipine 5 Mg Tabcr) [facility] [place]: 03/20/22 17:14 Last Admin: 02/21/22 08:04 Dose: 5 mg Hydromorphone HCl (Hydromorphone Inj 0.5 Mg/0.5 Ml Syr) 0.5 mg IV Q4H PRN PRN Reason: Pain uncontrolled by PO Stop: 03/04/22 10:24 Last Admin: 02/21/22 05:08 Dose: 0.5 mg Ceftriaxone Sodium 2,000 mg/ (Dextrose) 70 mls @ 140 mls/hr IV Q24H [facility] Stop: 02/27/22 11:59 Last Infusion: 02/21/22 12:08 Dose: Infused Acetaminophen (Ofirmev) 1,000 mg in 100 mls @ 400 mls/hr IV Q8H PRN PRN Reason: Pain Stop: 02/24/22 13:39 Last Infusion: 02/21/22 15:01 Dose: Infused Levetiracetam (Levetiracetam 500 Mg Tab) 500 mg PO Q12H [facility] Stop: 03/21/22 19:59 Last Admin: 02/21/22 20:30 Dose: 500 mg Levothyroxine Sodium (Levothyroxine Sodium 125 Mcg Tablet) [facility]: 03/19/22 06:29 Last Admin: 02/21/22 06:29 Dose: Not Given Lidocaine (Lidocaine 5% 1 Patch) 1 patch [facility] [place] Stop: 03/20/22 13:14 Last Admin: 02/21/22 07:42 Dose: 1 patch Miscellaneous (Icu Electrolyte Replacement Protocol) 1 each N/A BID@06,18 [facility]; Protocol Stop: 02/23/22 17:59 Last Admin: 02/22/22 06:22 Dose: Not Given Miscellaneous (Remove Lidoderm Patch) 1 each N/A DAILY@2100 [facility] Stop: 03/20/22 20:59 Last Admin: 02/21/22 20:30 Dose: 1 each Morphine Sulfate (Morphine Sulfate Cr 15 Mg Tabcr) 15 mg PO Q12H [facility] Stop: 03/07/22 11:59 Last Admin: 02/21/22 23:28 Dose: 15 mg Olmesartan (Olmesartan Medoxomil 40 Mg Tab) 40 [facility] [place] Stop: 03/20/22 17:14 Last Admin: 02/21/22 08:03 Dose: 40 mg Oxycodone HCl (Oxycodone Hcl Ir 5 Mg Tab (Immediate Release)) 10 mg PO Q6H PRN PRN Reason: Moderate-Severe Pain Stop: 03/06/22 08:34 Last Admin: 02/21/22 20:30 Dose: 10 mg Pantoprazole Sodium (Pantoprazole 40 Mg Tab) 40 mg PO DAILYBB [facility] Stop: 03/21/22 10:14 Last Admin: 02/21/22 07:43 Dose: 40 mg Phenol (Chloraseptic 1.4% Soln 180 Ml Btl) 1 sprays MT PRN PRN PRN Reason: Sore Throat Stop: 03/21/22 22:03 Last Admin: 02/20/22 06:17 Dose: 1 sprays Sennosides (Senna 8.6 Mg Tab) 17.2 mg PO HS [facility] Stop: 03/18/22 20:59 Last Admin: 02/21/22 20:30 Dose: 17.2 mg Ticagrelor (Ticagrelor 90 Mg Tab) 90 mg PO BID [facility] Stop: 03/19/22 08:59 Last Admin: 02/21/22 20:30 Dose: 90 mg (1) Acute myocardial infarction Involved coronary artery: unspecified coronary artery Myocardial infarction type: ST elevation myocardial infarction Qualified Code(s): I21.3 - ST elevation (STEMI) myocardial infarction of unspecified site
[2022-02-22] MEDS: oxyCODONE HCL IR 5 MG TAB (IMMEDIATE RELEASE) PO PRN ×2 (07:45→20:20)
[2022-02-22] MEDS: LEVOTHYROXINE SODIUM 125 MCG TABLET PO SCH (07:45)
[2022-02-22] MEDS: PANTOprazole 40 MG TAB PO SCH (07:45)
[2022-02-22] MEDS: ATORVASTATIN 40 MG TAB PO SCH (08:48)
[2022-02-22] MEDS: levETIRAcetam 500 MG TAB PO SCH ×2 (08:48→20:20)
[2022-02-22] MEDS: DOCUSATE SODIUM 100 MG CAP PO SCH ×2 (08:48→20:20)
[2022-02-22] MEDS: TICAGRELOR 90 MG TAB PO SCH ×2 (08:48→20:20)
[2022-02-22] MEDS: AMIODARONE 200 MG TAB PO SCH ×2 (08:48→20:20)
[2022-02-22] MEDS: LIDOCAINE 5% 1 PATCH TD SCH (08:49)
[2022-02-22] MEDS: OLMESARTAN MEDOXOMIL 40 MG TAB PO SCH (08:49)
[2022-02-22] MEDS: FELODIPINE 5 MG TABCR PO SCH (08:49)
[2022-02-22] MEDS: ASPIRIN 81 MG CHEW PO SCH (08:50)
--- NOTE | 2022-02-22 11:12 | Cardiology Progress Note ---
Date of Service February 22, 2022 Assessment & Plan (1) Sinus bradycardia: (2) ST elevation (STEMI) myocardial infarction involving right coronary artery: (3) Torsades de pointes: (4) Ventricular fibrillation: (5) Cardiac arrest: (6) Aspiration pneumonitis: Plan I had a long discussion with the patient and his family including his daughter who is a nurse in the ICU. They are now willing to stay and have an ICD implanted. The patient had a probable sudden event in June while in [place] playing golf. He now presents with a STEMI and cardiac arrest with another sudden event and therefore I think it is best that he have an ICD before leaving the hospital. We will arrange for it to be done on Thursday. Admission and Anticipated Discharge Date Admission Date: February 16, 2022 Subjective Patient is alert. He has some chest pain related to injuries to his ribs from CPR but is otherwise stable. Review of Systems Review of Systems: Review of Systems: See HPI for pertinent positives. All other 10 point review of systems are negative. Physical Exam Physical Exam: General: no acute distress and stated age Head: normocephalic, no masses, lesions, tenderness or abnormalities Eyes: conjunctiva are pink and non-injected, sclera clear Neck: supple, no adenopathy, no bruits, normal jugular venous pulse, no hepatojugular reflux Chest: normal shape and normal respiratory effort Lungs: clear to auscultation and percussion Cardiac Exam: - regular rate & rhythm, no murmurs gallops or rubs - normal S1, normal S2 Pulses: 2(+) throughout Abdomen: abdomen soft, non-tender, no abnormal masses and no hepatosplenomegaly Musculoskeletal: no gait disturbance, no joint inflammation, no deforming arthritis Extremities: no edema and no cyanosis Neuro: grossly normal exam Results & Data ([facility]) Vital Signs (Past 12 Hours) Vital Signs Pulse Resp BP 02/22/22 09:00 75 19 02/22/22 08:00 76 16 02/22/22 07:16 73 02/22/22 07:16 150/87 H 02/22/22 07:01 68 16 02/22/22 07:00 72 19 02/22/22 06:00 70 21 02/22/22 05:01 70 21 02/22/22 05:01 124/85 02/22/22 05:00 68 19 02/22/22 04:01 158/84 H 02/22/22 04:01 65 17 02/22/22 04:00 71 17 02/22/22 03:00 60 18 02/22/22 03:00 124/81 02/22/22 02:00 65 17 02/22/22 02:00 143/81 H 02/22/22 01:01 70 15 02/22/22 01:01 148/81 H 02/22/22 01:00 71 22 02/22/22 00:02 71 17 02/22/22 00:02 172/91 H 02/22/22 00:00 68 20 Laboratory Results Laboratory Results - last 24 hr 02/21/22 02/22/22 02/22/22 11:28 04:10 04:10 WBC 7.55 RBC 4.83 Hgb 14.5 Hct 42.0 MCV 87.0 MCH 30.0 MCHC 34.5 RDW Std Deviation 40.0 RDW Coeff of Laverne 12.8 Plt Count 123 L MPV 12.0 Sodium 138 Potassium 4.0 Chloride 104 Carbon Dioxide 27 Anion Gap 7 BUN 19 Creatinine 0.59 L Est Cr Clr Drug Dosing 141.8 Est GFR ( Amer) 118.9 Est GFR (Non-Af Amer) 102.6 BUN/Creatinine Ratio 32.2 H Glucose 94 POC Glucose 85 Calcium 9.1 Phosphorus 3.4 Magnesium 2.1 Medications Administered Current Inpatient Medications Amiodarone HCl (Amiodarone 200 Mg Tab) 400 mg PO BID [facility] Stop: 03/20/22 12:44 Last Admin: 02/22/22 08:48 Dose: 400 mg Aspirin (Aspirin 81 Mg Chew) [facility] Stop: 03/19/22 08:59 Last Admin: 02/22/22 08:50 Dose: 81 mg Atorvastatin Calcium (Atorvastatin 40 Mg Tab) 80 mg PO QAM [facility] Stop: 03/19/22 08:59 Last Admin: 02/22/22 08:48 Dose: 80 mg Benzocaine/Butamben/Tetracaine HCl (Benzocaine/Tetracain/Butam 50 Appln/5 Gm Can) 1 appln EXT Q8H PRN PRN Reason: Sore Throat Stop: 03/20/22 20:34 Docusate Sodium (Docusate Sodium 100 Mg Cap) 100 mg PO BID [facility] Stop: 03/20/22 20:59 Last Admin: 02/22/22 08:48 Dose: 100 mg Enoxaparin Sodium (Enoxaparin Inj 40 Mg/0.4 Ml Syr) 40 mg SQ Q24H [facility] Stop: 03/22/22 15:59 Last Admin: 02/21/22 16:26 Dose: 40 mg Felodipine (Felodipine 5 Mg Tabcr) 5 mg PO QAM [facility] Stop: 03/20/22 17:14 Last Admin: 02/22/22 08:49 Dose: 5 mg Hydromorphone HCl (Hydromorphone Inj 0.5 Mg/0.5 Ml Syr) 0.5 mg IV Q4H PRN PRN Reason: Pain uncontrolled by PO Stop: 03/04/22 10:24 Last Admin: 02/21/22 05:08 Dose: 0.5 mg Ceftriaxone Sodium 2,000 mg/ (Dextrose) 70 mls @ 140 mls/hr IV Q24H [facility] Stop: 02/27/22 11:59 Last Infusion: 02/21/22 12:08 Dose: Infused Acetaminophen (Ofirmev) 1,000 mg in 100 mls @ 400 mls/hr IV Q8H PRN PRN Reason: Pain Stop: 02/24/22 13:39 Last Infusion: 02/21/22 15:01 Dose: Infused Levetiracetam (Levetiracetam 500 Mg Tab) 500 mg PO Q12H [facility] Stop: 03/21/22 19:59 Last Admin: 02/22/22 08:48 Dose: 500 mg Levothyroxine Sodium (Levothyroxine Sodium 125 Mcg Tablet) 125 mcg PO DAILYBB [facility] Stop: 03/19/22 06:29 Last Admin: 02/22/22 07:45 Dose: 125 mcg Lidocaine (Lidocaine 5% 1 Patch) 1 patch TD QAM [facility] Stop: 03/20/22 13:14 Last Admin: 02/22/22 08:49 Dose: 1 patch Miscellaneous (Icu Electrolyte Replacement Protocol) 1 each N/A BID@06,18 [facility]; Protocol Stop: 02/23/22 17:59 Last Admin: 02/22/22 06:22 Dose: Not Given Miscellaneous (Remove Lidoderm Patch) 1 each N/A DAILY@2100 [facility] Stop: 03/20/22 20:59 Last Admin: 02/21/22 20:30 Dose: 1 each Morphine Sulfate (Morphine Sulfate Cr 15 Mg Tabcr) 15 mg PO Q12H [facility] Stop: 03/07/22 11:59 Last Admin: 02/21/22 23:28 Dose: 15 mg Olmesartan (Olmesartan Medoxomil 40 Mg Tab) 40 mg PO QAM [facility] Stop: 03/20/22 17:14 Last Admin: 02/22/22 08:49 Dose: 40 mg Oxycodone HCl (Oxycodone Hcl Ir 5 Mg Tab (Immediate Release)) 10 mg PO Q6H PRN PRN Reason: Moderate-Severe Pain Stop: 03/06/22 08:34 Last Admin: 02/22/22 07:45 Dose: 10 mg Pantoprazole Sodium (Pantoprazole 40 Mg Tab) 40 mg PO DAILYBB [facility] Stop: 03/21/22 10:14 Last Admin: 02/22/22 07:45 Dose: 40 mg Phenol (Chloraseptic 1.4% Soln 180 Ml Btl) 1 sprays MT PRN PRN PRN Reason: Sore Throat Stop: 03/21/22 22:03 Last Admin: 02/20/22 06:17 Dose: 1 sprays Sennosides (Senna 8.6 Mg Tab) 17.2 mg PO HS [facility] Stop: 03/18/22 20:59 Last Admin: 02/21/22 20:30 Dose: 17.2 mg Ticagrelor (Ticagrelor 90 Mg Tab) 90 mg PO BID [facility] Stop: 03/19/22 08:59 Last Admin: 02/22/22 08:48 Dose: 90 mg
[2022-02-22 12:06] LABS: Babesia microti DNA Not Detected (Not Detected)
[2022-02-22] MEDS: cefTRIAXone SODIUM 2,000 MG in DEXTROSE 5% 50 ML IV SCH ×2 (12:06→13:22)
[2022-02-22] MEDS: MoRPHine SULFATE CR 15 MG TABCR PO SCH (12:06)
[2022-02-22] MEDS: ACETAMINOPHEN 1,000 MG/100 ML VIAL IV PRN (13:50)
--- NOTE | 2022-02-22 15:04 | Ultrasound Report ---
LEFT UPPER EXTREMITY VENOUS DOPPLER HISTORY: Left arm swelling. r/o DVT COMPARISON STUDY: None. FINDINGS: The left internal jugular vein is patent. There is normal flow within the left subclavian v ein. There is normal flow and compressibility within the left axillary, brachial, radial, ulnar veins . Thrombosed basilic and cephalic veins which are consistent with superficial veins. The basilic vein thrombus measures 6 cm in length. The cephalic vein thrombus measures 20 cm in length and is occlusi ve. IMPRESSION: No DVT within the left upper extremity. Basilic and cephalic vein thrombus as described above. ACT 112: Negative or not required by law. Electronically signed by: Edward Loving M.D. 02/22/2022 3:03 PM
[2022-02-22] MEDS: ENOXAPARIN INJ 40 MG/0.4 ML SYR SQ SCH (17:02)
[2022-02-22] MEDS: SENNA 8.6 MG TAB PO SCH (20:20)
[2022-02-22] MEDS: MELATONIN 3 MG TAB PO SCH (20:20)
[2022-02-23] MEDS: MoRPHine SULFATE CR 15 MG TABCR PO SCH ×3 (00:55→23:35)
[2022-02-23 04:40] LABS: Hematocrit (blood only) 39.1 % (40.1-51.0); Hemoglobin 13.7 g/dl (14.0-18.0); Mean Corpuscular Hemoglobin 30.2 pg (25.0-34.0); Mean Corpuscular Volume 86.1 fL (80.0-100.0); Mean Platelet Volume 11.7 fL (9.4-12.4); Platelet Count 145 K/uL (130-400); RDW Coefficient of Variation 12.9 % (11.5-14.5); Red Blood Count 4.54 M/uL (4.63-6.08)
[2022-02-23 05:10] LABS: BUN Creatinine Ratio 27.3 (10-20); Calcium 8.9 mg/dl (8.5-10.1); Creatinine Clr Calc Pharmacy 125.3 ml/min; Est GFR (African American) 113.5 ml/min; Magnesium 2.1 mg/dl (1.7-2.4); Phosphorus 3.3 mg/dl (2.5-4.9)
[2022-02-23] MEDS: PANTOprazole 40 MG TAB PO SCH (05:54)
[2022-02-23] MEDS: LEVOTHYROXINE SODIUM 125 MCG TABLET PO SCH (05:54)
[2022-02-23] MEDS: ICU ELECTROLYTE REPLACEMENT PROTOCOL SCH (05:55)
--- NOTE | 2022-02-23 08:20 | Hospitalist Progress Note ---
Date of Service February 23, 2022 Assessment & Plan (1) Cardiac arrest: (2) Acute myocardial infarction: (3) Atrial fibrillation with rapid ventricular response: Plan: Presented on admission with witnessed cardiac arrest with prehospital cardiac arrest Heart alert called on presentation ECG showed atrial fibrillation with RVR inferior ST elevations S/P emergent cardiac catheterization with Successful PCI of ostial to mid RCA with 2 overlapping drug-eluting stents (3.0 x 12, 2.75 x 12 mm [place]; postdilated with 3.5 NC). Cardiology consulted and following closely Continue dual-antiplatelet therapy with aspirin and brillinta for at least 1 year. Continue High dose statin Will need cardiac rehab when discharge Brief episodes of ventricular fibrillation. Pt has recurrent VT/VF post STEMI and revascularization. He was started on Amiodarone ECHO showed normal LV chamber size with mild concentric LVH. Borderline global hypokinesis of the left ventricle. Left ventricular systolic function is low normal with ejection fraction 50 to 55%. Cardiology recommended dual chamber ICD given the post [place] cardiac arrest and SB Plan for AICD tmrw Respiratory failure He was sedated and intubated on mechanical ventilation Now extubated and off sedation Continue oxygen supplement as needed Incentive spirometry Currently on RA ?Pneumonia s/p bronchoscopy, cultx posit. for H. influenzae - initially on cefepime + doxy per ICU team, then switched to ceftriaxone Seizure like activity Questionable seizure-like activity reported by family prior to cardiac arrest In the ICU, noted to have intermittent myoclonic jerking. received Keppra 1 g Neurology on board EEG was Essentially normal, with no focal abnormalities or potentially epileptogenic discharges seen. Off sedation and no focal neuro deficit on exam Neurology - recommended to continue Keppra 500 mg twice daily Plan to get MRI of brain (likely as outpt) with and without contrast to see if there is any a small stroke or damage that occurred with the cardiac arrest or any reasons for seizures. Continue seizure precaution (4) AAA (abdominal aortic aneurysm): Plan: History of AAA, measured 3cm x 3cm on imaging 06/2021 DVT px SCDs, Lovenox Code status Full code Admission and Anticipated Discharge Date Admission Date: February 16, 2022 Subjective Pt was seen in follow up of cardiac arrest Lying in bed in no acute distress with and daughter at the bedside Pt is breathing comfortably on RA Pt neurologically intact and following commands Reports chest wall pain from the chest compression Plan for AICD likely tmrw (Thursday) Review of Systems Review of Systems: All systems reviewed & are unremarkable except as noted in Subjective Physical Exam Physical Exam: General- awake and alert in NAD Head- atraumatic Eyes- PERRL, EOMI, ENT- oropharynx clear Neck- supple, no JVD Lungs- No wheezing, mild crackles at bases Heart- +regular Abdomen- normal bowel sounds, soft, nontender Extremities- No edema, moves extremities Neuro- awake and alert, answering questions appropriately Results & Data Results & Data ([facility]) Vital Signs (Past 12 Hours) Vital Signs Pulse Resp BP 02/23/22 04:00 53 L 16 158/79 H 02/23/22 02:00 58 L 15 02/23/22 00:00 57 L 14 141/88 H 02/22/22 22:00 50 L 22 Laboratory Results 02/23/22 02/23/22 02/19/22 Range/Units 04:30 04:30 08:15 WBC 7.40 (4.8-10.8) K/ul RBC 4.54 L (4.63-6.08) M/uL Hgb 13.7 L (14.0-18.0) g/dl Hct 39.1 L (40.1-51.0) % MCV 86.1 (80.0-100.0) fL MCH 30.2 (25.0-34.0) pg MCHC 35.0 (32.0-36.0) g/dL RDW Std Deviation 40.0 (36.4-46.3) fL RDW Coeff of Laverne 12.9 (11.5-14.5) % Plt Count 145 (130-400) K/uL MPV 11.7 (9.4-12.4) fL Sodium 139 (136-145) mmol/L Potassium 4.0 (3.5-5.1) mmol/L Chloride 105 (98-107) mmol/L Carbon Dioxide 27 (21-32) mmol/L Anion Gap 7 (3-11) BUN 18 (6-23) mg/dl Creatinine 0.66 (0.6-1.4) mg/dl Est Cr Clr Drug Dosing 125.3 ml/min Est GFR ( Amer) 113.5 ml/min Est GFR (Non-Af Amer) 98.0 ml/min BUN/Creatinine Ratio 27.3 H (10-20) Glucose 97 (70-99(Fasting)) mg/dl Calcium 8.9 (8.5-10.1) mg/dl Phosphorus 3.3 (2.5-4.9) mg/dl Magnesium 2.1 (1.7-2.4) mg/dl Babesia microti DNA PCR Not Detected (Not Detected) Medications Administered Current Inpatient Medications Amiodarone HCl (Amiodarone 200 Mg Tab) 400 mg PO BID [facility] Stop: 03/20/22 12:44 Last Admin: 02/22/22 20:20 Dose: 400 mg Aspirin (Aspirin 81 Mg Chew) [facility] [place] Stop: 03/19/22 08:59 Last Admin: 02/22/22 08:50 Dose: 81 mg Atorvastatin Calcium (Atorvastatin 40 Mg Tab) [facility] [place] Stop: 03/19/22 08:59 Last Admin: 02/22/22 08:48 Dose: 80 mg Benzocaine/Butamben/Tetracaine HCl (Benzocaine/Tetracain/Butam 50 Appln/5 Gm Can) 1 appln EXT Q8H PRN PRN Reason: Sore Throat Stop: 03/20/22 20:34 Docusate Sodium (Docusate Sodium 100 Mg Cap) 100 mg PO BID [facility] Stop: 03/20/22 20:59 Last Admin: 02/22/22 20:20 Dose: 100 mg Enoxaparin Sodium (Enoxaparin Inj 40 Mg/0.4 Ml Syr) 40 mg SQ Q24H [facility] Stop: 03/22/22 15:59 Last Admin: 02/22/22 17:02 Dose: 40 mg Felodipine (Felodipine 5 Mg Tabcr) [facility] [place] Stop: 03/20/22 17:14 Last Admin: 02/22/22 08:49 Dose: 5 mg Hydromorphone HCl (Hydromorphone Inj 0.5 Mg/0.5 Ml Syr) 0.5 mg IV Q4H PRN PRN Reason: Pain uncontrolled by PO Stop: 03/04/22 10:24 Last Admin: 02/21/22 05:08 Dose: 0.5 mg Ceftriaxone Sodium 2,000 mg/ (Dextrose) 70 mls @ 140 mls/hr IV Q24H [facility] Stop: 02/27/22 11:59 Last Infusion: 02/22/22 14:05 Dose: Infused Acetaminophen (Ofirmev) 1,000 mg in 100 mls @ 400 mls/hr IV Q8H PRN PRN Reason: Pain Stop: 02/24/22 13:39 Last Infusion: 02/22/22 14:19 Dose: Infused Levetiracetam (Levetiracetam 500 Mg Tab) 500 mg PO Q12H [facility] Stop: 03/21/22 19:59 Last Admin: 02/22/22 20:20 Dose: 500 mg Levothyroxine Sodium (Levothyroxine Sodium 125 Mcg Tablet) 125 mcg PO DAILYBB [facility] Stop: 03/19/22 06:29 Last Admin: 02/23/22 05:54 Dose: 125 mcg Lidocaine (Lidocaine 5% 1 Patch) 1 patch TD QAM [facility] Stop: 03/20/22 13:14 Last Admin: 02/22/22 08:49 Dose: 1 patch Melatonin (Melatonin 3 Mg Tab) 3 mg PO HS [facility] Stop: 03/24/22 20:59 Last Admin: 02/22/22 20:20 Dose: 3 mg Miscellaneous (Icu Electrolyte Replacement Protocol) 1 each N/A BID@06,18 [facility]; Protocol Stop: 02/23/22 17:59 Last Admin: 02/23/22 05:55 Dose: Not Given Miscellaneous (Remove Lidoderm Patch) 1 each N/A DAILY@2100 [facility] Stop: 03/20/22 20:59 Last Admin: 02/22/22 20:21 Dose: 1 each Morphine Sulfate (Morphine Sulfate Cr 15 Mg Tabcr) 15 mg PO Q12H [facility] Stop: 03/07/22 11:59 Last Admin: 02/23/22 00:55 Dose: 15 mg Olmesartan (Olmesartan Medoxomil 40 Mg Tab) 40 mg PO QAM [facility] Stop: 03/20/22 17:14 Last Admin: 02/22/22 08:49 Dose: 40 mg Oxycodone HCl (Oxycodone Hcl Ir 5 Mg Tab (Immediate Release)) 10 mg PO Q6H PRN PRN Reason: Moderate-Severe Pain Stop: 03/06/22 08:34 Last Admin: 02/22/22 20:20 Dose: 10 mg Pantoprazole Sodium (Pantoprazole 40 Mg Tab) 40 mg PO DAILYBB [facility] Stop: 03/21/22 10:14 Last Admin: 02/23/22 05:54 Dose: 40 mg Phenol (Chloraseptic 1.4% Soln 180 Ml Btl) 1 sprays MT PRN PRN PRN Reason: Sore Throat Stop: 03/21/22 22:03 Last Admin: 02/20/22 06:17 Dose: 1 sprays Polyethylene Glycol (Polyethylene (Miralax) 17 Gm Pack) 17 gm PO DAILY PRN PRN Reason: Constipation Stop: 03/24/22 14:33 Sennosides (Senna 8.6 Mg Tab) 17.2 mg PO HS [facility] Stop: 03/18/22 20:59 Last Admin: 02/22/22 20:20 Dose: 17.2 mg Ticagrelor (Ticagrelor 90 Mg Tab) 90 mg PO BID [facility] Stop: 03/19/22 08:59 Last Admin: 02/22/22 20:20 Dose: 90 mg (1) Acute myocardial infarction Involved coronary artery: unspecified coronary artery Myocardial infarction type: ST elevation myocardial infarction Qualified Code(s): I21.3 - ST elevation (STEMI) myocardial infarction of unspecified site
[2022-02-23] MEDS: ASPIRIN 81 MG CHEW PO SCH (09:25)
[2022-02-23] MEDS: LIDOCAINE 5% 1 PATCH TD SCH (09:25)
[2022-02-23] MEDS: levETIRAcetam 500 MG TAB PO SCH ×2 (09:26→20:33)
[2022-02-23] MEDS: TICAGRELOR 90 MG TAB PO SCH ×2 (09:26→20:33)
[2022-02-23] MEDS: FELODIPINE 5 MG TABCR PO SCH (09:26)
[2022-02-23] MEDS: DOCUSATE SODIUM 100 MG CAP PO SCH ×2 (09:26→20:33)
[2022-02-23] MEDS: AMIODARONE 200 MG TAB PO SCH ×2 (09:26→20:33)
[2022-02-23] MEDS: OLMESARTAN MEDOXOMIL 40 MG TAB PO SCH (09:26)
[2022-02-23] MEDS: ATORVASTATIN 40 MG TAB PO SCH (09:26)
--- NOTE | 2022-02-23 11:58 | Cardiology Progress Note ---
Date of Service February 23, 2022 Assessment & Plan (1) Sinus bradycardia: (2) ST elevation (STEMI) myocardial infarction involving right coronary artery: (3) Torsades de pointes: (4) Ventricular fibrillation: (5) Cardiac arrest: (6) Aspiration pneumonitis: Plan The plan is for the patient to receive an ICD tomorrow. I reviewed the ultrasound report on his left upper extremity. It is likely a red fajardo and involves the superficial veins. It should not impact the device implant. He will be made n.p.o. after midnight. Admission and Anticipated Discharge Date Admission Date: February 16, 2022 Subjective No complaints today. Review of Systems Review of Systems: Review of Systems: See HPI for pertinent positives. All other 10 point review of systems are negative. Physical Exam Physical Exam: General: no acute distress and stated age Head: normocephalic, no masses, lesions, tenderness or abnormalities Eyes: conjunctiva are pink and non-injected, sclera clear Neck: supple, no adenopathy, no bruits, normal jugular venous pulse, no hepatojugular reflux Chest: normal shape and normal respiratory effort Lungs: clear to auscultation and percussion Cardiac Exam: - regular rate & rhythm, no murmurs gallops or rubs - normal S1, normal S2 Pulses: 2(+) throughout Abdomen: abdomen soft, non-tender, no abnormal masses and no hepatosplenomegaly Musculoskeletal: no gait disturbance, no joint inflammation, no deforming arthritis Extremities: no edema and no cyanosis Neuro: grossly normal exam Results & [facility]) Vital Signs (Past 12 Hours) Vital Signs Temp Pulse Pulse Resp BP BP Pulse Ox 02/23/22 08:00 36.6 C 65 14 150/81 H 94 02/23/22 04:00 53 L 16 158/79 H 02/23/22 02:00 58 L 15 02/23/22 00:00 57 L 14 141/88 H O2 Del Method 02/23/22 08:00 Room Air 02/23/22 04:00 02/23/22 02:00 02/23/22 00:00 Laboratory Results Laboratory Results - last 24 hr 02/19/22 02/23/22 02/23/22 08:15 04:30 04:30 WBC 7.40 RBC 4.54 L Hgb 13.7 L Hct 39.1 L MCV 86.1 MCH 30.2 MCHC 35.0 RDW Std Deviation 40.0 RDW Coeff of Laverne 12.9 Plt Count 145 MPV 11.7 Sodium 139 Potassium 4.0 Chloride 105 Carbon Dioxide 27 Anion Gap 7 BUN 18 Creatinine 0.66 Est Cr Clr Drug Dosing 125.3 Est GFR ( Amer) 113.5 Est GFR (Non-Af Amer) 98.0 BUN/Creatinine Ratio 27.3 H Glucose 97 Calcium 8.9 Phosphorus 3.3 Magnesium 2.1 Babesia microti DNA PCR Not Detected Medications Administered Current Inpatient Medications Amiodarone HCl (Amiodarone 200 Mg Tab) 400 mg PO BID [facility] Stop: 03/20/22 12:44 Last Admin: 02/23/22 09:26 Dose: 400 mg Aspirin (Aspirin 81 Mg Chew) [facility] [place] [place] Stop: 03/19/22 08:59 Last Admin: 02/23/22 09:25 Dose: 81 mg Atorvastatin Calcium (Atorvastatin 40 Mg Tab) 80 [facility] [place] [place] Stop: 03/19/22 08:59 Last Admin: 02/23/22 09:26 Dose: 80 mg Benzocaine/Butamben/Tetracaine HCl (Benzocaine/Tetracain/Butam 50 Appln/5 Gm Can) 1 appln EXT Q8H PRN PRN Reason: Sore Throat Stop: 03/20/22 20:34 Docusate Sodium (Docusate Sodium 100 Mg Cap) 100 mg PO BID [facility] Stop: 03/20/22 20:59 Last Admin: 02/23/22 09:26 Dose: 100 mg Enoxaparin Sodium (Enoxaparin Inj 40 Mg/0.4 Ml Syr) 40 mg SQ Q24H [facility] Stop: 03/22/22 15:59 Last Admin: 02/22/22 17:02 Dose: 40 mg Felodipine (Felodipine 5 Mg Tabcr) 5 mg PO QAM [facility] Stop: 03/20/22 17:14 Last Admin: 02/23/22 09:26 Dose: 5 mg Hydromorphone HCl (Hydromorphone Inj 0.5 Mg/0.5 Ml Syr) 0.5 mg IV Q4H PRN PRN Reason: Pain uncontrolled by PO Stop: 03/04/22 10:24 Last Admin: 02/21/22 05:08 Dose: 0.5 mg Ceftriaxone Sodium 2,000 mg/ (Dextrose) 70 mls @ 140 mls/hr IV Q24H [facility] Stop: 02/27/22 11:59 Last Infusion: 02/22/22 14:05 Dose: Infused Acetaminophen (Ofirmev) 1,000 mg in 100 mls @ 400 mls/hr IV Q8H PRN PRN Reason: Pain Stop: 02/24/22 13:39 Last Infusion: 02/22/22 14:19 Dose: Infused Levetiracetam (Levetiracetam 500 Mg Tab) 500 mg PO Q12H [facility] Stop: 03/21/22 19:59 Last Admin: 02/23/22 09:26 Dose: 500 mg Levothyroxine Sodium (Levothyroxine Sodium 125 Mcg Tablet) 125 mcg PO DAILYBB [facility] Stop: 03/19/22 06:29 Last Admin: 02/23/22 05:54 Dose: 125 mcg Lidocaine (Lidocaine 5% 1 Patch) 1 patch TD QAM [facility] Stop: 03/20/22 13:14 Last Admin: 02/23/22 09:25 Dose: 1 patch Melatonin (Melatonin 3 Mg Tab) 3 mg PO HS [facility] Stop: 03/24/22 20:59 Last Admin: 02/22/22 20:20 Dose: 3 mg Miscellaneous (Icu Electrolyte Replacement Protocol) 1 each N/A BID@06,18 [facility]; Protocol Stop: 02/23/22 17:59 Last Admin: 02/23/22 05:55 Dose: Not Given Miscellaneous (Remove Lidoderm Patch) 1 each N/A DAILY@2100 [facility] Stop: 03/20/22 20:59 Last Admin: 02/22/22 20:21 Dose: 1 each Morphine Sulfate (Morphine Sulfate Cr 15 Mg Tabcr) 15 mg PO Q12H [facility] Stop: 03/07/22 11:59 Last Admin: 02/23/22 00:55 Dose: 15 mg Olmesartan (Olmesartan Medoxomil 40 Mg Tab) 40 mg PO QAM [facility] Stop: 03/20/22 17:14 Last Admin: 02/23/22 09:26 Dose: 40 mg Oxycodone HCl (Oxycodone Hcl Ir 5 Mg Tab (Immediate Release)) 10 mg PO Q6H PRN PRN Reason: Moderate-Severe Pain Stop: 03/06/22 08:34 Last Admin: 02/22/22 20:20 Dose: 10 mg Pantoprazole Sodium (Pantoprazole 40 Mg Tab) 40 mg PO DAILYBB [facility] Stop: 03/21/22 10:14 Last Admin: 02/23/22 05:54 Dose: 40 mg Phenol (Chloraseptic 1.4% Soln 180 Ml Btl) 1 sprays MT PRN PRN PRN Reason: Sore Throat Stop: 03/21/22 22:03 Last Admin: 02/20/22 06:17 Dose: 1 sprays Polyethylene Glycol (Polyethylene (Miralax) 17 Gm Pack) 17 gm PO DAILY PRN PRN Reason: Constipation Stop: 03/24/22 14:33 Sennosides (Senna 8.6 Mg Tab) 17.2 mg PO HS [facility] Stop: 03/18/22 20:59 Last Admin: 02/22/22 20:20 Dose: 17.2 mg Ticagrelor (Ticagrelor 90 Mg Tab) 90 mg PO BID [facility] Stop: 03/19/22 08:59 Last Admin: 02/23/22 09:26 Dose: 90 mg
[2022-02-23] MEDS: cefTRIAXone SODIUM 2,000 MG in DEXTROSE 5% 50 ML IV SCH (12:15)
[2022-02-23] MEDS: POLYETHYLENE (MIRALAX) 17 GM PACK PO PRN (12:40)
[2022-02-23] MEDS: ENOXAPARIN INJ 40 MG/0.4 ML SYR SQ SCH (17:11)
[2022-02-23] MEDS: MELATONIN 3 MG TAB PO SCH (20:33)
[2022-02-23] MEDS: SENNA 8.6 MG TAB PO SCH (20:33)
[2022-02-24 05:04] LABS: Hematocrit (blood only) 40.4 % (40.1-51.0); Hemoglobin 13.9 g/dl (14.0-18.0); Mean Corpuscular Hemoglobin 29.8 pg (25.0-34.0); Mean Corpuscular Hgb Conc 34.4 g/dL (32.0-36.0); Mean Corpuscular Volume 86.5 fL (80.0-100.0); Mean Platelet Volume 11.8 fL (9.4-12.4); Platelet Count 161 K/uL (130-400); RDW Coefficient of Variation 12.9 % (11.5-14.5); RDW Standard Deviation 40.2 fL (36.4-46.3); Red Blood Count 4.67 M/uL (4.63-6.08); White Blood Count 6.93 K/ul (4.8-10.8)
[2022-02-24 05:13] LABS: BUN Creatinine Ratio 25.7 (10-20); Calcium 8.9 mg/dl (8.5-10.1); Creatinine Clr Calc Pharmacy 118.2 ml/min; Est GFR (African American) 110.8 ml/min; Est GFR (Non-African American) 95.6 ml/min; Magnesium 2.1 mg/dl (1.7-2.4); Phosphorus 3.7 mg/dl (2.5-4.9); Potassium 4.1 mmol/L (3.5-5.1)
[2022-02-24] MEDS: PANTOprazole 40 MG TAB PO SCH (06:11)
[2022-02-24] MEDS: LEVOTHYROXINE SODIUM 125 MCG TABLET PO SCH (06:11)
[2022-02-24] MEDS ORDERED: WATER, STERILE FOR INJ 10 ML VIAL ONE (07:24)
[2022-02-24] MEDS ORDERED: VANCOMYCIN HCL 1000MG/20ML VIAL ONE (07:24)
[2022-02-24] MEDS ORDERED: LIDOCAINE 1% LOCAL 20 ML VIAL ONE (07:24)
[2022-02-24] MEDS ORDERED: BUPIVACAINE 0.25% 30 ML VIAL ONE (07:24)
--- NOTE | 2022-02-24 07:34 | Hospitalist Progress Note ---
Date of Service February 24, 2022 Assessment & Plan (1) Cardiac arrest: (2) Acute myocardial infarction: Plan: STEMI involving RCA s/p BENOIT (3) Atrial fibrillation with rapid ventricular response: Plan: Presented on admission with witnessed cardiac arrest with prehospital cardiac arrest Heart alert called on presentation ECG showed atrial fibrillation with RVR inferior ST elevations S/P emergent cardiac catheterization with Successful PCI of ostial to mid RCA with 2 overlapping drug-eluting stents (3.0 x 12, 2.75 x 12 mm [place]; postdilated with 3.5 NC). Cardiology consulted and following closely Continue dual-antiplatelet therapy with aspirin and brillinta for at least 1 year. Continue High dose statin , beta noelle and ARB as BP tolerates Will need cardiac rehab when discharge Brief episodes of ventricular fibrillation. Pt has recurrent VT/VF post STEMI and revascularization. He was started on Amiodarone ECHO showed normal LV chamber size with mild concentric LVH. Borderline global hypokinesis of the left ventricle. Left ventricular systolic function is low normal with ejection fraction 50 to 55%. Cardiology recommended dual chamber ICD given the post [place] cardiac arrest and SB S/p ICD placement (02/24) w/ Dr. Santiago Respiratory failure He was sedated and intubated on mechanical ventilation Now extubated and off sedation Continue oxygen supplement as needed Incentive spirometry Currently on RA ?Pneumonia s/p bronchoscopy, cultx posit. for H. influenzae - initially on cefepime + doxy per ICU team, then switched to ceftriaxone (to be finished on 02/25) Seizure like activity Questionable seizure-like activity reported by family prior to cardiac arrest In the ICU, noted to have intermittent myoclonic jerking. received Keppra 1 g Neurology on board EEG was Essentially normal, with no focal abnormalities or potentially epileptogenic discharges seen. Off sedation and no focal neuro deficit on exam Neurology - recommended to continue Keppra 500 mg twice daily Plan to get MRI of brain (likely as outpt) with and without contrast to see if there is any a small stroke or damage that occurred with the cardiac arrest or any reasons for seizures. Continue seizure precaution Neurology follow up in 3-4 weeks (Dr. Drew) (4) AAA (abdominal aortic aneurysm): Plan: History of AAA, measured 3cm x 3cm on imaging 06/2021 DVT px SCDs, Lovenox Code status Full code Admission and Anticipated Discharge Date Admission Date: February 16, 2022 Subjective Pt was seen in follow up of cardiac arrest 2/2 STEMI to RCA, Vifib Lying in bed in no acute distress with and daughter at the bedside Pt is breathing comfortably on RA Pt neurologically intact and following commands Reports chest wall pain from the chest compression Patient underwent ICD placement earlier today. Tolerated procedure well. Rosenbaum catheter was removed. Patient has not seen PT and has not been ambulating since his admission. Plan for PT in the morning and likely discharge tomorrow Review of Systems Review of Systems: All systems reviewed & are unremarkable except as noted in Subjective Physical Exam Physical Exam: General- awake and alert in NAD Head- atraumatic Eyes- PERRL, EOMI, ENT- oropharynx clear Neck- supple, no JVD Lungs- No wheezing, mild crackles at bases Heart- +regular Abdomen- normal bowel sounds, soft, nontender Extremities- No edema, moves extremities Neuro- awake and alert, answering questions appropriately Results & Data Results & Data ([facility]) Vital Signs (Past 12 Hours) Vital Signs Temp Pulse Pulse Resp BP BP Pulse Ox 02/24/22 07:30 62 16 152/91 H 93 02/24/22 07:00 36.7 C 58 L 16 146/69 H 92 02/24/22 04:00 52 L 17 138/51 L 02/24/22 03:00 60 16 02/24/22 02:00 52 L 17 02/24/22 01:00 62 16 02/24/22 00:00 63 18 151/70 H 02/23/22 23:00 66 16 02/23/22 22:00 64 17 02/23/22 21:00 73 18 02/23/22 20:53 72 20 02/23/22 20:53 148/82 H 02/23/22 20:00 77 18 O2 Del Method 02/24/22 07:30 Room Air 02/24/22 07:00 Room Air 02/24/22 04:00 02/24/22 03:00 02/24/22 02:00 02/24/22 01:00 02/24/22 00:00 02/23/22 23:00 02/23/22 22:00 02/23/22 21:00 02/23/22 20:53 02/23/22 20:53 02/23/22 20:00 Laboratory Results 02/24/22 02/24/22 Range/Units 04:04 04:04 WBC 6.93 (4.8-10.8) K/ul RBC 4.67 (4.63-6.08) M/uL Hgb 13.9 L (14.0-18.0) g/dl Hct 40.4 (40.1-51.0) % MCV 86.5 (80.0-100.0) fL MCH 29.8 (25.0-34.0) pg MCHC 34.4 (32.0-36.0) g/dL RDW Std Deviation 40.2 (36.4-46.3) fL RDW Coeff of Laverne 12.9 (11.5-14.5) % Plt Count 161 (130-400) K/uL MPV 11.8 (9.4-12.4) fL Sodium 139 (136-145) mmol/L Potassium 4.1 (3.5-5.1) mmol/L Chloride 106 (98-107) mmol/L Carbon Dioxide 27 (21-32) mmol/L Anion Gap 6 (3-11) BUN 18 (6-23) mg/dl Creatinine 0.70 (0.6-1.4) mg/dl Est Cr Clr Drug Dosing 118.2 ml/min Est GFR ( Amer) 110.8 ml/min Est GFR (Non-Af Amer) 95.6 ml/min BUN/Creatinine Ratio 25.7 H (10-20) Glucose 96 (70-99(Fasting)) mg/dl Calcium 8.9 (8.5-10.1) mg/dl Phosphorus 3.7 (2.5-4.9) mg/dl Magnesium 2.1 (1.7-2.4) mg/dl Medications Administered Current Inpatient Medications Amiodarone HCl (Amiodarone 200 Mg Tab) 400 mg PO BID [facility] Stop: 03/20/22 12:44 Last Admin: 02/23/22 20:33 Dose: 400 mg Aspirin (Aspirin 81 Mg Chew) 81 mg PO QAM [facility] Stop: 03/19/22 08:59 Last Admin: 02/23/22 09:25 Dose: 81 mg Atorvastatin Calcium (Atorvastatin 40 Mg Tab) [facility] [place]: 03/19/22 08:59 Last Admin: 02/23/22 09:26 Dose: 80 mg Benzocaine/Butamben/Tetracaine HCl (Benzocaine/Tetracain/Butam 50 Appln/5 Gm Can) 1 appln EXT Q8H PRN PRN Reason: Sore Throat Stop: 03/20/22 20:34 Docusate Sodium (Docusate Sodium 100 Mg Cap) 100 mg PO BID [facility] Stop: 03/20/22 20:59 Last Admin: 02/23/22 20:33 Dose: 100 mg Enoxaparin Sodium (Enoxaparin Inj 40 Mg/0.4 Ml Syr) 40 mg SQ Q24H [facility] Stop: 03/22/22 15:59 Last Admin: 02/23/22 17:11 Dose: 40 mg Felodipine (Felodipine 5 Mg Tabcr) 5 mg PO QAM [facility] Stop: 03/20/22 17:14 Last Admin: 02/23/22 09:26 Dose: 5 mg Hydromorphone HCl (Hydromorphone Inj 0.5 Mg/0.5 Ml Syr) 0.5 mg IV Q4H PRN PRN Reason: Pain uncontrolled by PO Stop: 03/04/22 10:24 Last Admin: 02/21/22 05:08 Dose: 0.5 mg Ceftriaxone Sodium 2,000 mg/ (Dextrose) 70 mls @ 140 mls/hr IV Q24H [facility] Stop: 02/27/22 11:59 Last Infusion: 02/23/22 13:26 Dose: Infused Acetaminophen (Ofirmev) 1,000 mg in 100 mls @ 400 mls/hr IV Q8H PRN PRN Reason: Pain Stop: 02/24/22 13:39 Last Infusion: 02/22/22 14:19 Dose: Infused Levetiracetam (Levetiracetam 500 Mg Tab) 500 mg PO Q12H [facility] Stop: 03/21/22 19:59 Last Admin: 02/23/22 20:33 Dose: 500 mg Levothyroxine Sodium (Levothyroxine Sodium 125 Mcg Tablet) 125 mcg PO DAILYBB [facility] Stop: 03/19/22 06:29 Last Admin: 02/24/22 06:11 Dose: Not Given Lidocaine (Lidocaine 5% 1 Patch) 1 patch TD QAM [facility] Stop: 03/20/22 13:14 Last Admin: 02/23/22 09:25 Dose: 1 patch Melatonin (Melatonin 3 Mg Tab) 3 mg PO HS [facility] Stop: 03/24/22 20:59 Last Admin: 02/23/22 20:33 Dose: 3 mg Miscellaneous (Remove Lidoderm Patch) 1 each N/A DAILY@2100 [facility] Stop: 03/20/22 20:59 Last Admin: 02/23/22 20:33 Dose: 1 each Morphine Sulfate (Morphine Sulfate Cr 15 Mg Tabcr) 15 mg PO Q12H [facility] Stop: 03/07/22 11:59 Last Admin: 02/23/22 23:35 Dose: 15 mg Olmesartan (Olmesartan Medoxomil 40 Mg Tab) 40 mg PO QAM [facility] Stop: 03/20/22 17:14 Last Admin: 02/23/22 09:26 Dose: 40 mg Oxycodone HCl (Oxycodone Hcl Ir 5 Mg Tab (Immediate Release)) 10 mg PO Q6H PRN PRN Reason: Moderate-Severe Pain Stop: 03/06/22 08:34 Last Admin: 02/22/22 20:20 Dose: 10 mg Pantoprazole Sodium (Pantoprazole 40 Mg Tab) 40 mg PO DAILYBB [facility] Stop: 03/21/22 10:14 Last Admin: 02/24/22 06:11 Dose: Not Given Phenol (Chloraseptic 1.4% Soln 180 Ml Btl) 1 sprays MT PRN PRN PRN Reason: Sore Throat Stop: 03/21/22 22:03 Last Admin: 02/20/22 06:17 Dose: 1 sprays Polyethylene Glycol (Polyethylene (Miralax) 17 Gm Pack) 17 gm PO DAILY PRN PRN Reason: Constipation Stop: 03/24/22 14:33 Last Admin: 02/23/22 12:40 Dose: 17 gm Sennosides (Senna 8.6 Mg Tab) 17.2 mg PO HS [facility] Stop: 03/18/22 20:59 Last Admin: 02/23/22 20:33 Dose: 17.2 mg Ticagrelor (Ticagrelor 90 Mg Tab) 90 mg PO BID [facility] Stop: 03/19/22 08:59 Last Admin: 02/23/22 20:33 Dose: 90 mg (1) Acute myocardial infarction Involved coronary artery: unspecified coronary artery Myocardial infarction type: ST elevation myocardial infarction Qualified Code(s): I21.3 - ST elevation (STEMI) myocardial infarction of unspecified site
[2022-02-24] MEDS ORDERED: fentaNYL citrate 100 MCG/2 ML VIAL ONE ×2 (07:35→08:37)
[2022-02-24] MEDS ORDERED: MIDAZOLAM HCL 5 MG/ML 1 ML VIAL ONE (07:35)
[2022-02-24] MEDS ORDERED: ceFAZolin 330 MG/ML 1 GM VIAL ONE ×2 (07:35→07:36)
--- NOTE | 2022-02-24 07:43 | Pre Anesthesia Assessment ---
Date of Service February 24, 2022 Pre Sedation Assessment Vital Signs Temp Pulse Pulse Resp BP BP Pulse Ox 02/24/22 07:30 62 16 152/91 H 93 02/24/22 07:00 36.7 C 58 L 16 146/69 H 92 02/24/22 04:00 52 L 17 138/51 L 02/24/22 03:00 60 16 02/24/22 02:00 52 L 17 02/24/22 01:00 62 16 02/24/22 00:00 63 18 151/70 H 02/23/22 23:00 66 16 02/23/22 22:00 64 17 02/23/22 21:00 73 18 02/23/22 20:53 72 20 02/23/22 20:53 148/82 H 02/23/22 20:00 77 18 02/23/22 19:00 73 21 02/23/22 08:00 02/23/22 13:00 36.4 C L 77 20 120/73 95 02/23/22 08:00 36.6 C 65 14 150/81 H 94 O2 Del Method 02/24/22 07:30 Room Air 02/24/22 07:00 Room Air 02/24/22 04:00 02/24/22 03:00 02/24/22 02:00 02/24/22 01:00 02/24/22 00:00 02/23/22 23:00 02/23/22 22:00 02/23/22 21:00 02/23/22 20:53 02/23/22 20:53 02/23/22 20:00 02/23/22 19:00 02/23/22 08:00 Room Air 02/23/22 13:00 Room Air 02/23/22 08:00 Room Air Cardiovascular RRR, no murmur, no edema Respiratory normal respiratory effort, lungs clear to auscultation Pre-Sedation Airway Assessment Smoking Status: Former smoker Hx Sleep Apnea: No Hx Difficult Intubation: No Short, Thick Neck: No Thyromental Distance: > or= 3.5 Finger Breadths Oral Cavity: + WNL Mallampati Class: III ASA: ASA4 NPO Status Date of Last Intake of Fluids: 02/23/22 Date of Last Intake of Solid Food: 02/23/22 Procedure Planning Contraindications for Sedation: none Current Medications Reviewed: Yes Notes The planned sedation has been discussed with the patient. Informed Consent was obtained. I have identified the patient, determined the appropriateness of s edation and have assessed the patient immediately prior to the procedure. All medicine(s) and interventions are by my order.
--- NOTE | 2022-02-24 07:45 | History & Physical Bridge Note ---
Date of Service February 24, 2022 History & Physical Bridge Note I have examined the patient, reviewed the History & Physical and in the interval since the performance of the History & Physical I have noted the following changes of clinical significance: pt with cardiac arrest and bradycardia. He has been treated now for a week for bacterial PNA; he is ok medically now for an ICD; consents signed after I discussed the procedure and potential risks
--- NOTE | 2022-02-24 09:01 | Post Anesthesia Assessment ---
Date of Service February 24, 2022 Post Sedation Assessment Vital Signs Temp Pulse Pulse Resp BP BP Pulse Ox 02/24/22 07:30 62 16 152/91 H 93 02/24/22 07:00 36.7 C 58 L 16 146/69 H 92 02/24/22 04:00 52 L 17 138/51 L 02/24/22 03:00 60 16 02/24/22 02:00 52 L 17 02/24/22 01:00 62 16 02/24/22 00:00 63 18 151/70 H 02/23/22 23:00 66 16 02/23/22 22:00 64 17 02/23/22 21:00 73 18 02/23/22 20:53 72 20 02/23/22 20:53 148/82 H 02/23/22 20:00 77 18 02/23/22 19:00 73 21 02/23/22 13:00 36.4 C L 77 20 120/73 95 O2 Del Method 02/24/22 07:30 Room Air 02/24/22 07:00 Room Air 02/24/22 04:00 02/24/22 03:00 02/24/22 02:00 02/24/22 01:00 02/24/22 00:00 02/23/22 23:00 02/23/22 22:00 02/23/22 21:00 02/23/22 20:53 02/23/22 20:53 02/23/22 20:00 02/23/22 19:00 02/23/22 13:00 Room Air Recovery Score Activity: Moves 4 extremities Respiration: Deep Breath/Cough Circulation: +/-20% PreAnes Value Consciousness: Fully Awake Oxygen Saturation: > 92% On Room Air Discharge Sedation Level of Care: Fast Track Phase II Post Sedation Plan On clinical assessment, the patient appears to have tolerated the sedation without complications. Patient is recovering as anticipated. Patient will continue to be monitored by nursing and may be discharged when sedation discharge criteria are met per below protocol. Upon Completions of procedure up to 15 minutes continue every 5 minute vital signs and the P.A.R. score; then discharge to a Phase I or Fast Track to Phase II per the following guidelines: * Discharge Patient to appropriate Phase II area if PAR is 8 or greater or return to pre- procedure baseline. The post - procedure orders will be as directed. * If PAR score is less than 8 or not return to pre-procedure baseline then patient will follow Phase I monitoring till PAR is reached for Phase II. The Phase I may be done in procedure room or may call to secure a Phase I area. * If naloxone or flumazenil are used for reversal, hold in Phase I for continued monitoring from when last reversal dose was given for a minimum of 60 minutes or longer pending the nurse and/or physician discretion of patient condition before discharge to Phase II. Please call the Sedation Physician to re-evaluate and complete post-note for discharge to Phase II area. Do NOT discharge from procedure sedation or Phase 1 until post- sedation evaluation note is complete by procedure /sedation MD Sedation Discharge Instructions to be given to the patient at discharge to home.
--- NOTE | 2022-02-24 09:04 | Operative Report ---
Post Operative Report Pre & Post Diagnosis Cardiac Arrest, VT, Sinus bradycardia Operation Date: 02/16/22 15:00 <No data on this case meets the specified criteria> Operation Date: 02/24/22 07:30 <No data on this case meets the specified criteria> I identified the patient and participated in the time-out.: Yes Procedure Operation Date: 02/16/22 15:00 Actual Procedures p Drug Eluting Stent SGl Vessel - Luis F Suazo MD s Cath, Left with Cors and Vent - Luis F Suazo MD Operation Date: 02/24/22 07:30 Actual Procedures p ICD Insertion Single or Dual - Cait Santiago DO s Venogram, Unilateral - Cait Santiago DO Surgeon Cait Santiago, Automatic Seamer none Estimated Blood Loss 40 Findings Consistent with Post-Op Diagnosis Specimens none Description of Procedure see official report I attest to the content of the Intraoperative Record and any orders documented therein. Any exceptions are noted below.
[2022-02-24] MEDS: levETIRAcetam 500 MG TAB PO SCH ×2 (09:44→20:21)
[2022-02-24] MEDS: DOCUSATE SODIUM 100 MG CAP PO SCH ×2 (09:45→20:20)
[2022-02-24] MEDS: ATORVASTATIN 40 MG TAB PO SCH (09:45)
[2022-02-24] MEDS: AMIODARONE 200 MG TAB PO SCH ×2 (09:45→20:19)
[2022-02-24] MEDS: LIDOCAINE 5% 1 PATCH TD SCH (09:46)
[2022-02-24] MEDS: FELODIPINE 5 MG TABCR PO SCH (09:46)
[2022-02-24] MEDS: OLMESARTAN MEDOXOMIL 40 MG TAB PO SCH (09:47)
[2022-02-24] MEDS: TICAGRELOR 90 MG TAB PO SCH ×2 (09:47→20:22)
[2022-02-24] MEDS: ASPIRIN 81 MG CHEW PO SCH (09:50)
--- NOTE | 2022-02-24 09:58 | Cardiology Progress Note ---
Date of Service February 24, 2022 Assessment & Plan (1) Sinus bradycardia: (2) ST elevation (STEMI) myocardial infarction involving right coronary artery: (3) Torsades de pointes: (4) Ventricular fibrillation: (5) Cardiac arrest: (6) Aspiration pneumonitis: Plan I spoke with Dr. Mitchell who indicated that if the patient's chest x-ray later today is okay then it would be reasonable for him to go home. He still has a Rosenbaum catheter and that needs to come out. He also needs to be ambulated but perhaps may be later this afternoon he can be discharged home. I believe Dr. Mitchell arrange follow-up with our clinic. Admission and Anticipated Discharge Date Admission Date: February 16, 2022 Subjective The patient underwent an ICD implant this morning. He is in good spirits. Review of Systems Review of Systems: Review of Systems: See HPI for pertinent positives. All o ther 10 point review of systems are negative. Physical Exam Physical Exam: General: no acute distress and stated age Head: normocephalic, no masses, lesions, tenderness or abnormalities Eyes: conjunctiva are pink and non-injected, sclera clear Neck: supple, no adenopathy, no bruits, normal jugular venous pulse, no hepatojugular reflux Chest: normal shape and normal respiratory effort Lungs: clear to auscultation and percussion Cardiac Exam: - regular rate & rhythm, no murmurs gallops or rubs - normal S1, normal S2 Pulses: 2(+) throughout Abdomen: abdomen soft, non-tender, no abnormal masses and no hepatosplenomegaly Musculoskeletal: no gait disturbance, no joint inflammation, no deforming arthritis Extremities: no edema and no cyanosis Neuro: grossly normal exam Results & Data ([facility]) Vital Signs (Past 12 Hours) Vital Signs Temp Pulse Pulse Resp BP BP Pulse Ox 02/24/22 09:15 60 14 138/71 98 02/24/22 09:05 60 16 159/78 H 98 02/24/22 07:30 62 16 152/91 H 93 02/24/22 07:00 36.7 C 58 L 16 146/69 H 92 02/24/22 04:00 52 L 17 138/51 L 02/24/22 03:00 60 16 02/24/22 02:00 52 L 17 02/24/22 01:00 62 16 02/24/22 00:00 63 18 151/70 H 02/23/22 23:00 66 16 02/23/22 22:00 64 17 O2 Del Method 02/24/22 09:15 Room Air 02/24/22 09:05 Room Air 02/24/22 07:30 Room Air 02/24/22 07:00 Room Air 02/24/22 04:00 02/24/22 03:00 02/24/22 02:00 02/24/22 01:00 02/24/22 00:00 02/23/22 23:00 02/23/22 22:00 Laboratory Results Laboratory Results - last 24 hr 02/24/22 02/24/22 04:04 04:04 WBC 6.93 RBC 4.67 Hgb 13.9 L Hct 40.4 MCV 86.5 MCH 29.8 MCHC 34.4 RDW Std Deviation 40.2 RDW Coeff of Laverne 12.9 Plt Count 161 MPV 11.8 Sodium 139 Potassium 4.1 Chloride 106 Carbon Dioxide 27 Anion Gap 6 BUN 18 Creatinine 0.70 Est Cr Clr Drug Dosing 118.2 Est GFR ( Amer) 110.8 Est GFR (Non-Af Amer) 95.6 BUN/Creatinine Ratio 25.7 H Glucose 96 Calcium 8.9 Phosphorus 3.7 Magnesium 2.1 Medications Administered Current Inpatient Medications Amiodarone HCl (Amiodarone 200 Mg Tab) 400 mg PO BID [facility] Stop: 03/20/22 12:44 Last Admin: 02/23/22 20:33 Dose: 400 mg Aspirin ([facility]in 81 Mg Chew) [facility] [place] Stop: 03/19/22 08:59 Last Admin: 02/23/22 09:25 Dose: 81 mg Atorvastatin Calcium (Atorvastatin 40 Mg Tab) 80 mg PO QAM [facility] Stop: 03/19/22 08:59 Last Admin: 02/23/22 09:26 Dose: 80 mg Benzocaine/Butamben/Tetracaine HCl (Benzocaine/Tetracain/Butam 50 Appln/5 Gm Can) 1 appln EXT Q8H PRN PRN Reason: Sore Throat Stop: 03/20/22 20:34 Docusate Sodium (Docusate Sodium 100 Mg Cap) 100 mg PO BID [facility] Stop: 03/20/22 20:59 Last Admin: 02/23/22 20:33 Dose: 100 mg Enoxaparin Sodium (Enoxaparin Inj 40 Mg/0.4 Ml Syr) 40 mg SQ Q24H [facility] Stop: 03/22/22 15:59 Last Admin: 02/23/22 17:11 Dose: 40 mg Felodipine (Felodipine 5 Mg Tabcr) 5 mg PO QAM [facility] Stop: 03/20/22 17:14 Last Admin: 02/23/22 09:26 Dose: 5 mg Hydromorphone HCl (Hydromorphone Inj 0.5 Mg/0.5 Ml Syr) 0.5 mg IV Q4H PRN PRN Reason: Pain uncontrolled by PO Stop: 03/04/22 10:24 Last Admin: 02/21/22 05:08 Dose: 0.5 mg Ceftriaxone Sodium 2,000 mg/ (Dextrose) 70 mls @ 140 mls/hr IV Q24H [facility] Stop: 02/27/22 11:59 Last Infusion: 02/23/22 13:26 Dose: Infused Acetaminophen (Ofirmev) 1,000 mg in 100 mls @ 400 mls/hr IV Q8H PRN PRN Reason: Pain Stop: 02/24/22 13:39 Last Infusion: 02/22/22 14:19 Dose: Infused Levetiracetam (Levetiracetam 500 Mg Tab) 500 mg PO Q12H [facility] Stop: 03/21/22 19:59 Last Admin: 02/23/22 20:33 Dose: 500 mg Levothyroxine Sodium (Levothyroxine Sodium 125 Mcg Tablet) 125 mcg PO DAILYBB [facility] Stop: 03/19/22 06:29 Last Admin: 02/24/22 06:11 Dose: Not Given Lidocaine (Lidocaine 5% 1 Patch) 1 patch TD QAM [facility] Stop: 03/20/22 13:14 Last Admin: 02/23/22 09:25 Dose: 1 patch Melatonin (Melatonin 3 Mg Tab) 3 mg PO HS [facility] Stop: 03/24/22 20:59 Last Admin: 02/23/22 20:33 Dose: 3 mg Miscellaneous (Remove Lidoderm Patch) 1 each N/A DAILY@2100 [facility] Stop: 03/20/22 20:59 Last Admin: 02/23/22 20:33 Dose: 1 each Morphine Sulfate (Morphine Sulfate Cr 15 Mg Tabcr) 15 mg PO Q12H [facility] Stop: 03/07/22 11:59 Last Admin: 02/23/22 23:35 Dose: 15 mg Olmesartan (Olmesartan Medoxomil 40 Mg Tab) 40 mg PO QAM [facility] Stop: 03/20/22 17:14 Last Admin: 02/23/22 09:26 Dose: 40 mg Oxycodone HCl (Oxycodone Hcl Ir 5 Mg Tab (Immediate Release)) 10 mg PO Q6H PRN PRN Reason: Moderate-Severe Pain Stop: 03/06/22 08:34 Last Admin: 02/22/22 20:20 Dose: 10 mg Pantoprazole Sodium (Pantoprazole 40 Mg Tab) 40 mg PO DAILYBB [facility] Stop: 03/21/22 10:14 Last Admin: 02/24/22 06:11 Dose: Not Given Phenol (Chloraseptic 1.4% Soln 180 Ml Btl) 1 sprays MT PRN PRN PRN Reason: Sore Throat Stop: 03/21/22 22:03 Last Admin: 02/20/22 06:17 Dose: 1 sprays Polyethylene Glycol (Polyethylene (Miralax) 17 Gm Pack) 17 gm PO DAILY PRN PRN Reason: Constipation Stop: 03/24/22 14:33 Last Admin: 02/23/22 12:40 Dose: 17 gm Sennosides (Senna 8.6 Mg Tab) 17.2 mg PO HS [facility] Stop: 03/18/22 20:59 Last Admin: 02/23/22 20:33 Dose: 17.2 mg Ticagrelor (Ticagrelor 90 Mg Tab) 90 mg PO BID [facility] Stop: 03/19/22 08:59 Last Admin: 02/23/22 20:33 Dose: 90 mg
[2022-02-24] MEDS: POLYETHYLENE (MIRALAX) 17 GM PACK PO PRN (10:10)
[2022-02-24] MEDS: cefTRIAXone SODIUM 2,000 MG in DEXTROSE 5% 50 ML IV SCH (12:06)
[2022-02-24] MEDS: MoRPHine SULFATE CR 15 MG TABCR PO SCH ×2 (12:06→23:37)
--- NOTE | 2022-02-24 12:57 | XRay Report ---
XR chest 1V portable CLINICAL HISTORY: s/p icd COMPARISON STUDY: Chest radiograph February 21, 2022. FINDINGS: There is no pneumothorax placement of a left subclavian pacer/AICD. Cardiomegaly is unchang ed. There is no evidence for pulmonary edema. Mild elevation of the right hemidiaphragm is noted. The re is no evidence for pulmonary edema. IMPRESSION: No pneumothorax placement of a left subclavian pacer/AICD. ACT 112: Negative or not required by law. Electronically signed by: Contreras Bartlett M.D. 02/24/2022 12:56 PM
--- NOTE | 2022-02-24 15:31 | Electrocardiogram Report ---
Test Reason : Blood Pressure : / mmHG Vent. Rate : 065 BPM Atrial Rate : 065 BPM P-R Int : 262 ms QRS Dur : 082 ms QT Int : 442 ms P-R-T Axes : 000 -36 019 degrees QTc Int : 459 ms Sinus rhythm with 1st degree A-V block Left axis deviation Voltage criteria for left ventricular hypertrophy Inferior infarct (cited on or before 16-FEB-2022) Abnormal ECG When compared with ECG of 20-FEB-2022 00:17, Premature ventricular complexes are no longer Present Premature atrial complexes are no longer Present Confirmed by Lauro Matos ([id number]) on 02/24/2022 3:31:21 PM Referred By: REFERRED SELF Confirmed By:Lauro Matos
[2022-02-24] MEDS: ENOXAPARIN INJ 40 MG/0.4 ML SYR SQ SCH (17:13)
[2022-02-24] MEDS: ACETAMINOPHEN 500 MG TAB PO PRN (17:14)
[2022-02-24] MEDS: SENNA 8.6 MG TAB PO SCH (20:19)
[2022-02-24] MEDS: MELATONIN 3 MG TAB PO SCH (20:19)
[2022-02-25 04:22] LABS: Hematocrit (blood only) 39.4 % (40.1-51.0); Hemoglobin 13.4 g/dl (14.0-18.0); Mean Corpuscular Hemoglobin 29.9 pg (25.0-34.0); Mean Corpuscular Volume 87.9 fL (80.0-100.0); Mean Platelet Volume 11.1 fL (9.4-12.4); Platelet Count 149 K/uL (130-400); RDW Standard Deviation 41.1 fL (36.4-46.3); Red Blood Count 4.48 M/uL (4.63-6.08); White Blood Count 6.62 K/ul (4.8-10.8)
[2022-02-25 04:44] LABS: BUN Creatinine Ratio 24.3 (10-20); Creatinine Clr Calc Pharmacy 111.6 ml/min; Est GFR (African American) 108.3 ml/min; Est GFR (Non-African American) 93.5 ml/min; Phosphorus 3.8 mg/dl (2.5-4.9); Potassium 4.3 mmol/L (3.5-5.1)
[2022-02-25] MEDS: LEVOTHYROXINE SODIUM 125 MCG TABLET PO SCH (06:08)
[2022-02-25] MEDS: PANTOprazole 40 MG TAB PO SCH (06:08)
[2022-02-25] MEDS: AMIODARONE 200 MG TAB PO SCH (08:01)
[2022-02-25] MEDS: ATORVASTATIN 40 MG TAB PO SCH (08:01)
[2022-02-25] MEDS: OLMESARTAN MEDOXOMIL 40 MG TAB PO SCH (08:01)
[2022-02-25] MEDS: FELODIPINE 5 MG TABCR PO SCH (08:01)
[2022-02-25] MEDS: TICAGRELOR 90 MG TAB PO SCH (08:02)
[2022-02-25] MEDS: levETIRAcetam 500 MG TAB PO SCH (08:02)
[2022-02-25] MEDS: LIDOCAINE 5% 1 PATCH TD SCH (08:02)
[2022-02-25] MEDS: DOCUSATE SODIUM 100 MG CAP PO SCH (08:02)
[2022-02-25] MEDS: ACETAMINOPHEN 500 MG TAB PO PRN (08:04)
[2022-02-25] MEDS: ASPIRIN 81 MG CHEW PO SCH (08:05)
--- NOTE | 2022-02-25 08:49 | Hospitalist Progress Note ---
Date of Service February 25, 2022 Assessment & Plan (1) Cardiac arrest: (2) Acute myocardial infarction: Plan: STEMI involving RCA s/p BENOIT (3) Atrial fibrillation with rapid ventricular response: Plan: Presented on admission with witnessed cardiac arrest with prehospital cardiac arrest Heart alert called on presentation ECG showed atrial fibrillation with RVR inferior ST elevations S/P emergent cardiac catheterization with Successful PCI of ostial to mid RCA with 2 overlapping drug-eluting stents (3.0 x 12, 2.75 x 12 mm [place]; postdilated with 3.5 NC). Cardiology consulted and following closely Continue dual-antiplatelet therapy with aspirin and brillinta for at least 1 year. Continue High dose statin , beta noelle and ARB as BP tolerates - at home patient was on metoprolol succinate, will restart this medication at at lower dose 25 mg daily. Continue home olmesartan. Will need cardiac rehab when discharge Brief episodes of ventricular fibrillation. Pt has recurrent VT/VF post STEMI and revascularization. He was started on Amiodarone ECHO showed normal LV chamber size with mild concentric LVH. Borderline global hypokinesis of the left ventricle. Left ventricular systolic function is low normal with ejection fraction 50 to 55%. Cardiology recommended dual chamber ICD given the post AL cardiac arrest and SB S/p ICD placement (02/24) w/ Dr. Santiago Patient to be discharged on amiodarone 200 twice daily. Respiratory failure He was sedated and intubated on mechanical ventilation Now extubated and off sedation Continue oxygen supplement as needed Incentive spirometry Currently on RA ?Pneumonia s/p bronchoscopy, cultx posit. for H. influenzae - initially on cefepime + doxy per ICU team, then switched to ceftriaxone (to be finished on 02/25) Seizure like activity Questionable seizure-like activity reported by family prior to cardiac arrest In the ICU, noted to have intermittent myoclonic jerking. received Keppra 1 g Neurology on board EEG was Essentially normal, with no focal abnormalities or potentially epileptogenic discharges seen. Off sedation and no focal neuro deficit on exam Neurology - recommended to continue Keppra 500 mg twice daily Plan to get MRI of brain (likely as outpt) with and without contrast to see if there is any a small stroke or damage that occurred with the cardiac arrest or any reasons for seizures. Continue seizure precaution Neurology follow up in 3-4 weeks (Dr. Drew) (4) AAA (abdominal aortic aneurysm): Plan: History of AAA, measured 3cm x 3cm on imaging 06/2021 Plan to DC home today. Discussed plan with the pt and daughter at the bedside. Admission and Anticipated Discharge Date Admission Date: February 16, 2022 Subjective Pt was seen in follow up of cardiac arrest 2/2 STEMI to RCA, Vfib Lying in bed in no acute distress with daughter at the bedside Pt is breathing comfortably on RA Pt neurologically intact and following commands Reports chest wall pain from the chest compression Patient underwent ICD placement yesterday. Tolerated procedure well. Rosenbaum catheter was removed yesterday. Overall feeling well. Discussed discharge plan with the pt and his daughter in detail at the bedside. Review of Systems Review of Systems: All systems reviewed & are unremarkable except as noted in Subjective Physical Exam Physical Exam: General- awake and alert in NAD Head- atraumatic Eyes- PERRL, EOMI, ENT- oropharynx clear Neck- supple, no JVD Lungs- No wheezing, mild crackles at bases Heart- +regular Abdomen- normal bowel sounds, soft, nontender Extremities- No edema, moves extremities Neuro- awake and alert, answering questions appropriately Results & Data Results & Data ([facility]) Vital Signs (Past 12 Hours) Vital Signs Temp Pulse Pulse Resp BP Pulse Ox O2 Del Method 02/25/22 04:40 36.7 C 64 16 132/75 93 Room Air 02/25/22 00:00 60 02/24/22 23:46 36.5 C 61 16 147/87 H 93 Room Air Laboratory Results 02/25/22 02/25/22 Range/Units 04:10 04:10 WBC 6.62 (4.8-10.8) K/ul RBC 4.48 L (4.63-6.08) M/uL Hgb 13.4 L (14.0-18.0) g/dl Hct 39.4 L (40.1-51.0) % MCV 87.9 (80.0-100.0) fL MCH 29.9 (25.0-34.0) pg MCHC 34.0 (32.0-36.0) g/dL RDW Std Deviation 41.1 (36.4-46.3) fL RDW Coeff of Laverne 13.0 (11.5-14.5) % Plt Count 149 (130-400) K/uL MPV 11.1 (9.4-12.4) fL Sodium 137 (136-145) mmol/L Potassium 4.3 (3.5-5.1) mmol/L Chloride 105 (98-107) mmol/L Carbon Dioxide 27 (21-32) mmol/L Anion Gap 5 (3-11) BUN 18 (6-23) mg/dl Creatinine 0.74 (0.6-1.4) mg/dl Est Cr Clr Drug Dosing 111.6 ml/min Est GFR ( Amer) 108.3 ml/min Est GFR (Non-Af Amer) 93.5 ml/min BUN/Creatinine Ratio 24.3 H (10-20) Glucose 100 H (70-99(Fasting)) mg/dl Calcium 9.0 (8.5-10.1) mg/dl Phosphorus 3.8 (2.5-4.9) mg/dl Magnesium 2.0 (1.7-2.4) mg/dl Medications Administered Current Inpatient Medications Acetaminophen (Acetaminophen 500 Mg Tab) 1,000 mg PO Q8H PRN PRN Reason: pain Stop: 03/26/22 10:45 Last Admin: 02/25/22 08:04 Dose: 1,000 mg Amiodarone HCl (Amiodarone 200 Mg Tab) 200 mg PO BID [facility] Stop: 03/27/22 20:59 Aspirin (Aspirin 81 Mg Chew) [facility] [place] [facility]: 03/19/22 08:59 Last Admin: 02/25/22 08:05 Dose: 81 mg Atorvastatin Calcium (Atorvastatin 40 Mg Tab) 80 mg PO QAM [facility] Stop: 03/19/22 08:59 Last Admin: 02/25/22 08:01 Dose: 80 mg Docusate Sodium (Docusate Sodium 100 Mg Cap) 100 mg PO BID [facility] Stop: 03/20/22 20:59 Last Admin: 02/25/22 08:02 Dose: 100 mg Enoxaparin Sodium (Enoxaparin Inj 40 Mg/0.4 Ml Syr) 40 mg SQ Q24H [facility] Stop: 03/22/22 15:59 Last Admin: 02/24/22 17:13 Dose: 40 mg Felodipine (Felodipine 5 Mg Tabcr) 5 mg PO QAM [facility] Stop: 03/20/22 17:14 Last Admin: 02/25/22 08:01 Dose: 5 mg Hydromorphone HCl (Hydromorphone Inj 0.5 Mg/0.5 Ml Syr) 0.5 mg IV Q4H PRN PRN Reason: Pain uncontrolled by PO Stop: 03/04/22 10:24 Last Admin: 02/21/22 05:08 Dose: 0.5 mg Ceftriaxone Sodium 2,000 mg/ (Dextrose) 70 mls @ 140 mls/hr IV Q24H [facility] Stop: 02/25/22 23:59 Last Admin: 02/25/22 11:32 Dose: 140 mls/hr Levetiracetam (Levetiracetam 500 Mg Tab) 500 mg PO Q12H [facility] Stop: 03/21/22 19:59 Last Admin: 02/25/22 08:02 Dose: 500 mg Levothyroxine Sodium (Levothyroxine Sodium 125 Mcg Tablet) 125 mcg PO DAILYBB [facility] Stop: 03/19/22 06:29 Last Admin: 02/25/22 06:08 Dose: 125 mcg Lidocaine (Lidocaine 5% 1 Patch) 1 patch TD QAM [facility] Stop: 03/20/22 13:14 Last Admin: 02/25/22 08:02 Dose: 1 patch Melatonin (Melatonin 3 Mg Tab) 3 mg PO HS [facility] Stop: 03/24/22 20:59 Last Admin: 02/24/22 20:19 Dose: 0.75 mg Metoprolol Succinate (Metoprolol Succ 25mg Ext Rel Tab) 25 mg PO QAM [facility] Stop: 03/27/22 11:14 Last Admin: 02/25/22 11:31 Dose: 25 mg Miscellaneous (Remove Lidoderm Patch) 1 each N/A DAILY@2100 [facility] Stop: 03/20/22 20:59 Last Admin: 02/24/22 20:25 Dose: 1 each Morphine Sulfate (Morphine Sulfate Cr 15 Mg Tabcr) 15 mg PO Q12H [facility] Stop: 03/07/22 11:59 Last Admin: 02/25/22 11:32 Dose: 15 mg Olmesartan (Olmesartan Medoxomil 40 Mg Tab) 40 mg PO QAM [facility] Stop: 03/20/22 17:14 Last Admin: 02/25/22 08:01 Dose: 40 mg Oxycodone HCl (Oxycodone Hcl Ir 5 Mg Tab (Immediate Release)) 10 mg PO Q6H PRN PRN Reason: Moderate-Severe Pain Stop: 03/06/22 08:34 Last Admin: 02/22/22 20:20 Dose: 10 mg Pantoprazole Sodium (Pantoprazole 40 Mg Tab) 40 mg PO DAILYBB [facility] Stop: 03/21/22 10:14 Last Admin: 02/25/22 06:08 Dose: 40 mg Phenol (Chloraseptic 1.4% Soln 180 Ml Btl) 1 sprays MT PRN PRN PRN Reason: Sore Throat Stop: 03/21/22 22:03 Last Admin: 02/20/22 06:17 Dose: 1 sprays Polyethylene Glycol (Polyethylene (Miralax) 17 Gm Pack) 17 gm PO DAILY PRN PRN Reason: Constipation Stop: 03/24/22 14:33 Last Admin: 02/24/22 10:10 Dose: 17 gm Sennosides (Senna 8.6 Mg Tab) 17.2 mg PO HS [facility] Stop: 03/18/22 20:59 Last Admin: 02/24/22 20:19 Dose: 17.2 mg Ticagrelor (Ticagrelor 90 Mg Tab) 90 mg PO BID [facility] Stop: 03/19/22 08:59 Last Admin: 02/25/22 08:02 Dose: 90 mg (1) Acute myocardial infarction Involved coronary artery: unspecified coronary artery Myocardial infarction type: ST elevation myocardial infarction Qualified Code(s): I21.3 - ST elevation (STEMI) myocardial infarction of unspecified site
[2022-02-25] MEDS ORDERED: METOPROLOL SUCC 25MG EXT REL TAB PO SCH (11:15)
[2022-02-25] MEDS: MoRPHine SULFATE CR 15 MG TABCR PO SCH (11:32)
[2022-02-25] MEDS: cefTRIAXone SODIUM 2,000 MG in DEXTROSE 5% 50 ML IV SCH (11:32)
--- NOTE | 2022-02-25 11:52 | Discharge Summary ---
Date of Service February 25, 2022 Admission HPI Per Admitting Provider 71-year-old male with PMH hypothyroidism, dyslipidemia, prediabetes, AAA, HTN, GERD, BPH, borderline tachybradycardia syndrome with a brief isolated episode of atrial fibrillation July 2021, and other problems to below who presents to the ED after cardiac arrest. Patient is currently intubated and sedated in the ICU. History obtained from review of records. Patient had a witnessed cardiac arrest at home and CPR was initiated by family member. Questionable seizure- like activity. Upon EMS arrival, patient received 1 shock via AED. Intubation was attempted however unsuccessful due to mild clenching. Upon arrival to the ED, patient was found to be in atrial fibrillation with RVR with acute inferior ST elevation. He was intubated in the ED and taken emergently to the Roving Frame Tender. Patient received BENOIT x 2 to mid RCA. Admission Exam Per Admitting Provider Constitutional: WD/WN, vitals as above Sedated, intubated Respiratory: normal respiratory effort, lungs clear to auscultation Intubated Cardiovascular: Rate/Rhythm: regular rhythm and + bradycardic Vessels: normal peripheral pulses Extremities: no edema Gastrointestinal (Abdomen): normal bowel sounds, soft, nontender, no hepatosplenomegaly Musculoskeletal: Extremities: no cyanosis and no clubbing Unable to assess strength due to sedation Skin: no rashes, warm and dry Neurologic: Sedated Psychiatric: Unable to assess secondary to sedation Principal Diagnosis Cardiac arrest STEMI involving RCA s/p BENOIT placement Ventricular fibrillation Now s/p ICD placement Discharge Exam General- awake and alert in NAD Head- atraumatic Eyes- PERRL, EOMI, ENT- oropharynx clear Neck- supple, no JVD Lungs- No wheezing, mild crackles at bases Heart- +regular Abdomen- normal bowel sounds, soft, nontender Extremities- No edema, moves extremities Neuro- awake and alert, answering questions appropriately Discharge Data Allergies Allergy/AdvReac Type Severity Reaction Status Date / Time No Known Allergies Allergy Unknown Verified 02/16/22 14:33 Consultations 02/16/22 16:00 Consult Director Of Intelligence Routine 02/16/22 19:53 Consult Neurology Routine 02/16/22 21:29 Consult Cardiology Routine 02/21/22 12:06 Consult Cardiology Stat Procedures Performed Operation Date: 02/16/22 15:00 Actual Procedures p Drug Eluting Stent SGl Vessel - Luis F Suazo MD s Cath, Left with Cors and Vent - Luis F Suazo MD Operation Date: 02/24/22 07:30 Actual Procedures p ICD Insertion Single or Dual - Cait Santiago, DO s Venogram, Unilateral - Cait Santiago, DO Ordered Studies 02/16/22 14:31 CL Cath Imgs for PACS use only Stat 02/22/22 13:34 US venous doppler UE LT Urgent 02/24/22 07:00 EP Lab Images for PACS ONCE Hospital Course (1) Cardiac arrest: (2) Acute myocardial infarction: STEMI involving RCA s/p BENOIT (3) Atrial fibrillation with rapid ventricular response: Presented on admission with witnessed cardiac arrest with prehospital cardiac arrest Heart alert called on presentation ECG showed atrial fibrillation with RVR inferior ST elevations S/P emergent cardiac catheterization with Successful PCI of ostial to mid RCA with 2 overlapping drug-eluting stents (3.0 x 12, 2.75 x 12 mm Tao; postdilated with 3.5 NC). Cardiology consulted and following closely Continue dual-antiplatelet therapy with aspirin and brillinta for at least 1 year. Continue High dose statin , beta noelle and ARB as BP tolerates - at home patient was on metoprolol succinate, will restart this medication at at lower do se 25 mg daily. Continue home olmesartan. Will need cardiac rehab when discharge Ventricular fibrillation. Pt has recurrent VT/VF post STEMI and revascularization. He was started on Amiodarone ECHO showed normal LV chamber size with mild concentric LVH. Borderline global hypokinesis of the left ventricle. Left ventricular systolic function is low normal with ejection fraction 50 to 55%. Cardiology recommended dual chamber ICD given the post ID cardiac arrest and SB S/p ICD placement (02/24) w/ Dr. Santiago Patient to be discharged on amiodarone 200 twice daily. Respiratory failure He was sedated and intubated on mechanical ventilation Now extubated and off sedation Continue oxygen supplement as needed Incentive spirometry Currently on RA ?Pneumonia s/p bronchoscopy, cultx posit. for H. influenzae - initially on cefepime + doxy per ICU team, then switched to ceftriaxone (to be finished on 02/25) Seizure like activity Questionable seizure-like activity reported by family prior to cardiac arrest In the ICU, noted to have intermittent myoclonic jerking. received Keppra 1 g Neurology on board EEG was Essentially normal, with no focal abnormalities or potentially epileptogenic discharges seen. Off sedation and no focal neuro deficit on exam Neurology - recommended to continue Keppra 500 mg twice daily Plan to get MRI of brain (likely as outpt) with and without contrast to see if there is any a small stroke or damage that occurred with the cardiac arrest or any reasons for seizures. Continue seizure precaution Neurology follow up in 3-4 weeks (Dr. Drew) (4) AAA (abdominal aortic aneurysm): History of AAA, measured 3cm x 3cm on imaging 06/2021 Total Time Total Time Spent Total Time Spent (In Minutes): 60 Discharge Plan Discharge Items Patient Disposition: Home - Self-Care Reason For Visit: CARDIAC ARREST Discharge Diagnosis: Cardiac arrest STEMI involving RCA s/p BENOIT placement Ventricular fibrillation Now s/p ICD placement Activity: As commented below Activity Comment: do not raise the left elbow over the left shoulder for 1 month Lifting: No more than 10 pounds Lifting Comment: do not lift more than 10 pounds with the left arm for 2 weeks Bathing: Keep incision dry Bathing Comment: keep dressing on & dry until wound check next week Sexual Activity: After two weeks Non-emergency contact: Primary Care Provider and Community Liaison Call non-emergency contact if: you have any medication questions and your symptoms worsen Follow-up/Referrals: Cait Santiago DO [Physician] - (Date & Time 03/05/2022 10:30 AM Provider Pacer Clinic [facility] Department Cardiology, [facility] ) Sammy Velasquez DO [Primary Care Provider] - (Date & Time 03/04/2022 11:20 AM Provider Sammy Velasquez DO Department Family Practice [facility] ) Diet: Heart Healthy Addtl Attending Provider Instructions: Follow-up with your primary care doctor and plug overwrap machine tender within 1 to 2 weeks. Continue taking aspirin and Brilinta daily for at least 1 year. Instead of atorvastatin 40 mg daily, take 80 mg daily. You were started on a new medication, amiodarone, take 200 mg twice a day. Take metoprolol succinate at lower dose - 25 mg daily. For pain you can use lidocaine patches, these are obtainable [id number], often under the name Salonpas. Continue using MS Contin as prescribed. While you take MS Contin, make sure that you take stool softeners. You can take senna daily, MiraLAX or any other oovv-ddc-xnagvgd product. You will also need to take Keppra 500 mg twice a day. Follow-up with neurology in about 3 weeks for further recommendations. Addtl Hyperbaric Technologist Provider Instructions: Device and wound check at [facility] next week Pending Studies at Discharge: No Stand-Alone Forms: My [facility], Smoking Cessation Medications and DC Order Prescriptions: New Brilinta 90 mg Tablet 90 mg PO BID 30 Days Qty: 60 0RF levetiracetam [Keppra] 500 mg Tablet 500 mg PO Q12H 30 Days Qty: 60 0RF senna 8.6 mg capsule 8.6 mg PO DAILY Qty: 30 0RF atorvastatin 40 mg Tablet 80 mg PO QAM 30 Days Qty: 60 0RF amiodarone 200 mg Tablet 200 mg PO BID 30 Days Qty: 60 0RF metoprolol succinate 25 mg Tablet Extended Release 24 Hr 25 mg PO QAM 30 Days Qty: 30 0RF morphine 15 mg Tablet Extended Release 15 mg PO Q12H 10 Days Qty: 20 0RF Continued felodipine 5 mg Tablet Extended Release 24 Hr 5 mg PO HS aspirin 81 mg Tablet,Delayed Release (Dr/Ec) 81 mg PO HS omeprazole 20 mg Tablet,Disintegrat, Delay Rel 1 tab PO QAM tamsulosin 0.4 mg capsule 0.4 mg PO DAILY olmesartan 40 mg tablet 40 mg PO DAILY levothyroxine 150 mcg tablet 150 mcg PO DAILY Discontinued metoprolol succinate 50 mg Capsule,Sprinkle,Er 24hr 50 mg PO HS atorvastatin 40 mg tablet 40 mg PO DAILY Discharge Orders: Discharge Order (Routine); Ordered 02/25/22 Ordered By: Robin Woo/Other Patient Handouts: Prediabetes, 5 Steps for Eating Healthier Admission Data Admit Date/Time: 02/16/22 16:00 Attending Provider: Robin Jarquin Admit Provider: Luis F Suazo Primary Care Provider: Sammy Velasquez Other Providers: Florence Mcclure ; Evy Casas ; Chino Sharp ; Jason Story ; Carlton Grace ; Lauro Matos Other Interventions: Discharge Summary Assessment (RN) Last Done: 02/25/22 08:59
[2022-02-25] MEDS ORDERED: AMIODARONE 200 MG TAB PO SCH (21:00)
--- NOTE | 2022-03-13 07:47 | Operative Report (OR) ---
DATE OF PROCEDURE: 02/24/2022. PREOPERATIVE DIAGNOSES: Cardiac arrest, sustained ventricular tachycardia, sinus bradycardia, tachybrady syndrome. POSTOPERATIVE DIAGNOSES: Cardiac arrest, sustained ventricular tachycardia, sinus bradycardia, tachybrady syndrome. PROCEDURE: Dual-chamber rate responsive implantable cardiac defibrillator under fluoroscopic guidance along with peripheral venogram. SURGEON: Cait Santiago DO. PEEL OVEN TENDER: None. ANESTHESIA: Monitored conscious sedation administered under my supervision by Breonna Arce. Start time 8:08, end time 8:59. A total of 5 mg of Versed and 125 mcg of fentanyl. INTRAVENOUS FLUIDS: 80 mL. CONTRAST: 10 mL ANTIBIOTICS: 2 grams of Ancef. BLOOD LOSS: 30 mL URINE OUTPUT: Not applicable. SPECIMENS: None. FINDINGS: See below. DRAINS: None. INDICATIONS: This is a 71-year-old gentleman with a past medical history for coronary artery disease with a history of a STEMI in the past as well, sinus bradycardia, paroxysmal atrial fibrillation, hypothyroidism, hyperlipidemia, gastroesophageal reflux disease, BPH, history of cardiac arrest in August of 2021, history of torsades de pointes as well. He was admitted to [facility] secondary to syncope, found to be in ventricular tachycardia and having a possible STEMI, went to the tin can laborer and did receive stenting to the circumflex, but then postop day #1, he had spontaneous sustained VT requiring external shock, an EP was consulted and recommended defibrillator. The patient also had a bronchoscopy and was found to have H. influenzae bacteremia or bacterial pneumonia, though the defibrillator was delayed until he had adequate antibiotic therapy prior to being seen. CONSENT: Consent was obtained prior to the patient going into electrophysiology lab. The patient was informed of the risks, benefits, and alternatives to the procedure. Risks include, but not limited to, sudden cardiac , cardiac arrhythmia, cerebrovascular accident, myocardial infarction, injury to the blood vessels, chamber of the heart and lung, bleeding and infection. The patient understood these risks and agreed to the procedure as planned. Informed consent was obtained. DESCRIPTION OF PROCEDURE: The patient was brought into the electrophysiology lab in fasting state. He was connected to continuous cardiac monitoring. A time-out was performed to ensure patient's identity and procedure correctly. He was prepped and draped over the left infraclavicular space in normal surgical standard fashion. Monitored conscious sedation was given throughout the procedure for patient's comfort level. [place] precautions were maintained throughout the procedure. 10 mL of 1% lidocaine-bupivacaine mixture were given in the left deltopectoral groove. An incision was made in the left deltopectoral groove. Blunt dissection was performed down to the pectoralis muscle. Then, a defibrillator pocket was created using blunt dissection over the pectoralis muscle within the pectoralis fascia. Then, a peripheral venogram was performed to identify the axillary vein. Venous axillary access was obtained through a needlestick without any problems. I did end up using a micropuncture wire to get pass the wire down through the vein because it was a little narrow, but then this was easily swapped out for a regular wire and the 7-Pakistani sheath was inserted over the wire. Then, the dilator was removed and a second guidewire was inserted through the sheath to allow for retained venous access. Sheath was removed and the 9.5-[place]istani sheath was advanced over one of the retained guidewires, the guidewire and dilator removed. The right ventricular defibrillator lead was advanced into right ventricle, positioned into ventricular apex under fluoroscopic guidance. There was adequate pacing and sensing thresholds and no diaphragmatic stimulation with high output pacing. The 9.5-[place]istani sheath was peeled away and the lead was fixated to pectoralis muscle using 0 silk suture. The 7-Pakistani sheath was then advanced through the retained guidewire, the guidewire and dilator removed. The right atrial lead was then advanced through the sheath into the right atrium under fluoroscopic guidance and positioned into the right atrial appendage. There was adequate pacing and sensing thresholds and no diaphragmatic stimulation with high output pacing. The 7-[place]istani sheath was peeled away and the lead was fixated to pectoralis muscle using 0 silk suture. The pocket was then flushed with copious amounts of vancomycin and saline wash and inspected for hemostasis. Pulse generator was then attached to the leads making sure the pins were in appropriate position, passed set screws, and set screws were all tightened. Pulse generator was then placed in a TYRX pouch followed then by being placed in the pocket, making sure the leads were lying flat beneath the device. The incision was closed in a 3-layer fashion using 2-0 Vicryl interrupted suture, followed by 3-0 Vicryl interrupted suture, followed by 4-0 Monocryl running stitch and Dermabond was applied followed by Telfa and Tegaderm dressing. EQUIPMENT: 1. Pulse generator is a Medtronic Evera MRI XT DR Anderson [id number], serial number [id number]. 2. TYRX pouch, reference [id number], lot number [id number]. 3. Right atrial lead, Medtronic 5076-52 cm, serial number [id number]. 4. Right ventricular lead, Medtronic 6935M-62 cm, serial number [id number]. INTRAOPERATIVE FINDINGS: 1. Right atrial lead, P waves 3.8 millivolts, impedance 627 ohms, threshold 0.4 volts at 0.5 milliseconds. 2. Right ventricular lead, R waves 4.7 millivolts, impedance 513 ohms, threshold 5.9 volts at 0.5 milliseconds. FINAL MEASUREMENTS THROUGH THE DEVICE: 1. Right atrial lead, P waves 1.9 millivolts, impedance 627 ohms, threshold 1 volt at 0.4 milliseconds. 2. Right ventricular lead, R waves 6.6 millivolts, impedance 513 ohms, threshold 0.5 volts at 0.4 milliseconds. FINAL PARAMETERS: MVP-R 60/130. Right atrial and right ventricular amplitude 3.5 volts, pulse width 0.4 milliseconds, sensitivity 0.3 millivolts. VT monitor zone 150 beats per minute for 32 detection intervals and VT zone at 167 beats per minute for 20 detection intervals and VF zone at 200 beats per minute for 30 detection intervals. IMPRESSION: Successful dual chamber rate responsive implantable cardiac defibrillator implantation under fluoroscopic guidance along with peripheral venogram secondary to cardiac arrest, sustained VT, sinus bradycardia. PLAN: Transfer the patient back to the inpatient unit. He is not to lift the left elbow or left shoulder for 1 month. He cannot lift more than 10 pounds with left arm for 2 weeks. He is to keep the dressing on and dry until his wound check next week. Absolutely, no more of systemic heparin or Lovenox. Job ID: [id number] [facility]
== END 2022-02-25 12:22 | disposition home or self-care (01) | DRG 222 ==
LOC: ED 14:07 → CC 14:43 → 1E 16:00 → SUATTDRO 16:00
PROC: EPB.ICD (2022-02-24 07:30)

== ENCOUNTER 2023-02-09 11:13 | Observation (INO) ==
[2023-02-09 12:02] LABS: Basophils # (auto) 0.04 K/uL (0.00-0.20); Eosinophils # (auto) 0.15 K/uL (0.00-0.50); Eosinophils % (auto) 3.6 %; Hemoglobin 13.4 g/dl (14.0-18.0); Immature Granulocytes # (auto) 0.02 K/uL (0.01-0.20); Immature Granulocytes % (auto) 0.5 %; Lymphocytes # (auto) 0.73 K/uL (1.20-3.40); Lymphocytes % (auto) 17.4 %; Mean Corpuscular Hemoglobin 29.9 pg (25.0-34.0); Mean Corpuscular Hgb Conc 34.4 g/dL (32.0-36.0); Mean Corpuscular Volume 87.1 fL (80.0-100.0); Mean Platelet Volume 12.1 fL (9.4-12.4); Monocytes # (auto) 0.44 K/uL (0.11-0.59); Monocytes % (auto) 10.5 %; Neutrophils # (auto) 2.82 K/uL (1.40-6.50); Platelet Count 130 K/uL (130-400); RDW Coefficient of Variation 13.7 % (11.5-14.5); RDW Standard Deviation 43.6 fL (36.4-46.3); Red Blood Count 4.48 M/uL (4.70-6.10)
[2023-02-09 12:14] LABS: Albumin Globulin Ratio 1.5 (0.9-2); Albumin Level 4.1 gm/dl (3.4-5.0); BUN Creatinine Ratio 23.2 (10-20); Bilirubin,Total 0.7 mg/dl (0.2-1.0); Calcium 9.6 mg/dl (8.6-10.3); Creatinine Clr Calc Pharmacy 99.3 ml/min; Est GFR (African American) 103.1 ml/min; Globulin 2.8 gm/dl (2.5-4.0); Potassium 4.1 mmol/L (3.5-5.1); Total Protein 6.9 gm/dl (6.0-8.3)
[2023-02-09] MEDS ORDERED: ASPIRIN 81 MG CHEW PO STA (12:38)
--- NOTE | 2023-02-09 12:38 | Emergency Department Note ---
Impression & Plan Cardiac symptoms, Jaw pain ED Provider Note Name: ANIA TURNER Age: 72 Sex: Male Arrives Via: Walk-In Informant: Patient, ED Provider: Vern Krueger MD Chief Complaint: Cardiac symptoms Impression: As per impressions above Medical Decision Making: Pleasant 72-year-old gentleman with a history of cardiac arrest about a year ago requiring stenting. Admits he had left-sided jaw pain and some left arm discomfort for several weeks prior to this event last year. Symptoms started up again over the last week. Very similar to previous symptoms prior to cardiac ar rest. confirms this. Pacemaker interrogated no acute findings. Already on aspirin Plavix, Eliquis. No indication to start anticoagulant quite at this time. EKG, labs unremarkable. Given his significant past medical history and this is similar to his previous cardiac symptoms I feel that he will require hospitalization for cardiac rule out. Patient and are fully on board with this plan. Triage/Nursing Notes reviewed by Me External Chart Review by me: I personally reviewed chart from February 2022 during hospitalization and hospitalization/discharge record.. Differential:Cardiac ischemia, aortic dissection, dental infection, parotiditis, neck mass/infection, pericarditis, myocarditis, musculoskeletal, as well as other pathologies. Vital Signs: reviewed and remarkable for no significant abnormalities Labs:ED labs Reviewed by me and remarkable for no significant abnormalities Imagin view chest x-ray as per my informal interpretation is unremarkable without any evidence of pneumothorax, pneumonia EKG:As per my interpretation. Indication left-sided chest pain. Atrial paced 65 bpm without ectopy nor ischemia. When compared to EKG from February 24, 2022 there is no significant change morphology though sinus rhythm has been replaced by atrial pacemaker. Cardiac/Tele Monitoring: Cardiac Monitoring: An Order was placed for continuous cardiac monitoring. The monitor shows a rate of 60 with a paced rhythm. Consults:[facility] Hospitalist Plan: Disposition:Hospitalization Condition: Good History of Present Illness: 72-year-old gentleman arrives for evaluation of jaw pain. Patient notes on and off left jaw pain for the last week. Worse with exertion and goes away with rest. Similar to previous cardiac symptoms. Patient notes he had similar symptoms prior to her cardiac arrest in February 2022. Since then he has been doing well. He has a pacemaker defibrillator. Denies any defibrillations. He is on aspirin, Plavix and Eliquis. Denies any recent chest pain, shortness of breath. Did feel a bit lightheaded earlier today with symptoms significantly worse. Comes into the ER for evaluation. Admits that he is quite anxious. Past Medical History:Cardiac arrest, A-fib, aortic abdominal aneurysm, pacemaker, hypertension, kidney stones Home Medications:See Below Allergies:No known drug allergies Vitals:Blood Pressure: 147/81, Pulse 71, RR 18, T 36.7C, O2 97% on RA Physical Exam: GENERAL: Patient is anxious appearing and in mild distress. RESPIRATORY: No dyspnea. Clear to auscultation and equal bilaterally. CARDIOVASCULAR: Regular rate and rhythm.No murmur appreciated. GASTROINTESTINAL: Abdomen soft, non-tender, no peritonitis. BACK: No midline tenderness, no CVA tenderness EXTREMITIES: Normal motion all extremities, no cyanosis, no edema. NEUROLOGIC: Alert and oriented. No focal neurologic deficits appreciated SKIN: No rash, no jaundice, no diaphoresis. PSYCH: Appropriate GCS: 15 ED Course: Times/Reassessments: Patient stable throughout. He has not had return of the cardiac symptoms and he is comfortable with plan for hospitalization as this is Vern Krueger MD Past Med/Surg History Medical History AAA (abdominal aortic aneurysm) Acute myocardial infarction Aspiration pneumonitis Atrial fibrillation with rapid ventricular response CAD in [place] artery Cardiac arrest Cardiogenic shock Family history of reaction to anesthesia FATHER "ALLERGIC TO MORPHINE" GERD (gastroesophageal reflux disease) Hyperlipidemia Hypertension Hypomagnesemia Hypothyroidism Hypoxia Kidney stones Obstructive sleep apnea Paroxysmal A-fib Pulmonary edema Seizure-like activity Tachy-jose syndrome per cardiology note - "Borderline tachy Jose syndrome with atrial ventricular ectopy paroxysmal supraventricular tachycardia/atrial fibrillation. No profound Jose arrhythmias observed." Torsades de pointes Umbilical hernia Ventricular fibrillation Surgical History History of colonoscopy History of cystoscopy MULTIPLE TIMES>KIDNEY STONES/STENT INSERTION History of lithotripsy MULTIPLE History of temporal artery biopsy History of tonsillectomy History of tooth extraction S/P drug eluting coronary stent placement Family History Father Lung cancer Myocardial infarction Mother , in 70s of lung cancer Breast cancer Brother Atrial fibrillation Social History Smoking Status: Never smoker Cigarettes Per Day: QUIT 28 YEARS AGO in 1994; Second Hand Exposure: No; Do You Dip or Chew Tobacco: No; Hx Alcohol Use: Yes Alcohol type: beer Alcohol Intake Frequency: 2-3 x/Week Hx Substance Use: No Preferred Language: Romanian Communication Ability: Effective Polish Compounder Required: No Beliefs That Will Affect Care: None marital status: Current Living Situation: Spouse current occupational status: employed 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 Feels Safe at Home: Yes Safety Concerns: Feels Safe At This Time Assistive Devices: Hearing Aid - Bilateral Allergies Allergies Allergy/AdvReac Type Severity Reaction Status Date / Time No Known Allergies Allergy Unknown Verified 04/28/22 10:51 Home Meds Home Medications Medication Instructions Recorded Confirmed aspirin 81 mg tablet,delayed 81 mg PO HS 01/11/18 02/09/23 release felodipine 5 mg tablet,extended 5 mg PO HS 01/11/18 02/09/23 release 24 hr omeprazole 20 mg delayed 1 tab PO [facility] 01/11/18 02/09/23 release,disintegrating tablet levothyroxine 150 mcg tablet 150 mcg PO DAILY 02/16/22 02/09/23 olmesartan 40 mg tablet 40 mg PO DAILY 02/16/22 02/09/23 tamsulosin 0.4 mg capsule 0.4 mg PO DAILY 02/16/22 02/09/23 amiodarone 200 mg tablet 200 mg PO QAM 04/28/22 02/09/23 atorvastatin 80 mg tablet 80 mg PO DAILY 04/28/22 02/09/23 metoprolol succinate 25 mg 25 mg PO DAILY 04/28/22 02/09/23 tablet,extended release 24 hr nitroglycerin 0.4 mg sublingual 0.4 mg sublingual UD PRN Chest Pain 04/28/22 02/09/23 tablet ticagrelor 90 mg tablet (Brilinta) 90 mg PO BID 04/28/22 02/09/23 Results & Data (ED) Vital Signs Vital Signs - 24 hr 02/09/23 11:23 Temperature 36.7 C Temperature Source Skin Pulse Rate 71 Respiratory Rate 18 Blood Pressure 147/81 H Blood Pressure Mean 103 Pulse Oximetry 97 Oxygen Delivery Method Room Air Sepsis Recent Fever Within 48 Hours No Sepsis New/Unexplained Change in Mental Status No Sepsis Action Taken by Nursing No Action Required Laboratory Data 02/09/23 11:42 02/09/23 11:42 Lab Results 02/09/23 02/09/23 02/09/23 Range/Units 11:42 11:42 11:42 WBC 4.20 L (4.8-10.8) K/ul RBC 4.48 L (4.70-6.10) M/uL Hgb 13.4 L (14.0-18.0) g/dl Hct 39.0 L (42.0-52.0) % MCV 87.1 (80.0-100.0) fL MCH 29.9 (25.0-34.0) pg MCHC 34.4 (32.0-36.0) g/dL RDW Std Deviation 43.6 (36.4-46.3) fL RDW Coeff of Laverne 13.7 (11.5-14.5) % Plt Count 130 (130-400) K/uL MPV 12.1 (9.4-12.4) fL Immature Gran % (Auto) 0.5 % Neut % (Auto) 67.0 % Lymph % (Auto) 17.4 % [place] % (Auto) 10.5 % Eos % (Auto) 3.6 % Baso % (Auto) 1.0 % Neut # (Auto) 2.82 (1.40-6.50) K/uL Lymph # (Auto) 0.73 L (1.20-3.40) K/uL [place] # (Auto) 0.44 (0.11-0.59) K/uL Eos # (Auto) 0.15 (0.00-0.50) K/uL Baso # (Auto) 0.04 (0.00-0.20) K/uL Immature Gran # (Auto) 0.02 (0.01-0.20) K/uL PT 11.3 (9.0-12.0) Seconds INR 1.0 (0.9-1.1) APTT 26.4 (21.0-31.0) Seconds PTT Ratio 0.9 Sodium 137 (136-145) mmol/L Potassium 4.1 (3.5-5.1) mmol/L Chloride 107 (98-107) mmol/L Carbon Dioxide 25 (21-32) mmol/L Anion Gap 5 (3-11) BUN 19 (6-23) mg/dl Creatinine 0.82 (0.6-1.4) mg/dl Est Cr Clr Drug Dosing 99.3 ml/min Est GFR ( Amer) 103.1 ml/min Est GFR (Non-Af Amer) 89.0 ml/min BUN/Creatinine Ratio 23.2 H (10-20) Glucose 138 H (70-99(Fasting)) mg/dl Calcium 9.6 (8.6-10.3) mg/dl Total Bilirubin 0.7 (0.2-1.0) mg/dl AST 61 H (13-39) U/L ALT 82 H (7-52) U/L Alkaline Phosphatase 87 (34-104) U/L Troponin I High Sens 7.0 (0-20) pg/ml Total Protein 6.9 (6.0-8.3) gm/dl Albumin 4.1 (3.4-5.0) gm/dl Globulin 2.8 (2.5-4.0) gm/dl Albumin/Globulin Ratio 1.5 (0.9-2) Administered Medications Acetaminophen (Acetaminophen 325 Mg Tab) 650 mg PO Q4H PRN PRN Reason: Pain or Fever Stop: 03/11/23 15:20 Last Admin: 02/10/23 19:22 Dose: 650 mg Documented By: Admin: 02/10/23 12:18 Dose: 650 mg Documented By: Admin: 02/10/23 02:32 Dose: 650 mg Documented By: Admin: 02/09/23 22:54 Dose: 650 mg Documented By: STEPHANIE Amiodarone HCl (Amiodarone 200 Mg Tab) [facility] [place] [place] Stop: 03/12/23 08:59 Last Admin: 02/10/23 09:28 Dose: 200 mg Documented By: SARAI Aspirin (Aspirin 81 Mg Ectab) 81 mg PO HS [facility] Stop: 03/12/23 20:59 Last Admin: 02/10/23 19:24 Dose: 81 mg Documented By: BETZAIDA Atorvastatin Calcium (Atorvastatin 40 Mg Tab) 80 mg PO DAILY [facility] Stop: 03/12/23 08:59 Last Admin: 02/10/23 09:29 Dose: 80 mg Documented By: SARAI Felodipine (Felodipine 5 Mg Tabcr) 5 mg PO HS [facility] Stop: 03/11/23 20:59 Last Admin: 02/10/23 19:24 Dose: 5 mg Documented By: Admin: 02/09/23 20:29 Dose: 5 mg Documented By: STEPHANIE Heparin Sodium/Dextrose (Heparin Sodium/Dextrose) 25,000 units in 500 mls @ 24 mls/hr IV .[id number] [facility]; Protocol Stop: 03/11/23 16:14 Last Admin: 02/10/23 12:36 Dose: Not Given Documented By: Titration: 02/10/23 12:32 Dose: 0 units/hr, 0 mls/hr Documented By: SARAI Co-signed By: DTT Titration: 02/10/23 06:42 Dose: 1,200 units/hr, 24 mls/hr Documented By: BETZAIDA Co-signed By: SARAI Titration: 02/10/23 02:27 Dose: 1,200 units/hr, 24 mls/hr Documented By: BETZAIDA Co-signed By: PK Titration: 02/10/23 01:01 Dose: 0 units/hr, 0 mls/hr Documented By: BETZAIDA Co-signed By: PK Titration: 02/09/23 23:27 Dose: 1,550 units/hr, 31 mls/hr Documented By: BETZAIDA Co-signed By: STEPHANIE Admin: 02/09/23 16:48 Dose: 1,550 units/hr, 31 mls/hr Documented By: STEPHANIE Co-signed By: CA Levothyroxine Sodium (Levothyroxine Sodium 150 Mcg Tablet) 150 mcg PO DAILYBB [facility] Stop: 03/12/23 06:29 Last Admin: 02/11/23 05:52 Dose: 150 mcg Documented By: Admin: 02/10/23 04:10 Dose: 150 mcg Documented By: BETZAIDA Losartan Potassium (Losartan Potassium 50 Mg Tab) 100 mg PO DAILY [facility] Stop: 03/12/23 08:59 Last Admin: 02/10/23 09:29 Dose: 100 mg Documented By: SARAI Metoprolol Succinate (Metoprolol Succ 25mg Ext Rel Tab) 25 mg PO DAILY [facility] Stop: 03/12/23 08:59 Last Admin: 02/10/23 09:29 Dose: 25 mg Documented By: SARAI Pantoprazole Sodium (Pantoprazole 40 Mg Tab) 40 mg PO QAM [facility]; Protocol Stop: 03/12/23 08:59 Last Admin: 02/10/23 09:30 Dose: 40 mg Documented By: SARAI Tamsulosin HCl (Tamsulosin Hcl 0.4 Mg Cap) 0.4 mg PO DAILY [facility] Stop: 03/12/23 08:59 Last Admin: 02/10/23 09:30 Dose: 0.4 mg Documented By: SARAI Ticagrelor (Ticagrelor 90 Mg Tab) 90 mg PO BID [facility] Stop: 03/11/23 20:59 Last Admin: 02/10/23 19:24 Dose: 90 mg Documented By: Admin: 02/10/23 09:30 Dose: 90 mg Documented By: Admin: 02/09/23 20:29 Dose: 90 mg Documented By: STEPHANIE Discontinued Medications Aspirin (Aspirin 81 Mg Chew) 324 mg PO NOW STA Stop: 02/09/23 12:39 Last Admin: 02/09/23 12:42 Dose: 324 mg Documented By: CARLOS EDUARDO Fentanyl Citrate (Fentanyl Citrate Pf 100 Mcg/2 Ml Vial) Confirm Administered Dose 100 mcg .ROUTE .STK-MED ONE Stop: 02/10/23 13:35 Last Admin: 02/10/23 15:19 Dose: 25 mcg Documented By: RICHY Heparin Sodium (Porcine) (Heparin Sod (Porcine) 1000 Unit/Ml) 7,000 units IV NOW ONE Stop: 02/09/23 16:31 Last Admin: 02/09/23 16:47 Dose: 7,000 units Documented By: STEPHANIE Co-signed By: DANIELLE Heparin Sodium (Porcine) (Heparin (Porcine) 1000 Unit/Ml 10 Ml (Poker Prop Player Use Only)) Confirm Administered Dose 10,000 units .ROUTE .STK-MED ONE Stop: 02/10/23 13:35 Last Admin: 02/10/23 15:19 Dose: 6,500 units Documented By: RICHY Heparin Sodium/Sodium Chloride (Heparin In Nss Infusion 1000 Unit/500 Ml (2 U/Ml) Bag) Confirm Administered Dose 3,000 units IV .STK-MED ONE Stop: 02/10/23 13:35 Last Admin: 02/10/23 15:20 Dose: 3,000 units Documented By: AUSTIN Midazolam HCl (Midazolam Hcl 1 Mg/Ml 2ml Vial) Confirm Administered Dose 2 mg .ROUTE .STK-MED ONE Stop: 02/10/23 13:35 Last Admin: 02/10/23 15:21 Dose: 1 mg Documented By: RICHY Nicardipine HCl (Nicardipine Hcl Inj 2.5 Mg/Ml 10 Ml Amp) Confirm Administered Dose 25 mg .ROUTE .STK-MED ONE Stop: 02/10/23 13:35 Last Admin: 02/10/23 15:21 Dose: 25 mg Documented By: AUSTIN Nitroglycerin (Nitroglycerin 2% Ointment 30gm Tube) 0.5 inch EXT Q6H [facility] Stop: 03/11/23 15:44 Last Admin: 02/10/23 09:38 Dose: 0.5 inch Documented By: Admin: 02/10/23 04:10 Dose: 0.5 inch Documented By: Admin: 02/09/23 22:50 Dose: 0.5 inch Documented By: Admin: 02/09/23 15:55 Dose: 0.5 inch Documented By: STEPHANIE Nitroglycerin/Dextrose (Nitroglycerin/D5w 100mcg/Ml 20ml Syr) Confirm Admi nistered Dose 2,000 mcg .ROUTE .STK-MED ONE Stop: 02/10/23 13:36 Last Admin: 02/10/23 15:21 Dose: 2,000 mcg Documented By: AUSTIN Discharge Plan Visit Data Chief Complaint: Cardiac Assessment Stated Complaint: JAW PAIN, FATIGUE, POSSIBLE HEART ATTACK ED Provider: Vern Krueger Discharge Problem: Cardiac symptoms, Jaw pain Patient Disposition: Home - Self-Care Discharge Instructions Interventions: ED Discharge Assessment Last Done: 02/09/23 13:54
[2023-02-09 12:56] LABS: Partial Thromboplastin Ratio 0.9; Partial Thromboplastin Time 26.4 Seconds (21.0-31.0); Prothrombin Time 11.3 Seconds (9.0-12.0)
--- NOTE | 2023-02-09 13:05 | History & Physical Report ---
Date of Service February 09, 2023 Assessment & Plan (1) Jaw pain: Plan: This is a 72 y/o male with a history of cardiac arrest in 03/04, inferior STEMI s/p RCA BENOIT x2, dual lead ICD placement, hx afib w/ RVR, tachy-jose syndrome, sleep apnea on CPAP, hypothyroidism and other history as outlined below who presents to the ED today with exertional jaw pain that started last week. These symptoms are similar to those he had prior to the MD/cardiac last year so he is concerned for recurrent cardiac issues. Initial troponin was negative, EKG without ischemic changes. However, since pt has an extensive cardiac history, he was referred for admission as a rule out MD. Outpatient PCP and cardio notes as well as notes from last hospital admission were extensively reviewed. - Observe in PCU overnight - Trend troponin, repeat EKG and labs (CBC, BMP) in AM - Check ECHO - Consult cardiology for additional recommendations - Device interrogation was ordered by the ED - awaiting results - Continue dual anti-platelets - aspirin, Brilinta (2) CAD in [place] artery: (3) Paroxysmal A-fib: (4) Hypertension: (5) Hyperlipidemia: (6) GERD (gastroesophageal reflux disease): (7) Obstructive sleep apnea: Plan: CPAP ordered with outpatient settings Plan Continue other home medications as appropriate Pt seen and reviewed with collaborating physician, Dr. John. Plan of care discussed and as outlined above. Code Status: Full code DVT Prophylaxis: Lovenox for now Beto Brink PA-C History of Present Illness Chief Complaint: Exertional jaw pain Primary Care Provider: Sammy Velasquez DO This is a 72 y/o male with a history of cardiac arrest in 03/04, inferior STEMI s/p RCA BENOIT x2, dual lead ICD placement, hx afib w/ RVR, tachy-jose syndrome, sleep apnea on CPAP, hypothyroidism and other history as outlined below who presents to the ED today with exertional jaw pain that started last week. Pt reports that last Thursday or Thursday, he started with a gnawing discomfort in his bilateral jaw while standing on his porch talking to his daughter, although it was right after golfing where he exerted himself. This discomfort lasted several seconds but then went away when he sat down. [place] similar to prior MD (before cardiac arrest last year). He has had some similar twinges in his jaw since then but very mild. Today the more significant discomfort happened again, more severe than last time, while he was working in the yard. Came inside and sat down but the discomfort didn't immediately go away so decided to come for evaluation. This episode the discomfort lasted several minutes. It has since come back to a lesser degree in the ED a little while ago - still present but minimal. Today it was an 8/10 at its worst. Does not radiate anywhere. Did not try nitro for these symptoms. Associated fatigue, shortness of breath, and dizziness. No abd pain, N/V/D, fevers, chills, cough. Has been very active to this point and felt well until last week. Does not recall his ICD firing. Allergies Allergy/AdvReac Type Severity Reaction Status Date / Time No Known Allergies Allergy Unknown Verified 04/28/22 10:51 Home Medications Medication Instructions Recorded Confirmed Type aspirin 81 mg tablet,delayed 81 mg PO HS 01/11/18 02/09/23 History release felodipine 5 mg tablet,extended 5 mg PO HS 01/11/18 02/09/23 History release 24 hr omeprazole 20 mg delayed 1 tab PO QAM 01/11/18 02/09/23 History release,disintegrating tablet levothyroxine 150 mcg tablet 150 mcg PO DAILY 02/16/22 02/09/23 History olmesartan 40 mg tablet 40 mg PO DAILY 02/16/22 02/09/23 History tamsulosin 0.4 mg capsule 0.4 mg PO DAILY 02/16/22 02/09/23 History amiodarone 200 mg tablet 200 mg PO QAM 04/28/22 02/09/23 History atorvastatin 80 mg tablet 80 mg PO DAILY 04/28/22 02/09/23 History metoprolol succinate 25 mg 25 mg PO DAILY 04/28/22 02/09/23 History tablet,extended release 24 hr nitroglycerin 0.4 mg sublingual 0.4 mg sublingual UD PRN Chest Pain 04/28/22 02/09/23 History tablet ticagrelor 90 mg tablet (Brilinta) 90 mg PO BID 04/28/22 02/09/23 History Past Med/Surg History Medical History AAA (abdominal aortic aneurysm) Acute myocardial infarction Aspiration pneumonitis Atrial fibrillation with rapid ventricular response CAD in [place] artery Cardiac arrest Cardiogenic shock Family history of reaction to anesthesia FATHER "ALLERGIC TO MORPHINE" GERD (gastroesophageal reflux disease) Hyperlipidemia Hypertension Hypomagnesemia Hypothyroidism Hypoxia Kidney stones Obstructive sleep apnea Paroxysmal A-fib Pulmonary edema Seizure-like activity Tachy-jose syndrome per cardiology note - "Borderline tachy Jose syndrome with atrial ventricular ectopy paroxysmal supraventricular tachycardia/atrial fibrillation. No profound Jose arrhythmias observed." Torsades de pointes Umbilical hernia Ventricular fibrillation Surgical History History of colonoscopy History of cystoscopy MULTIPLE TIMES>KIDNEY STONES/STENT INSERTION History of lithotripsy MULTIPLE History of temporal artery biopsy History of tonsillectomy History of tooth extraction S/P drug eluting coronary stent placement Family History Father Lung cancer Myocardial infarction Mother , in 70s of lung cancer Breast cancer Brother Atrial fibrillation Social History Smoking Status: Never smoker Cigarettes Per Day: QUIT 28 YEARS AGO in 1994; Second Hand Exposure: No; Do You Dip or Chew Tobacco: No; Hx Alcohol Use: Yes Alcohol type: beer Alcohol Intake Frequency: 2-3 x/Week Hx Substance Use: No Preferred Language: Dominican Communication Ability: Effective Substance Abuse Specialist Required: No Beliefs That Will Affect Care: None marital status: Current Living Situation: Spouse current occupational status: employed 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 Feels Safe at Home: Yes Safety Concerns: Feels Safe At This Time Assistive Devices: Hearing Aid - Bilateral Review of Systems Review of Systems: All systems reviewed & are unremarkable except as noted in HPI & below Constitutional: no fever and no chills Eyes: no diplopia Respiratory: no cough and no chest congestion Cardiovascular: as per Subjective / HPI Gastrointestinal: no abdominal pain, no nausea, no vomiting and no diarrhea/loose stools Genitourinary: no dysuria or no hematuria Integumentary: no rash and no yellowing of the skin Neurologic: + dizziness; no headache(s) Psychiatric: + anxiety (related to upcoming anniversary of cardiac arrest, similar symptoms) Physical Exam Physical Exam: See physician note for details of the physical exam Results & Data Results & Data Vital Signs (Past 12 Hours) Vital Signs Temp Pulse Resp BP Pulse Ox O2 Del Method 02/09/23 12:38 77 02/09/23 11:23 36.7 C 71 18 147/81 H 97 Room Air Laboratory Results Laboratory Results - last 24 hr 02/09/23 02/09/23 02/09/23 11:42 11:42 11:42 WBC 4.20 L RBC 4.48 L Hgb 13.4 L Hct 39.0 L MCV 87.1 MCH 29.9 MCHC 34.4 RDW Std Deviation 43.6 RDW Coeff of [place]ver[place] 13.7 Plt Count 130 MPV 12.1 Immature Gran % (Auto) 0.5 Neut % (Auto) 67.0 Lymph % (Auto) 17.4 [place] % (Auto) 10.5 Eos % (Auto) 3.6 Baso % (Auto) 1.0 Neut # (Auto) 2.82 Lymph # (Auto) 0.73 L [place] # (Auto) 0.44 Eos # (Auto) 0.15 Baso # (Auto) 0.04 Immature Gran # (Auto) 0.02 PT 11.3 INR 1.0 APTT 26.4 PTT Ratio 0.9 Sodium 137 Potassium 4.1 Chloride 107 Carbon Dioxide 25 Anion Gap 5 BUN 19 Creatinine 0.82 Est Cr Clr Drug Dosing 99.3 Est GFR ( Amer) 103.1 Est GFR (Non-Af Amer) 89.0 BUN/Creatinine Ratio 23.2 H Glucose 138 H Calcium 9.6 Total Bilirubin 0.7 AST 61 H ALT 82 H Alkaline Phosphatase 87 Troponin I High Sens 7.0 Total Protein 6.9 Albumin 4.1 Globulin 2.8 Albumin/Globulin Ratio 1.5 Medications Administered Discontinued Medications Aspirin (Aspirin 81 Mg Chew) 324 mg PO NOW STA Stop: 02/09/23 12:39 Last Admin: 02/09/23 12:42 Dose: 324 mg Documented By: NRB Supervising Physician Co-Signing Physician Notes Patient seen and examined Reports bilateral jaw pain that started a week ago, occasionally exertional, not referred. Today's episode started while doing some yard work, associated with some dizziness and shortness of breath, lasted about half hour No chest pain On exam, General: No acute distress and not ill appearing Eyes: PERRL, conjunctivae normal, not pale, anicteric sclerae, EOM intact bilaterally ENMT: External ear and nose normal, oropharynx normal Neck: No tenderness along neck/jaw Respiratory: Normal respiratory effort, no respiratory distress, lungs clear to auscultation, no crackles and no wheezes Cardiovascular: RRR S1 S2 Gastrointestinal (Abdomen): Abdomen is not distended, soft, non-tender to palpation, no guarding, no palpable hepatosplenomegaly, normal bowel sounds Musculoskeletal: No pedal edema Neurologic: Alert and oriented x 3, No focal weakness, sensation grossly intact Psychiatric: Mildly anxious Trop is normal Will trend EKG did not show ST changes Will get TTE Continue tele monitoring Cardiology consulted and notified for evaluation ER will interrogate device Discussed with cardiology who recommend hep gtt and NPO PMN for cardiac cath
--- NOTE | 2023-02-09 13:12 | XRay Report ---
XR chest 1V portable CLINICAL HISTORY: Chest pain, nonspecific TECHNIQUE: Single frontal radiograph of the chest was obtained. Comparison: Comparison is made to chest radiograph 02/24/2022 FINDINGS: Lines and tubes are stable. Calcified aortic knob is seen. Prominence and cephalization of the vascul ature is seen. No evidence of pleural effusion or pneumothorax. IMPRESSION: Mild pulmonary edema. ACT 112: Negative or not required by law. Electronically signed by: Bob Jameson M.D. 02/09/2023 1:11 PM
--- NOTE | 2023-02-09 13:24 | Electrocardiogram Report ---
Test Reason : Blood Pressure : / mmHG Vent. Rate : 065 BPM Atrial Rate : 065 BPM P-R Int : 336 ms QRS Dur : 092 ms QT Int : 392 ms P-R-T Axes : -50 -25 006 degrees QTc Int : 407 ms Atrial-paced rhythm with prolonged AV conduction Minimal voltage criteria for LVH, may be normal variant possible Inferior infarct (cited on or before 16-FEB-2022) Abnormal ECG When compared with ECG of 24-FEB-2022 12:14, Electronic atrial pacemaker has replaced Sinus rhythm Nonspecific T wave abnormality, improved in Anterolateral leads QT has shortened Confirmed by Petey You ([id number]) on 02/09/2023 1:24:04 PM Referred By: Confirmed By:Jaydon You
[2023-02-09] MEDS ORDERED: NITROGLYCERIN SL 0.4 MG/TAB TAB SL PRN (15:21)
--- NOTE | 2023-02-09 15:51 | Cardiology Consultation ---
Date of Consultation February 09, 2023 Assessment & Plan (1) Unstable angina: (2) Jaw pain: (3) CAD in [place] artery: (4) Hypertension: (5) Frequent PVCs: Plan 72-year-old male with history of cardiac arrest, coronary disease with prior myocardial infarction status post drug-eluting stent implantation to the right coronary artery. Recurrent symptoms including jaw pain concerning for recurrent angina. Initial troponin is negative. No new regional wall motion abnormality on resting 2D transthoracic echocardiogram. Recommend addition of IV heparin and topical nitrates. Trend cardiac enzymes x3 sets. Continue aspirin, statin, and amiodarone as previously ordered. Further ischemic evaluation in a.m. N.p.o. except medications after midnight. History of Present Illness Reason for Consultation: Jaw pain, possible anginal equivalent Requesting Physician: Mulu Brink PA-C Attending Physician: Bushra Jhon MD History of Present Illness 72-year-old male with a history of cardiac arrest February 2022, inferior STEMI status post RCA stenting x2 in 2 chamber ICD placement presented to the emergency department with jaw discomfort. Patient reports symptoms similar to prior CA/cardiac arrest. Thursday last week, reports episode of significant jaw discomfort after playing golf. He had been standing on his deck talking with his daughter when he developed significant bilateral jaw discomfort in the region of his temporomandibular joint. Reports similar symptoms 1 year ago. He also reproduced the symptoms on one occasion when walking on a steep incline. 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 States he became frustrated and stressed with development of jaw discomfort and associated shortness of breath. No chest discomfort or heaviness. Transiently dizzy without syncope or near syncope. Asymptomatic in the ER, however, developed a recurrent episode of jaw pain during examination. A stat ECG was performed without significant ST changes. Initial troponin is negative. Bedside echocardiogram demonstrates an inferior wall motion abnormality. Left ventricular systolic function has improved compared to prior study. Allergies Allergy/AdvReac Type Severity Reaction Status Date / Time No Known Allergies Allergy Unknown Verified 04/28/22 10:51 Home Medications Medication Instructions Recorded Confirmed Type aspirin 81 mg tablet,delayed 81 mg PO HS 01/11/18 02/09/23 History release felodipine 5 mg tablet,extended 5 mg PO HS 01/11/18 02/09/23 History release 24 hr omeprazole 20 mg delayed 1 tab PO QAM 01/11/18 02/09/23 History release,disintegrating tablet levothyroxine 150 mcg tablet 150 mcg PO DAILY 02/16/22 02/09/23 History olmesartan 40 mg tablet 40 mg PO DAILY 02/16/22 02/09/23 History tamsulosin 0.4 mg capsule 0.4 mg PO DAILY 02/16/22 02/09/23 History amiodarone 200 mg tablet 200 mg PO QAM 04/28/22 02/09/23 History atorvastatin 80 mg tablet 80 mg PO DAILY 04/28/22 02/09/23 History metoprolol succinate 25 mg 25 mg PO DAILY 04/28/22 02/09/23 History tablet,extended release 24 hr nitroglycerin 0.4 mg sublingual 0.4 mg sublingual UD PRN Chest Pain 04/28/22 02/09/23 History tablet ticagrelor 90 mg tablet (Brilinta) 90 mg PO BID 04/28/22 02/09/23 History Patient History Medical History AAA (abdominal aortic aneurysm) Acute myocardial infarction Aspiration pneumonitis Atrial fibrillation with rapid ventricular response CAD in creek artery Cardiac arrest Cardiogenic shock Family history of reaction to anesthesia FATHER "ALLERGIC TO MORPHINE" GERD (gastroesophageal reflux disease) Hyperlipidemia Hypertension Hypomagnesemia Hypothyroidism Hypoxia Kidney stones Obstructive sleep apnea Paroxysmal A-fib Pulmonary edema Seizure-like activity Tachy-jose syndrome per cardiology note - "Borderline tachy Jose syndrome with atrial ventricular ectopy paroxysmal supraventricular tachycardia/atrial fibrillation. No profound Jose arrhythmias observed." Torsades de pointes Umbilical hernia Ventricular fibrillation Surgical History History of colonoscopy History of cystoscopy MULTIPLE TIMES>KIDNEY STONES/STENT INSERTION History of lithotripsy MULTIPLE History of temporal artery biopsy History of tonsillectomy History of tooth extraction S/P drug eluting coronary stent placement Family History Father Lung cancer Myocardial infarction Mother , in 70s of lung cancer Breast cancer Brother Atrial fibrillation Social History Smoking Status: Never smoker Cigarettes Per Day: QUIT 28 YEARS AGO in 1994; Second Hand Exposure: No; Do You Dip or Chew Tobacco: No; Hx Alcohol Use: Yes Alcohol type: beer Alcohol Intake Frequency: 2-3 x/Week Hx Substance Use: No Preferred Language: Lithuanian Communication Ability: Effective Water Mechanic Required: No Beliefs That Will Affect Care: None marital status: Current Living Situation: Spouse current occupational status: employed 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 Feels Safe at Home: Yes Safety Concerns: Feels Safe At This Time Assistive Devices: Hearing Aid - Bilateral Review of Systems Review of Systems: All systems reviewed & are unremarkable except as noted in Subjective Physical Exam Constitutional: well nourished and + obese; no acute distress Respiratory: no respiratory distress, no labored breathing and no retractions Auscultation: no crackles, no rales, no rhonchi and no wheezes Cardiovascular: Rate/Rhythm: regular rate and regular rhythm Heart Sounds: normal S1, normal S2 and + murmur (1/6 systolic ejection murmur heard best at the second right intercostal spa) Gastrointestinal (Abdomen): Inspection/Auscultation: normal bowel sounds; abdomen not distended and no abdominal edema Percussion/Palpation: abdomen soft; abdomen nontender, no guarding and abdomen not rigid Neurologic: CN's II-XI intact bilaterally and moves all extremities; no focal motor deficits Results & Data Vital Signs (Past 12 Hours) Vital Signs Temp Pulse Resp BP Pulse Ox O2 Del Method 02/09/23 13:54 64 18 141/76 H 96 Room Air 02/09/23 12:38 77 02/09/23 11:23 36.7 C 71 18 147/81 H 97 Room Air Laboratory Results Cardiac Enzymes 02/09/23 Range/Units 11:42 AST 61 H (13-39) U/L Troponin I High Sens 7.0 (0-20) pg/ml Coagulation 02/09/23 Range/Units 11:42 PT 11.3 (9.0-12.0) Seconds APTT 26.4 (21.0-31.0) Seconds CBC 02/09/23 Range/Units 11:42 WBC 4.20 L (4.8-10.8) K/ul RBC 4.48 L (4.70-6.10) M/uL Hgb 13.4 L (14.0-18.0) g/dl Hct 39.0 L (42.0-52.0) % Plt Count 130 (130-400) K/uL Neut # (Auto) 2.82 (1.40-6.50) K/uL Lymph # (Auto) 0.73 L (1.20-3.40) K/uL [place] # (Auto) 0.44 (0.11-0.59) K/uL Eos # (Auto) 0.15 (0.00-0.50) K/uL Baso # (Auto) 0.04 (0.00-0.20) K/uL Comprehensive Metabolic Panel 02/09/23 Range/Units 11:42 Sodium 137 (136-145) mmol/L Potassium 4.1 (3.5-5.1) mmol/L Chloride 107 (98-107) mmol/L Carbon Dioxide 25 (21-32) mmol/L BUN 19 (6-23) mg/dl Creatinine 0.82 (0.6-1.4) mg/dl Glucose 138 H (70-99(Fasting)) mg/dl Calcium 9.6 (8.6-10.3) mg/dl AST 61 H (13-39) U/L ALT 82 H (7-52) U/L Alkaline Phosphatase 87 (34-104) U/L Total Protein 6.9 (6.0-8.3) gm/dl Albumin 4.1 (3.4-5.0) gm/dl Intake and Output 02/09/23 02/09/23 02/09/23 06:59 14:59 22:59 Other: Weight 103 kg 103.6 kg Weight Measurement Method Standing Scale Patient Weight 02/10/23 06:59 Weight 103.6 kg
[2023-02-09] MEDS ORDERED: Heparin IV Adult Wt-Based Standard WITH Bolus Protocol IV SCH (15:55)
[2023-02-09] MEDS: NITROGLYCERIN 2% OINTMENT 30GM TUBE EXT SCH ×2 (15:55→22:50)
[2023-02-09] MEDS ORDERED: HEPARIN SOD (PORCINE) 1000 UNIT/ML IV ONE (16:30)
[2023-02-09] MEDS: HEPARIN SODIUM/DEXTROSE 25,000 UNITS/500 ML BAG IV SCH (16:48)
[2023-02-09] MEDS: TICAGRELOR 90 MG TAB PO SCH (20:29)
[2023-02-09] MEDS: FELODIPINE 5 MG TABCR PO SCH (20:29)
[2023-02-09] MEDS: ACETAMINOPHEN 325 MG TAB PO PRN (22:54)
[2023-02-10 00:27] LABS: Partial Thromboplastin Ratio 4.8
[2023-02-10 00:59] LABS: Partial Thromboplastin Time 134.2 Seconds (21.0-31.0)
[2023-02-10] MEDS: ACETAMINOPHEN 325 MG TAB PO PRN ×3 (02:32→19:22)
[2023-02-10] MEDS: LEVOTHYROXINE SODIUM 150 MCG TABLET PO SCH (04:10)
[2023-02-10] MEDS: NITROGLYCERIN 2% OINTMENT 30GM TUBE EXT SCH ×2 (04:10→09:38)
--- NOTE | 2023-02-10 08:01 | Electrocardiogram Report ---
Test Reason : Blood Pressure : / mmHG Vent. Rate : 060 BPM Atrial Rate : 060 BPM P-R Int : 340 ms QRS Dur : 090 ms QT Int : 426 ms P-R-T Axes : 000 -33 -64 degrees QTc Int : 426 ms Poor data quality, interpretation may be adversely affected Atrial-paced rhythm with prolonged AV conduction Left axis deviation Moderate voltage criteria for LVH, may be normal variant Inferior infarct (cited on or before 16-FEB-2022) Abnormal ECG When compared with ECG of 09-FEB-2023 14:47, (unconfirmed) Premature ventricular complexes are no longer Present Nonspecific T wave abnormality, worse in Lateral leads Confirmed by Petey You ([id number]) on 02/10/2023 8:01:05 AM Referred By: REFERRED SELF Confirmed By:Jaydon You
[2023-02-10 08:47] LABS: Basophils # (auto) 0.08 K/uL (0.00-0.20); Basophils % (auto) 1.5 %; Eosinophils # (auto) 0.13 K/uL (0.00-0.50); Eosinophils % (auto) 2.5 %; Hematocrit (blood only) 39.9 % (42.0-52.0); Hemoglobin 13.3 g/dl (14.0-18.0); Immature Granulocytes # (auto) 0.01 K/uL (0.01-0.20); Immature Granulocytes % (auto) 0.2 %; Lymphocytes # (auto) 0.86 K/uL (1.20-3.40); Lymphocytes % (auto) 16.4 %; Mean Corpuscular Hemoglobin 29.6 pg (25.0-34.0); Mean Corpuscular Hgb Conc 33.3 g/dL (32.0-36.0); Mean Corpuscular Volume 88.9 fL (80.0-100.0); Monocytes # (auto) 0.44 K/uL (0.11-0.59); Monocytes % (auto) 8.4 %; Neutrophils # (auto) 3.73 K/uL (1.40-6.50); Platelet Count 129 K/uL (130-400); RDW Coefficient of Variation 13.8 % (11.5-14.5); RDW Standard Deviation 44.9 fL (36.4-46.3); Red Blood Count 4.49 M/uL (4.70-6.10); White Blood Count 5.25 K/ul (4.8-10.8)
[2023-02-10] MEDS ORDERED: ENOXAPARIN INJ 40 MG/0.4 ML SYR SQ SCH (09:00)
[2023-02-10 09:01] LABS: BUN Creatinine Ratio 21.5 (10-20); Calcium 9.2 mg/dl (8.6-10.3); Chol HDL Ratio 2.6 (0-5); Creatinine Clr Calc Pharmacy 86.8 ml/min; Est GFR (African American) 95.4 ml/min; Est GFR (Non-African American) 82.3 ml/min; Potassium 4.2 mmol/L (3.5-5.1)
[2023-02-10] MEDS: AMIODARONE 200 MG TAB PO SCH (09:28)
[2023-02-10] MEDS: ATORVASTATIN 40 MG TAB PO SCH (09:29)
[2023-02-10] MEDS: LOSARTAN POTASSIUM 50 MG TAB PO SCH (09:29)
[2023-02-10] MEDS: METOPROLOL SUCC 25MG EXT REL TAB PO SCH (09:29)
[2023-02-10] MEDS: TICAGRELOR 90 MG TAB PO SCH ×2 (09:30→19:24)
[2023-02-10] MEDS: TAMSULOSIN HCL 0.4 MG CAP PO SCH (09:30)
[2023-02-10] MEDS: PANTOprazole 40 MG TAB PO SCH (09:30)
[2023-02-10 09:35] LABS: Partial Thromboplastin Time 56.9 Seconds (21.0-31.0)
--- NOTE | 2023-02-10 09:45 | Electrocardiogram Report ---
Test Reason : Blood Pressure : / mmHG Vent. Rate : 067 BPM Atrial Rate : 067 BPM P-R Int : 000 ms QRS Dur : 092 ms QT Int : 410 ms P-R-T Axes : 000 -30 003 degrees QTc Int : 433 ms Atrial-paced rhythm with occasional Premature ventricular complexes Left axis deviation Minimal voltage criteria for LVH, may be normal variant possible Inferior infarct (cited on or before 16-FEB-2022) Poor R wave progression, consider anterior VA vs. lead placement vs. LVH Abnormal ECG When compared with ECG of 09-FEB-2023 11:40, Premature ventricular complexes are now Present Confirmed by Petey You ([id number]) on 02/10/2023 9:45:00 AM Referred By: REFERRED SELF Confirmed By:Jaydon You
--- NOTE | 2023-02-10 10:45 | Cardiology Progress Note ---
Date of Service February 10, 2023 Assessment & Plan (1) Unstable angina: (2) Jaw pain: (3) CAD in [place] artery: (4) Hypertension: (5) Frequent PVCs: Plan IMPRESSION: 72-year-old male with history of cardiac arrest, coronary disease with prior myocardial infarction status post drug-eluting stent implantation to the right coronary artery. Recurrent symptoms including jaw pain concerning for recurrent angina. Initial troponin is negative. No new regional wall motion abnormality on resting 2D transthoracic echocardiogram. PLAN: Patient to remain NPO for potential cardiac catheterization this afternoon. Continue IV heparin and topical nitrates. Continue aspirin, statin, and amiodarone as previously ordered. Case discussed with Dr. Granados-- further recommendations pending cardiac cath results. Admission and Anticipated Discharge Date Admission Date: February 09, 2023 Supervising Physician Co-Signing Physician Notes Patient seen examined the bedside. Reports 1 episode of jaw discomfort overnight. Reports difficulty sleeping. Denies orthopnea, PND, lower extremity edema. No chest discomfort or shortness of breath. Telemetry reveals atrial paced rhythm with occasional ventricular pacing. No dysrhythmia. PE: VSS. Gen: NAD, AAO x3. Heart:Regular rhythm, normal S1-S2, 1/6 systolic murmur. Lungs: Clear bilateral, no rales, rhonchi, wheeze. Extremities: No edema. Palpable radial and femoral pulses. A/P: Agree with above OBSTETRICS GYNECOLOGY PHYSICIAN history, physical exam, assessment and plan. 72-year-old male admitted with unstable angina. Further ischemic evaluation recommended. Stress testing versus cardiac catheterization discussed. Risk and benefits reviewed. Patient agreeable to coronary angiography with left heart catheterization. Previous cardiac catheterization films reviewed demonstrating severe ostial right coronary stenosis status post drug-eluting stent i mplantation. Moderate diffuse disease otherwise noted. IV heparin we placed on hold. We will proceed with cardiac catheterization this afternoon. Further recommendations pending result. Findings and recommendations discussed with both patient's daughter and . All questions answered to their satisfaction. Subjective 72-year-old male with history of cardiac arrest, coronary disease with prior myocardial infarction status post drug-eluting stent implantation to the right coronary artery. Recurrent symptoms including jaw pain concerning for recurrent angina. High-sensitivity troponins negative x3. No new regional wall motion abnormality on resting 2D transthoracic echocardiogram. IV heparin and topical nitrates started. 02/10/2023: Upon entrance into the room patient resting comfortably in the chair. at bedside. Notes 1 episode of which twinge of jaw discomfort overnight but no exertional chest pain. Denies shortness of breath. No lightheadedness or dizziness. No palpitations. No orthopnea or PND. No lower extremity edema Telemetry: Sinus rhythm/paced in the 60s. Device interrogated without any sustained or concerning dysrhythmias. No VT. VT detection turned on by [employer]. Patient currently n.p.o. for potential cardiac catheterization this afternoon. Review of Systems Review of Systems: All systems reviewed & are unremarkable except as noted in HPI & below Physical Exam Constitutional: WD/WN, vitals as above no acute distress Respiratory: normal respiratory effort, lungs clear to auscultation no respiratory distress, no labored breathing and no retractions Auscultation: no crackles, no rales, no rhonchi and no wheezes Cardiovascular: Rate/Rhythm: regular rate and regular rhythm Heart Sounds: normal S1, normal S2 and + murmur (1/6 systolic ejection murmur heard best at the second right intercostal spa) Vessels: no JVD Extremities: no edema Chest (Breasts): Chest: + pacemaker Gastrointestinal (Abdomen): normal bowel sounds, soft, nontender, no hepatosplenomegaly Inspection/Auscultation: normal bowel sounds; abdomen not distended and no abdominal edema Skin: no rashes, warm and dry Neurologic: CN's II-XI intact bilaterally and moves all extremities; no focal motor deficits Psychiatric: A+Ox3, euthymic affect Results & Data Vital Signs (Past 12 Hours) Vital Signs Temp Pulse Pulse Resp BP Pulse Ox O2 Del Method 02/10/23 07:48 36.4 C L 60 18 117/71 95 Room Air 02/10/23 07:00 63 02/10/23 04:10 60 107/64 02/10/23 02:42 36.4 C L 61 16 105/62 95 Room Air 02/10/23 01:48 61 Laboratory Results Cardiac Enzymes 02/09/23 02/09/23 02/09/23 Range/Units 11:42 18:06 23:07 AST 61 H (13-39) U/L Troponin I High Sens 7.0 8.3 8.5 (0-20) pg/ml Coagulation 02/09/23 02/09/23 02/10/23 Range/Units 11:42 23:07 08:25 PT 11.3 (9.0-12.0) Seconds APTT 26.4 134.2 H* 56.9 H* (21.0-31.0) Seconds Lipids 02/10/23 Range/Units 08:25 Triglycerides 79 (0-150) mg/dl Cholesterol 109 (0-200) mg/dl HDL Cholesterol 42 mg/dl Cholesterol/HDL Ratio 2.6 (0-5) CBC 02/09/23 02/10/23 Range/Units 11:42 08:25 WBC 4.20 L 5.25 (4.8-10.8) K/ul RBC 4.48 L 4.49 L (4.70-6.10) M/uL Hgb 13.4 L 13.3 L (14.0-18.0) g/dl Hct 39.0 L 39.9 L (42.0-52.0) % Plt Count 130 129 L (130-400) K/uL Neut # (Auto) 2.82 3.73 (1.40-6.50) K/uL Lymph # (Auto) 0.73 L 0.86 L (1.20-3.40) K/uL [place] # (Auto) 0.44 0.44 (0.11-0.59) K/uL Eos # (Auto) 0.15 0.13 (0.00-0.50) K/uL Baso # (Auto) 0.04 0.08 (0.00-0.20) K/uL Comprehensive Metabolic Panel 02/09/23 02/10/23 Range/Units 11:42 08:25 Sodium 137 140 (136-145) mmol/L Potassium 4.1 4.2 (3.5-5.1) mmol/L Chloride 107 107 (98-107) mmol/L Carbon Dioxide 25 26 (21-32) mmol/L BUN 19 20 (6-23) mg/dl Creatinine 0.82 0.93 (0.6-1.4) mg/dl Glucose 138 H 119 H (70-99(Fasting)) mg/dl Calcium 9.6 9.2 (8.6-10.3) mg/dl AST 61 H (13-39) U/L ALT 82 H (7-52) U/L Alkaline Phosphatase 87 (34-104) U/L Total Protein 6.9 (6.0-8.3) gm/dl Albumin 4.1 (3.4-5.0) gm/dl Intake and Output 02/09/23 02/10/23 02/10/23 22:59 06:59 14:59 Intake Total 400 / 996.717 596.717 / 996.717 Balance 400 / 996.717 596.717 / 996.717 Intake: IV 356.717 / 356.717 Heparin Sodium/Dextrose 25,000 356.717 / 356.717 units In 500 ml @ 1,200 UNITS/ HR 24 mls/hr IV .[id number] [facility] Rx #:[id number] Oral 400 / 640 240 / 640 Other: # Unmeasured Voids 1 2 Weight 103.6 kg 101.2 kg Weight Measurement Method Standing [facility]
[2023-02-10] MEDS: HEPARIN SODIUM/DEXTROSE 25,000 UNITS/500 ML BAG IV SCH (12:36)
[2023-02-10] MEDS ORDERED: niCARdipine HCL INJ 2.5 MG/ML 10 ML AMP ONE (13:34)
[2023-02-10] MEDS ORDERED: fentaNYL citrate PF 100 MCG/2 ML VIAL ONE (13:34)
[2023-02-10] MEDS ORDERED: MIDAZOLAM HCL 1 MG/ML 2ML VIAL ONE (13:34)
[2023-02-10] MEDS ORDERED: HEPARIN (PORCINE) 1000 UNIT/ML 10 ML (CATH LAB USE ONLY) ONE (13:34)
[2023-02-10] MEDS ORDERED: NITROGLYCERIN/D5W 100MCG/ML 20ML SYR ONE (13:35)
--- NOTE | 2023-02-10 14:49 | Post Anesthesia Assessment ---
Date of Service February 10, 2023 Post Sedation Assessment Vital Signs Temp Pulse Pulse Resp BP BP Pulse Ox 02/11/23 11:28 36.6 C 65 19 105/65 153/92 H 97 02/11/23 10:41 65 105/65 02/11/23 08:00 60 02/11/23 08:20 36.6 C 71 19 127/60 97 02/11/23 03:33 36.8 C 61 18 135/74 95 02/11/23 02:30 60 02/10/23 22:45 36.6 C 59 L 18 125/73 98 02/10/23 20:27 36.6 C 18 145/72 H 96 02/10/23 19:27 36.5 C 61 17 148/76 H 98 02/10/23 17:27 61 16 143/81 H 95 02/10/23 17:05 60 20 151/82 H 95 02/10/23 16:30 62 18 145/80 H 94 02/10/23 16:00 51 L 20 149/74 H 95 02/10/23 15:51 61 18 152/79 H 96 02/10/23 15:42 59 L 18 150/82 H 94 02/10/23 15:28 57 L 18 153/92 H 97 02/10/23 15:15 59 L 18 149/92 H 97 02/10/23 13:02 61 18 133/75 94 O2 Del Method 02/11/23 11:28 02/11/23 10:41 02/11/23 08:00 02/11/23 08:20 Room Air 02/11/23 03:33 Room Air 02/11/23 02:30 02/10/23 22:45 Room Air 02/10/23 20:27 Room Air 02/10/23 19:27 Room Air 02/10/23 17:27 Room Air 02/10/23 17:05 Room Air 02/10/23 16:30 Room Air 02/10/23 16:00 Room Air 02/10/23 15:51 Room Air 02/10/23 15:42 Room Air 02/10/23 15:28 Room Air 02/10/23 15:15 Room Air 02/10/23 13:02 Room Air Recovery Score Activity: Moves 4 extremities Respiration: Deep Breath/Cough Circulation: +/-20% PreAnes Value Consciousness: Arouseable (by name) Oxygen Saturation: > 92% On Room Air Discharge Sedation Level of Care: Phase I Post Sedation Plan On clinical assessment, the patient appears to have tolerated the sedation without complications. Patient is recovering as anticipated. Patient will continue to be monitored by nursing and may be discharged when sedation discharge criteria are met per below protocol. Upon Completions of procedure up to 15 minutes continue every 5 minute vital signs and the P.A.R. score; then discharge to a Phase I or Fast Track to Phase II per the following guidelines: * Discharge Patient to appropriate Phase II area if PAR is 8 or greater or return to pre- procedure baseline. The post - procedure orders will be as directed. * If PAR score is less than 8 or not return to pre-procedure baseline then patient will follow Phase I monitoring till PAR is reached for Phase II. The Phase I may be done in procedure room or may call to secure a Phase I area. * If naloxone or flumazenil are used for reversal, hold in Phase I for continued monitoring from when last reversal dose was given for a minimum of 6 0 minutes or longer pending the nurse and/or physician discretion of patient condition before discharge to Phase II. Please call the Sedation Physician to re-evaluate and complete post-note for discharge to Phase II area. Do NOT discharge from procedure sedation or Phase 1 until post- sedation evaluation note is complete by procedure /sedation MD Sedation Discharge Instructions to be given to the patient at discharge to home.
--- NOTE | 2023-02-10 15:07 | Cardiac Catheterization ---
Cardiac Cath Procedure Full Procedure Date February 10, 2023 Pre-Procedure Diagnosis Pre-Procedure Diagnosis: Acute Coronary Syndrome and Angina AUC Score AUC Score: 7 Post-Procedure Diagnosis Post-Procedure Diagnosis: Severe CAD and Normal Intracardiac Pressures Procedure(s) Performed Procedure(s) Performed: Coronary Angiography and Left Heart Cath Reed Or Wind Instrument Tuner Antonino Granados DO [employer] Application Developer(s) Shan RTR. Estimated Blood Loss Estimated Blood Loss: 5cc Medication(s) Medication(s): Fentanyl, Heparin, Nicardipine, Nitroglycerin and Versed Summary of Findings Left main: 20% proximal, and 20% distal stenosis LAD: Moderate diffuse disease throughout the proximal, mid, distal segments with stenosis ranging from 20-40%. D1 - D3: Moderate caliber vessels with mild luminal irregularities. Left circumflex: There are 2 left circumflex arteries, one arising from the left main and a second, auxiliary circumflex arising from the right coronary cusp. There is a 50-60% stenosis involving the proximal left circumflex arising from the left main coronary artery. The auxiliary, left circumflex arising from the right coronary cusp demonstrates luminal irregularities with 30% mid stenosis. LPL (Branch of left circumflex arising from the left main): Luminal irregularities, 10%. Right coronary artery: 50-60% ostial/ proximal RCA stenosis. Proximal stent with 20% in-stent restenosis. Moderate luminal irregularities in the mid segment stenosis ranging up to 30%. RPDA: Diffuse luminal irregularities, 30%. RPL1 and RPL2: Small vessels with luminal irregularities and stenosis ranging up to 20%. Addendum: IFR performed by Dr. Orozco on both the proximal/ostial right coronary artery and proximal left circumflex. IFR was not hemodynamically significant. Hemodynamics Rest Ao:: 88/62/99 Final Ao: 130/6791 LV: 121/4/8 Recommendations Recommendations: Management Recommendatons (Interventional cardiology consulted for further assessment of ostial/proximal RCA stenosis addendum: IFR not significant. Medical management recommended) Radiation Exposure (mGy) 2022 Contrast (mls) 110 Fluids (cc crystalloids) Fluids (cc crystalloids): 30 Nss Drains Drains: N/A Anesthesia Moderate sedation. Start 1408. End 1430. Sedation monitor: Chris ULRICH Procedural Complication(s) None Disposition Patient remained in Denture Contour Wire Specialist for further assessment by interventional cardi I attest to the content of the Intraoperative Record and any orders documented therein. Any exceptions are noted below. ACC Data: Denture Contour Wire Specialist Cardiac Status Clinical evaluation leading to the procedure 72-year-old patient with a history of coronary artery disease status post proximal RCA stenting and cardiac arrest 02/2022. Presented to the ER with unstable angina. CAD Presenation: Unstable angina Anginal Classification: CCS IV Coronary Anatomy Dominant: Right Diagnostic Physicians Name: Antonino Granados DO Closure Device Recommendations: Management Recommendatons (Interventional cardiology consulted for further assessment of ostial/proximal RCA stenosis addendum: IFR not significant. Medical management recommended) Intraprocedure Events Significant Disection: No Perforation: No
--- NOTE | 2023-02-10 15:39 | Cardiac Catheterization ---
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 (50 to 60% stenosis)) RCA (% Stenosis): Ostial (iFR 0.99, 0.99, 0.99 (50 to 60% stenosis)) Diagnostic Physicians Name: Isacc Orozco MD, PhD Closure Device Percutaneous Entry Location: Radial Closure Device: Radial Band Recommendations: Medical Therapy and/or Counseling Intraprocedure Events Significant Disection: No Perforation: No Cardiac Cath Procedure Full Procedure Date February 10, 2023 Pre-Procedure Diagnosis Pre-Procedure Diagnosis: Angina AUC Score AUC Score: 7 Post-Procedure Diagnosis Post-Procedure Diagnosis: Moderate CAD Procedure(s) Performed Procedure(s) Performed: Coronary Angiography and Left Heart Cath Copier Field Service Technician Isacc Orozco MD, PhD Welt Butter Hand(s) Gabo LAMA. Estimated Blood Loss Estimated Blood Loss: 5cc Medication(s) Medication(s): Fentanyl, Heparin, Nicardipine, Nitroglycerin and Versed Summary of Findings Brief description: Patient was already sedated, sterilely prepped with a 6 Persian radial artery glide sheath in the right radial artery after having undergone diagnostic coronary angiography by Dr. Rosales. ACT was checked and additional heparin was provided as indicated. I was asked to further investigate his angiographically borderline disease in the ostium of the RCA as well as in the circumflex. A 6 Persian JR4 guide catheter was advanced over a J-wire and "parked" just outside the ostium of the RCA. The Doppler wire was then advanced through the guide catheter and positioned with its transducer just distal to the guide catheter tip (in the right coronary cusp). System was flushed and pressures were normalized. Then, the guidewire was advanced across the ostium of the RCA and positioned more distally beyond the previously placed stent. The IFR was then sampled 3 times. The guidewire was removed. The guide catheter was then removed over the J-wire and exchanged for a 6 Persian EBU 3.0 guide catheter. This was used to engage the left main coronary. The Doppler wave wire was reinserted and advanced into the left main coronary such that the transducer was just distal to the guide catheter tip. The system was once again flushed with normal saline and then the pressures were normalized. Under fluoroscopic guidance the guidewire was then advanced and positioned distal to the lesion in the circumflex. iFR was not sampled 3 times. The guidewire was removed. Final angiographic evaluation was performed to exclude complication from guidewire passage. The guide catheter was then removed. Radial artery sheath was removed. Hemostasis was obtained using the TR band. Patient remained hemodynamically stable and asymptomatic. He was returned to the recovery area. This ended the case. IFR findings: iFR of ostial RCA: 0.99, 0.99, 0.99. Therefore, this is not hemodynamically significant. iFR of the AV groove circumflex: 0.96, 0.96, 0.95. Therefore, this is not hemodynamically significant. No evidence of dissection or perforation post IFR analysis. CE-3 flow post IFR analysis. Summary: 1. Angiographically borderline ostial RCA and AV groove circumflex lesions are not hemodynamically significant as determined by IFR analysis. 2. No complications of IFR analysis. 3. Guideline directed medical therapy for anginal relief and secondary prevention of coronary artery disease per primary hydrometer tester. Hemodynamics Rest Ao:: 133/67 mmHg Final Ao: 143/74 mmHg LV: Not performed Recommendations Recommendations: Medical Therapy and/or Counseling Radiation Exposure (mGy) 2930 mGy total, fluoroscopy time 11.2 minutes total (diagnostic and interve Contrast (mls) 135 mL total (diagnostic and intervention) Fluids (cc crystalloids) Fluids (cc crystalloids): 30 Nss Drains Drains: N/A Anesthesia 1 mg IV Versed, 25 mcg IV fentanyl. 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 Any exceptions are noted below. [facility] Card Cath Procedure Codes Cardiac Catheterization Procedure 1: Cardiovascular Cath Procedures: 45425 (Doppler) Pressure Wire (RCA) Procedure 2: Cardiovascular Cath Procedures: 63539 (Doppler) Pressure Wire Addl vessel (LCx) Moderate Sedation Procedure 1: Sedation/Anesthesia: 35683 Mod Sedation by a different physician ;Init15 Min Child Age 5&Up (Initial 15 min, different physician start 1438) Procedure 2: Sedation/Anesthesia: 26561 Mod Sedation by a different physician;Ea Additional 15 Minutes (Additional 10 min, different physician, End 1503) PG Care Time/CCT Total # of Minutes Spent Total Time Spent with Patient: Total time spent is greater than 50% in coordination of care (as documented) at patient's floor/unit and/or counseling patient:
--- NOTE | 2023-02-10 16:08 | Hospitalist Progress Note ---
Date of Service February 10, 2023 Assessment & Plan (1) Jaw pain: Plan: This is a 72 y/o male with a history of cardiac arrest in 03/04, inferior STEMI s/p RCA BENOIT x2, dual lead ICD placement, hx afib w/ RVR, tachy-yasir syndrome, sleep apnea on CPAP, hypothyroidism and other history as outlined below who presents to the ED today with exertional jaw pain that started last week. These symptoms are similar to those he had prior to the [place]/cardiac last year so he is concerned for recurrent cardiac issues. Initial troponin was negative, EKG without ischemic changes. However, since pt has an extensive cardiac history, he was referred for admission as a rule out [place]. Outpatient PCP and cardio notes as well as notes from last hospital admission were extensively reviewed. - Observe in PCU overnight -Serial cardiac enzymes remain unremarkable for any ACS and the patient remains free of pain since this morning - Check ECHO showed-compared to study dated 02/17/2022, inferior/posterior wall motion abnormality not present and LV systolic function has improved with EF 55 to 65% . Aortic valve sclerosis without any stenosis, mild concentric LVH with normal wall motion, mild MR, mild TR and Doppler finding do not suggest pulmonary hypertension. Mild aortic root dilatation - Consult cardiology-appreciate input and recommendation - Device interrogation was ordered by the ED - awaiting results Status post cardiac cath and recommendation:: Angiographically borderline ostial RCA and AV groove circumflex elation are not hemodynamically significant as determined by IFR analysis. No complications of IFR analysis. Guideline directed medical therapy for anginal relief and secondary prevention of coronary artery disease per primary pre sales network engineer Patient remains stable following the procedure We will continue with current management (2) CAD in [place] artery: Plan: As above (3) Paroxysmal A-fib: Plan: Rate remains controlled (4) Hypertension: Plan: Remains on the upper side at 152/79 (5) Hyperlipidemia: Plan: Continue statin (6) GERD (gastroesophageal reflux disease): (7) Obstructive sleep apnea: Plan: CPAP ordered with outpatient settings Plan Code Status: Full code DVT Prophylaxis: Lovenox for now Admission and Anticipated Discharge Date Admission Date: February 09, 2023 Subjective 02/10/2023 The patient was seen and examined in telemetry unit He was admitted with exertional left jaw pain with history of significant cardiac disease During my examination denied any more jaw pain, chest pain or palpitation, no shortness of breath Underwent cardiac cath and medical management contemplated following that Review of Systems Review of Systems: All systems reviewed and are unremarkable except as noted below Physical Exam Physical Exam: Sitting on a chair without any acute distress Constitutional: well developed, well nourished and + obese; not ill appearing Eyes: PERRL, conjunctivae normal, anicteric sclerae ENMT: external ear and nose normal, oropharynx normal Neck: trachea midline, no thyromegaly Respiratory: no respiratory distress Auscultation: lungs clear to auscultation bilaterally Cardiovascular: Rate/Rhythm: regular rate and regular rhythm; not tachycardic Heart Sounds: normal S1 and normal S2; no murmur Extremities: no edema Gastrointestinal (Abdomen): Inspection/Auscultation: normal bowel sounds; abdomen not distended Percussion/Palpation: abdomen soft; abdomen nontender Musculoskeletal: No acute arthritis involving any of the joint Neurologic: normal touch/pain/proprioception and moves all extremities; no focal motor deficits Psychiatric: A+Ox3, euthymic affect Lymphatic: no cervical or axillary lymphadenopathy Results & Data Results & Data Vital Signs (Past 12 Hours) Vital Signs Temp Pulse Pulse Resp BP BP Pulse Ox 02/10/23 15:51 61 18 152/79 H 96 02/10/23 15:42 59 L 18 150/82 H 94 02/10/23 15:28 57 L 18 153/92 H 97 02/10/23 15:15 59 L 18 149/92 H 97 02/10/23 13:02 61 18 133/75 94 02/10/23 11:39 36.4 C L 60 20 123/73 95 02/10/23 07:48 36.4 C L 60 18 117/71 95 02/10/23 07:00 63 02/10/23 04:10 60 107/64 O2 Del Method 02/10/23 15:51 Room Air 02/10/23 15:42 Room Air 02/10/23 15:28 Room Air 02/10/23 15:15 Room Air 02/10/23 13:02 Room Air 02/10/23 11:39 Room Air 02/10/23 07:48 Room Air 02/10/23 07:00 02/10/23 04:10 Laboratory Results Short CBC 02/10/23 Range/Units 08:25 WBC 5.25 (4.8-10.8) K/ul Hgb 13.3 L (14.0-18.0) g/dl Hct 39.9 L (42.0-52.0) % Plt Count 129 L (130-400) K/uL [facility] 02/10/23 08:25 Sodium 140 Potassium 4.2 Chloride 107 Carbon Dioxide 26 BUN 20 Creatinine 0.93 Glucose 119 H Calcium 9.2 Medications Administered Current Inpatient Medications Acetaminophen (Acetaminophen 325 Mg Tab) 650 mg PO Q4H PRN PRN Reason: Pain or Fever Stop: 03/11/23 15:20 Last Admin: 02/10/23 12:18 Dose: 650 mg Amiodarone HCl (Amiodarone 200 Mg Tab) [address] [facility] Stop: 03/12/23 08:59 Last Admin: 02/10/23 09:28 Dose: 200 mg Aspirin (Aspirin 81 Mg Ectab) 81 mg PO [facility] Stop: 03/12/23 20:59 Atorvastatin Calcium (Atorvastatin 40 Mg Tab) 80 mg PO DAILY [facility] Stop: 03/12/23 08:59 Last Admin: 02/10/23 09:29 Dose: 80 mg Felodipine (Felodipine 5 Mg Tabcr) 5 mg PO [facility] Stop: 03/11/23 20:59 Last Admin: 02/09/23 20:29 Dose: 5 mg Heparin Sodium/Dextrose (Heparin Sodium/Dextrose) 25,000 units in 500 mls @ 24 mls/hr IV .[id number] [facility]; Protocol Stop: 03/11/23 16:14 Last Admin: 02/10/23 12:36 Dose: Not Given Isosorbide Mononitrate (Isosorbide [place] Extended Rel 30 Mg Tabcr) [address] [facility] Stop: 03/13/23 08:59 Levothyroxine Sodium (Levothyroxine Sodium 150 Mcg Tablet) 150 mcg PO DAILYBB [facility] Stop: 03/12/23 06:29 Last Admin: 02/10/23 04:10 Dose: 150 mcg Losartan Potassium (Losartan Potassium 50 Mg Tab) 100 mg PO DAILY [facility] Stop: 03/12/23 08:59 Last Admin: 02/10/23 09:29 Dose: 100 mg Metoprolol Succinate (Metoprolol Succ 25mg Ext Rel Tab) 25 mg PO DAILY [facility] Stop: 03/12/23 08:59 Last Admin: 02/10/23 09:29 Dose: 25 mg Nitroglycerin (Nitroglycerin Sl 0.4 Mg/Tab Tab) 0.4 mg SL Q5M PRN PRN Reason: Chest Pain Stop: 03/11/23 15:20 Pantoprazole Sodium (Pantoprazole 40 Mg Tab) 40 mg PO QAM [facility]; Protocol Stop: 03/12/23 08:59 Last Admin: 02/10/23 09:30 Dose: 40 mg Tamsulosin HCl (Tamsulosin Hcl 0.4 Mg Cap) 0.4 mg PO DAILY [facility] Stop: 03/12/23 08:59 Last Admin: 02/10/23 09:30 Dose: 0.4 mg Ticagrelor (Ticagrelor 90 Mg Tab) 90 mg PO BID [facility] Stop: 03/11/23 20:59 Last Admin: 02/10/23 09:30 Dose: 90 mg
[2023-02-10] MEDS: FELODIPINE 5 MG TABCR PO SCH (19:24)
[2023-02-10] MEDS ORDERED: ASPIRIN 81 MG ECTAB PO SCH (21:00)
[2023-02-11] MEDS: LEVOTHYROXINE SODIUM 150 MCG TABLET PO SCH (05:52)
[2023-02-11 06:22] LABS: Basophils # (auto) 0.06 K/uL (0.00-0.20); Basophils % (auto) 0.8 %; Eosinophils # (auto) 0.16 K/uL (0.00-0.50); Eosinophils % (auto) 2.1 %; Hematocrit (blood only) 41.5 % (42.0-52.0); Hemoglobin 13.6 g/dl (14.0-18.0); Immature Granulocytes # (auto) 0.03 K/uL (0.01-0.20); Immature Granulocytes % (auto) 0.4 %; Lymphocytes # (auto) 0.83 K/uL (1.20-3.40); Lymphocytes % (auto) 11.1 %; Mean Corpuscular Hemoglobin 29.2 pg (25.0-34.0); Mean Corpuscular Hgb Conc 32.8 g/dL (32.0-36.0); Mean Corpuscular Volume 89.2 fL (80.0-100.0); Monocytes # (auto) 0.98 K/uL (0.11-0.59); Monocytes % (auto) 13.1 %; Neutrophils # (auto) 5.42 K/uL (1.40-6.50); Neutrophils % (auto) 72.5 %; Platelet Count 129 K/uL (130-400); RDW Standard Deviation 45.7 fL (36.4-46.3); Red Blood Count 4.65 M/uL (4.70-6.10); White Blood Count 7.48 K/ul (4.8-10.8)
[2023-02-11 06:38] LABS: BUN Creatinine Ratio 16.4 (10-20); Calcium 9.4 mg/dl (8.6-10.3); Creatinine Clr Calc Pharmacy 60.2 ml/min; Est GFR (African American) 61.3 ml/min; Est GFR (Non-African American) 52.9 ml/min; Potassium 4.5 mmol/L (3.5-5.1)
[2023-02-11] MEDS: TAMSULOSIN HCL 0.4 MG CAP PO SCH (07:45)
[2023-02-11] MEDS: METOPROLOL SUCC 25MG EXT REL TAB PO SCH (07:45)
[2023-02-11] MEDS: AMIODARONE 200 MG TAB PO SCH (07:45)
[2023-02-11] MEDS: PANTOprazole 40 MG TAB PO SCH (07:45)
[2023-02-11] MEDS: ATORVASTATIN 40 MG TAB PO SCH (07:45)
[2023-02-11] MEDS: LOSARTAN POTASSIUM 50 MG TAB PO SCH (07:45)
[2023-02-11] MEDS: TICAGRELOR 90 MG TAB PO SCH (07:46)
[2023-02-11] MEDS ORDERED: ISOSORBIDE MONO EXTENDED REL 30 MG TABCR PO SCH (09:00)
--- NOTE | 2023-02-11 12:00 | Cardiology Progress Note ---
Date of Service February 11, 2023 Assessment & Plan (1) CAD in [place] artery: (2) Hypertension: (3) Frequent PVCs: Plan Results of cardiac catheterization demonstrating stable, moderate diffuse coronary artery disease discussed. Patient agreeable to addition of low-dose isosorbide monohydrate. Continue other cardiovascular medications including amiodarone, aspirin, atorvastatin, felodipine, metoprolol succinate, Brilinta, and losartan. Postcardiac catheterization activity restrictions listed below. All questions answered to patient's satisfaction. Outpatient cardiology follow-up as scheduled. ACTIVITY RECOMMENDATIONS: Excess manipulation of the wrist should be avoided for the next 24-48 hours. * No lifting over 2 pounds (approximately a 1/2 gallon of milk) with the utilized arm for 24 hours. * No strenuous activity such as bowling or tennis for 3 days. * Keep the site of the procedure covered with a bandage for 24 hours. *You may shower the day after the procedure. Do not take a tub bath or submerge the puncture site in water for the next 3 days. *Do not operate any motorized equipment for 3 days. SPECIAL CARE INSTRUCTIONS: The site may be slightly bruised and sore following your procedure. Should any of the following occur, contact the Dr. who performed your procedure. 1. Redness/inflammation, swelling, chills, or fever, or colored drainage at procedure site within 3-7 days after your procedure. 2. Coldness, discoloration, ongoing numbness, severe pain, or swelling. Expect mild tingling of hand and tenderness at the puncture site for up to three days. If this persists beyond three days, or other symptoms develop, notify the Dr. who performed your procedure. BLEEDING: If the procedure site on your wrist begins to bleed, do not panic 1. Place 1 or 2 fingers firmly just slightly above the insertion site to stop the bleeding. You may be able to feel your pulse as you hold pressure. 2. Lift your finger after 5 minutes to see if the bleeding has stopped. 3. Once the bleeding has stopped, gently wipe the wrist area clean with a bandage. * If the bleeding from your wrist does not stop after 10 minutes, or if there is a large amount of bleeding or spurting, call 911 (do not drive yourself to the hospital). SKIN IRRITATION: * You may experience some redness and/or swelling in the area where radiation was administered. If any skin irritation occurs, please contact your family physician. FOLLOW UP VISIT: Keep any scheduled doctor appointments. Admission and Anticipated Discharge Date Admission Date: February 09, 2023 Subjective Patient seen examined the bedside. No recurrent jaw discomfort overnight. Feeling well from a cardiovascular perspective. Telemetry reveals sinus rhythm and atrial pacing at 60 bpm. No dysrhythmias. Received dose of isosorbide monohydrate this morning. No side effects. Anxious for discharge. Review of Systems Review of Systems: All systems reviewed & are unremarkable except as noted in Subjective Physical Exam Constitutional: well nourished and + obese; no acute distress Respiratory: no respiratory distress, no labored breathing and no retractions Auscultation: no crackles, no rales, no rhonchi and no wheezes Cardiovascular: Rate/Rhythm: regular rate and regular rhythm Heart Sounds: normal S1, normal S2 and + murmur (1/6 systolic ejection murmur heard best at the second right intercostal spa) Vessels: radial pulses present (No ecchymosis or hematoma.); no JVD and no carotid bruit Extremities: no edema Gastrointestinal (Abdomen): Inspection/Auscultation: normal bowel sounds; abdo men not distended and no abdominal edema Percussion/Palpation: abdomen soft; abdomen nontender, no guarding and abdomen not rigid Neurologic: CN's II-XI intact bilaterally and moves all extremities; no focal motor deficits Results & Data Vital Signs (Past 12 Hours) Vital Signs Temp Pulse Pulse Resp BP BP Pulse Ox 02/11/23 11:28 36.6 C 65 19 105/65 153/92 H 97 02/11/23 10:41 65 105/65 02/11/23 08:00 60 02/11/23 08:20 36.6 C 71 19 127/60 97 02/11/23 03:33 36.8 C 61 18 135/74 95 02/11/23 02:30 60 O2 Del Method 02/11/23 11:28 02/11/23 10:41 02/11/23 08:00 02/11/23 08:20 Room Air 02/11/23 03:33 Room Air 02/11/23 02:30 Laboratory Results CBC 02/11/23 Range/Units 05:49 WBC 7.48 (4.8-10.8) K/ul RBC 4.65 L (4.70-6.10) M/uL Hgb 13.6 L (14.0-18.0) g/dl Hct 41.5 L (42.0-52.0) % Plt Count 129 L (130-400) K/uL Neut # (Auto) 5.42 (1.40-6.50) K/uL Lymph # (Auto) 0.83 L (1.20-3.40) K/uL [place] # (Auto) 0.98 H (0.11-0.59) K/uL Eos # (Auto) 0.16 (0.00-0.50) K/uL Baso # (Auto) 0.06 (0.00-0.20) K/uL Comprehensive Metabolic Panel 02/11/23 Range/Units 05:49 Sodium 140 (136-145) mmol/L Potassium 4.5 (3.5-5.1) mmol/L Chloride 107 (98-107) mmol/L Carbon Dioxide 26 (21-32) mmol/L BUN 22 (6-23) mg/dl Creatinine 1.34 D (0.6-1.4) mg/dl Glucose 106 H (70-99(Fasting)) mg/dl Calcium 9.4 (8.6-10.3) mg/dl Intake and Output 02/10/23 02/11/23 02/11/23 22:59 06:59 14:59 Intake Total 295 / 675 240 / 675 Balance 295 / 675 240 / 675 Intake: Oral 295 / 535 240 / 535 Other: # Unmeasured Voids 1 1 Weight 100.8 kg 100.8 kg Weight Measurement Method Standing Scale Patient Weight 02/12/23 06:59 Weight 100.8 kg
--- NOTE | 2023-02-11 13:33 | Hospitalist Progress Note ---
Date of Service February 11, 2023 Assessment & Plan (1) Jaw pain: Plan: per Dr. Goncalves's notes with addendum: This is a 72 y/o male with a history of cardiac arrest in 03/04, inferior STEMI s/p RCA BENOIT x2, dual lead ICD placement, hx afib w/ RVR, tachy-yasir syndrome, sleep apnea on CPAP, hypothyroidism and other history as outlined below who presents to the ED today with exertional jaw pain that started last week. These symptoms are similar to those he had prior to the [place]/cardiac last year so he is concerned for recurrent cardiac issues. Initial troponin was negative, EKG without ischemic changes. However, since pt has an extensive cardiac history, he was referred for admission as a rule out [place]. Outpatient PCP and cardio notes as well as notes from last hospital admission were extensively reviewed. - Observe in PCU overnight -Serial cardiac enzymes remain unremarkable for any ACS and the patient remains free of pain since this morning - Check ECHO showed-compared to study dated 02/17/2022, inferior/posterior wall motion abnormality not present and LV systolic function has improved with EF 55 to 65% . Aortic valve sclerosis without any stenosis, mild concentric LVH with normal wall motion, mild MR, mild TR and Doppler finding do not suggest p ulmonary hypertension. Mild aortic root dilatation - Consult cardiology-appreciate input and recommendation - Device interrogation was ordered by the ED - awaiting results Status post cardiac cath and recommendation:: Angiographically borderline ostial RCA and AV groove circumflex elation are not hemodynamically significant as determined by IFR analysis. No complications of IFR analysis. 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 Patient remains stable following the procedure We will continue with current management 02/11 no recurrence of jaw pain no other cardiac symptoms Cardiology service consulted: added Imdur 30mg in AM ff up with Cardiology in 2 weeks (2) CAD in [place] artery: Plan: As above (3) Paroxysmal A-fib: Plan: Rate remains controlled (4) Hypertension: (5) Hyperlipidemia: Plan: Continue statin (6) GERD (gastroesophageal reflux disease): (7) Obstructive sleep apnea: Plan: CPAP ordered with outpatient settings Plan d/c home Admission and Anticipated Discharge Date Admission Date: February 09, 2023 Subjective ff up for angina, history of CAD etc seen resting in chair, comfortable states he feels fine overall no recurrence of jaw pain no chest pain, dyspnea, palpitations, dizziness no nausea/vomiting no other new symptoms states he is ready for discharge today Review of Systems Review of Systems: all noted and negative except for above Physical Exam Physical Exam: General- oriented x 3, not in distress, speaks in sentences with no effort or accessory muscle use Eyes- anicteric Neck- no JVD Lungs- clear breath sounds bilaterally, no rales/wheezes Heart- normal rate, regular rhythm; no murmurs Abdomen- normal bowel sounds, nondistended, soft, nontender Extremities- no pretibial edema, no calf tenderness Neuro- alert, oriented x 3; no gross focal neurologic deficits Skin- warm & dry Results & Data Results & Data Vital Signs (Past 12 Hours) Vital Signs Temp Pulse Pulse Resp BP BP Pulse Ox 02/11/23 11:28 36.6 C 65 19 105/65 153/92 H 97 02/11/23 10:41 65 105/65 02/11/23 08:00 60 02/11/23 08:20 36.6 C 71 19 127/60 97 02/11/23 03:33 36.8 C 61 18 135/74 95 02/11/23 02:30 60 O2 Del Method 02/11/23 11:28 02/11/23 10:41 02/11/23 08:00 02/11/23 08:20 Room Air 02/11/23 03:33 Room Air 02/11/23 02:30 all noted and reviewed including below
--- NOTE | 2023-02-11 13:36 | Discharge Summary ---
Discharge Summary Date of Service February 11, 2023 Notes For Next Care Provider Medication Changes From Visit New Medication: Imdur 30mg daily Admission HPI Per Admitting Provider This is a 72 y/o male with a history of cardiac arrest in 03/04, inferior STEMI s/p RCA BENOIT x2, dual lead ICD placement, hx afib w/ RVR, tachy-yasir syndrome, sleep apnea on CPAP, hypothyroidism and other history as outlined below who presents to the ED today with exertional jaw pain that started last week. Pt reports that last Thursday or Thursday, he started with a gnawing discomfort in his bilateral jaw while standing on his porch talking to his daughter, although it was right after golfing where he exerted himself. This discomfort lasted several seconds but then went away when he sat down. Vale similar to prior [place] (before cardiac arrest last year). He has had some similar twinges in his jaw since then but very mild. Today the more significant discomfort happened again, more severe than last time, while he was working in the yard. Came inside and sat down but the discomfort didn't immediately go away so decided to come for evaluation. This episode the discomfort lasted several minutes. It has since come back to a lesser degree in the ED a little while ago - still present but minimal. Today it was an 8/10 at its worst. Does not radiate anywhere. Did not try nitro for these symptoms. Associated fatigue, shortness of breath, and dizziness. No abd pain, N/V/D, fevers, chills, cough. Has been very active to this point and felt well until last week. Does not recall his ICD firing. Admission Exam Per Admitting Provider General: No acute distress and not ill appearing Eyes: PERRL, conjunctivae normal, not pale, anicteric sclerae, EOM intact bilaterally ENMT: External ear and nose normal, oropharynx normal Neck: No tenderness along neck/jaw Respiratory: Normal respiratory effort, no respiratory distress, lungs clear to auscultation, no crackles and no wheezes Cardiovascular: RRR S1 S2 Gastrointestinal (Abdomen): Abdomen is not distended, soft, non-tender to palpation, no guarding, no palpable hepatosplenomegaly, normal bowel sounds Musculoskeletal: No pedal edema Neurologic: Alert and oriented x 3, No focal weakness, sensation grossly intact Psychiatric: Mildly anxious Principal Dx & Hospital Course #1 = Principal Diagnosis (1) Jaw pain: per Dr. Goncalves's notes with addendum: This is a 72 y/o male with a history of cardiac arrest in 03/04, inferior STEMI s/p RCA BENOIT x2, dual lead ICD placement, hx afib w/ RVR, tachy-yasir syndrome, sleep apnea on CPAP, hypothyroidism and other history as outlined below who presents to the ED today with exertional jaw pain that started last week. These symptoms are similar to those he had prior to the [place]/cardiac last year so he is concerned for recurrent cardiac issues. Initial troponin was negative, EKG without ischemic changes. However, since pt has an extensive cardiac history, he was referred for admission as a rule out [place]. Outpatient PCP and cardio notes as well as notes from last hospital admission were extensively reviewed. - Observe in PCU overnight -Serial cardiac enzymes remain unremarkable for any ACS and the patient remains free of pain since this morning - Check ECHO showed-compared to study dated 02/17/2022, inferior/posterior wall motion abnormality not present and LV systolic function has improved with EF 55 to 65% . Aortic valve sclerosis without any stenosis, mild concentric LVH with normal wall motion, mild MR, mild TR and Doppler finding do not suggest pulmonary hypertension. Mild aortic root dilatation - Consult cardiology-appreciate input and recommendation - Device interrogation was ordered by the ED - awaiting results Status post cardiac cath and recommendation:: Angiographically borderline ostial RCA and AV groove circumflex elation are not hemodynamically significant as determined by IFR analysis. No complications of IFR analysis. Guideline directed medical therapy for anginal relief and secondary prevention of coronary artery disease per primary census taker Patient remains stable following the procedure We will continue with current management 02/11 no recurrence of jaw pain no other cardiac symptoms Cardiology service consulted: added Imdur 30mg in AM ff up with Cardiology in 2 weeks (2) CAD in [place] artery: As above (3) Paroxysmal A-fib: Rate remains controlled (4) Hypertension: (5) Hyperlipidemia: Continue statin (6) GERD (gastroesophageal reflux disease): (7) Obstructive sleep apnea: CPAP ordered with outpatient settings Plan d/c home Discharge Exam General- oriented x 3, not in distress, speaks in sentences with no effort or accessory muscle use Eyes- anicteric Neck- no JVD Lungs- clear breath sounds bilaterally, no rales/wheezes Heart- normal rate, regular rhythm; no murmurs Abdomen- normal bowel sounds, nondistended, soft, nontender Extremities- no pretibial edema, no calf tenderness Neuro- alert, oriented x 3; no gross focal neurologic deficits Skin- warm & dry Updated Medication List Medication Instructions Recorded Confirmed Type aspirin 81 mg tablet,delayed 81 mg PO HS 01/11/18 02/09/23 History release felodipine 5 mg tablet,extended 5 mg PO HS 01/11/18 02/09/23 History release 24 hr omeprazole 20 mg delayed 1 tab PO QAM 01/11/18 02/09/23 History release,disintegrating tablet levothyroxine 150 mcg tablet 150 mcg PO DAILY 02/16/22 02/09/23 History olmesartan 40 mg tablet 40 mg PO DAILY 02/16/22 02/09/23 History tamsulosin 0.4 mg capsule 0.4 mg PO DAILY 02/16/22 02/09/23 History amiodarone 200 mg tablet 200 mg PO QAM 04/28/22 02/09/23 History atorvastatin 80 mg tablet 80 mg PO DAILY 04/28/22 02/09/23 History metoprolol succinate 25 mg 25 mg PO DAILY 04/28/22 02/09/23 History tablet,extended release 24 hr nitroglycerin 0.4 mg sublingual 0.4 mg sublingual UD PRN Chest Pain 04/28/22 02/09/23 History tablet ticagrelor 90 mg tablet (Brilinta) 90 mg PO BID 04/28/22 02/09/23 History isosorbide mononitrate 30 mg 30 mg PO QAM 30 days #30 tabs 02/11/23 Rx tablet,extended release 24 hr Hospital Stay Data Consultations 02/09/23 12:50 ED Decision to Admit Stat 02/09/23 13:36 Consult Cardiology Routine Procedures Performed Operation Date: 02/10/23 14:30 Actual Procedures s Cineradiography w/Routine Exam - Antonino Granados DO p Cath, Left with Cors and Vent - Antonino Granados DO Diagnostic Imagining Performed 02/10/23 07:18 CL Cath Imgs for PACS use only Routine Pending Results Patient Have Any Pending Studies at Discharge: No Discharge Instructions Given to Patient (Per Discharging Provider) PLEASE REFER TO YOUR NEW MEDICATION LIST AND FOLLOW INSTRUCTIONS CAREFULLY. YOUR NEW MEDICATIONS INCLUDE: ISOSORBIDE MONONITRATE PLEASE CALL YOUR PRIMARY CARE PHYSICIAN OR RETURN TO THE ER IF WITH WORSENING OF SYMPTOMS, INCLUDING CHEST PAIN, JAW PAIN, SHORTNESS OF BREATH, PALPITATIONS, NAUSEA/VOMITING, ETC FOLLOW UP WITH PRIMARY CARE PHYSICIAN IN 1 WEEK. FOLLOW UP WITH VISUAL LEAD IN 2 WEEKS. Total Time Total Time Spent Total Time Spent (In Minutes): >30 minutes
== END 2023-02-11 11:56 | disposition home or self-care (01) ==
LOC: ED 11:13 → 2S 11:13 → SUATTDRO 13:35 → 2S 13:54